=== PATIENT | female | born 1955 | race Caucasian/White ===

== ENCOUNTER → 2018-04-27 10:00 | Outpatient (CLI) | payer BC, SELFPAY ==
--- NOTE | 2018-04-27 10:04 | US_ITS ---
STUDY: RENAL ULTRASOUND - COMPLETE REASON FOR EXAM: Female, 62 years old. Chronic kidney disease stage III. TECHNIQUE: Ultrasound evaluation of the kidneys was performed with real-time and static contreras-scale imaging. COMPARISON: None. FINDINGS: RIGHT KIDNEY: 12.2 x 5.6 x 5.9 cm. Normal cortical thickness 1.7 cm. Slightly echogenic renal parenchyma. There is no mass, cyst or calculus. There is very slight ectasia of the collecting system. LEFT KIDNEY: 10.5 x 4.3 x 4.6 cm. Normal cortical thickness 1.1 cm. Mildly echogenic cortex. There is no mass or hydronephrosis. A 4 mm nonobstructing calyceal calculus is observed. There is a 13 mm simple cortical cyst. There is no hydronephrosis. BLADDER: Distended volume 274 mL, post void residual 35 mL, small postvoid residual. Urinary bladder is normal in caliber, contour and wall thickness. Wall thickness up to 3 mm. Bilateral ureteral jets are visible. Adjacent to the left kidney, what appears to be homogeneously hypoechoic splenule measures 4.4 x 4.2 x 3.4 cm. US/Kidney and Bladder IMPRESSION: The renal cortex is very slightly echogenic bilaterally without significant cortical thinning. No significant overall renal atrophy. Slight ectasia of the right renal pelvis, uncertain if this is consistent with hydronephrosis. The right ureteral jet is seen in the urinary bladder, therefore ureteral obstruction is not suspected. Benign left renal cyst. Small nonobstructing calyceal calculus. Electronically Signed: Fortunato Martin MD at 12:52 EST Tel , Service support ,
--- OUTSIDE RECORDS SUMMARY | 2018-06-29 06:35 | XMS RPT_ITS ---
:1955 Author Organization OHIP Care Team Providers Name Role Phone SCOTTY POLLACK) Referring Unavailable SCOTTY POLLACK) Attending Unavailable SCOTTY POLLACK) Referring Unavailable CRUZITO KUMAR (PA) Attending Unavailable MARY ELLEN MARTINES (BOARD CATCHER) Referring Unavailable SCOTTY POLLACK) Attending Unavailable CRUZITO KUMAR (PA) Attending Unavailable CRUZITO KUMAR (PA) Referring Unavailable CRUZITO KUMAR (PA) Attending Unavailable CRUZITO KUMAR (PA) Referring Unavailable SCOTTY POLLACK) Referring Unavailable MILLY FERRARI Attending Unavailable MILLY FERRARI Referring Unavailable MILLY FERRARI Referring Unavailable MARLON KWOK Referring Unavailable SCOTTY POLLACK) Referring Unavailable SCOTTY POLLACK) Attending Unavailable SCOTTY POLLACK) Referring Unavailable SCOTTY POLLACK) Referring Unavailable CRUZITO KUMAR (PA) Attending Unavailable CRUZITO KUMAR (PA) Referring Unavailable Srinivasa Taylor Attending Unavailable Srinivasa Taylor Referring Unavailable Antony Pollack Primary Care Unavailable PROBLEMS PROBLEMS DATE TYPE CONDITION / CODE ATTENDING STATUS SOURCE 01/13/2018 Active Encounter for NA Active [facility] general adult [facility] medical Repository examination without abnormal findings / Z00.00(ICD-10) 01/12/2018 Active 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 [facility] (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) drug [facility] therapy / Repository Z79.899(ICD-10) 12/26/2017 Active Obstructive sleep NA Active [facility] apnea (adult) [facility] (pediatric) / Repository G47.33(ICD-10) 12/13/2017 Active Encounter for NA Active [facility] screening for [facility] osteoporosis / Repository Z13.820(ICD-10) 12/13/2017 Active Encounter for NA Active [facility] screening [facility] mammogram for Repository malignant neoplasm of breast / Z12.31(ICD-10) 07/14/2017 Active Unknown / RANJEET, Active [facility] UNK(Unknown) SCOTTY [facility] () Repository 01/13/2017 Active Chronic kidney NA Active [facility] disease, stage 3 [facility] (moderate) / Repository N18.3(ICD-10) PROCEDURES PROCEDURES No Procedure Records FoundRESULTS RESULTS KIDNEY AND BLADDER Observed: 04/27/2018 Status: F Source: [place] 10:05 AM [facility] REPOSITORY [facility] Imaging Services [address] [place] [address] Kidney and Bladder MR#: [id number] Acct: [id number] Name: AVE ARSHAD ANN Rep #: [id number] : 1955 F 62 From: Fortunato Martin MD PCP: Antony Pollack MD Status: REG CLI Study: Kidney and Bladder Date of Exam: 04/27/18 Exam# [id number] Ordering Dr: Srinivasa Taylor MD STUDY: RENAL ULTRASOUND - COMPLETE REASON FOR EXAM: Female, 62 years old. Chronic kidney disease stage III. TECHNIQUE: Ultrasound evaluation of the kidneys was performed with real-time and static contreras-scale imaging. COMPARISON: None. FINDINGS: RIGHT KIDNEY: 12.2 x 5.6 x 5.9 cm. Normal cortical thickness 1.7 cm. Slightly echogenic renal parenchyma. There is no mass, cyst or calculus. There is very slight ectasia of the collecting system. LEFT KIDNEY: 10.5 x 4.3 x 4.6 cm. Normal cortical thickness 1.1 cm. Mildly echogenic cortex. There is no mass or hydronephrosis. A 4 mm nonobstructing calyceal calculus is observed. There is a 13 mm simple cortical cyst. There is no hydronephrosis. BLADDER: Distended volume 274 mL, post void residual 35 mL, small postvoid residual. Urinary bladder is normal in caliber, contour and wall thickness. Wall thickness up to 3 mm. Bilateral ureteral jets are visible. Adjacent to the left kidney, what appears to be homogeneously hypoechoic splenule measures 4.4 x 4.2 x 3.4 cm. US/Kidney and Bladder IMPRESSION: The renal cortex is very slightly echogenic bilaterally without significant cortical thinning. No significant overall renal atrophy. Slight ectasia of the right renal pelvis, uncertain if this is consistent with hydronephrosis. The right ureteral jet is seen in the urinary bladder, therefore ureteral obstruction is not suspected. Benign left renal cyst. Small nonobstructing calyceal calculus. Electronically Signed: Fortunato Martin MD at 12:52 EST Tel , Service support , CC: Srinivasa Taylor MD; Antony Pollack MD Lead Auditor: Signed PROGRESS Observed: 03/08/2018 Status: COMPLETED Source: [place] 3:53 PM [facility] [place] [facility] ID: [id number] Author: Cruzito Kumar (Pa) Service: (none) Author Type: Physician Car Sales Representative Type: Progress Notes Filed: 03/16/2018 1:00 PM Note Text: [facility] [place] PATIENT INFO: Lynne Pavithra 62 year old CHIEF COMPLAINT: UTI HPI: This is a 62 year old female, for UTI and Atrophic Vaginitis Follow Up, She is improving since being on Etrace Cream Her UTIs have been much reduced Her Renal Function and GFR has been recommended her to see a Hand Silvering Supervisor REVIEW OF SYSTEMS: General: General: Well developed, well nourished. No acute distress PHYSICAL EXAMINATION: General Appearance/ Constitutional: Well developed, well nourished, and in no apparent distress Results for orders placed or performed in visit on 03/02/18 BASIC METABOLIC PNL Result Value Ref Range Glucose 98 74 - 99 mg/dL BUN 19 7 - 21 mg/dL Creatinine 1.40 (H) 0.58 - 0.96 mg/dL Sodium 138 136 - 144 mmol/L Potassium 4.2 3.7 - 5.1 mmol/L Chloride 101 97 - 105 mmol/L CO2 22 22 - 30 mmol/L Anion Gap 15 9 - 18 mmol/L Calcium 9.1 8.5 - 10.2 mg/dL eGFR- 46 eGFR-All Other Races 38 . IMPRESSION > Atrophic Vaginitis > Continue Estrace Cream > Renal Function is poor , Consult with Nephrology soon - orders place > > 1 year Appt IVANNA Bryant MT, PA-C or sooner if needed IVANNA Jade MT, PA-C CNOV Observed: 03/08/2018 Status: COMPLETED Source: [place] 3:30 PM [facility] [place] Office Visit (UROLWS) AVE ARSHAD ([id number]) 1955 F Date Time Provider Department 03/08/18 3:30 PM CRUZITO KUMAR) UROLWS During your visit today, we recorded the following information about you: Pulse Blood pressure 64/minute 118/74 JM Naavrro 03/16/2018 1:00 PM Signed [facility] [place] PATIENT INFO: Ave Arshad 62 year old CHIEF COMPLAINT: UTI HPI: This is a 62 year old female, for UTI and Atrophic Vaginitis Follow Up, She is improving since being on Etrace Cream Her UTIs have been much reduced Her Renal Function and GFR has been recommended her to see a Hand Silvering Supervisor REVIEW OF SYSTEMS: General: General: Well developed, well nourished. No acute distress PHYSICAL EXAMINATION: General Appearance/ Constitutional: Well developed, well nourished, and in no apparent distress Results for orders placed or performed in visit on 03/02/18 BASIC METABOLIC PNL Result Value Ref Range Glucose 98 74 - 99 mg/dL BUN 19 7 - 21 mg/dL Creatinine 1.40 (H) 0.58 - 0.96 mg/dL Sodium 138 136 - 144 mmol/L Potassium 4.2 3.7 - 5.1 mmol/L Chloride 101 97 - 105 mmol/L CO2 22 22 - 30 mmol/L Anion Gap 15 9 - 18 mmol/L Calcium 9.1 8.5 - 10.2 mg/dL eGFR- 46 eGFR-All Other Races 38 . IMPRESSION > Atrophic Vaginitis > Continue Estrace Cream > Renal Function is poor , Consult with Nephrology soon - orders place > > 1 year Appt w/ IVANNA Stroud MT, ARIANA or sooner if needed IVANNA Jade MT, ARIANA Referring Provider: CRUZITO KUMAR (JM) [[id number]] Allergies As of Date: 03/08/2018 Noted Allergy Reaction SULFA (SULFONAMIDE ANTIBIOTICS) 11/18/2016 8 - GI Upset Date Reviewed: 03/08/2018 Reviewed by: Orlando Colon LPN - Fully Assessed Reason for Visit: Established Patient [175] Cmt: f/u Atrophic vaginitis Primary Visit Diagnosis:Atrophic vaginitis [N95.2] Other Visit Diagnoses:Persistent proteinuria [R80.1] CKD (chronic kidney disease), stage III (HCC) [N18.3] Order(s):CONSULT TO NEPHROL/HYPERTENS [19990410] Order #: [id number]: 1 Prescriptions as of 03/08/2018 Sig: AMLODIPINE 10 MG TABLET Take 1 tablet by mouth once d* CETIRIZINE 10 MG TABLET Take 1 tablet by mouth once d* CLONIDINE 0.3 MG/24 HR WEEKLY* APPLY 1 PATCH DIRECTED ONC* CPAP Autopap 7-10 cm nightly as di* ESTRADIOL 0.05 MG/24 HR WEEKL* Apply 1 Patch as directed onc* ESTRADIOL 0.01% (0.1 MG/GRAM)* Fingertip amount vaginally ev* FLUOXETINE 20 MG CAPSULE Take 1 capsule by mouth once * LANSOPRAZOLE 30 MG CAPSULE,DE* Take 1 capsule by mouth once * LOSARTAN 100 MG TABLET Take 1 tablet by mouth once d* MONTELUKAST 10 MG TABLET Take 1 tablet by mouth daily * AZO URINARY PAIN RELIEF ORAL Take by mouth as needed (blad* PRAVASTATIN 40 MG TABLET Take 1 tablet by mouth once d* RANITIDINE 150 MG TABLET Take 1 tablet by mouth twice * Problem List As Of Date 03/08/2018 Noted Resolved Anxiety [F41.9] Hyperlipidemia [E78.5] GERD (gastroesophageal reflux disease) [K21.9] CKD (chronic kidney disease), stage III [N18.3] Sleep apnea [G47.30] INVALID FOR* More... Hypertension [I10] More... Pheochromocytoma [D35.00] More... Encounter Status:Closed by CRUZITO KUMAR PA-C on 03/16/18 URINALYSIS WITH Collected: 03/02/2018 Status: F Source: [facility] 8:[address] [facility] [place] REPOSITORY TYPE CODE TESTS RESULT OUT OF RANGE REFERENCE UNITS LAB UCOL Yellow Color Yellow LAB [facility] Clear Clarity Abnormal Cloudy Alert LAB UGLUC Negative mg/dL Glucose, Urine Negative LAB UBIL Negative Bilirubin, Urine Negative LAB UKET Negative Ketones, Urine Negative LAB USPG 1.005-1.030 Specific Rule, Ur 1.012 LAB UHGB Negative Abnormal Hemoglobin/Blood, 3+ Alert Ur LAB UPH 4.5-8.0 pH 7.0 LAB UPROT Negative mg/dL Protein, Abnormal Urine >=300 Alert LAB UUROB Normal Urobilinogen Normal LAB UNITR Negative Nitrites Negative LAB ULKEST Negative Leukest Negative LAB UCOM Comments SEE COMMENT Result Comment: N/A LAB UMCOM Urine SEE Leda Comment COMMENT Result Comment: N/A LAB UWBC 0-5 /HPF Abnormal Alert WBC 6-10 LAB URBC 0-3 /HPF Abnormal Alert RBC >25 LAB UCAST 0 /LPF Abnormal Alert Cast SEE COMMENT Result Comment: 1-3 Hyaline Cast 1-3 Granular Casts LAB UEPI /HPF Epithelial SEE Cells COMMENT Result Comment: Few Squamous Epithelial Cells Performed By: #### UAWMIC #### [facility] [address] [address] BASIC METABOLIC PANL Collected: 03/02/2018 Status: F Source: [place] 8:30 AM [facility] [place] TYPE CODE TESTS RESULT OUT OF REFERENCE UNITS RANGE LAB GLU 74-99 mg/dL Glucose 98 Result Comment: The [place] Diabetes Association (ADA) provides guidance for cutoff values for fasting glucose and random glucose. The ADA defines fasting as no caloric intake for at least 8 hours. Fas ting plasma glucose results between 100 to 125 mg/dL indicate increased risk for diabetes (prediabetes). Fasting plasma glucose results greater than or equal to 126 mg/dL meet the criteria for diagnosis of diabetes. In the absence of unequivocal hyperglycemia, results should be confirmed by repeat testing. In a patient with classic symptoms of hyperglycemia or hyperglycemic crisis, random plasma glucose results greater than or equal to 200 mg/dL meet the criteria for diagnosis of diabetes. Reference: Standards of Medical Care in Diabetes 2016, [place] [employer] Association. Diabetes Care. 2016.39(Suppl 1). LAB BUN 7-21 mg/dL BUN 19 LAB CRET 0.58-0.96 mg/dL Creatinine High 1.40 LAB NA 136-144 mmol/L Sodium 138 LAB K 3.7-5.1 mmol/L Potassium 4.2 LAB CL 97-105 mmol/L Chloride 101 LAB CO2 22-30 mmol/L CO2 22 LAB AGAP 9-18 mmol/L Anion Gap 15 LAB CA 8.5-10.2 mg/dL Calcium, Total 9.1 LAB GFRAA eGFR- Amer. 46 LAB GFRNAA . eGFR-All Other Races 38 Result Comment: eGFR (Estimated GFR) Units of measure: mL/min/1.73 meters squared eGFR is derived from the reexpressed MDRD Study equation using the following parameters: serum creatinine, age, gender and race. The creatinine assay has been calibrated to be traceable to IDMS. An eGFR <60 mL/min/1.73m2 for >3 months is consistent with chronic kidney disease. Refer to KDOQI guidelines for clinical interpretation. In patients with unstable renal function, e.g. those with acute kidney injury, the eGFR may not accurately reflect actual GFR. Performed By: #### BMP #### [facility] [address] [place], [place] [address] COMP METABOLIC PANEL Collected: 01/13/2018 Status: F Source: [place] 2:[address] [facility] REPOSITORY TYPE CODE TESTS RESULT OUT OF REFERENCE UNITS RANGE LAB TP 6.3-8.0 g/dL Protein, Total 6.3 LAB ALB 3.9-4.9 g/dL Albumin 4.1 LAB CA 8.5-10.2 mg/dL Calcium, Total 9.6 LAB TBIL 0.2-1.3 mg/dL Bilirubin, Total 0.2 LAB ALKP 34-123 U/L Alkaline Phosphatase 79 LAB AST 13-35 U/L AST High 37 LAB GLU 74-99 mg/dL Glucose High 121 Result Comment: The [place] Diabetes Association (ADA) provides guidance for cutoff values for fasting glucose and random glucose. The ADA defines fasting as no caloric intake for at least 8 hours. Fas ting plasma glucose results between 100 to 125 mg/dL indicate increased risk for diabetes (prediabetes). Fasting plasma glucose results greater than or equal to 126 mg/dL meet the criteria for diagnosis of diabetes. In the absence of unequivocal hyperglycemia, results should be confirmed by repeat testing. In a patient with classic symptoms of hyperglycemia or hyperglycemic crisis, random plasma glucose results greater than or equal to 200 mg/dL meet the criteria for diagnosis of diabetes. Reference: Standards of Medical Care in Diabetes 2016, [place] [employer]. Diabetes Care. 2016.39(Suppl 1). LAB BUN 7-21 mg/dL BUN High 29 LAB CRET 0.58-0.96 mg/dL Creatinine High 1.52 LAB NA 136-144 mmol/L Sodium 138 LAB K 3.7-5.1 mmol/L Potassium 4.5 LAB CL 97-105 mmol/L Chloride 98 LAB CO2 22-30 mmol/L CO2 26 LAB AGAP 9-18 mmol/L Anion Gap 14 LAB ALT 7-38 U/L ALT 34 LAB GFRAA eGFR- Amer. 42 LAB GFRNAA . eGFR-All Other Races 34 Result Comment: eGFR (Estimated GFR) Units of measure: mL/min/1.73 meters squared eGFR is derived from the reexpressed MDRD Study equation using the following parameters: serum creatinine, age, gender and race. The creatinine assay has been calibrated to be traceable to IDMS. An eGFR <60 mL/min/1.73m2 for >3 months is consistent with chronic kidney disease. Refer to KDOQI guidelines for clinical interpretation. In patients with unstable renal function, e.g. those with acute kidney injury, the eGFR may not accurately reflect actual GFR. Performed By: #### CMP, TSH #### [facility] [address] [place], [place] [address] TSH Collected: 01/13/2018 Status: F Source: [place] 2:[address] [facility] REPOSITORY TYPE CODE TESTS RESULT OUT OF RANGE REFERENCE UNITS LAB TSH 0.400-5.500 uU/mL TSH 2.100 Performed By: #### CMP, TSH #### [facility] [address] [place], [place] [address] PROGRESS Observed: 01/13/2018 Status: COMPLETED Source: [place] 2:[address] [facility] [place] REPOSITORY [facility]NO ID: [id number] Author: Scotty Hodges) Ranjeet Service: (none) Author Type: Physician Type: Progress Notes Filed: 01/13/2018 9:42 PM Note Text: Chief Complaint Patient presents with: Physical Imm/Inj: Flu Vaccine HPI Ave Arshad is a 62 year old female who presents here today for annual physical. Had follow up appointment with JM Kumar for recurrent UTI and started her on estrogen cream for atrophic vaginitis and probiotics to promote good bowel regimen. Has had 2 or 3 UTIs since starting this regimen treated with macrobid. Last UTI was about 2 months ago. Told it would take about 6 months for the regimen to fully take effect. Following up with Dr. Farmer for MARLA and finger rubbing at night. Ordered PSG and EEG which is pending. Using CPAP at night, still snoring and breathing through her mouth. Does not feel well rested upon awakening. GERD: well controlled on prevacid Anxiety: well controlled on Prozac. Denies panic symptoms or side effects. Started weight watchers about 4 weeks ago and on their scale is down about 13 lbs, our scale today shows 8 lb weight loss. Congratulated her on this progress, not at goal weight yet. Reviewed recent labs. Due for influenza vaccine today. Past medical history, appointments, medications, allergies reviewed. Previous Medical History PAST MEDICAL HISTORY Diagnosis Date - Anxiety - CKD (chronic kidney disease), stage III (HCC) - GERD (gastroesophageal reflux disease) - Hearing loss of both ears hearing aids - History of endometriosis - History of splenectomy pneumovax every 5 years - Hyperlipidemia - Hypertension - Pheochromocytoma s/p adrenalectomy left - Recurrent UTI Cruzito Kumar - Sleep apnea 09/20/2014 on CPAP, Darian - Vertigo Previous Surgical History PAST SURGICAL HISTORY Procedure Laterality Date - ADRENALECTOMY Left - BLEPHAROPLASTY, UPPER EYELID Bilateral 04/2017 - SECTION HX - COLONOSCOPY x2 last 2008 and was normal - HYSTERECTOMY HX fibroids - PAST SURGICAL HISTORY OF infertility surgery - SALPINGECTOMY OR OOPHERECTOMY-ECTOPIC - SPLENECTOMY,GASTROESOPHAGEAL DEVASCULARIZ Family History FAMILY HISTORY Problem Relation Age of Onset - other (Endometrial Stromal Sarcoma) Mother 66 - other (Multiple Myloma) Mother 70 - other (Renal Cell sarcoma) Mother 76 - Breast Cancer Paternal Grandmother - Heart Paternal Grandfather Patient Allergies ALLERGIES Allergen Reactions - Sulfa (Sulfonamide * GI Upset Current Medications Current Outpatient Prescriptions on File Prior to Visit: FLUoxetine (PROZAC) 20 mg capsule Take 1 capsule by mouth once daily. estradiol (CLIMARA) 0.05 mg/24 hr Apply 1 Patch as directed once each week. amLODIPine (NORVASC) 10 mg tablet Take 1 tablet by mouth once daily. losartan (COZAAR) 100 mg tablet TAKE 1 TABLET BY MOUTH ONCE DAILY. pravastatin (PRAVACHOL) 40 mg tablet Take 1 tablet by mouth once daily. lansoprazole (PREVACID) 30 mg capsule Take 1 capsule by mouth once daily. PHENAZOPYRIDINE HCL (AZO URINARY PAIN RELIEF ORAL) Take by mouth as needed (bladder pain). estradiol (ESTRACE) 0.01 % (0.1 mg/gram) vaginal cream Fingertip amount vaginally every other night cloNIDine TTS (CATAPRES-TTS) 0.3 mg/24 hr Apply 1 Patch as directed once each week. oxybutynin ER (DITROPAN XL) 10 mg 24 hr tablet Take 1 tablet by mouth once daily. (Patient not taking: Reported on 01/13/2018 ) albuterol HFA (VENTOLIN HFA) 90 mcg/actuation inhaler Inhale 2 Puffs as instructed every 4 hours as needed. (Patient not taking: Reported on 01/13/2018 ) cetirizine (ZYRTEC) 10 mg tablet Take 1 tablet by mouth once daily. (Patient not taking: Reported on 01/13/2018 ) mometasone (NASONEX) 50 mcg/actuation nasal spray Use 2 Sprays in the nose once daily. Rinse mouth after use. (Patient not taking: Reported on 01/13/2018 ) montelukast (SINGULAIR) 10 mg tablet Take 1 tablet by mouth daily at bedtime. No current facility-administered medications on file prior to visit. Social History Social History Marital status: Spouse name: Tori Years of education: Number of children: 1 Social History Main Topics Smoking status: Never Smoker Smokeless tobacco: Never Used Alcohol use: Yes Comment: rare Drug use: No Sexual activity: Yes Partners with: Male control/protection: Surgical Review of Symptoms REVIEW OF SYSTEMS GENERAL: No unintentional weight loss, malaise or fevers RESPIRATORY: Negative for cough, hemoptysis, wheezing, COPD, dyspnea or shortness of breath CARDIOVASCULAR: Negative for chest pain, leg swelling, hypertension, CHF or palpitations GI: No nausea, vomiting, or diarrhea SKIN: Negative for lesions, rash, and itching EXAM: BP 136/86 Pulse 76 Temp 36.4 ?C (97.5 ?F) (Tympanic) Resp 12 Ht 166.4 cm (5' 5.5) Wt 89.8 kg (198 lb) BMI 32.45 kg/m? General Appearance: Well appearing, alert, in no acute distress, well-hydrated, well nourished.. Skin: Skin color, texture, turgor normal, no suspicious rashes or lesions. Head: Normocephalic, no masses, lesions, tenderness or abnormalities. Eyes: Anicteric sclera. Pupils are equally round and reactive to light. Extraocular movements are intact. . Ears: External ears normal, canals clear. Oropharynx: Lips, mucosa, and tongue normal, teeth and gums normal, oropharynx normal. Neck: Supple, no adenopathy; thyroid symmetric, normal size, no bruits. Lungs: Lungs clear to auscultation. No wheezing, rhonchi, rales. Heart: RRR without murmur, gallop, or rubs. No ectopy. Abdomen: Normal abdominal exam, Abdomen soft, non-tender. Bowel sounds normal. No masses, organomegaly. Extremities: No deformities, edema, skin discoloration, clubbing or cyanosis. Good capillary refill. . Health Maintenance List BP CONTROLLED (<130/80) due on 06/30/1971 DTAP,TDAP,TD(1 - Tdap) due on 03/10/2012 INFLUENZA(1) due on 12/04/2017 HEMOGLOBIN/HEMATOCRIT due on 01/26/2018 SERUM CREATININE due on 07/13/2018 ANNUAL PCP TEAM CHRONIC DISEASE VISIT due on 08/19/2018 MAMMOGRAM due on 12/13/2018 COLORECTAL CANCER SCREENING,SEE MODIFIER due on 05/30/2019 DIABETES SCREEN due on 07/13/2020 LIPID SCREEN due on 01/12/2023 HEPATITIS C SCREENING Completed Data reviewed Component Latest Ref Rng AND Units 01/06/2017 01/26/2017 07/13/2017 01/12/2018 WBC 3.70 - 11.00 k/uL 8.50 10.07 RBC 3.90 - 5.20 m/uL 4.25 4.28 Hemoglobin 11.5 - 15.5 g/dL 12.8 13.2 Hematocrit 36.0 - 46.0 % 41.1 40.5 MCV 80.0 - 100.0 fL 96.7 94.6 MCH 26.0 - 34.0 pG 30.1 30.8 MCHC 30.5 - 36.0 g/dL 31.1 32.6 RDW-CV 11.5 - 15.0 % 13.5 13.5 Platelet Count 150 - 400 k/uL 409 (H) 397 MPV 9.0 - 12.7 fL 12.1 11.9 Neut% % 66.3 64.7 Abs Neut (ANC) 1.45 - 7.50 k/uL 5.63 6.51 Lymph% % 24.2 23.5 Abs Lymph 1.00 - 4.00 k/uL 2.06 2.37 Webb% % 7.1 9.7 Abs Webb <0.87 k/uL 0.60 0.98 (H) Eosin% % 1.6 1.4 Abs Eosin <0.46 k/uL 0.14 0.14 Baso% % 0.8 0.7 Abs Baso <0.11 k/uL 0.07 0.07 Nucleated Reds 0 /100 WBC 0.0 0.0 Absolute nRBC <0.01 k/uL 0.00 <0.01 Diff Type Auto Diff Auto Diff Protein, Total 6.3 - 8.0 g/dL 7.3 7.2 6.7 Albumin 3.9 - 4.9 g/dL 4.0 4.2 3.4 (L) Calcium 8.5 - 10.2 mg/dL 9.7 9.3 9.0 Bilirubin, Total 0.2 - 1.3 mg/dL 0.3 0.2 0.3 Alkaline Phosphatase 32 - 117 U/L 49 57 78 AST 13 - 35 U/L 30 24 26 Glucose 74 - 99 mg/dL 79 82 108 (H) BUN 7 - 21 mg/dL 23 (H) 16 15 Creatinine 0.58 - 0.96 mg/dL 1.12 (H) 1.01 (H) 1.09 (H) Sodium 136 - 144 mmol/L 138 139 141 Potassium 3.7 - 5.1 mmol/L 4.1 4.4 4.1 Chloride 97 - 105 mmol/L 99 101 102 CO2 22 - 30 mmol/L 23 24 25 Anion Gap 9 - 18 mmol/L 16 14 14 ALT 7 - 38 U/L 17 23 22 eGFR- 59 >60 >60 eGFR-All Other Races . 49 55 51 Triglyceride <150 mg/dL 141 185 (H) Cholesterol, Total <200 mg/dL 156 163 HDL Cholesterol >39 mg/dL 45 (L) 45 VLDL Cholesterol <30 mg/dL 28 37 (H) LDL Cholesterol <100 mg/dL 83 81 Fasting Time hrs 17 10 TC:HDL Ratio <5.10 3.47 3.62 LDL:HDL Ratio <2.54 1.84 1.80 Non HDL Cholesterol <130 mg/dL 111 118 TSH 0.400 - 5.500 uU/mL 2.400 Hep C Antibody IA Negative Negative ASSESSMENT/PLAN: 1. Annual physical exam - ICD9: V70.0, ICD10: Z00.00 (primary diagnosis) - Recommended calcium intake with supplements or by diet (goal of 5391-7806 mg/day - Recommended regular aerobic exercise. - Discussed need and benefit for weight loss. BMI 32.45 kg/(m2) - Check CMP and TSH - Vaccination(s) recommended today of Influenza - Follow up for annual exam in one year. - COMP METABOLIC PANEL - TSH BLD 2. CKD (chronic kidney disease), stage III (HCC) - ICD9: 585.3, ICD10: N18.3 Recheck CMP. Push PO fluids, avoid NSAIDs, low sodium diet. - COMP METABOLIC PANEL 3. Obstructive sleep apnea syndrome - ICD9: 327.23, ICD10: G47.33 Continue CPAP. Will await recommendations from Dr. Farmer's office. 4. Hyperlipidemia, unspecified hyperlipidemia type - ICD9: 272.4, ICD10: E78.5 - suboptimal control - Continue current medication. - Encouraged following a low fat, low cholesterol diet. - Discussed the benefits of regular aerobic exercise and weight loss. 5. Need for vaccination - ICD9: V05.9, ICD10: Z23 - INFLUENZA VACCINE QUADRIVALENT AGE 3 YRS PLUS + IM - TDAP VACCINE AGE 7+ IM 6. Essential hypertension - ICD9: 401.9, ICD10: I10 - good control - Continue current medication(s) - Encouraged dietary sodium restriction/DASH diet - Recommended regular aerobic exercise. - Reviewed risks of HTN and principles of treatment - Goal of BP <140/90 7. Gastroesophageal reflux disease, esophagitis presence not specified - ICD9: 530.81, ICD10: K21.9 - Continue treatment with Prevacid 30 mg QD 8. Anxiety - ICD9: 300.00, ICD10: F41.9 Well controlled on prozac. Scotty Pollack MD PROGRESS Observed: 01/13/2018 Status: COMPLETED Source: [place] 2:03 PM [facility] [place] O ID: [id number] Author: Zac Borden Ma Service: (none) Author Type: (none) Type: Progress Notes Filed: 01/13/2018 9:42 PM Note Text: 62 year old female here for INACTIVATED INFLUENZA VACCINE. 2221-0257 Season Patient is identified by name and date of : Yes [] CONTRAINDICATIONS color enhanced section Age less than 6 months? No Allergy to eggs, chicken, chicken feathers, or chicken dander? No Allergy to thimerosal (a preservative) or formaldehyde, gelatin? No History of severe reaction to any vaccine component or a previous dose of influenza vaccination? No History of Guillain-Frederick Syndrome within 6 weeks after a previous influenza vaccine? No Patient is not moderately or severely ill? No Current temperature greater or equal to 100.4F? No History of Bone Marrow Transplant prior 6 months or solid organ transplant in the past 3 months ? No History of fainting after a prior injection or medical procedure? No- ? If patient has fainted in the past, the CDC recommends sitting or lying down for 15 minutes after the vaccination. [] VERIFICATION color enhanced section Was the answer Yes for any of the above contraindications? No contraindications present. Acceptable to proceed with vaccine. Patient/guardian agrees the above answers are true to the best of their knowledge? Yes Flu vaccine information sheet given? Yes See immunization activity in [facility] for details of immunizations adminstered today. Patient age: [age] year old For The Flu Season 6-35 months old: Fluzone 0.25 ml - IM (Preservative Free) 3 years of age: Fluzone 0.5 ml - IM (Preservative Free) 3 years and older: Fluzone 0.5 ml- IM-(with Preservatives) 65+ years old: 2-49 years old Fluzone High-Dose 0.5 ml - IM (Preservative Free) FLUMIST- intranasal REMEMBER: If patient is less than 9 years of age and this is the first vaccine of Influenza to be received in any flu season, they should receive a second dose in one months time. CNOV Observed: 01/13/2018 Status: COMPLETED Source: [place] 2:00 PM [facility] [place] [facility] ARSH[facility] ([id number]) 1955 F Date Time Provider Department 01/13/18 2:00 PM SCOTTY POLLACK) [facility] During your visit today, we recorded the following information about you: Temperature Pulse Respiration Blood pressure 97.5 degrees 76/minute 12/minute 128/88 Weight Height 89.8 kg 1.664 m Zac Michi [place] 01/13/2018 9:42 PM Signed 62 year old female here for INACTIVATED INFLUENZA VACCINE. Season Patient is identified by name and date of : Yes [] CONTRAINDICATIONS color enhanced section Age less than 6 months? No Allergy to eggs, chicken, chicken feathers, or chicken dander? No Allergy to thimerosal (a preservative) or formaldehyde, gelatin? No History of severe reaction to any vaccine component or a previous dose of influenza vaccination? No History of Guillain-Frederick Syndrome within 6 weeks after a previous influenza vaccine? No Patient is not moderately or severely ill? No Current temperature greater or equal to 100.4F? No History of Bone Marrow Transplant prior 6 months or solid organ transplant in the past 3 months ? No History of fainting after a prior injection or medical procedure? No- ? If patient has fainted in the past, the CDC recommends sitting or lying down for 15 minutes after the vaccination. [] VERIFICATION color enhanced section Was the answer Yes for any of the above contraindications? No contraindications present. Acceptable to proceed with vaccine. Patient/guardian agrees the above answers are true to the best of their knowledge? Yes Flu vaccine information sheet given? Yes See immunization activity in [facility] for details of immunizations adminstered today. Patient age: [age] year old For The 4127-0475 Flu Season 6-35 months old: Fluzone 0.25 ml - IM (Preservative Free) 3 years of age: Fluzone 0.5 ml - IM (Preservative Free) 3 years and older: Fluzone 0.5 ml- IM-(with Preservatives) 65+ years old: 2-49 years old Fluzone High-Dose 0.5 ml - IM (Preservative Free) FLUMIST- intranasal REMEMBER: If patient is less than 9 years of age and this is the first vaccine of Influenza to be received in any flu season, they should receive a second dose in one months time. Scotty Pollack MD 01/13/2018 9:42 PM Signed Chief Complaint Patient presents with: Physical Imm/Inj: Flu Vaccine HPI Ave Arshad is a 62 year old female who presents here today for annual physical. Had follow up appointment with JM Kumar for recurrent UTI and started her on estrogen cream for atrophic vaginitis and probiotics to promote good bowel regimen. Has had 2 or 3 UTIs since starting this regimen treated with macrobid. Last UTI was about 2 months ago. Told it would take about 6 months for the regimen to fully take effect. Following up with Dr. Farmer for MARLA and finger rubbing at night. Ordered PSG and EEG which is pending. Using CPAP at night, still snoring and breathing through her mouth. Does not feel well rested upon awakening. GERD: well controlled on prevacid Anxiety: well controlled on Prozac. Denies panic symptoms or side effects. Started weight watchers about 4 weeks ago and on their scale is down about 13 lbs, our scale today shows 8 lb weight loss. Congratulated her on this progress, not at goal weight yet. Reviewed recent labs. Due for influenza vaccine today. Past medical history, appointments, medications, allergies reviewed. Previous Medical History PAST MEDICAL HISTORY Diagnosis Date - Anxiety - CKD (chronic kidney disease), stage III (HCC) - GERD (gastroesophageal reflux disease) - Hearing loss of both ears hearing aids - History of endometriosis - History of splenectomy pneumovax every 5 years - Hyperlipidemia - Hypertension - Pheochromocytoma s/p adrenalectomy left - Recurrent UTI Cruzito Kumar - Sleep apnea 09/20/2014 on CPAP, Azucenailia - Vertigo Previous Surgical History PAST SURGICAL HISTORY Procedure Laterality Date - ADRENALECTOMY Left - BLEPHAROPLASTY, UPPER EYELID Bilateral 04/2017 - SECTION HX - COLONOSCOPY x2 last 2008 and was normal - HYSTERECTOMY HX fibroids - PAST SURGICAL HISTORY OF infertility surgery - SALPINGECTOMY OR OOPHERECTOMY-ECTOPIC - SPLENECTOMY,GASTROESOPHAGEAL DEVASCULARIZ Family History FAMILY HISTORY Problem Relation Age of Onset - other (Endometrial Stromal Sarcoma) Mother 66 - other (Multiple Myloma) Mother 70 - other (Renal Cell sarcoma) Mother 76 - Breast Cancer Paternal Grandmother - Heart Paternal Grandfather Patient Allergies ALLERGIES Allergen Reactions - Sulfa (Sulfonamide * GI Upset Current Medications Current Outpatient Prescriptions on File Prior to Visit: FLUoxetine (PROZAC) 20 mg capsule Take 1 capsule by mouth once daily. estradiol (CLIMARA) 0.05 mg/24 hr Apply 1 Patch as directed once each week. amLODIPine (NORVASC) 10 mg tablet Take 1 tablet by mouth once daily. losartan (COZAAR) 100 mg tablet TAKE 1 TABLET BY MOUTH ONCE DAILY. pravastatin (PRAVACHOL) 40 mg tablet Take 1 tablet by mouth once daily. lansoprazole (PREVACID) 30 mg capsule Take 1 capsule by mouth once daily. PHENAZOPYRIDINE HCL (AZO URINARY PAIN RELIEF ORAL) Take by mouth as needed (bladder pain). estradiol (ESTRACE) 0.01 % (0.1 mg/gram) vaginal cream Fingertip amount vaginally every other night cloNIDine TTS (CATAPRES-TTS) 0.3 mg/24 hr Apply 1 Patch as directed once each week. oxybutynin ER (DITROPAN XL) 10 mg 24 hr tablet Take 1 tablet by mouth once daily. (Patient not taking: Reported on 01/13/2018 ) albuterol HFA (VENTOLIN HFA) 90 mcg/actuation inhaler Inhale 2 Puffs as instructed every 4 hours as needed. (Patient not taking: Reported on 01/13/2018 ) cetirizine (ZYRTEC) 10 mg tablet Take 1 tablet by mouth once daily. (Patient not taking: Reported on 01/13/2018 ) mometasone (NASONEX) 50 mcg/actuation nasal spray Use 2 Sprays in the nose once daily. Rinse mouth after use. (Patient not taking: Reported on 01/13/2018 ) montelukast (SINGULAIR) 10 mg tablet Take 1 tablet by mouth daily at bedtime. No current facility-administered medications on file prior to visit. Social History Social History Marital status: Spouse name: Tori Years of education: Number of children: 1 Social History Main Topics Smoking status: Never Smoker Smokeless tobacco: Never Used Alcohol use: Yes Comment: rare Drug use: No Sexual activity: Yes Partners with: Male control/protection: Surgical Review of Symptoms REVIEW OF SYSTEMS GENERAL: No unintentional weight loss, malaise or fevers RESPIRATORY: Negative for cough, hemoptysis, wheezing, COPD, dyspnea or shortness of breath CARDIOVASCULAR: Negative for chest pain, leg swelling, hypertension, CHF or palpitations GI: No nausea, vomiting, or diarrhea SKIN: Negative for lesions, rash, and itching EXAM: BP 136/86 Pulse 76 Temp 36.4 ?C (97.5 ?F) (Tympanic) Resp 12 Ht 166.4 cm (5' 5.5) Wt 89.8 kg (198 lb) BMI 32.45 kg/m? General Appearance: Well appearing, alert, in no acute distress, well-hydrated, well nourished.. Skin: Skin color, texture, turgor normal, no suspicious rashes or lesions. Head: Normocephalic, no masses, lesions, tenderness or abnormalities. Eyes: Anicteric sclera. Pupils are equally round and reactive to light. Extraocular movements are intact. . Ears: External ears normal, canals clear. Oropharynx: Lips, mucosa, and tongue normal, teeth and gums normal, oropharynx normal. Neck: Supple, no adenopathy; thyroid symmetric, normal size, no bruits. Lungs: Lungs clear to auscultation. No wheezing, rhonchi, rales. Heart: RRR without murmur, gallop, or rubs. No ectopy. Abdomen: Normal abdominal exam, Abdomen soft, non-tender. Bowel sounds normal. No masses, organomegaly. Extremities: No deformities, edema, skin discoloration, clubbing or cyanosis. Good capillary refill. . Health Maintenance List BP CONTROLLED (<130/80) due on 06/30/1971 DTAP,TDAP,TD(1 - Tdap) due on 03/10/2012 INFLUENZA(1) due on 12/04/2017 HEMOGLOBIN/HEMATOCRIT due on 01/26/2018 SERUM CREATININE due on 07/13/2018 ANNUAL PCP TEAM CHRONIC DISEASE VISIT due on 08/19/2018 MAMMOGRAM due on 12/13/2018 COLORECTAL CANCER SCREENING,SEE MODIFIER due on 05/30/2019 DIABETES SCREEN due on 07/13/2020 LIPID SCREEN due on 01/12/2023 HEPATITIS C SCREENING Completed Data reviewed Component Latest Ref Rng AND Units 01/06/2017 01/26/2017 07/13/2017 01/12/2018 WBC 3.70 - 11.00 k/uL 8.50 10.07 RBC 3.90 - 5.20 m/uL 4.25 4.28 Hemoglobin 11.5 - 15.5 g/dL 12.8 13.2 Hematocrit 36.0 - 46.0 % 41.1 40.5 MCV 80.0 - 100.0 fL 96.7 94.6 MCH 26.0 - 34.0 pG 30.1 30.8 MCHC 30.5 - 36.0 g/dL 31.1 32.6 RDW-CV 11.5 - 15.0 % 13.5 13.5 Platelet Count 150 - 400 k/uL 409 (H) 397 MPV 9.0 - 12.7 fL 12.1 11.9 Neut% % 66.3 64.7 Abs Neut (ANC) 1.45 - 7.50 k/uL 5.63 6.51 Lymph% % 24.2 23.5 Abs Lymph 1.00 - 4.00 k/uL 2.06 2.37 Webb% % 7.1 9.7 Abs Webb <0.87 k/uL 0.60 0.98 (H) Eosin% % 1.6 1.4 Abs Eosin <0.46 k/uL 0.14 0.14 Baso% % 0.8 0.7 Abs Baso <0.11 k/uL 0.07 0.07 Nucleated Reds 0 /100 WBC 0.0 0.0 Absolute nRBC <0.01 k/uL 0.00 <0.01 Diff Type Auto Diff Auto Diff Protein, Total 6.3 - 8.0 g/dL 7.3 7.2 6.7 Albumin 3.9 - 4.9 g/dL 4.0 4.2 3.4 (L) Calcium 8.5 - 10.2 mg/dL 9.7 9.3 9.0 Bilirubin, Total 0.2 - 1.3 mg/dL 0.3 0.2 0.3 Alkaline Phosphatase 32 - 117 U/L 49 57 78 AST 13 - 35 U/L 30 24 26 Glucose 74 - 99 mg/dL 79 82 108 (H) BUN 7 - 21 mg/dL 23 (H) 16 15 Creatinine 0.58 - 0.96 mg/dL 1.12 (H) 1.01 (H) 1.09 (H) Sodium 136 - 144 mmol/L 138 139 141 Potassium 3.7 - 5.1 mmol/L 4.1 4.4 4.1 Chloride 97 - 105 mmol/L 99 101 102 CO2 22 - 30 mmol/L 23 24 25 Anion Gap 9 - 18 mmol/L 16 14 14 ALT 7 - 38 U/L 17 23 22 eGFR- 59 >60 >60 eGFR-All Other Races . 49 55 51 Triglyceride <150 mg/dL 141 185 (H) Cholesterol, Total <200 mg/dL 156 163 HDL Cholesterol >39 mg/dL 45 (L) 45 VLDL Cholesterol <30 mg/dL 28 37 (H) LDL Cholesterol <100 mg/dL 83 81 Fasting Time hrs 17 10 TC:HDL Ratio <5.10 3.47 3.62 LDL:HDL Ratio <2.54 1.84 1.80 Non HDL Cholesterol <130 mg/dL 111 118 TSH 0.400 - 5.500 uU/mL 2.400 Hep C Antibody IA Negative Negative ASSESSMENT/PLAN: 1. Annual physical exam - ICD9: V70.0, ICD10: Z00.00 (primary diagnosis) - Recommended calcium intake with supplements or by diet (goal of 6636-7980 mg/day - Recommended regular aerobic exercise. - Discussed need and benefit for weight loss. BMI 32.45 kg/(m2) - Check CMP and TSH - Vaccination(s) recommended today of Influenza - Follow up for annual exam in one year. - COMP METABOLIC PANEL - TSH BLD 2. CKD (chronic kidney disease), stage III (HCC) - ICD9: 585.3, ICD10: N18.3 Recheck CMP. Push PO fluids, avoid NSAIDs, low sodium diet. - COMP METABOLIC PANEL 3. Obstructive sleep apnea syndrome - ICD9: 327.23, ICD10: G47.33 Continue CPAP. Will await recommendations from Dr. Farmer's office. 4. Hyperlipidemia, unspecified hyperlipidemia type - ICD9: 272.4, ICD10: E78.5 - suboptimal control - Continue current medication. - Encouraged following a low fat, low cholesterol diet. - Discussed the benefits of regular aerobic exercise and weight loss. 5. Need for vaccination - ICD9: V05.9, ICD10: Z23 - INFLUENZA VACCINE QUADRIVALENT AGE 3 YRS PLUS + IM - TDAP VACCINE AGE 7+ IM 6. Essential hypertension - ICD9: 401.9, ICD10: I10 - good control - Continue current medication(s) - Encouraged dietary sodium restriction/DASH diet - Recommended regular aerobic exercise. - Reviewed risks of HTN and principles of treatment - Goal of BP <140/90 7. Gastroesophageal reflux disease, esophagitis presence not specified - ICD9: 530.81, ICD10: K21.9 - Continue treatment with Prevacid 30 mg QD 8. Anxiety - ICD9: 300.00, ICD10: F41.9 Well controlled on prozac. Scotty Pollack MD Referring Provider: SELF [200] Allergies As of Date: 01/13/2018 Noted Allergy Reaction SULFA (SULFONAMIDE ANTIBIOTICS) 11/18/2016 8 - GI Upset Date Reviewed: 01/13/2018 Reviewed by: Zac Borden Ma - Fully Assessed Reason for Visit: Physical [83] Imm/Inj [58] Cmt: Flu Vaccine Reason For Visit History Recorded Primary Visit Diagnosis:Annual physical exam [Z00.00] Other Visit Diagnoses:CKD (chronic kidney disease), stage III (HCC) [N18.3] Obstructive sleep apnea syndrome [G47.33] Hyperlipidemia, unspecified hyperlipidemia type [E78.5] Need for vaccination [Z23] Essential hypertension [I10] Gastroesophageal reflux disease, esophagitis presence not specified [K21.9] Anxiety [F41.9] Order(s):INFLUENZA VACCINE QUADRIVALENT AGE 3 YRS PLUS + IM [[id number]] Order #: [id number] TDAP VACCINE AGE 7+ IM [[id number]] Order #: [id number] COMP METABOLIC PANEL [SQCMP] Order #: [id number] FUTURE TSH BLD [SQTSH] Order #: [id number] FUTURE Prescriptions as of 01/13/2018 Sig: CPAP Autopap 7-10 cm nightly as di* FLUOXETINE 20 MG CAPSULE Take 1 capsule by mouth once * ESTRADIOL 0.05 MG/24 HR WEEKL* Apply 1 Patch as directed onc* AMLODIPINE 10 MG TABLET Take 1 tablet by mouth once d* LOSARTAN 100 MG TABLET TAKE 1 TABLET BY MOUTH ONCE D* PRAVASTATIN 40 MG TABLET Take 1 tablet by mouth once d* LANSOPRAZOLE 30 MG CAPSULE,DE* Take 1 capsule by mouth once * AZO URINARY PAIN RELIEF ORAL Take by mouth as needed (blad* ESTRADIOL 0.01% (0.1 MG/GRAM)* Fingertip amount vaginally ev* CLONIDINE 0.3 MG/24 HR WEEKLY* Apply 1 Patch as directed onc* CETIRIZINE 10 MG TABLET Take 1 tablet by mouth once d* Patient not taking: Reported on 01/13/2018 MONTELUKAST 10 MG TABLET Take 1 tablet by mouth daily * Problem List As Of Date 01/13/2018 Noted Resolved Anxiety [F41.9] Hyperlipidemia [E78.5] GERD (gastroesophageal reflux disease) [K21.9] CKD (chronic kidney disease), stage III [N18.3] Sleep apnea [G47.30] INVALID FOR* More... Hypertension [I10] More... Pheochromocytoma [D35.00] More... Medications Discontinued During This Encounter oxybutynin ER (DITROPAN XL) 10 mg 24* 30 t* 1 11/04/2017 01/13/2018 Route: ORAL Sig: Take 1 tablet by mouth once daily. Patient not taking: Reported on 01/13/2018 Disc: Reason for discontinue is not on file. albuterol HFA (VENTOLIN HFA) 90 mcg/* 1 In* 1 07/14/2017 01/13/2018 Route: INHALATION Sig: Inhale 2 Puffs as instructed every 4 hours as needed. Patient not taking: Reported on 01/13/2018 Disc: Reason for discontinue is not on file. mometasone (NASONEX) 50 mcg/actuatio* 1 Julio C* 1 07/08/2017 01/13/2018 Route: NASAL Sig: Use 2 Sprays in the nose once daily. Rinse mouth after use. Patient not taking: Reported on 01/13/2018 Disc: Reason for discontinue is not on file. Disposition: Return in about 6 months (around 07/14/2018). Follow-up and Disposition History Recorded Encounter Status:Closed by SCOTTY POLLACK MD on 01/13/18 LIPID PANEL, BASIC Collected: 01/12/2018 Status: F Source: [place] 8:27 AM [facility] REPOS[facility] TYPE CODE TESTS RESULT OUT OF REFERENCE UNITS RANGE LAB CHOL <200 mg/dL Cholesterol 163 Result Comment: <200 mg/dL, Desirable 200-239 mg/dL, Borderline high >239 mg/dL, High LAB TRIGLY <150 mg/dL Triglyceride High 185 Result Comment: <150 mg/dL, Normal 150-199 mg/dL, Borderline high 200-499 mg/dL, High >499 mg/dL, Very high LAB HDL >39 mg/dL HDL-Cholesterol 45 Result Comment: 40-59 mg/dL, Acceptable >59 mg/dL, High: Negative risk factor for coronary heart disease <40 mg/dL, Low: Positive risk factor for coronary heart disease LAB LDL <100 mg/dL LDL-Cholesterol 81 Result Comment: <100 mg/dL, Optimal 100-129 mg/dL, Near optimal/above optimal 130-159 mg/dL, Borderline high 160-189 mg/dL, High >189 mg/dL, Very high Secondary prevention optimal LDL Cholesterol levels are recommended to be < 70 mg/dL LAB NONHDL <130 mg/dL Non HDL Cholesterol 118 Result Comment: <130 mg/dL, Optimal 130-159 mg/dL, Near optimal/above optimal 160-189 mg/dL, Borderline high 190-219 mg/dL, High >219 mg/dL, Very high Secondary prevention optimal non HDL Cholesterol levels are recommended to be < 100 mg/dL LAB FT hrs Fasting Time 10 LAB VLDL <30 mg/dL High VLDL Cholesterol 37 LAB TCHDL <5.10 TC:HDL Ratio 3.62 LAB LDLHDL <2.54 LDL:HDL Ratio 1.80 Result Comment: Reference: 1. National Cholesterol Education Program ATP III Guideline At-A-Glance Quick Desk Reference: National Heart, Lung, and Blood [place]. National Institutes of Health. 2001: NIH Publication No. 01-3305. 2. An International Atherosclerosis Society position paper: global recommendations for the management of dyslipidemia: executive summary, Atherosclerosis. 2014: 232(2):410-413. Performed By: #### LIPB #### [facility] [address] [id number] CNPTOUTREACH Observed: 12/28/2017 Status: COMPLETED Source: [place] 12:00 AM [facility] [place] Patient Outreach ([facility]) A[address] ARSHAD ([id number]) 1955 F Date Time Provider Department 12/28/17 SCOTTY POLLACK) [facility] During your visit today, we recorded the following information about you: Allergies As of Date: 12/28/2017 Noted Allergy Reaction SULFA (SULFONAMIDE ANTIBIOTICS) 11/18/2016 8 - GI Upset Date Reviewed: 12/10/2017 Reviewed by: Candace Wills Ma - Fully Assessed Visit Diagnosis:Medication management [Z79.899] Order(s):LIPID PANEL BASIC [SQLIPB] Order #: [id number] FUTURE Prescriptions as of 12/28/2017 Sig: FLUOXETINE 20 MG CAPSULE Take 1 capsule by mouth once * ESTRADIOL 0.05 MG/24 HR WEEKL* Apply 1 Patch as directed onc* AMLODIPINE 10 MG TABLET Take 1 tablet by mouth once d* X OXYBUTYNIN CHLORIDE ER 10 MG * Take 1 tablet by mouth once d* Patient not taking: Reported on 01/13/2018 LOSARTAN 100 MG TABLET TAKE 1 TABLET BY MOUTH ONCE D* PRAVASTATIN 40 MG TABLET Take 1 tablet by mouth once d* LANSOPRAZOLE 30 MG CAPSULE,DE* Take 1 capsule by mouth once * AZO URINARY PAIN RELIEF ORAL Take by mouth as needed (blad* ESTRADIOL 0.01% (0.1 MG/GRAM)* Fingertip amount vaginally ev* X ALBUTEROL SULFATE HFA 90 MCG/* Inhale 2 Puffs as instructed * Patient not taking: Reported on 01/13/2018 CETIRIZINE 10 MG TABLET Take 1 tablet by mouth once d* Patient not taking: Reported on 01/13/2018 MONTELUKAST 10 MG TABLET Take 1 tablet by mouth daily * X MOMETASONE 50 MCG/ACTUATION N* Use 2 Sprays in the nose once* Patient not taking: Reported on 01/13/2018 CLONIDINE 0.3 MG/24 HR WEEKLY* Apply 1 Patch as directed onc* Problem List As Of Date 12/28/2017 Noted Resolved Anxiety [F41.9] Hyperlipidemia [E78.5] GERD (gastroesophageal reflux disease) [K21.9] CKD (chronic kidney disease), stage III [N18.3] Sleep apnea [G47.30] INVALID FOR* More... Hypertension [I10] More... Pheochromocytoma [D35.00] More... Encounter Status:Closed by REA BURGESS on 01/28/18 CNCO Observed: 12/13/2017 Status: COMPLETED Source: [place] 5:[address] [facility] RE[facility]ITORY HNO ID: [id number] Author: Mammography Coordinator Service: (none) Author Type: Physician Type: Letter Filed: 12/14/2017 11:33 PM Note Text: December 13, 2017 PID: [id number] [address] Roman[address] Arshad [address] [place] [address] Dear Ms. Arshad, We are pleased to inform you that the results of your recent breast imaging exam on 12/13/2017 are normal. Your mammogram demonstrates that you have dense breast tissue, which could hide abnormalities. Dense breast tissue, in and of itself, is a relatively common condition. Therefore, this information is not provided to cause undue concern; rather, it is to raise your awareness and promote discussion with your health care provider regarding the presence of dense breast tissue in addition to other risk factors. Early detection of cancer is very important. We also understand recommendations regarding breast cancer screening are controversial. Please discuss with your primary care provider which strategy is best for you and whether a mammogram is right for you. Your imaging studies and report will be kept on file at [facility] as part of your permanent medical record and are available for your continuing care. Thank you for allowing us to help in meeting your health care needs. Sincerely, Dr. Avalos Interpreting Radiologist [facility] (Normal over 40) BD DXA - AXIAL Observed: 12/13/2017 Status: F Source: [facility] 10:[address] [facility] REPOSITORY * * *Final Report* * * DATE OF EXAM: Dec 13 2017 10:38AM WRB [id number] - BD DXA - AXIAL [place] - LEFT / PROCEDURE REASON: Encounter for screening for osteoporosis * * * * Physician Interpretation * * * * BONE DENSITY - 12/13/2017 10:38 AM HISTORY: INDICATIONS / RISK FACTORS / DEMOGRAPHICS: Encounter for screening for osteoporosis Prev. in [place] in 10/18. Postmenopausal, hysterectomy, anxiety, hyperlipidemia, GERD, hypertension. TECHNIQUE: Lumbar spine and left hip evaluated COMPARISON: None STUDY LIMITATIONS: None RESULT: LUMBAR SPINE: BMD = 1.19 g/cm2, which is 1.3SDs (T-Score) for mean peak bone mass of young normals 3.0 SDs (Z-Score) for mean peak bone mass matched for age, sex, weight, ethnicity Left total hip: BMD = 1.136 g/cm2, which is 1.6 SDs (T-Score) for mean peak bone mass of young normals 2.8 SDs (Z-Score) for mean peak bone mass matched for age, sex, weight, ethnicity LEFT FEMORAL NECK: BMD = 0.99 g/cm2, which is 1.3 SDs (T-Score) for mean peak bone mass of young normals 2.7 SDs (Z-Score) for mean peak bone mass matched for age, sex, weight, ethnicity 10-year Fracture Risk (FRAX): Major osteoporotic fracture risk 5.2% Hip fracture risk 0.1% IMPRESSION: The patient's T- scores meet the World Health Organization classification for normal bone density. Follow-up exam in 2 to 4 years recommended WORLD [facility]ALTH ORG. CLASSIFICATION OF BONE MASS CLASSIFICATION T-SCORE Normal Greater than or equal to -1 Low Bone Mass Between -1 and -2.5 (Osteopenia) Osteoporosis Less than or equal to -2.5 Lead Auditor: SACHIN Transcribe Date/Time: Dec 13 2017 10:59A Dictated by : LYNETTE CHISHOLM DO This examination was interpreted and the report reviewed and electronically signed by: LYNETTE CHISHOLM DO on Dec 13 2017 2:32PM EST [id number] Observed: 12/13/2017 Status: COMPLETED Source: [place] 10:15 AM [facility] [place] HNO ID: [id number] Author: Jarrod Owens (Rt) Wendy Serna Service: (none) Author Type: Lump Receiver Type: Progress Notes Filed: 12/13/2017 10:39 AM Note Text: Radiology Service Progress Note PATIENT NAME: Ave Arshad DATE OF SERVICE: December 13, 2017 TIME: 10:16 AM PATIENT IDENTITY VERIFICATION COMPLETED USING TWO (2) METHODS: Patient confirmed name verbally and Date of . PATIENT GENDER DATA: Female. status: : No status: NO. PATIENT RELEVANT IMPLANT DATA REVIEWED: Not Applicable RADIOLOGY DEPARTMENT: Women's Health bone density PERIPHERAL IV DATA: Not applicable SIGNED BY: RT Randy December 13, 2017 10:16 AM GIL SCREENING Observed: 12/13/2017 Status: F Source: [place] 9:42 AM [facility] [place] * * *Final Report* * * DATE OF EXAM: Dec 13 2017 9:42AM [facility]81 - [facility] SCREENING / PROCEDURE REASON: Encounter for screening mammogram for malignant neoplasm of breast * * * * Physician Interpretation * * * * RESULT: #[id number] - GIL SCREENING BILATERAL DIGITAL SCREENING MAMMOGRAM WITH CAD: 12/13/2017 HISTORY: Encounter For Screening Mammogram For Malignant Neoplasm Of Breast\ /patient reports NO breast problems /priors available for comparison. RESULT: TECHNIQUE: The study was acquired using full field digital technology and interpreted from soft copy. Current study was also evaluated with a Computer Aided Detection (CAD). Comparison is made to exams dated: 02/10/2017 mammogram - [facility] and 02/10/2016 mammogram. The tissue of both breasts is heterogeneously dense. This may lower the sensitivity of mammography. There are bilateral oval masses with circumscribed margins. These masses are similar in appearance bilaterally and are either stable or have fluctuated in size over time. The overall appearance is compatible with benign cysts. No significant masses, calcifications, or other findings are seen in either breast. There has been no significant interval change. IMPRESSION: BENIGN FINDING Mammographic findings compatible with bilateral fluctuating cysts. However, if there are any clinical findings or palpable areas of concern, additional diagnostic imaging should be performed. There is no mammographic evidence of malignancy.A 1 year screening mammogram is recommended. 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 Analysis: Leah WEST(Rita)(Nyla), [facility] letter sent: Normal over 40 Mammogram BI-RADS: 2 Benign finding Lead Auditor: Teetee Transcribe Date/Time: Dec 13 2017 9:44A Dictated by: DOT AVALOS MD This examination was interpreted and the report reviewed and electronically signed by: DOT AVALOS MD on Dec 13 2017 5:50PM EST [id number] Observed: 12/10/2017 Status: COMPLETED Source: [place] 9:48 AM [facility] O ID: [id number] Author: Milly Ovalles Service: (none) Author Type: Physician Type: Progress Notes Filed: 12/10/2017 10:03 AM Note Text: Ave Arshad is a 62 year old who presents for her annual gynecologic exam without complaints. Just back from trip that they covered 18 different states. 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 Daughter in . Planning Cruise in March. Postmenopausal: Yes, JACKIE, BSO HRT use: Yes, Estradiol How lon. Last Pap: no Hx of abnormal Pap before hysterectomy 30+ years ago. Has not needed a Pap since hysterectomy. HPV: No Hx of HPV. History of abnormal pap: No Last mammogram: 2016 normal History of abnormal mammogram: Yes fu views benign Sexually active: Yes History of STDS: None Patient concerns for STD exposure: No. Pain with intercourse: No Postcoital bleeding: No Hot flashes: No Night sweats: No Vaginal dryness: No Exercise: walking Diet: balanced Obstetric History T0 L2 SAB0 TAB0 Ectopic0 Multiple0 Live Births1 Comment: Still born 1987 boy PAST MEDICAL HISTORY Diagnosis Date - Anxiety - CKD (chronic kidney disease), stage III (HCC) - GERD (gastroesophageal reflux disease) - Hearing loss of both ears hearing aids - History of endometriosis - History of splenectomy pneumovax every 5 years - Hyperlipidemia - Hypertension - Pheochromocytoma s/p adrenalectomy left - Sleep apnea 09/20/2014 on CPAP - Vertigo PAST SURGICAL HISTORY Procedure Laterality Date - ADRENALECTOMY Left - BLEPHAROPLASTY, UPPER EYELID Bilateral 04/2017 - SECTION HX - COLONOSCOPY x2 last 2008 and was normal - HYSTERECTOMY HX fibroids - PAST SURGICAL HISTORY OF infertility surgery - SALPINGECTOMY OR OOPHERECTOMY-ECTOPIC - SPLENECTOMY,GASTROESOPHAGEAL DEVASCULARIZ FAMILY HISTORY Problem Relation Age of Onset - other (Endometrial Stromal Sarcoma) Mother 66 - other (Multiple Myloma) Mother 70 - other (Renal Cell sarcoma) Mother 76 - Breast Cancer Paternal Grandmother - Heart Paternal Grandfather SOCIAL HISTORY Social History Substance Use Topics - Smoking status: Never Smoker - Smokeless tobacco: Never Used - Alcohol use Yes Comment: rare REVIEW OF SYSTEMS Abdomen: No abdominal pain, nausea, vomiting, diarrhea, or constipation. No bloating, early satiety, indigestion, or increased flatulence. Bladder: No dysuria, gross hematuria, urinary frequency, urinary urgency- MILD USI Breast: No breast lumps, nipple d/c, overlying skin changes, redness or skin retraction Allergies and current medication updated:Yes EXAM: BP 126/84 Ht 5' 5.5 (1.66m) Wt 206 lb (93.4kg) BMI 33.75 kg/(m2). GENERAL: pleasant, female in no apparent distress HEENT: Normocephalic, atraumatic, mucus membranes moist and no lesions NECK: Supple, full range of motion, no adenopathy and thyroid normal DERMATOLOGY: Normal, without lesions, non-icteric and non-hirsute BREAST: soft, non-tender, symmetric, no dominant mass, normal nipple-areolar complex, no lymphadenopathy and no nipple discharge ABDOMEN: soft, non-tender and no masses PELVIC: external genitalia normal, normal Bartholin's glands, urethra, Ball Pond's glands, no vulvar lesions, good vaginal support, physiologic discharge present, normal appearing perineal body and perianal region, cervix surgically absent BIMANUAL: no adnexal masses, non-tender and uterus surgically absent RECTOVAGINAL: deferred. NEURO: alert and oriented x3,exam grossly non-focal EXTREMITIES: normal ASSESSMENT/PLAN: 1) Health maintenance: Pap/HPV screening no longer needed Mammogram ordered Mammogram up to date Nutrition, exercise and routine health maintenance exams reviewed. Calcium/Vitamin D supplementation information provided. Colon cancer screening: up to date with screening BMD: ordered 2) Follow up one year or sooner as needed 3) refill prozac 4) HRT reviewed- wishes to continue use Milly Nichols MD CNOV Observed: 12/10/2017 Status: COMPLETED Source: [place] 9:00 AM [facility] [place] [facility] Office Visit (WOOB) AVE ARSHAD ([id number]) 1955 F Date Time Provider Department 12/10/17 9:00 AM MILLY FERRARI WOMILTON During your visit today, we recorded the following information about you: Blood pressure Weight Height 126/84 93.4 kg 1.664 m Jaime Weiner 12/10/2017 9:59 AM Signed [place] offered: Patient declines. Milly Nichols MD 12/10/2017 9:[address] Arshad is a 62 year old who presents for her annual gynecologic exam without complaints. Just back from trip that they covered 18 different states. 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 Daughter in . Planning Cruise in March. Postmenopausal: Yes, JACKIE, BSO HRT use: Yes, Estradiol How lon. Last Pap: no Hx of abnormal Pap before hysterectomy 30+ years ago. Has not needed a Pap since hysterectomy. HPV: No Hx of HPV. History of abnormal pap: No Last mammogram: 2016 normal History of abnormal mammogram: Yes fu views benign Sexually active: Yes History of STDS: None Patient concerns for STD exposure: No. Pain with intercourse: No Postcoital bleeding: No Hot flashes: No Night sweats: No Vaginal dryness: No Exercise: walking Diet: balanced Obstetric History T0 L2 SAB0 TAB0 Ectopic0 Multiple0 Live Births1 Comment: Still born 1987 boy PAST MEDICAL HISTORY Diagnosis Date - Anxiety - CKD (chronic kidney disease), stage III (HCC) - GERD (gastroesophageal reflux disease) - Hearing loss of both ears hearing aids - History of endometriosis - History of splenectomy pneumovax every 5 years - Hyperlipidemia - Hypertension - Pheochromocytoma s/p adrenalectomy left - Sleep apnea 09/20/2014 on CPAP - Vertigo PAST SURGICAL HISTORY Procedure Laterality Date - ADRENALECTOMY Left - BLEPHAROPLASTY, UPPER EYELID Bilateral 04/2017 - SECTION HX - COLONOSCOPY x2 last 2008 and was normal - HYSTERECTOMY HX fibroids - PAST SURGICAL HISTORY OF infertility surgery - SALPINGECTOMY OR OOPHERECTOMY-ECTOPIC - SPLENECTOMY,GASTROESOPHAGEAL DEVASCULARIZ FAMILY HISTORY Problem Relation Age of Onset - other (Endometrial Stromal Sarcoma) Mother 66 - other (Multiple Myloma) Mother 70 - other (Renal Cell sarcoma) Mother 76 - Breast Cancer Paternal Grandmother - Heart Paternal Grandfather SOCIAL HISTORY Social History Substance Use Topics - Smoking status: Never Smoker - Smokeless tobacco: Never Used - Alcohol use Yes Comment: rare REVIEW OF SYSTEMS Abdomen: No abdominal pain, nausea, vomiting, diarrhea, or constipation. No bloating, early satiety, indigestion, or increased flatulence. Bladder: No dysuria, gross hematuria, urinary frequency, urinary urgency- MILD USI Breast: No breast lumps, nipple d/c, overlying skin changes, redness or skin retraction Allergies and current medication updated:Yes EXAM: BP 126/84 Ht 5' 5.5 (1.66m) Wt 206 lb (93.4kg) BMI 33.75 kg/(m2). GENERAL: pleasant, female in no apparent distress HEENT: Normocephalic, atraumatic, mucus membranes moist and no lesions NECK: Supple, full range of motion, no adenopathy and thyroid normal DERMATOLOGY: Normal, without lesions, non-icteric and non-hirsute BREAST: soft, non-tender, symmetric, no dominant mass, normal nipple-areolar complex, no lymphadenopathy and no nipple discharge ABDOMEN: soft, non-tender and no masses PELVIC: external genitalia normal, normal Bartholin's glands, urethra, Ball Pond's glands, no vulvar lesions, good vaginal support, physiologic discharge present, normal appearing perineal body and perianal region, cervix surgically absent BIMANUAL: no adnexal masses, non-tender and uterus surgically absent RECTOVAGINAL: deferred. NEURO: alert and oriented x3,exam grossly non-focal EXTREMITIES: normal ASSESSMENT/PLAN: 1) Health maintenance: Pap/HPV screening no longer needed Mammogram ordered Mammogram up to date Nutrition, exercise and routine health maintenance exams reviewed. Calcium/Vitamin D supplementation information provided. Colon cancer screening: up to date with screening BMD: ordered 2) Follow up one year or sooner as needed 3) refill prozac 4) HRT reviewed- wishes to continue use MD Milly Eastman MD 12/10/2017 9:48 AM Signed Calcium and Vitamin D Supplementation (from the National Institutes of Health Office of Dietary Supplements 2010) Calcium is required by the body for blood vessel, muscle, hormone and nerve functioning. Most of the body's calcium is stored in the bones and teeth where it supports structure and function. Bone is continuously broken down and reformed. When bone breakdown exceeds formation, especially in postmenopausal women, bone loss can increase the risk of osteoporosis and fractures. In addition to low calcium intake, women who smoke, have a family history of osteoporosis, are thin, or , or who take certain medications such as cancer chemotherapy, seizure mediations and steroids are at increased risk of osteoporosis. The calcium requirements in women change with age. The National Institutes of Health (NIH) recommends: 1000mg elemental calcium for premenopausal women age 19-50 1200mg elemental calcium for postmenopausal women and all women over 50 Milk, yogurt, and cheese are rich natural sources of calcium and are the major food contributors in the [place]. For example, 8oz of milk (whole, lowfat or skim) contains about 300mg calcium, 8oz of yogurt contains 415mg. Nondairy sources include salmon and sardines and vegetables, such as [place]amanian cabbage, kale, and broccoli. Foods fortified with calcium include many fruit juices, tofu and cereals. For more food calcium content information, visit http://ods.od.nih.gov/factsheets/calcium. Calcium supplements come in several different forms. Remember that the recommendations are for millgrams (mg) of elemental calcium which may be less than the total weight of the supplement. The amount of elemental calcium is required to be printed on the label. Calcium carbonate is the least expensive form. It must be taken on a full stomach to be properly absorbed. Some patients may experience gas or constipation. Calcium phosphate and calcium citrate may be taken either with or without food and tend to have less side effects but are generally more expensive. Because of its ability to neutralize stomach acid, calcium carbonate is found in some [id number] antacid products, such as Tums? and Rolaids?. Depending on its strength, each chewable pill or softchew provides 200 to 400 mg of elemental calcium. The percentage of calcium absorbed depends on the total amount of elemental calcium consumed at one time. Absorption is highest in doses <500mg. So a woman who takes 1,000mg/day of calcium from supplements should split the dose and take 500mg at two separate times during the day. Too much calcium can cause kidney stones, constipation, difficulty absorbing other nutrients and calcium buildup in blood vessels. Women under 50 should not exceed 2500mg/day (2000mg/day for women over 50) of calcium from food and supplements. Excessive alcohol and caffeine intake can inhibit absorption of calcium. Calcium can reduce the absorption of some medications if taken at the same time of day (bisphosphonates, thyroid medication, Phenytoin and other seizure medications, some antibiotics and iron supplements). Vitamin D promotes calcium absorption in the gut and maintains adequate blood levels of calcium and phosphate for normal bone growth and bone remodeling. Vitamin D also helps regulate cell growth as well as nerve, muscle and immune system function. Vitamin D is produced in the skin as a result of ultraviolet sunlight rays and must be altered in the liver and kidney to become its active form. Recommended intake according to the National Institutes of Health is 600 International Units (IU) for girls and women ages 1-70 and 800 IU for women over 70. Very few foods in nature contain vitamin D. The flesh of fatty fish (such as salmon, tuna, and mackerel) and fish liver oils are among the best sources. Small amounts of vitamin D are found in beef liver, cheese, mushrooms and egg yolks. Most people meet at least some of their vitamin D needs through exposure to sunlight. Season, time of day, length of day, cloud cover, smog, skin melanin content, and sunscreen are among the factors that affect UV radiation exposure and vitamin D synthesis. Despite the importance of the sun for vitamin D synthesis, it is prudent to limit exposure of skin to sunlight and avoid tanning beds. UV radiation is a carcinogen responsible for most of the estimated 1.5 million skin cancers that occur annually in the [place]. Lifetime cumulative UV damage to skin is also responsible for some age-associated dryness and other cosmetic changes. In supplements and fortified foods, vitamin D is available in two forms, D2 (ergocalciferol) and D3 (cholecalciferol). The two are equivalent at normal supplement doses. For women who require high supplement doses because of vitamin D deficiency, D3 may work better to raise blood levels. Some medications can prevent proper absorption of Vitamin D. These include laxatives, corticosteroids like prednisone, the seizure drugs phenobarbital and phenytoin, the weight-loss drug orlistat ( Xenical? and AlliTM) and the cholesterol-lowering drug cholestyramine (Questran?, LoCholest?, and Prevalite?). Talk to your doctor about adjusting your recommended daily vitamin D dosage if you take these medications. You should not exceed 4000 mg of vitamin D supplementation daily unless specifically prescribed by your doctor. ACOG Screening Guidelines (2015) The following health screening schedule is recommended by the [place] [employer] (ACOG). Some of these tests may be ordered or performed by your primary care doctor. Pap test screening The pap test looks at cells on the cervix (the opening from the vagina to the uterus) to look for cancer or pre-cancerous changes. These changes are caused by the human papillomavirus (HPV). Studies estimate that half of all women will test positive for this virus within 3 years of starting sexual activity. For young women with a normal immune system, 90% of HPV infections will resolve within 2 years. There is a vaccine available against some forms of HPV. This is recommended for girls and women age 9-26 and is a series of 3 injections over 6 months. Because this vaccine does not protect against all HPV types which can cause cervical cancer, women who received the vaccine still need pap tests. Pap smear screening should be started at age 21. The pap test should be done every 3 years from age 21-29. From age 30-65, pap smears can be done every 5 years if HPV test is negative or every 3 years if HPV testing is not done. For women over the age of 65, ACOG recommends against screening women who have had adequate prior screening and are not otherwise at high risk for cervical cancer. Women who have had a hysterectomy also do not need routine pap smear screening unless the pap smear was done for a cervical cancer or moderate to severe dysplasia. Breast cancer screening Mammogram should be performed every 1-2 years starting at age 40 and every year starting at age 50. Screening may be started earlier depending on family history. Cholesterol screening Lipid panel (cholesterol test) should be checked every 5 years starting at age 45. Diabetes screening Fasting glucose (blood sugar) test should be performed every 3 years starting at age 45. Colorectal cancer screening Starting at age 50, women should have a screening colonoscopy at least every 10 years. Screening may be started earlier depending on family history. Thyroid screening Thyroid function test (TSH) should be checked every 5 years starting at age 50. Bone mineral density screening All postmenopausal women age 65 and over and postmenopausal women with risk factors for osteoporosis should have a bone mineral density test performed. Risk factors include race, family history of osteoporosis, personal history of fractures, poor nutrition, smoking, heavy alcohol use, early menopause, low calcium intake and low body weight. Certain medical conditions and long-term use of some medications may also increase risk. Hormone Therapy* (HT): Understanding Benefits and Risks (*Sometimes also called hormone replacement therapy, HRT) What are estrogen and progesterone? Estrogen and progesterone are hormones that are produced by a woman's ovaries. Why does the body need estrogen? Estrogen thickens the lining of the uterus, preparing it for the possible implantation of a fertilized egg. Estrogen also influences how the body uses calcium, an important mineral in the building of bones. In addition, estrogen helps maintain healthy levels of cholesterol in the blood. Estrogen is necessary in keeping the vagina healthy. As menopause nears, the ovaries reduce most of their production of these hormones. Lowered or fluctuating estrogen levels may cause menopause symptoms such as hot flashes, and medical conditions such as osteoporosis. What is hormone therapy (HT)? Hormone therapy (HT) is a treatment that is used to supplement the body with either estrogen alone or estrogen and progesterone in combination. When the ovaries no longer produce adequate amounts of these hormones (as in menopause), HT can be given to supplement the body with adequate levels of estrogen and progesterone. HT helps to replenish the estrogen, relieving some of the symptoms of menopause and helping to prevent osteoporosis. Why is progesterone taken? Progesterone is used along with estrogen in women who still have their uterus. In these women, estrogen-- if taken without progesterone--increases a woman's risk for cancer of the endometrium (the lining of the uterus). During a woman's reproductive years, cells from the endometrium are shed during menstruation. When the endometrium is no longer shed, estrogen can cause an overgrowth of cells in the uterus, a condition that can lead to cancer. Progesterone reduces the risk of endometrial (uterine) cancer by making the endometrium thin. Women who take progesterone may have monthly bleeding, or no bleeding at all, depending on how the hormone therapy is taken. Monthly bleeding can be lessened and, in some cases, eliminated by taking progesterone and estrogen together continuously. Women who have had a hysterectomy (removal of the uterus through surgery) usually do not need to take progesterone. This is an important point, because estrogen taken alone has fewer long-term risks than HT that uses a combination of estrogen and progesterone. What are the types of HT? There are two main types of HT: ? Estrogen Therapy (ET): Estrogen is taken alone. Doctors most often prescribe a low dose of estrogen to be taken as a pill or patch every day. Estrogen may also be prescribed as a cream, vaginal ring, gel or spray. You should take the lowest dose of estrogen needed to relieve menopause symptoms and/or to prevent osteoporosis. This type of HT is used if a woman has had a hysterectomy. ? Estrogen Progesterone/Progestin Hormone Therapy (EPT): Also called combination therapy, this form of HT combines doses of estrogen and progesterone (progestin is a synthetic form of progesterone). This type of HT is used if a woman still has her uterus. What are the benefits of taking HT? HT is prescribed to relieve: ? Hot flashes ? Vaginal dryness that can result in painful intercourse ? Other problematic symptoms of menopause, such as night sweats and dry, itchy skin Other benefits of taking HT include: ? Reduced risk of developing osteoporosis and reduced risk of bone breakage ? Improvement of mood and overall sense of mental well-being in some women ? Decreased tooth loss ? Lowered risk of colon cancer ? Lowered risk of diabetes ? Modest improvement in joint pains ? Lower rate for women who take hormone therapy in their 50s. What are the risks of taking HT? While HT helps many women get through menopause, the treatment (like any prescription or even non-prescription medicines) is not risk- free. Known health risks include: ? An increased risk of endometrial cancer (only if a woman still has her uterus and is not taking a progestin along with estrogen). ? Increased risk of blood clots and stroke. However, in women within 5 years of menopause there was no statistically significant increase in stroke risk. Also, studies suggest that using estrogen delivered from the skin via a patch/cream might further lessen the risk of blood clots. ? Increased chance of gallbladder/gallstone problems. ? Increased risk of dementia if hormone therapy is started after a woman has been in menopause for 10 years. It is not yet known if it might be beneficial for women who start HT in their 50s. ? Most of our understanding about the benefits and risks of hormone therapy on the heart and breast come from the Women?s Health Initiative (WHI) study (one of the largest studies done on hormone therapy): HT and the heart Recent analysis of WHI actually shows that the risk of heart disease may be related more to the advanced age of the participants as opposed to the HT. The study also found that HT given to younger women, at the onset of menopause, appeared to decrease the risk of heart disease. More specifically: ? An increased risk of heart disease is only seen in women taking long-term estrogen-progestin combination therapy (EPT) if they start HT in their mid-60s. There does not seem to be an increased risk of heart disease when women in their 50s start EPT. Estrogen alone (ET) has not been shown to increase the risk of heart disease. Analysis of the age since menopause actually shows a decrease in the risk of heart disease when ET was started in younger women (those just beginning menopause). Currently, it is not recommended to use hormone therapy solely for the purpose of preventing heart disease. However these studies give us reassurance that when women just newly approaching menopause need HT for a short time, it is safe to do so in terms of group home heart disease risk. HT and breast cancer Diagnosis of breast cancer increases when combination EPT is used beyond 3-5 years. This means that out of 10,000 women who use estrogen progestin therapy for more than 5 years, there will be 8 additional breast cancers diagnosed. In contrast, the WHI study showed women who use estrogen alone had no increase in risk of breast cancer even after 11 years of use. In fact, fewer breast cancers were seen in the group taking estrogen alone, though this was not statistically significant. When a woman comes off of hormone therapy, any potential increase in her risk of breast cancer quickly goes back to her baseline norm. This is why hormone therapy can be a safe option when women in their 50s (who are generally at lower risk for breast cancer compared to older women). Does starting HT closer to the time of menopause make it safer? One of the problems with the WHI study, which gave us much of our knowledge on the risks of HT, is that most women in the study were starting hormones in their mid-60s. Typically, women who need HT are newly menopausal, in their early 50s. Younger women in the WHI study had fewer risks and more benefits from HT. Newer studies are trying to understand the risks and benefits of HT in women in their 50s. One such study showed HT started early in postmenopausal women significantly reduced rate, heart attacks and heart failure. These postmenopausal women who started HT early and used it for more than 10 years were not at increased risk of breast cancer or stroke. What are some commonly used postmenopausal hormones? The following charts list the names of some, but not all, postmenopausal hormones. Types Brand Names Vaginal Tablet Vagifem? Estrogen Pills Cenestin?, Estinyl?, Estrace?, Menest?, Ogen?, Premarin?, Femtrace? Cream Estrace?, Ogen?, Premarin? Vaginal Ring Estring?, Femring? Patch Chantale?, Climara?, Minivelle?, Estraderm?, Vivelle?, Vivelle-Dot?, Menostar? Progestin Types Brand Names Pills/Capsules Amen?, Aygestin?, Curretab?, Cycrin?, Megace?, Prometrium?, Provera? Vaginal Gel Prochieve? progesterone gel 4%, 8% Combination types Brand Names Pills Activella?, FemHRT?, Premphase?, Prempro?, Angeliq? Patchs CombiPatch?, Climara-Pro? Who shouldn't take HT? HT is not usually recommended for women who have: ? Active or past breast cancer ? Recurrent or active endometrial cancer ? Abnormal vaginal bleeding that has not been evaluated ? Recurrent or active blood clots ? History of stroke ? Liver disease ? Known or suspected ? What are the side effects of HT? Like almost all medications, hormone therapy has side effects. The most common side effects are: ? Monthly bleeding (if progestin given cyclical) ? Irregular spotting ? Breast tenderness ? Less common side effects of hormone therapy include: ? Fluid retention ? Headaches (including migraine) ? Skin discoloration (brown or black spots) ? Increased breast density making mammogram interpretation more difficult ? Skin irritation under estrogen patch How can I reduce these side effects? Adjusting either the dosage or the form of the medication you are taking can often reduce side effects of HT. However, you should never make changes in your medication or stop taking it without first consulting your doctor. How can I know if HT is right for me? The balance of risks versus benefits of HT can be very different for each woman, depending on her age, family history, and personal medical history. It is important to allow enough time at an office visit to discuss the risks and benefits of hormone therapy. This is a question that should usually be addressed at a separate office visit to allow plenty of time for detailed discussion with your doctor. How long should I take HT? Since research on HT is ongoing, women should reevaluate their treatment plans each year. Discontinue HT (under your health care provider's guidance) if you develop a medical condition that would make it less safe for you. Based on the WHI study results, should I stop taking HT? It's important that you do not make any abrupt changes to your HT without consulting your doctor. He or she can discuss with you the benefits and risks of HT based on your individual circumstances. First, the therapy should not be continued or started to prevent heart disease. Women should consult their doctor about other methods of prevention, such as lifestyle changes, and cholesterol- and blood pressure-lowering drugs. Second, for osteoporosis prevention, women should consult their doctor and weigh the benefits against their personal risks. Alternate treatments also are available to prevent osteoporosis and fractures. Finally, women taking HT for relief of menopausal symptoms may reap more benefits than risks. Women should talk with their doctor about their personal risks and benefits. References: ? Effect of Hormone Replacement Therapy on Cardiovascular Events in Recently Postmenopausal Women: Randomized Trial. BMJ Jan 2012. ? [place] [employer]. The 2012 hormone therapy position statement Accessed 09/01/12. ? [place] [employer]. [place] [employer] Medical Guidelines for the Clinical Practice for the Diagnosis and Treatment of Menopause Accessed 09/25/12. ? Committee on Gynecological Practice. Postmenopausal estrogen therapy: Route of administration and risk of venous thromboembolism. Obstet Gynecol 2013 Jul; 121:887. ? Estrogen alone and joint symptoms in the Women's Health Initiative randomized trial. Menopause 2012Jun 20. BONE MINERAL DENSITY PATIENT INSTRUCTIONS Bone mineral density testing measures the amount of calcium in certain parts of your bones. This information determines how strong your bones are. The test is used to detect osteoporosis, a disease in which the bone's mineral content and density are low, increasing a person's risk of fractures. The lumbar spine (lower back) and the hip are the skeletal sites usually examined. For the test, remember that: 1. You cannot take this test if you are . 2. Eat a normal diet on the day of the test. 3. Take your medications as you normally would. 4. DO NOT take calcium supplements (such as Tums) for 24 hours before the test. 5. On the day of the test, leave valuables (jewelry or credit cards) at home. 6. The test should be performed prior to oral, rectal or IV contrast studies, or at least 7 days after any of these studies. For the test, you may be asked to wear a hospital gown. You will lie on your back, on a padded table, in a comfortable position. Generally, you can resume your usual activities immediately. Referring Provider: SELF [[id number]] Allergies As of Date: 12/10/2017 Noted Allergy Reaction SULFA (SULFONAMIDE ANTIBIOTICS) 11/18/2016 8 - GI Upset Date Reviewed: 12/10/2017 Reviewed by: Candace Wills Ma - Fully Assessed Reason for Visit: Yearly Exam [187] Primary Visit Diagnosis:Encounter for gynecological examination without abnormal finding [Z01.419] Other Visit Diagnoses:Encounter for screening mammogram for malignant neoplasm of breast [Z12.31] Encounter for screening for osteoporosis [Z13.820] Order(s):GIL SCREENING [[id number]] Order #: [id number] FUTURE DXA-AXIAL SKELETON [[id number]] Order #: [id number] FUTURE FLUoxetine (PROZAC) 20 mg capsuleTake 1 capsule by mouth once daily.Disp: 90 capsuleRfl: 3 Prescriptions as of 12/10/2017 Sig: FLUOXETINE 20 MG CAPSULE Take 1 capsule by mouth once * ESTRADIOL 0.05 MG/24 HR WEEKL* Apply 1 Patch as directed onc* AMLODIPINE 10 MG TABLET Take 1 tablet by mouth once d* LOSARTAN 100 MG TABLET TAKE 1 TABLET BY MOUTH ONCE D* PRAVASTATIN 40 MG TABLET Take 1 tablet by mouth once d* LANSOPRAZOLE 30 MG CAPSULE,DE* Take 1 capsule by mouth once * ESTRADIOL 0.01% (0.1 MG/GRAM)* Fingertip amount vaginally ev* CLONIDINE 0.3 MG/24 HR WEEKLY* Apply 1 Patch as directed onc* OXYBUTYNIN CHLORIDE ER 10 MG * Take 1 tablet by mouth once d* AZO URINARY PAIN RELIEF ORAL Take by mouth as needed (blad* ALBUTEROL SULFATE HFA 90 MCG/* Inhale 2 Puffs as instructed * CETIRIZINE 10 MG TABLET Take 1 tablet by mouth once d* MOMETASONE 50 MCG/ACTUATION N* Use 2 Sprays in the nose once* MONTELUKAST 10 MG TABLET Take 1 tablet by mouth daily * Problem List As Of Date 12/10/2017 Noted Resolved Anxiety [F41.9] Hyperlipidemia [E78.5] GERD (gastroesophageal reflux disease) [K21.9] CKD (chronic kidney disease), stage III [N18.3] Sleep apnea [G47.30] INVALID FOR* More... Hypertension [I10] More... Pheochromocytoma [D35.00] More... Other instructions from your clinician: Calcium and Vitamin D Supplementation (from the National Institutes of Health Office of Dietary Supplements 2010) Calcium is required by the body for blood vessel, muscle, hormone and nerve functioning. Most of the body's calcium is stored in the bones and teeth where it supports structure and function. Bone is continuously broken down and reformed. When bone breakdown exceeds formation, especially in postmenopausal women, bone loss can increase the risk of osteoporosis and fractures. In addition to low calcium intake, women who smoke, have a family history of osteoporosis, are thin, or , or who take certain medications such as cancer chemotherapy, seizure mediations and steroids are at increased risk of osteoporosis. The calcium requirements in women change with age. The National Institutes of Health (NIH) recommends: 1000mg elemental calcium for premenopausal women age 19-50 1200mg elemental calcium for postmenopausal women and all women over 50 Milk, yogurt, and cheese are rich natural sources of calcium and are the major food contributors in the [place]. For example, 8oz of milk (whole, lowfat or skim) contains about 300mg calcium, 8oz of yogurt contains 415mg. Nondairy sources include salmon and sardines and vegetables, such as [place] cabbage, kale, and broccoli. Foods fortified with calcium include many fruit juices, tofu and cereals. For more food calcium content information, visit http://ods.od.nih.gov/factsheets/calcium. Calcium supplements come in several different forms. Remember that the recommendations are for millgrams (mg) of elemental calcium which may be less than the total weight of the supplement. The amount of elemental calcium is required to be printed on the label. Calcium carbonate is the least expensive form. It must be taken on a full stomach to be properly absorbed. Some patients may experience gas or constipation. Calcium phosphate and calcium citrate may be taken either with or without food and tend to have less side effects but are generally more expensive. Because of its ability to neutralize stomach acid, calcium carbonate is found in some gnro-vpm-dyalrwn antacid products, such as Tums? and Rolaids?. Depending on its strength, each chewable pill or softchew provides 200 to 400 mg of elemental calcium. The percentage of calcium absorbed depends on the total amount of elemental calcium consumed at one time. Absorption is highest in doses <500mg. So a woman who takes 1,000mg/day of calcium from supplements should split the dose and take 500mg at two separate times during the day. Too much calcium can cause kidney stones, constipation, difficulty absorbing other nutrients and calcium buildup in blood vessels. Women under 50 should not exceed 2500mg/day (2000mg/day for women over 50) of calcium from food and supplements. Excessive alcohol and caffeine intake can inhibit absorption of calcium. Calcium can reduce the absorption of some medications if taken at the same time of day (bisphosphonates, thyroid medication, Phenytoin and other seizure medications, some antibiotics and iron supplements). Vitamin D promotes calcium absorption in the gut and maintains adequate blood levels of calcium and phosphate for normal bone growth and bone remodeling. Vitamin D also helps regulate cell growth as well as nerve, muscle and immune system function. Vitamin D is produced in the skin as a result of ultraviolet sunlight rays and must be altered in the liver and kidney to become its active form. Recommended intake according to the National Institutes of Health is 600 International Units (IU) for girls and women ages 1-70 and 800 IU for women over 70. Very few foods in nature contain vitamin D. The flesh of fatty fish (such as salmon, tuna, and mackerel) and fish liver oils are among the best sources. Small amounts of vitamin D are found in beef liver, cheese, mushrooms and egg yolks. Most people meet at least some of their vitamin D needs through exposure to sunlight. Season, time of day, length of day, cloud cover, smog, skin melanin content, and sunscreen are among the factors that affect UV radiation exposure and vitamin D synthesis. Despite the importance of the sun for vitamin D synthesis, it is prudent to limit exposure of skin to sunlight and avoid tanning beds. UV radiation is a carcinogen responsible for most of the estimated 1.5 million skin cancers that occur annually in the [place]. Lifetime cumulative UV damage to skin is also responsible for some age-associated dryness and other cosmetic changes. In supplements and fortified foods, vitamin D is available in two forms, D2 (ergocalciferol) and D3 (cholecalciferol). The two are equivalent at normal supplement doses. For women who require high supplement doses because of vitamin D deficiency, D3 may work better to raise blood levels. Some medications can prevent proper absorption of Vitamin D. These include laxatives, corticosteroids like prednisone, the seizure drugs phenobarbital and phenytoin, the weight-loss drug orlistat ( Xenical? and AlliTM) and the cholesterol-lowering drug cholestyramine (Questran?, LoCholest?, and Prevalite?). Talk to your doctor about adjusting your recommended daily vitamin D dosage if you take these medications. You should not exceed 4000 mg of vitamin D supplementation daily unless specifically prescribed by your doctor. ACOG Screening Guidelines (2015) The following health screening schedule is recommended by the [place] [employer] (ACOG). Some of these tests may be ordered or performed by your primary care doctor. Pap test screening The pap test looks at cells on the cervix (the opening from the vagina to the uterus) to look for cancer or pre-cancerous changes. These changes are caused by the human papillomavirus (HPV). Studies estimate that half of all women will test positive for this virus within 3 years of starting sexual activity. For young women with a normal immune system, 90% of HPV infections will resolve within 2 years. There is a vaccine available against some forms of HPV. This is recommended for girls and women age 9-26 and is a series of 3 injections over 6 months. Because this vaccine does not protect against all HPV types which can cause cervical cancer, women who received the vaccine still need pap tests. Pap smear screening should be started at age 21. The pap test should be done every 3 years from age 21-29. From age 30-65, pap smears can be done every 5 years if HPV test is negative or every 3 years if HPV testing is not done. For women over the age of 65, ACOG recommends against screening women who have had adequate prior screening and are not otherwise at high risk for cervical cancer. Women who have had a hysterectomy also do not need routine pap smear screening unless the pap smear was done for a cervical cancer or moderate to severe dysplasia. Breast cancer screening Mammogram should be performed every 1-2 years starting at age 40 and every year starting at age 50. Screening may be started earlier depending on family history. Cholesterol screening Lipid panel (cholesterol test) should be checked every 5 years starting at age 45. Diabetes screening Fasting glucose (blood sugar) test should be performed every 3 years starting at age 45. Colorectal cancer screening Starting at age 50, women should have a screening colonoscopy at least every 10 years. Screening may be started earlier depending on family history. Thyroid screening Thyroid function test (TSH) should be checked every 5 years starting at age 50. Bone mineral density screening All postmenopausal women age 65 and over and postmenopausal women with risk factors for osteoporosis should have a bone mineral density test performed. Risk factors include race, family history of osteoporosis, personal history of fractures, poor nutrition, smoking, heavy alcohol use, early menopause, low calcium intake and low body weight. Certain medical conditions and long-term use of some medications may also increase risk. Hormone Therapy* (HT): Understanding Benefits and Risks (*Sometimes also called hormone replacement therapy, HRT) What are estrogen and progesterone? Estrogen and progesterone are hormones that are produced by a woman's ovaries. Why does the body need estrogen? Estrogen thickens the lining of the uterus, preparing it for the possible implantation of a fertilized egg. Estrogen also influences how the body uses calcium, an important mineral in the building of bones. In addition, estrogen helps maintain healthy levels of cholesterol in the blood. Estrogen is necessary in keeping the vagina healthy. As menopause nears, the ovaries reduce most of their production of these hormones. Lowered or fluctuating estrogen levels may cause menopause symptoms such as hot flashes, and medical conditions such as osteoporosis. What is hormone therapy (HT)? Hormone therapy (HT) is a treatment that is used to supplement the body with either estrogen alone or estrogen and progesterone in combination. When the ovaries no longer produce adequate amounts of these hormones (as in menopause), HT can be given to supplement the body with adequate levels of estrogen and progesterone. HT helps to replenish the estrogen, relieving some of the symptoms of menopause and helping to prevent osteoporosis. Why is progesterone taken? Progesterone is used along with estrogen in women who still have their uterus. In these women, estrogen-- if taken without progesterone--increases a woman's risk for cancer of the endometrium (the lining of the uterus). During a woman's reproductive years, cells from the endometrium are shed during menstruation. When the endometrium is no longer shed, estrogen can cause an overgrowth of cells in the uterus, a condition that can lead to cancer. Progesterone reduces the risk of endometrial (uterine) cancer by making the endometrium thin. Women who take progesterone may have monthly bleeding, or no bleeding at all, depending on how the hormone therapy is taken. Monthly bleeding can be lessened and, in some cases, eliminated by taking progesterone and estrogen together continuously. Women who have had a hysterectomy (removal of the uterus through surgery) usually do not need to take progesterone. This is an important point, because estrogen taken alone has fewer long-term risks than HT that uses a combination of estrogen and progesterone. What are the types of HT? There are two main types of HT: ? Estrogen Therapy (ET): Estrogen is taken alone. Doctors most often prescribe a low dose of estrogen to be taken as a pill or patch every day. Estrogen may also be prescribed as a cream, vaginal ring, gel or spray. You should take the lowest dose of estrogen needed to relieve menopause symptoms and/or to prevent osteoporosis. This type of HT is used if a woman has had a hysterectomy. ? Estrogen Progesterone/Progestin Hormone Therapy (EPT): Also called combination therapy, this form of HT combines doses of estrogen and progesterone (progestin is a synthetic form of progesterone). This type of HT is used if a woman still has her uterus. What are the benefits of taking HT? HT is prescribed to relieve: ? Hot flashes ? Vaginal dryness that can result in painful intercourse ? Other problematic symptoms of menopause, such as night sweats and dry, itchy skin Other benefits of taking HT include: ? Reduced risk of developing osteoporosis and reduced risk of bone breakage ? Improvement of mood and overall sense of mental well- being in some women ? Decreased tooth loss ? Lowered risk of colon cancer ? Lowered risk of diabetes ? Modest improvement in joint pains ? Lower rate for women who take hormone therapy in their 50s. What are the risks of taking HT? While HT helps many women get through menopause, the treatment (like any prescription or even non-prescription medicines) is not risk-free. Known health risks include: ? An increased risk of endometrial cancer (only if a woman still has her uterus and is not taking a progestin along with estrogen). ? Increased risk of blood clots and stroke. However, in women within 5 years of menopause there was no statistically significant increase in stroke risk. Also, studies suggest that using estrogen delivered from the skin via a patch/cream might further lessen the risk of blood clots. ? Increased chance of gallbladder/gallstone problems. ? Increased risk of dementia if hormone therapy is started after a woman has been in menopause for 10 years. It is not yet known if it might be beneficial for women who start HT in their 50s. ? Most of our understanding about the benefits and risks of hormone therapy on the heart and breast come from the Women?s Health Initiative (WHI) study (one of the largest studies done on hormone therapy): HT and the heart Recent analysis of WHI actually shows that the risk of heart disease may be related more to the advanced age of the participants as opposed to the HT. The study also found that HT given to younger women, at the onset of menopause, appeared to decrease the risk of heart disease. More specifically: ? An increased risk of heart disease is only seen in women taking long-term estrogen-progestin combination therapy (EPT) if they start HT in their mid-60s. There does not seem to be an increased risk of heart disease when women in their 50s start EPT. Estrogen alone (ET) has not been shown to increase the risk of heart disease. Analysis of the age since menopause actually shows a decrease in the risk of heart disease when ET was started in younger women (those just beginning menopause). Currently, it is not recommended to use hormone therapy solely for the purpose of preventing heart disease. However these studies give us reassurance that when women just newly approaching menopause need HT for a short time, it is safe to do so in terms of group home heart disease risk. HT and breast cancer Diagnosis of breast cancer increases when combination EPT is used beyond 3-5 years. This means that out of 10,000 women who use estrogen progestin therapy for more than 5 years, there will be 8 additional breast cancers diagnosed. In contrast, the WHI study showed women who use estrogen alone had no increase in risk of breast cancer even after 11 years of use. In fact, fewer breast cancers were seen in the group taking estrogen alone, though this was not statistically significant. When a woman comes off of hormone therapy, any potential increase in her risk of breast cancer quickly goes back to her baseline norm. This is why hormone therapy can be a safe option when women in their 50s (who are generally at lower risk for breast cancer compared to older women). Does starting HT closer to the time of menopause make it safer? One of the problems with the WHI study, which gave us much of our knowledge on the risks of HT, is that most women in the study were starting hormones in their mid-60s. Typically, women who need HT are newly menopausal, in their early 50s. Younger women in the WHI study had fewer risks and more benefits from HT. Newer studies are trying to understand the risks and benefits of HT in women in their 50s. One such study showed HT started early in postmenopausal women significantly reduced rate, heart attacks and heart failure. These postmenopausal women who started HT early and used it for more than 10 years were not at increased risk of breast cancer or stroke. What are some commonly used postmenopausal hormones? The following charts list the names of some, but not all, postmenopausal hormones. Types Brand Names Vaginal Tablet Vagifem? Estrogen Pills Cenestin?, Estinyl?, Estrace?, Menest?, Ogen?, Premarin?, Femtrace? Cream Estrace?, Ogen?, Premarin? Vaginal Ring Estring?, Femring? Patch Chantale?, Climara?, Minivelle?, Estraderm?, Vivelle?, Vivelle-Dot?, Menostar? Progestin Types Brand Names Pills/Capsules Amen?, Aygestin?, Curretab?, Cycrin?, Megace?, Prometrium?, Provera? Vaginal Gel Prochieve? progesterone gel 4%, 8% Combination types Brand Names Pills Activella?, FemHRT?, Premphase?, Prempro?, Angeliq? Patchs CombiPatch?, Climara-Pro? Who shouldn't take HT? HT is not usually recommended for women who have: ? Active or past breast cancer ? Recurrent or active endometrial cancer ? Abnormal vaginal bleeding that has not been evaluated ? Recurrent or active blood clots ? History of stroke ? Liver disease ? Known or suspected ? What are the side effects of HT? Like almost all medications, hormone therapy has side effects. The most common side effects are: ? Monthly bleeding (if progestin given cyclical) ? Irregular spotting ? Breast tenderness ? Less common side effects of hormone therapy include: ? Fluid retention ? Headaches (including migraine) ? Skin discoloration (brown or black spots) ? Increased breast density making mammogram interpretation more difficult ? Skin irritation under estrogen patch How can I reduce these side effects? Adjusting either the dosage or the form of the medication you are taking can often reduce side effects of HT. However, you should never make changes in your medication or stop taking it without first consulting your doctor. How can I know if HT is right for me? The balance of risks versus benefits of HT can be very different for each woman, depending on her age, family history, and personal medical history. It is important to allow enough time at an office visit to discuss the risks and benefits of hormone therapy. This is a question that should usually be addressed at a separate office visit to allow plenty of time for detailed discussion with your doctor. How long should I take HT? Since research on HT is ongoing, women should reevaluate their treatment plans each year. Discontinue HT (under your health care provider's guidance) if you develop a medical condition that would make it less safe for you. Based on the WHI study results, should I stop taking HT? It's important that you do not make any abrupt changes to your HT without consulting your doctor. He or she can discuss with you the benefits and risks of HT based on your individual circumstances. First, the therapy should not be continued or started to prevent heart disease. Women should consult their doctor about other methods of prevention, such as lifestyle changes, and cholesterol- and blood pressure-lowering drugs. Second, for osteoporosis prevention, women should consult their doctor and weigh the benefits against their personal risks. Alternate treatments also are available to prevent osteoporosis and fractures. Finally, women taking HT for relief of menopausal symptoms may reap more benefits than risks. Women should talk with their doctor about their personal risks and benefits. References: ? Effect of Hormone Replacement Therapy on Cardiovascular Events in Recently Postmenopausal Women: Randomized Trial. BMJ Jan 2012. ? [place] [employer]. The 2012 hormone therapy position statement Accessed 09/01/12. ? [place] [employer]. [place] [employer]in[employer] Medical Guidelines for the Clinical Practice for the Diagnosis and Treatment of Menopause Accessed 09/25/12. ? Committee on Gynecological Practice. Postmenopausal estrogen therapy: Route of administration and risk of venous thromboembolism. Obstet Gynecol 2013 Jul; 121:887. ? Estrogen alone and joint symptoms in the Women's Health Initiative randomized trial. Menopause 2012Jun 20. BONE MINERAL DENSITY PATIENT INSTRUCTIONS Bone mineral density testing measures the amount of calcium in certain parts of your bones. This information determines how strong your bones are. The test is used to detect osteoporosis, a disease in which the bone's mineral content and density are low, increasing a person's risk of fractures. The lumbar spine (lower back) and the hip are the skeletal sites usually examined. For the test, remember that: 1. You cannot take this test if you are . 2. Eat a normal diet on the day of the test. 3. Take your medications as you normally would. 4. DO NOT take calcium supplements (such as Tums) for 24 hours before the test. 5. On the day of the test, leave valuables (jewelry or credit cards) at home. 6. The test should be performed prior to oral, rectal or IV contrast studies, or at least 7 days after any of these studies. For the test, you may be asked to wear a hospital gown. You will lie on your back, on a padded table, in a comfortable position. Generally, you can resume your usual activities immediately. Prescriptions ordered this encounter Disp Refills Start End FLUOXETINE 20 MG CAPSULE 90 c* 3 12/10/2017 Route: ORAL Sig: Take 1 capsule by mouth once daily. Medications Discontinued During This Encounter FLUoxetine (PROZAC) 20 mg capsule 90 c* 0 11/29/2017 12/10/2017 Route: ORAL Sig: Take 1 capsule by mouth once daily. Disc: Reason for discontinue is not on file. Disposition: Return in 1 year (on 12/10/2018) for Annual Exam. Follow-up and Disposition History Recorded Encounter Status:Closed by MILLY OVALLES MD on 12/10/17 PROGRESS Observed: 12/10/2017 Status: COMPLETED Source: [place] 8:58 AM [facility] HNO ID: [id number] Author: Jaime Weiner Ms Service: (none) Author Type: (none) Type: Progress Notes Filed: 12/10/2017 9:59 AM Note Text: [place] offered: Patient declines. CNNURSE Observed: 11/09/2017 Status: COMPLETED Source: [place] 10:30 AM [facility] [place] [facility] Nurse Visit ([address] A[address] ARSHAD ([id number]) 1955 F Date Time Provider Department 11/09/17 10:30 AM [facility] your visit today, we recorded the following information about you: Pulse Blood pressure 82/minute 116/76 Kathleen Edwards LPN 11/09/2017 10:50 AM Signed Manual Readin/76 Pulse: 82 (left arm) 114/78 (right arm) Home Cuff: 120/77 P: 80 Reason for blood pressure check - Other Elevated home readings Patient is: Taking medication as prescribed Yes Took medication today Yes If no, date medication last taken N/A Experiencing side effects No Patient had been getting elevated home readings recently. Readings have ranged 125-165/75-94. Taking medications as prescribed. Denies any chest pain, shortness of breath, dizziness, or headaches. Daily caffeine use. No personal history of tobacco use; no current exposure. Alert and oriented. Pt has been identified by name and birthdate: Yes Allergies reviewed: Yes Latex allergy: no. Medication - prescribed and OTC reviewed and updated: Yes Do you need any prescription refills prior to your next visit: No Health Maintenance: Reviewed and not up to date and provider notified Patient advised to continue with current medications and would be contacted with any further instructions after review by PCP. Kathleen Edwards LPN Referring Provider: SCOTTY POLLACK) [[id number]] Allergies As of Date: 11/09/2017 Noted Allergy Reaction SULFA (SULFONAMIDE ANTIBIOTICS) 11/18/2016 8 - GI Upset Date Reviewed: 11/04/2017 Reviewed by: Shahrzad Acosta Ma - Fully Assessed Reason for Visit: Blood Pressure Check [195] Primary Visit Diagnosis:Essential hypertension [I10] Prescriptions as of 11/09/2017 Sig: AMLODIPINE 5 MG TABLET Take 2 tablets by mouth once * OXYBUTYNIN CHLORIDE ER 10 MG * Take 1 tablet by mouth once d* LOSARTAN 100 MG TABLET TAKE 1 TABLET BY MOUTH ONCE D* PRAVASTATIN 40 MG TABLET Take 1 tablet by mouth once d* LANSOPRAZOLE 30 MG CAPSULE,DE* Take 1 capsule by mouth once * AZO URINARY PAIN RELIEF ORAL Take by mouth as needed (blad* ESTRADIOL 0.01% (0.1 MG/GRAM)* Fingertip amount vaginally ev* ALBUTEROL SULFATE HFA 90 MCG/* Inhale 2 Puffs as instructed * CETIRIZINE 10 MG TABLET Take 1 tablet by mouth once d* MOMETASONE 50 MCG/ACTUATION N* Use 2 Sprays in the nose once* CLONIDINE 0.3 MG/24 HR WEEKLY* Apply 1 Patch as directed onc* ESTRADIOL 0.05 MG/24 HR WEEKL* Apply 1 Patch as directed onc* FLUOXETINE 20 MG CAPSULE Take 1 capsule by mouth once * MONTELUKAST 10 MG TABLET Take 1 tablet by mouth daily * Problem List As Of Date 11/09/2017 Noted Resolved Anxiety [F41.9] Hyperlipidemia [E78.5] GERD (gastroesophageal reflux disease) [K21.9] CKD (chronic kidney disease), stage III [N18.3] Sleep apnea [G47.30] INVALID FOR* More... Hypertension [I10] More... Pheochromocytoma [D35.00] More... Encounter Status:Closed by KATHLEEN EDWARDS LPN on 11/09/17 PROGRESS Observed: 11/09/2017 Status: COMPLETED Source: [place] 10:21 AM [facility] [place] [facility] HNO ID: [id number] Author: Kathleen Edwards LPN Service: (none) Author Type: (none) Type: Progress Notes Filed: 11/09/2017 10:50 AM Note Text: Manual Readin/76 Pulse: 82 (left arm) 114/78 (right arm) Home Cuff: 120/77 P: 80 Reason for blood pressure check - Other Elevated home readings Patient is: Taking medication as prescribed Yes Took medication today Yes If no, date medication last taken N/A Experiencing side effects No Patient had been getting elevated home readings recently. Readings have ranged 125-165/75-94. Taking medications as prescribed. Denies any chest pain, shortness of breath, dizziness, or headaches. Daily caffeine use. No personal history of tobacco use; no current exposure. Alert and oriented. Pt has been identified by name and birthdate: Yes Allergies reviewed: Yes Latex allergy: no. Medication - prescribed and OTC reviewed and updated: Yes Do you need any prescription refills prior to your next visit: No Health Maintenance: Reviewed and not up to date and provider notified Patient advised to continue with current medications and would be contacted with any further instructions after review by PCP. Kathleen Edwards LPN Observed: 11/04/2017 Status: F Source: [place] URINE CULTURE 1:55 PM [facility] [place] [facility] Sp. Request/Comment: - Specimen received in preservative Culture Result - <10,000 CFU/ml Normal urogenital azar Performed By: #### URCUL #### [facility] [address] [place] [id number] PROGRESS Observed: 11/04/2017 Status: COMPLETED Source: [place] 1:52 PM [facility] [place] [facility] HNO ID: [id number] Author: Cruzito Kumar (Pa) Service: (none) Author Type: Physician Car Sales Representative Type: Progress Notes Filed: 11/08/2017 12:52 PM Note Text: [facility] PATIENT INFO: Ave Arshad 62 year old CHIEF COMPLAINT: UTI HPI: This is a 62 year old female, for UTI and Atrophic Vaginitis Follow Up, She is improving since being on Etrace Cream Her UTIs have been much reduced , but still has some symptoms Will send urine for culture today REVIEW OF SYSTEMS: General: General: Well developed, well nourished. No acute distress PHYSICAL EXAMINATION: General Appearance/ Constitutional: Well developed, well nourished, and in no apparent distress Results for orders placed or performed in visit on 11/04/17 UA DIP, URINE (POC) Result Value Ref Range GLUCOSE UA (POCT) Negative Negative mg/dL BILIRUBIN UA (POCT) Negative Negative KETONE UA (POCT) Negative Negative mg/dL SPECIFIC GRAVITY UA (POCT) 1.020 1.005 - 1.030 HEMOGLOBIN/BLOOD UA (POCT) Moderate (A) Negative PH UA (POCT) 6.0 4.5 - 8.0 PROTEIN UA (POCT) >=300 (A) Negative mg/dL UROBILINOGEN UA (POCT) 0.2 Normal E.U./dL NITRITE UA (POCT) Negative Negative LEUKOCYTES UA (POCT) Negative Negative COLOR UA (POCT) Dark yellow CLARITY UA (POCT) Clear IMPRESSION / PLAN: > History of Chronic UTI with some Urgency > Pending Culture > Trial of Ditropan for her upcoming trip > s/p hysterectomy > may need a Female Urology consult if not getting any better > Atrophic Vaginitis > Continue Estrace Cream > Call with culture results on Wednesday Cruzito Kumar, [place], [place], ARIANA CNOV Observed: 11/04/2017 Status: COMPLETED Source: [place] 1:30 PM [facility] [place] [facility] Office Visit ([address]OL[address]) AVE ARSHAD ([id number]) 1955 F Date Time Provider Department 11/04/17 1:30 PM CRUZITO KUMAR) UROLWS During your visit today, we recorded the following information about you: Pulse Blood pressure Weight 76/minute 152/84 94.3 kg JM Navarro 11/08/2017 12:52 PM Signed [facility] PATIENT INFO: Ave Arshad 62 year old CHIEF COMPLAINT: UTI HPI: This is a 62 year old female, for UTI and Atrophic Vaginitis Follow Up, She is improving since being on Etrace Cream Her UTIs have been much reduced , but still has some symptoms Will send urine for culture today REVIEW OF SYSTEMS: General: General: Well developed, well nourished. No acute distress PHYSICAL EXAMINATION: General Appearance/ Constitutional: Well developed, well nourished, and in no apparent distress Results for orders placed or performed in visit on 11/04/17 UA DIP, URINE (POC) Result Value Ref Range GLUCOSE UA (POCT) Negative Negative mg/dL BILIRUBIN UA (POCT) Negative Negative KETONE UA (POCT) Negative Negative mg/dL SPECIFIC GRAVITY UA (POCT) 1.020 1.005 - 1.030 HEMOGLOBIN/BLOOD UA (POCT) Moderate (A) Negative PH UA (POCT) 6.0 4.5 - 8.0 PROTEIN UA (POCT) >=300 (A) Negative mg/dL UROBILINOGEN UA (POCT) 0.2 Normal E.U./dL NITRITE UA (POCT) Negative Negative LEUKOCYTES UA (POCT) Negative Negative COLOR UA (POCT) Dark yellow CLARITY UA (POCT) Clear IMPRESSION / PLAN: > History of Chronic UTI with some Urgency > Pending Culture > Trial of Ditropan for her upcoming trip > s/p hysterectomy > may need a Female Urology consult if not getting any better > Atrophic Vaginitis > Continue Estrace Cream > Call with culture results on Wednesday IVANNA Jade, [place], PA-C Referring Provider: CRUZITO KUMAR (JM) [[id number]] Allergies As of Date: 11/04/2017 Noted Allergy Reaction SULFA (SULFONAMIDE ANTIBIOTICS) 11/18/2016 8 - GI Upset Date Reviewed: 11/04/2017 Reviewed by: Shahrzad Acosta Ma - Fully Assessed Reason for Visit: Follow Up [171] atrophic vaginitis [Other] Cystitis [1084] Primary Visit Diagnosis:Atrophic vaginitis [N95.2] Other Visit Diagnosis:Acute cystitis with hematuria [N30.01] Order(s):UA DIP, URINE (POC) [[id number]] Order #: [id number]. #:[id number] URINE CULTURE [SQURCUL] Order #: [id number]. #:[id number] oxybutynin ER (DITROPAN XL) 10 mg 24 hr tabletTake 1 tablet by mouth once daily.Disp: 30 tabletRfl: 1 Prescriptions as of 11/04/2017 Sig: LOSARTAN 100 MG TABLET TAKE 1 TABLET BY MOUTH ONCE D* PRAVASTATIN 40 MG TABLET Take 1 tablet by mouth once d* X AMLODIPINE 5 MG TABLET Take 1 tablet by mouth once d* LANSOPRAZOLE 30 MG CAPSULE,DE* Take 1 capsule by mouth once * AZO URINARY PAIN RELIEF ORAL Take by mouth as needed (blad* ESTRADIOL 0.01% (0.1 MG/GRAM)* Fingertip amount vaginally ev* ALBUTEROL SULFATE HFA 90 MCG/* Inhale 2 Puffs as instructed * CETIRIZINE 10 MG TABLET Take 1 tablet by mouth once d* MOMETASONE 50 MCG/ACTUATION N* Use 2 Sprays in the nose once* MONTELUKAST 10 MG TABLET Take 1 tablet by mouth daily * CLONIDINE 0.3 MG/24 HR WEEKLY* Apply 1 Patch as directed onc* ESTRADIOL 0.05 MG/24 HR WEEKL* Apply 1 Patch as directed onc* FLUOXETINE 20 MG CAPSULE Take 1 capsule by mouth once * OXYBUTYNIN CHLORIDE ER 10 MG * Take 1 tablet by mouth once d* Problem List As Of Date 11/04/2017 Noted Resolved Anxiety [F41.9] Hyperlipidemia [E78.5] GERD (gastroesophageal reflux disease) [K21.9] CKD (chronic kidney disease), stage III [N18.3] Sleep apnea [G47.30] INVALID FOR* More... Hypertension [I10] Pheochromocytoma [D35.00] More... Prescriptions ordered this encounter Disp Refills Start End OXYBUTYNIN CHLORIDE ER 10 MG TABLET,* 30 t* 1 11/04/2017 Route: ORAL Sig: Take 1 tablet by mouth once daily. Encounter Status:Closed by CRUZITO KUMAR PA-C on 11/08/17 Observed: 09/24/2017 Status: F Source: [place] URINE CULTURE 2:58 PM [facility] [place] [facility] Sp. Request/Comment: - Presurgical Sterilization Best Practice Alert: To ensure optimal transport conditions and accurate culture results transfer urine specimens to delong top C and S preservative tube. Culture Result - >=100,000 CFU/ml Klebsiella pneumoniae --> ABNORMAL ALERT ORGANISM: Klebsiella pneumoniae METHOD: Minimum inhibitory concentration(Vitek) Antibiotic Interp LEDA Status Ampicillin RESISTANT F Gentamicin SUSCEPTIBLE <=1 F Trimeth sulfameth SUSCEPTIBLE <=20 F Cefazolin SUSCEPTIBLE <=4 F CLSI breakpoints for therapy of uncomplicated UTI's due to E.coli, K.pneumoniae, and P.mirabilis were applied and may be used to predict the activity of oral agents(cefaclor, cefdinir, cefpodoxime, cefp rozil, cefuroxime, cephalexin, loracarbef). Ciprofloxacin SUSCEPTIBLE <=0.25 F Nitrofurantoin INTERMEDIATE 64 F Cefepime SUSCEPTIBLE <=1 F Piperacillin/Tazobac SUSCEPTIBLE <=4 F Ampicillin Sulbact SUSCEPTIBLE 4 F Ceftriaxone SUSCEPTIBLE <=1 F Meropenem SUSCEPTIBLE <=0.25 F Ertapenem SUSCEPTIBLE <=0.5 F Performed By: #### URCUL #### [facility] [address] [place] [id number] [facility] Observed: 09/07/2017 Status: COMPLETED Source: [place] 12:00 AM [facility] [place] [facility] Telephone ([address]) AVE ARSHAD ([id number]) 1955 F Date Time Provider Department 09/07/17 CRUZITO KUMAR) BERNABE During your visit today, we recorded the following information about you: JM Navarro 09/07/2017 10:11 AM Signed Patient was started on Macrobid last week, her culture is positive, and needs another 7 days of Macrobid E-scripted to her pharmacy Patient will need a 2 week post treatment urine culture, orders placed Cruzito Kumar, MPAS, [place], PA-C Shahrzad Acosta Ma 09/07/2017 12:22 PM Signed Left detailed message to inform. Shahrzad Acosta Ma Allergies As of Date: 09/07/2017 Noted Allergy Reaction SULFA (SULFONAMIDE ANTIBIOTICS) 11/18/2016 8 - GI Upset Date Reviewed: 09/02/2017 Reviewed by: Shahrzad Acosta Ma - Fully Assessed Reason for Visit: Refill Request [94] Primary Visit Diagnosis:Acute cystitis without hematuria [N30.00] Order(s):nitrofurantoin monohydrate and macrocrystal (MACROBID) 100 mg capsuleTake 1 capsule by mouth twice daily for 7 days.Disp: 14 capsuleRfl: 0 URINE CULTURE [SQURCUL] Order #: [id number] Prescriptions as of 09/07/2017 Sig: NITROFURANTOIN MONOHYDRATE AND * Take 1 capsule by mouth twice* LANSOPRAZOLE 30 MG CAPSULE,DE* Take 1 capsule by mouth once * AZO URINARY PAIN RELIEF ORAL Take by mouth as needed (blad* ESTRADIOL 0.01% (0.1 MG/GRAM)* Fingertip amount vaginally ev* ALBUTEROL SULFATE HFA 90 MCG/* Inhale 2 Puffs as instructed * CETIRIZINE 10 MG TABLET Take 1 tablet by mouth once d* MOMETASONE 50 MCG/ACTUATION N* Use 2 Sprays in the nose once* MONTELUKAST 10 MG TABLET Take 1 tablet by mouth daily * LOSARTAN 100 MG TABLET Take 1 tablet by mouth once d* CLONIDINE 0.3 MG/24 HR WEEKLY* Apply 1 Patch as directed onc* AMLODIPINE 5 MG TABLET Take 1 tablet by mouth once d* PRAVASTATIN 40 MG TABLET Take 40 mg by mouth once ramon* ESTRADIOL 0.05 MG/24 HR WEEKL* Apply 1 Patch as directed onc* FLUOXETINE 20 MG CAPSULE Take 1 capsule by mouth once * Problem List As Of Date 09/07/2017 Noted Resolved Anxiety [F41.9] Hyperlipidemia [E78.5] GERD (gastroesophageal reflux disease) [K21.9] CKD (chronic kidney disease), stage III [N18.3] Sleep apnea [G47.30] INVALID FOR* More... Hypertension [I10] Pheochromocytoma [D35.00] More... Prescriptions ordered this encounter Disp Refills Start End NITROFURANTOIN MONOHYDRATE AND MACROCR* 14 c* 0 09/07/2017 09/14/2017 Route: ORAL Sig: Take 1 capsule by mouth twice daily for 7 days. Encounter Status:Closed by CRUZITO KUMAR PA-C on 09/07/17 PROGRESS Observed: 09/02/2017 Status: COMPLETED Source: [place] 2:22 PM [facility] [place] [facility] O ID: [id number] Author: Cruzito Kumar (Pa) Service: (none) Author Type: Physician Car Sales Representative Type: Progress Notes Filed: 09/02/2017 3:18 PM Note Text: [facility] PATIENT INFO: Ave Arshad 62 year old CHIEF COMPLAINT: UTI HPI: This is a 62 year old female, who has had UTI's , which started in 2018 Starting to have a bad odor to the urine. She has not had any antibiotics for about 3 months since starting the Estrace Cream She did not think that the AZO was helpful with discomfort. We will send a urine culture today anstart he on 3 days of Macrobid 100 mg REVIEW OF SYSTEMS: General: General: Well developed, well nourished. No acute distress PHYSICAL EXAMINATION: General Appearance/ Constitutional: Well developed, well nourished, and in no apparent distress [facility] Recurrent UTI Step Prevention Program: Takes 6 months before it is fully ineffect! This is not a treatment program for each time you may get a breakthrough infection in the future or while you are waiting for the prevention program to take effect over the next 6 months. Your primary care team will treat any breakthrough infections or provide refills for any of my suggestions below. The following is the recommended treatment to PREVENT recurrent urinary tract infections. 1) Topical estrogen cream for atrophic vaginitis: estrace cream fingertip application every other night 2) Probiotics: take any brand once daily: Try the brand Align but change brands every 6 months 3) A good bowel regimen to promote a BM each day or by every 3rd day 4) For break through infections over the next 6 months, use a 3 day course of Macrobid in which you use 1 pill 2 x a day for 3 days; if symptoms persists and you think you have a UTI, contact your PCP provider. 5) You may use AZO as directed as an OTC bladder pain relief when you have a breakthrough UTI; I think aspirin or Motrin/Aleve OTC is useful as well during an active infection Patient Information: Topical estrogen cream is recommended to restore the vaginal epithelium to its pre menopausal state. With a decrease in estrogen after menopause, the vaginal environment changes. This can lead to increased itchiness, dryness, and irritation. The environment becomes more basic/alkaline to a pH of 6.0 to 7.5. Normally the pH level is around 3.5 to 4.5. A different bacterial azar then begins to colonize the vagina which can lead to increased urinary tract infections. In order to re- establish the good bacteria azar, it is important to get the vaginal epithelium back to its pre menopausal state. This can be done with topical estrogen cream. A pea sized amount on the tip of the finger used every other night can do this. It takes about six months for the environment to become hospitable to good bacteria. During this time your doctor may or may not also prescribe a low dose daily antibiotic to decrease your chance of infections. Side effects of topical estrogen use include breast tenderness, vaginal bleeding or spotting, nonphysiologic discharge, vaginal irritation, burning and itching. If you have a history of deep vein thrombosis, pulmonary embolism, uterine cancer or estrogen receptor positive breast cancer, you may want to discuss this with your doctor prior to starting topical estrogen use. Histology slides of vaginal epithelium without estrogen then with estrogen supplementation. Epi stands for epithelium. Progress and Prospects in Treating Postmenopausal Vaginal atrophy. Clinical pharmacology AND Therapeutics, Vol 89 Number 1, April 2010 Probiotics also helps in re-establishing the good bacteria in the vaginal azar. Numerous probiotics are available over the counter to use. This can also help with establishing a good bowel regimen. Given the bowel's close proximity to both the vagina and urethra/bladder, it is important to have regular bowel movements to decrease voiding symptoms and also decrease the risk of urinary tract infections. A good bowel regimen help with decreasing colonic azar in the perineal area. This can be done with stool softeners available over the counter to gentle laxatives such as miralax. We would suggest avoiding group home use of laxatives though and if you would like a consult with gastroenterology for additional evaluation please ask. Along with these three strategies to prevent recurrent infections, your doctor may add additional strategies tailored to your situation. We are commonly asked whether taking cranberry extract will prevent urinary tract infections. Based on the most recent [place] Review evaluating cranberries and the prevention of urinary tract infections, there is no clear evidence to suggest that cranberries effectively prevents urinary tract infections. Supplements with cranberry extracts have not been studied in a standardized fashion to suggest a benefit to using these daily. As such, we do not include using cranberry extract as part of our regimen to decreasing recurrent urinary tract infections. ADDITIONAL DATA REVIEWED: Most recent imaging Most recent labs Results for orders placed or performed in visit on 09/02/17 UA DIP, URINE (POC) Result Value Ref Range GLUCOSE UA (POCT) Negative Negative mg/dL BILIRUBIN UA (POCT) Negative Negative KETONE UA (POCT) Trace Negative mg/dL SPECIFIC GRAVITY UA (POCT) 1.020 1.005 - 1.030 HEMOGLOBIN/BLOOD UA (POCT) Large (A) Negative PH UA (POCT) 5.5 4.5 - 8.0 PROTEIN UA (POCT) >=300 (A) Negative mg/dL UROBILINOGEN UA (POCT) 0.2 Normal E.U./dL NITRITE UA (POCT) Negative Negative LEUKOCYTES UA (POCT) Trace (A) Negative COLOR UA (POCT) Dark yellow CLARITY UA (POCT) Clear IMPRESSION / PLAN: > History of Chronic UTI > Pending Culture > Started Macrobid > s/p hysterectomy > may need a Female Urology consult if not getting any better > Atrophic Vaginitis > Continue Estrace Cream > Call with culture results on Wednesday IVANNA Jade, RODNEY, ARIANA AGGARWALOV Observed: 09/02/2017 Status: COMPLETED Source: [place] 2:[address] [facility] [place] REPOS[facility] Office Visit (UROLWS) AVE ARSHAD ([id number]) 1955 F Date Time Provider Department 09/02/17 2:00 PM CRUZITO KUMAR) [facility]OLWS During your visit today, we recorded the following information about you: Blood pressure Weight 122/80 93.9 kg JM Navarro 09/02/2017 3:18 PM Signed [facility] [place] PATIENT INFO: Ave Arshad 62 year old CHIEF COMPLAINT: UTI HPI: This is a 62 year old female, who has had UTI's , which started in 2018 Starting to have a bad odor to the urine. She has not had any antibiotics for about 3 months since starting the Estrace Cream She did not think that the AZO was helpful with discomfort. We will send a urine culture today anstart he on 3 days of Macrobid 100 mg REVIEW OF SYSTEMS: General: General: Well developed, well nourished. No acute distress PHYSICAL EXAMINATION: General Appearance/ Constitutional: Well developed, well nourished, and in no apparent distress [facility] [place] Recurrent UTI Step Prevention Program: Takes 6 months before it is fully ineffect! This is not a treatment program for each time you may get a breakthrough infection in the future or while you are waiting for the prevention program to take effect over the next 6 months. Your primary care team will treat any breakthrough infections or provide refills for any of my suggestions below. The following is the recommended treatment to PREVENT recurrent urinary tract infections. 1) Topical estrogen cream for atrophic vaginitis: estrace cream fingertip application every other night 2) Probiotics: take any brand once daily: Try the brand Align but change brands every 6 months 3) A good bowel regimen to promote a BM each day or by every 3rd day 4) For break through infections over the next 6 months, use a 3 day course of Macrobid in which you use 1 pill 2 x a day for 3 days; if symptoms persists and you think you have a UTI, contact your PCP provider. 5) You may use AZO as directed as an OTC bladder pain relief when you have a breakthrough UTI; I think aspirin or Motrin/Aleve OTC is useful as well during an active infection Patient Information: Topical estrogen cream is recommended to restore the vaginal epithelium to its pre menopausal state. With a decrease in estrogen after menopause, the vaginal environment changes. This can lead to increased itchiness, dryness, and irritation. The environment becomes more basic/alkaline to a pH of 6.0 to 7.5. Normally the pH level is around 3.5 to 4.5. A different bacterial azar then begins to colonize the vagina which can lead to increased urinary tract infections. In order to re-establish the good bacteria azar, it is important to get the vaginal epithelium back to its pre menopausal state. This can be done with topical estrogen cream. A pea sized amount on the tip of the finger used every other night can do this. It takes about six months for the environment to become hospitable to good bacteria. During this time your doctor may or may not also prescribe a low dose daily antibiotic to decrease your chance of infections. Side effects of topical estrogen use include breast tenderness, vaginal bleeding or spotting, nonphysiologic discharge, vaginal irritation, burning and itching. If you have a history of deep vein thrombosis, pulmonary embolism, uterine cancer or estrogen receptor positive breast cancer, you may want to discuss this with your doctor prior to starting topical estrogen use. Histology slides of vaginal epithelium without estrogen then with estrogen supplementation. Epi stands for epithelium. Progress and Prospects in Treating Postmenopausal Vaginal atrophy. Clinical pharmacology AND Therapeutics, Vol 89 Number 1, April 2010 Probiotics also helps in re-establishing the good bacteria in the vaginal azar. Numerous probiotics are available over the counter to use. This can also help with establishing a good bowel regimen. Given the bowel's close proximity to both the vagina and urethra/bladder, it is important to have regular bowel movements to decrease voiding symptoms and also decrease the risk of urinary tract infections. A good bowel regimen help with decreasing colonic azar in the perineal area. This can be done with stool softeners available over the counter to gentle laxatives such as miralax. We would suggest avoiding entrepreneurship program director use of laxatives though and if you would like a consult with gastroenterology for additional evaluation please ask. Along with these three strategies to prevent recurrent infections, your doctor may add additional strategies tailored to your situation. We are commonly asked whether taking cranberry extract will prevent urinary tract infections. Based on the most recent [place] Review evaluating cranberries and the prevention of urinary tract infections, there is no clear evidence to suggest that cranberries effectively prevents urinary tract infections. Supplements with cranberry extracts have not been studied in a standardized fashion to suggest a benefit to using these daily. As such, we do not include using cranberry extract as part of our regimen to decreasing recurrent urinary tract infections. ADDITIONAL DATA REVIEWED: Most recent imaging Most recent labs Results for orders placed or performed in visit on 09/02/17 UA DIP, URINE (POC) Result Value Ref Range GLUCOSE UA (POCT) Negative Negative mg/dL BILIRUBIN UA (POCT) Negative Negative KETONE UA (POCT) Trace Negative mg/dL SPECIFIC GRAVITY UA (POCT) 1.020 1.005 - 1.030 HEMOGLOBIN/BLOOD UA (POCT) Large (A) Negative PH UA (POCT) 5.5 4.5 - 8.0 PROTEIN UA (POCT) >=300 (A) Negative mg/dL UROBILINOGEN UA (POCT) 0.2 Normal E.U./dL NITRITE UA (POCT) Negative Negative LEUKOCYTES UA (POCT) Trace (A) Negative COLOR UA (POCT) Dark yellow CLARITY UA (POCT) Clear IMPRESSION / PLAN: > History of Chronic UTI > Pending Culture > Started Macrobid > s/p hysterectomy > may need a Female Urology consult if not getting any better > Atrophic Vaginitis > Continue Estrace Cream > Call with culture results on Wednesday IVANNA Jade, [place], PA-C Referring Provider: SELF [[id number]] Allergies As of Date: 09/02/2017 Noted Allergy Reaction SULFA (SULFONAMIDE ANTIBIOTICS) 11/18/2016 8 - GI Upset Date Reviewed: 09/02/2017 Reviewed by: Shahrzad Acosta Ma - Fully Assessed Reason for Visit: Follow Up [171] medication check [Other] Primary Visit Diagnosis:Atrophic vaginitis [N95.2] Other Visit Diagnosis:Acute cystitis with hematuria [N30.01] Order(s):UA DIP, URINE (POC) [[id number]] Order #: [id number] UA DIP, URINE (POC) [[id number]] Order #: [id number]. #:[id number] nitrofurantoin monohydrate and macrocrystal (MACROBID) 100 mg capsuleTake 1 capsule by mouth twice daily for 3 days. FOR 3 DAYS.Disp: 6 capsuleRfl: 0 URINE CULTURE [SQURCUL] Order #: [id number] Prescriptions as of 09/02/2017 Sig: LANSOPRAZOLE 30 MG CAPSULE,DE* Take 1 capsule by mouth once * AZO URINARY PAIN RELIEF ORAL Take by mouth as needed (blad* ESTRADIOL 0.01% (0.1 MG/GRAM)* Fingertip amount vaginally ev* CETIRIZINE 10 MG TABLET Take 1 tablet by mouth once d* MOMETASONE 50 MCG/ACTUATION N* Use 2 Sprays in the nose once* LOSARTAN 100 MG TABLET Take 1 tablet by mouth once d* CLONIDINE 0.3 MG/24 HR WEEKLY* Apply 1 Patch as directed onc* AMLODIPINE 5 MG TABLET Take 1 tablet by mouth once d* PRAVASTATIN 40 MG TABLET Take 40 mg by mouth once ramon* ESTRADIOL 0.05 MG/24 HR WEEKL* Apply 1 Patch as directed onc* FLUOXETINE 20 MG CAPSULE Take 1 capsule by mouth once * NITROFURANTOIN MONOHYDRATE AND * Take 1 capsule by mouth twice* ALBUTEROL SULFATE HFA 90 MCG/* Inhale 2 Puffs as instructed * MONTELUKAST 10 MG TABLET Take 1 tablet by mouth daily * Problem List As Of Date 09/02/2017 Noted Resolved Anxiety [F41.9] Hyperlipidemia [E78.5] GERD (gastroesophageal reflux disease) [K21.9] CKD (chronic kidney disease), stage III [N18.3] Sleep apnea [G47.30] INVALID FOR* More... Hypertension [I10] Pheochromocytoma [D35.00] More... Prescriptions ordered this encounter Disp Refills Start End NITROFURANTOIN MONOHYDRATE AND MACROCR* 6 ca* 0 09/02/2017 09/05/2017 Route: ORAL Sig: Take 1 capsule by mouth twice daily for 3 days. FOR 3 DAYS. Follow-up and Disposition History Recorded Encounter Status:Closed by CRUZITO KUMAR PA-C on 09/02/17 Observed: 09/02/2017 Status: F Source: [place] URINE CULTURE 4:27 AM [facility] [place] [facility] Sp. Request/Comment: - Low [place] Count Presurgical Sterilization Specimen received in preservative PLEASE ADD FOSFOMYCIN TO SENSITIVITY Culture Result - >=100,000 CFU/ml Klebsiella pneumoniae --> ABNORMAL ALERT ORGANISM: Klebsiella pneumoniae METHOD: Minimum inhibitory concentration(Vitek) Antibiotic Interp LEDA Status Ampicillin RESISTANT F Gentamicin SUSCEPTIBLE <=1 F Trimeth sulfameth SUSCEPTIBLE <=20 F Cefazolin SUSCEPTIBLE <=4 F CLSI breakpoints for therapy of uncomplicated UTI's due to E.coli, K.pneumoniae, and P.mirabilis were applied and may be used to predict the activity of oral agents(cefaclor, cefdinir, cefpodoxime, cefp rozil, cefuroxime, cephalexin, loracarbef). Ciprofloxacin SUSCEPTIBLE <=0.25 F Nitrofurantoin SUSCEPTIBLE 32 F Cefepime SUSCEPTIBLE <=1 F Piperacillin/Tazobac SUSCEPTIBLE <=4 F Ampicillin Sulbact SUSCEPTIBLE <=2 F Ceftriaxone SUSCEPTIBLE <=1 F Meropenem SUSCEPTIBLE <=0.25 F Ertapenem SUSCEPTIBLE <=0.5 F Performed By: #### URCUL #### [facility] [address] [place], [place] [address] PROGRESS Observed: 08/19/2017 Status: COMPLETED Source: [place] 1:[address] [facility] [place] [facility] O ID: [id number] Author: Scotty Hodges) Ranjeet Service: (none) Author Type: Physician Type: Progress Notes Filed: 08/20/2017 8:05 AM Note Text: Chief Complaint Patient presents with: Recheck: 4 week follow up HPI Ave Arshad is a 62 year old female who presents here today for Evaluation of hand shaking at night and f/u bronchitis.. For the last 2 years, patient has had right hand jumping and finger rubbing at night when she is sleeping. Denies tremors at rest, but does get occasional tremor when she reaches out with right hand. Patient states that she has been seen by neurology in [facility] back in 2017 and they obtained blood work and neuroimaging to rule out parkinson's and was told everything was negative. Has not had sleep study since symptoms began. Denies change in hand writing, stiffness, change in gait, resting tremor. Bronchitis symptoms have completely resolved since last OV 1 month ago with treatment as prescribed. Past medical history, appointments, medications, allergies reviewed. Previous Medical History PAST MEDICAL HISTORY Diagnosis Date - Anxiety - CKD (chronic kidney disease), stage III - GERD (gastroesophageal reflux disease) - Hearing loss of both ears hearing aids - History of endometriosis - History of splenectomy pneumovax every 5 years - Hyperlipidemia - Hypertension - Pheochromocytoma s/p adrenalectomy left - Sleep apnea 09/20/2014 on CPAP - Vertigo Previous Surgical History PAST SURGICAL HISTORY Procedure Laterality Date - ADRENALECTOMY Left - BLEPHAROPLASTY, UPPER EYELID Bilateral 04/2017 - SECTION HX - COLONOSCOPY x2 last 2008 and was normal - HYSTERECTOMY HX fibroids - PAST SURGICAL HISTORY OF infertility surgery - SALPINGECTOMY OR OOPHERECTOMY-ECTOPIC - SPLENECTOMY,GASTROESOPHAGEAL DEVASCULARIZ Family History FAMILY HISTORY Problem Relation Age of Onset - Endometrial Stromal Sarcoma [OTHER] Mother 66 - Multiple Myloma [OTHER] Mother 70 - Renal Cell sarcoma [OTHER] Mother 76 - Breast Cancer Paternal Grandmother - Heart Paternal Grandfather Patient Allergies ALLERGIES Allergen Reactions - Sulfa (Sulfonamide * GI Upset Current Medications Current Outpatient Prescriptions on File Prior to Visit: PHENAZOPYRIDINE HCL (AZO URINARY PAIN RELIEF ORAL) Take by mouth as needed (bladder pain). estradiol (ESTRACE) 0.01 % (0.1 mg/gram) vaginal cream Fingertip amount vaginally every other night losartan (COZAAR) 100 mg tablet Take 1 tablet by mouth once daily. cloNIDine TTS (CATAPRES-TTS) 0.3 mg/24 hr Apply 1 Patch as directed once each week. amLODIPine (NORVASC) 5 mg tablet Take 1 tablet by mouth once daily. lansoprazole (PREVACID) 30 mg capsule Take 30 mg by mouth once daily. pravastatin (PRAVACHOL) 40 mg tablet Take 40 mg by mouth once daily. estradiol (CLIMARA) 0.05 mg/24 hr Apply 1 Patch as directed once each week. FLUoxetine (PROZAC) 20 mg capsule Take 1 capsule by mouth once daily. albuterol HFA (VENTOLIN HFA) 90 mcg/actuation inhaler Inhale 2 Puffs as instructed every 4 hours as needed. cetirizine (ZYRTEC) 10 mg tablet Take 1 tablet by mouth once daily. mometasone (NASONEX) 50 mcg/actuation nasal spray Use 2 Sprays in the nose once daily. Rinse mouth after use. montelukast (SINGULAIR) 10 mg tablet Take 1 tablet by mouth daily at bedtime. No current facility-administered medications on file prior to visit. Social History Social History Marital status: Spouse name: Tori Years of education: Number of children: 1 Social History Main Topics Smoking status: Never Smoker Smokeless tobacco: Never Used Alcohol use: Yes Comment: rare Drug use: No Sexual activity: Yes Partners with: Male control/protection: Surgical Review of Symptoms REVIEW OF SYSTEMS GENERAL: No weight loss, malaise or fevers RESPIRATORY: Negative for cough, hemoptysis, wheezing, COPD, dyspnea or shortness of breath CARDIOVASCULAR: Negative for chest pain, leg swelling, hypertension, CHF or palpitations SKIN: Negative for lesions, rash, and itching EXAM: BP 116/78 Pulse 76 Resp 20 Wt 93.4 kg (206 lb) BMI 33.25 kg/m? General Appearance: Well appearing, alert, in no acute distress, well-hydrated, well nourished.. Skin: Skin color, texture, turgor normal, no suspicious rashes or lesions. Lungs: Lungs clear to auscultation. No wheezing, rhonchi, rales. Heart: RRR without murmur, gallop, or rubs. No ectopy. Neurologic: Gait normal. Reflexes normal and symmetric. Sensation grossly intact. 5/5 strength in UE bilaterally, equal DTRs, normal sensation. No cogwheel rigidity noted. Normal gait. Health Maintenance List DTAP,TDAP,TD(1 - Tdap) due on 03/10/2012 MAMMOGRAM due on 02/10/2018 COLORECTAL CANCER SCREENING,SEE MODIFIER due on 05/30/2019 DIABETES SCREEN due on 07/13/2020 LIPID SCREEN due on 01/06/2022 INFLUENZA Completed HEPATITIS C SCREENING Completed Data reviewed Component Latest Ref Rng AND Units 01/26/2017 07/13/2017 WBC 3.70 - 11.00 k/uL 10.07 RBC 3.90 - 5.20 m/uL 4.28 Hemoglobin 11.5 - 15.5 g/dL 13.2 Hematocrit 36.0 - 46.0 % 40.5 MCV 80.0 - 100.0 fL 94.6 MCH 26.0 - 34.0 pG 30.8 MCHC 30.5 - 36.0 g/dL 32.6 RDW-CV 11.5 - 15.0 % 13.5 Platelet Count 150 - 400 k/uL 397 MPV 9.0 - 12.7 fL 11.9 Neut% % 64.7 Abs Neut (ANC) 1.45 - 7.50 k/uL 6.51 Lymph% % 23.5 Abs Lymph 1.00 - 4.00 k/uL 2.37 Webb% % 9.7 Abs Webb <0.87 k/uL 0.98 (H) Eosin% % 1.4 Abs Eosin <0.46 k/uL 0.14 Baso% % 0.7 Abs Baso <0.11 k/uL 0.07 Nucleated Reds 0 /100 WBC 0.0 Absolute nRBC <0.01 k/uL <0.01 Diff Type Auto Diff Protein, Total 6.3 - 8.0 g/dL 7.2 6.7 Albumin 3.9 - 4.9 g/dL 4.2 3.4 (L) Calcium 8.5 - 10.2 mg/dL 9.3 9.0 Bilirubin, Total 0.2 - 1.3 mg/dL 0.2 0.3 Alkaline Phosphatase 32 - 117 U/L 57 78 AST 13 - 35 U/L 24 26 Glucose 74 - 99 mg/dL 82 108 (H) BUN 7 - 21 mg/dL 16 15 Creatinine 0.58 - 0.96 mg/dL 1.01 (H) 1.09 (H) Sodium 136 - 144 mmol/L 139 141 Potassium 3.7 - 5.1 mmol/L 4.4 4.1 Chloride 97 - 105 mmol/L 101 102 CO2 22 - 30 mmol/L 24 25 Anion Gap 9 - 18 mmol/L 14 14 ALT 7 - 38 U/L 23 22 eGFR- >60 >60 eGFR-All Other Races . 55 51 TSH 0.400 - 5.500 uU/mL 2.400 Hep C Antibody IA Negative Negative ASSESSMENT/PLAN: 1. Periodic limb movement sleep disorder - ICD9: 327.51, ICD10: G47.61 (primary diagnosis) Suspect PLMS. Will obtain PSG to confirm and if positive will start mirapex. - POLYSOMNOGRAM (PSG)/HOME SLEEP APNEA TESTING (HSAT) 2. Intention tremor - ICD9: 333.1, ICD10: G25.2 Rare tremor. Discussed starting propranolol, but patient refusing as this does not happen often and does not effect her daily life. 3. CKD (chronic kidney disease), stage III - ICD9: 585.3, ICD10: N18.3 Reviewed recent blood work and discussed pushing PO fluids with more water and less tea, avoidance of NSAIDs, and low salt diet. Will recheck in 3-6 months. 4. Essential hypertension - ICD9: 401.9, ICD10: I10 - good control - Continue current medication(s) - Encouraged dietary sodium restriction/DASH diet - Recommended regular aerobic exercise. - Reviewed risks of HTN and principles of treatment - Goal of BP <140/90 Scotty Pollack MD CNOV Observed: 08/19/2017 Status: COMPLETED Source: [place] 1:40 PM [facility] [place] [facility] Office Visit (FAMPWS) AVE ARSHAD ([id number]) 1955 F Date Time Provider Department 08/19/17 1:40 PM SCOTTY POLLACK) [facility] During your visit today, we recorded the following information about you: Pulse Respiration Blood pressure Weight 76/minute 20/minute 116/78 93.4 kg Scotty Pollack MD 08/20/2017 8:05 AM Signed Chief Complaint Patient presents with: Recheck: 4 week follow up HPI [address] Arshad is a 62 year old female who presents here today for Evaluation of hand shaking at night and f/u bronchitis.. For the last 2 years, patient has had right hand jumping and finger rubbing at night when she is sleeping. Denies tremors at rest, but does get occasional tremor when she reaches out with right hand. Patient states that she has been seen by neurology in [facility] back in 2017 and they obtained blood work and neuroimaging to rule out parkinson's and was told everything was negative. Has not had sleep study since symptoms began. Denies change in hand writing, stiffness, change in gait, resting tremor. Bronchitis symptoms have completely resolved since last OV 1 month ago with treatment as prescribed. Past medical history, appointments, medications, allergies reviewed. Previous Medical History PAST MEDICAL HISTORY Diagnosis Date - Anxiety - CKD (chronic kidney disease), stage III - GERD (gastroesophageal reflux disease) - Hearing loss of both ears hearing aids - History of endometriosis - History of splenectomy pneumovax every 5 years - Hyperlipidemia - Hypertension - Pheochromocytoma s/p adrenalectomy left - Sleep apnea 09/20/2014 on CPAP - Vertigo Previous Surgical History PAST SURGICAL HISTORY Procedure Laterality Date - ADRENALECTOMY Left - BLEPHAROPLASTY, UPPER EYELID Bilateral 04/2017 - SECTION HX - COLONOSCOPY x2 last 2008 and was normal - HYSTERECTOMY HX fibroids - PAST SURGICAL HISTORY OF infertility surgery - SALPINGECTOMY OR OOPHERECTOMY-ECTOPIC - SPLENECTOMY,GASTROESOPHAGEAL DEVASCULARIZ Family History FAMILY HISTORY Problem Relation Age of Onset - Endometrial Stromal Sarcoma [OTHER] Mother 66 - Multiple Myloma [OTHER] Mother 70 - Renal Cell sarcoma [OTHER] Mother 76 - Breast Cancer Paternal Grandmother - Heart Paternal Grandfather Patient Allergies ALLERGIES Allergen Reactions - Sulfa (Sulfonamide * GI Upset Current Medications Current Outpatient Prescriptions on File Prior to Visit: PHENAZOPYRIDINE HCL (AZO URINARY PAIN RELIEF ORAL) Take by mouth as needed (bladder pain). estradiol (ESTRACE) 0.01 % (0.1 mg/gram) vaginal cream Fingertip amount vaginally every other night losartan (COZAAR) 100 mg tablet Take 1 tablet by mouth once daily. cloNIDine TTS (CATAPRES-TTS) 0.3 mg/24 hr Apply 1 Patch as directed once each week. amLODIPine (NORVASC) 5 mg tablet Take 1 tablet by mouth once daily. lansoprazole (PREVACID) 30 mg capsule Take 30 mg by mouth once daily. pravastatin (PRAVACHOL) 40 mg tablet Take 40 mg by mouth once daily. estradiol (CLIMARA) 0.05 mg/24 hr Apply 1 Patch as directed once each week. FLUoxetine (PROZAC) 20 mg capsule Take 1 capsule by mouth once daily. albuterol HFA (VENTOLIN HFA) 90 mcg/actuation inhaler Inhale 2 Puffs as instructed every 4 hours as needed. cetirizine (ZYRTEC) 10 mg tablet Take 1 tablet by mouth once daily. mometasone (NASONEX) 50 mcg/actuation nasal spray Use 2 Sprays in the nose once daily. Rinse mouth after use. montelukast (SINGULAIR) 10 mg tablet Take 1 tablet by mouth daily at bedtime. No current facility-administered medications on file prior to visit. Social History Social History Marital status: Spouse name: Tori Years of education: Number of children: 1 Social History Main Topics Smoking status: Never Smoker Smokeless tobacco: Never Used Alcohol use: Yes Comment: rare Drug use: No Sexual activity: Yes Partners with: Male control/protection: Surgical Review of Symptoms REVIEW OF SYSTEMS GENERAL: No weight loss, malaise or fevers RESPIRATORY: Negative for cough, hemoptysis, wheezing, COPD, dyspnea or shortness of breath CARDIOVASCULAR: Negative for chest pain, leg swelling, hypertension, CHF or palpitations SKIN: Negative for lesions, rash, and itching EXAM: BP 116/78 Pulse 76 Resp 20 Wt 93.4 kg (206 lb) BMI 33.25 kg/m? General Appearance: Well appearing, alert, in no acute distress, well-hydrated, well nourished.. Skin: Skin color, texture, turgor normal, no suspicious rashes or lesions. Lungs: Lungs clear to auscultation. No wheezing, rhonchi, rales. Heart: RRR without murmur, gallop, or rubs. No ectopy. Neurologic: Gait normal. Reflexes normal and symmetric. Sensation grossly intact. 5/5 strength in UE bilaterally, equal DTRs, normal sensation. No cogwheel rigidity noted. Normal gait. Health Maintenance List DTAP,TDAP,TD(1 - Tdap) due on 03/10/2012 MAMMOGRAM due on 02/10/2018 COLORECTAL CANCER SCREENING,SEE MODIFIER due on 05/30/2019 DIABETES SCREEN due on 07/13/2020 LIPID SCREEN due on 01/06/2022 INFLUENZA Completed HEPATITIS C SCREENING Completed Data reviewed Component Latest Ref Rng AND Units 01/26/2017 07/13/2017 WBC 3.70 - 11.00 k/uL 10.07 RBC 3.90 - 5.20 m/uL 4.28 Hemoglobin 11.5 - 15.5 g/dL 13.2 Hematocrit 36.0 - 46.0 % 40.5 MCV 80.0 - 100.0 fL 94.6 MCH 26.0 - 34.0 pG 30.8 MCHC 30.5 - 36.0 g/dL 32.6 RDW-CV 11.5 - 15.0 % 13.5 Platelet Count 150 - 400 k/uL 397 MPV 9.0 - 12.7 fL 11.9 Neut% % 64.7 Abs Neut (ANC) 1.45 - 7.50 k/uL 6.51 Lymph% % 23.5 Abs Lymph 1.00 - 4.00 k/uL 2.37 Webb% % 9.7 Abs Webb <0.87 k/uL 0.98 (H) Eosin% % 1.4 Abs Eosin <0.46 k/uL 0.14 Baso% % 0.7 Abs Baso <0.11 k/uL 0.07 Nucleated Reds 0 /100 WBC 0.0 Absolute nRBC <0.01 k/uL <0.01 Diff Type Auto Diff Protein, Total 6.3 - 8.0 g/dL 7.2 6.7 Albumin 3.9 - 4.9 g/dL 4.2 3.4 (L) Calcium 8.5 - 10.2 mg/dL 9.3 9.0 Bilirubin, Total 0.2 - 1.3 mg/dL 0.2 0.3 Alkaline Phosphatase 32 - 117 U/L 57 78 AST 13 - 35 U/L 24 26 Glucose 74 - 99 mg/dL 82 108 (H) BUN 7 - 21 mg/dL 16 15 Creatinine 0.58 - 0.96 mg/dL 1.01 (H) 1.09 (H) Sodium 136 - 144 mmol/L 139 141 Potassium 3.7 - 5.1 mmol/L 4.4 4.1 Chloride 97 - 105 mmol/L 101 102 CO2 22 - 30 mmol/L 24 25 Anion Gap 9 - 18 mmol/L 14 14 ALT 7 - 38 U/L 23 22 eGFR- >60 >60 eGFR-All Other Races . 55 51 TSH 0.400 - 5.500 uU/mL 2.400 Hep C Antibody IA Negative Negative ASSESSMENT/PLAN: 1. Periodic limb movement sleep disorder - ICD9: 327.51, ICD10: G47.61 (primary diagnosis) Suspect PLMS. Will obtain PSG to confirm and if positive will start mirapex. - POLYSOMNOGRAM (PSG)/HOME SLEEP APNEA TESTING (HSAT) 2. Intention tremor - ICD9: 333.1, ICD10: G25.2 Rare tremor. Discussed starting propranolol, but patient refusing as this does not happen often and does not effect her daily life. 3. CKD (chronic kidney disease), stage III - ICD9: 585.3, ICD10: N18.3 Reviewed recent blood work and discussed pushing PO fluids with more water and less tea, avoidance of NSAIDs, and low salt diet. Will recheck in 3-6 months. 4. Essential hypertension - ICD9: 401.9, ICD10: I10 - good control - Continue current medication(s) - Encouraged dietary sodium restriction/DASH diet - Recommended regular aerobic exercise. - Reviewed risks of HTN and principles of treatment - Goal of BP <140/90 Scotty Pollack MD Referring Provider: SELF [[id number]] Allergies As of Date: 08/19/2017 Noted Allergy Reaction SULFA (SULFONAMIDE ANTIBIOTICS) 11/18/2016 8 - GI Upset Date Reviewed: 08/19/2017 Reviewed by: Francesca Omer LPN - Fully Assessed Reason for Visit: Recheck [92] Cmt: 4 week follow up Primary Visit Diagnosis:Periodic limb movement sleep disorder [G47.61] Other Visit Diagnoses:Intention tremor [G25.2] CKD (chronic kidney disease), stage III [N18.3] Essential hypertension [I10] Order(s):POLYSOMNOGRAM (PSG)/HOME SLEEP APNEA TESTING (HSAT) [[id number]] Order #: [id number] FUTURE Prescriptions as of 08/19/2017 Sig: AZO URINARY PAIN RELIEF ORAL Take by mouth as needed (blad* ESTRADIOL 0.01% (0.1 MG/GRAM)* Fingertip amount vaginally ev* LOSARTAN 100 MG TABLET Take 1 tablet by mouth once d* CLONIDINE 0.3 MG/24 HR WEEKLY* Apply 1 Patch as directed onc* AMLODIPINE 5 MG TABLET Take 1 tablet by mouth once d* LANSOPRAZOLE 30 MG CAPSULE,DE* Take 30 mg by mouth once ramon* PRAVASTATIN 40 MG TABLET Take 40 mg by mouth once ramon* ESTRADIOL 0.05 MG/24 HR WEEKL* Apply 1 Patch as directed onc* FLUOXETINE 20 MG CAPSULE Take 1 capsule by mouth once * ALBUTEROL SULFATE HFA 90 MCG/* Inhale 2 Puffs as instructed * CETIRIZINE 10 MG TABLET Take 1 tablet by mouth once d* MOMETASONE 50 MCG/ACTUATION N* Use 2 Sprays in the nose once* MONTELUKAST 10 MG TABLET Take 1 tablet by mouth daily * Problem List As Of Date 08/19/2017 Noted Resolved Anxiety [F41.9] Hyperlipidemia [E78.5] GERD (gastroesophageal reflux disease) [K21.9] CKD (chronic kidney disease), stage III [N18.3] Sleep apnea [G47.30] INVALID FOR* More... Hypertension [I10] Pheochromocytoma [D35.00] More... Disposition: Return in about 2 months (around 10/19/2017). Follow-up and Disposition History Recorded Encounter Status:Closed by SCOTTY POLLACK MD on 08/20/17 PROGRESS Observed: 07/15/2017 Status: COMPLETED Source: [place] 10:59 AM [facility] [place] HNO ID: [id number] Author: Cruzito Doty) Radha Service: (none) Author Type: Physician Car Sales Representative Type: Progress Notes Filed: 07/19/2017 10:22 AM Note Text: [facility] [place] PATIENT INFO: Ave Arshad 62 year old PCP: Scotty Pollack MD Referred by: Mary Ellen Martines ([facility]) Consult: A consultation requested by Mary Ellen Martines ([facility]) UTI My final recommendations communicated back to the requesting physician by way of shared Medical record. CHIEF COMPLAINT: UTI HPI: This is a 62 year old female, who has had UTI's , which started in 2018, and involves the Urine Patient states this mild in severity and mild in quality, and is happening intermittently Aggravating factors: No , Alleviating Factors: No . And the patient denies having Fever, Chills, Rigors, Nausea and Vomiting She has been having difficulty urinating and chronic UTI's for many years, after discussing her history we discussed that She may need bladder sling if the treatment for atrophic vaginitis is not completely helping with her urinary symptoms. VOIDING SYMPTOMS: NTF: 1-2 Times Small Amounts DTF: Q 1 HOURS FOS: Average Hesitancy: Yes Straining: Yes Intermittency: Yes Urgency: Yes Frequency: Yes Dysuria: Yes Gross Hematuria: No U/A Dipstick Positive Blood - Only No Incomplete Voiding: No Double Voiding: No Post Void Dribbling: Yes Incontinence: No REVIEW OF SYSTEMS: General: General: Well developed, well nourished. No acute distress HEENT: Negative for sore throat, difficulty swallowing. Negative for frequent or significant headaches, changes in vision or hearing. Cardiovascular: No history of cardiovascular symtoms or problems. No history of angina, CHF, ID, cardiac surgery of stents. Respiratory: Negative for current cough, dyspnea. No hx of pneumonia in the past six weeks Gastrointestinal: No history of GERD, PUD, abd pain, difficulty swallowing, GI bleed. Renal: Negative for renal failure Musculoskeletal: Negative for joint pain or swelling, back pain or muscle pain. Skin: Negative for lesions, rash and itching. Psychological: No history of psychiatric symptoms or problems. Neurologic: No neurological symptoms or problems. Hematology/Oncology: No history of bleeding or clotting disorder. Pt is not taking anti-coagulation or platelet medications. No history of hematological symptoms or problems. Endocrine: No history of endocrinological symtoms or problems No history of DM; has not taken steroids w/in past 30 days. Negative for excessive sweating, thirst or hunger PHYSICAL EXAMINATION: General Appearance/ Constitutional: Well developed, well nourished, and in no apparent distress HEENT: Not examined Neck: Lymph Nodes: Not examined Cardiac: Normal Breast: Not examined Pulmonary: Ascultation: Normal Effort: Normal GI: Soft and Non-tender Peripheral Vascular: Not examined Extremities: Cyanosis absent and Edema absent Skin: Normal Neurologic: Grossly non-focal and Alert and oriented [facility] [place] Recurrent UTI Step Prevention Program: Takes 6 months before it is fully ineffect! This is not a treatment program for each time you may get a breakthrough infection in the future or while you are waiting for the prevention program to take effect over the next 6 months. Your primary care team will treat any breakthrough infections or provide refills for any of my suggestions below. The following is the recommended treatment to PREVENT recurrent urinary tract infections. 1) Topical estrogen cream for atrophic vaginitis: estrace cream fingertip application every other night 2) Probiotics: take any brand once daily: Try the brand Align but change brands every 6 months 3) A good bowel regimen to promote a BM each day or by every 3rd day 4) For break through infections over the next 6 months, use a 3 day course of Macrobid in which you use 1 pill 2 x a day for 3 days; if symptoms persists and you think you have a UTI, contact your PCP provider. 5) You may use AZO as directed as an OTC bladder pain relief when you have a breakthrough UTI; I think aspirin or Motrin/Aleve OTC is useful as well during an active infection Patient Information: Topical estrogen cream is recommended to restore the vaginal epithelium to its pre menopausal state. With a decrease in estrogen after menopause, the vaginal environment changes. This can lead to increased itchiness, dryness, and irritation. The environment becomes more basic/alkaline to a pH of 6.0 to 7.5. Normally the pH level is around 3.5 to 4.5. A different bacterial azar then begins to colonize the vagina which can lead to increased urinary tract infections. In order to re- establish the good bacteria azar, it is important to get the vaginal epithelium back to its pre menopausal state. This can be done with topical estrogen cream. A pea sized amount on the tip of the finger used every other night can do this. It takes about six months for the environment to become hospitable to good bacteria. During this time your doctor may or may not also prescribe a low dose daily antibiotic to decrease your chance of infections. Side effects of topical estrogen use include breast tenderness, vaginal bleeding or spotting, nonphysiologic discharge, vaginal irritation, burning and itching. If you have a history of deep vein thrombosis, pulmonary embolism, uterine cancer or estrogen receptor positive breast cancer, you may want to discuss this with your doctor prior to starting topical estrogen use. Histology slides of vaginal epithelium without estrogen then with estrogen supplementation. Epi stands for epithelium. Progress and Prospects in Treating Postmenopausal Vaginal atrophy. Clinical pharmacology AND Therapeutics, Vol 89 Number 1, April 2010 Probiotics also helps in re-establishing the good bacteria in the vaginal azar. Numerous probiotics are available over the counter to use. This can also help with establishing a good bowel regimen. Given the bowel's close proximity to both the vagina and urethra/bladder, it is important to have regular bowel movements to decrease voiding symptoms and also decrease the risk of urinary tract infections. A good bowel regimen help with decreasing colonic azar in the perineal area. This can be done with stool softeners available over the counter to gentle laxatives such as miralax. We would suggest avoiding group home use of laxatives though and if you would like a consult with gastroenterology for additional evaluation please ask. Along with these three strategies to prevent recurrent infections, your doctor may add additional strategies tailored to your situation. We are commonly asked whether taking cranberry extract will prevent urinary tract infections. Based on the most recent Lilli Review evaluating cranberries and the prevention of urinary tract infections, there is no clear evidence to suggest that cranberries effectively prevents urinary tract infections. Supplements with cranberry extracts have not been studied in a standardized fashion to suggest a benefit to using these daily. As such, we do not include using cranberry extract as part of our regimen to decreasing recurrent urinary tract infections. ADDITIONAL DATA REVIEWED: Most recent imaging Most recent labs Results for orders placed or performed in visit on 07/15/17 UA DIP, URINE (POC) Result Value Ref Range GLUCOSE UA (POCT) Negative Negative mg/dL BILIRUBIN UA (POCT) Negative Negative KETONE UA (POCT) Negative Negative mg/dL SPECIFIC GRAVITY UA (POCT) 1.020 (A) 1.005 - 1.030 HEMOGLOBIN/BLOOD UA (POCT) Moderate (A) Negative PH UA (POCT) 6.0 4.5 - 8.0 PROTEIN UA (POCT) >=300 (A) Negative mg/dL UROBILINOGEN UA (POCT) 0.2 Normal E.U./dL NITRITE UA (POCT) Negative Negative LEUKOCYTES UA (POCT) Negative Negative COLOR UA (POCT) Dark yellow CLARITY UA (POCT) Clear RADIOLOGY: N/A Risk of complication and/or Morbidity or Mortality: LOW IMPRESSION / PLAN: > History of Chronic UTI > +/- cultures > s/p hysterectomy > Atrophic Vaginitis > Trial of Estrace Cream > 3 mo follow up for new medication discussion I spent approximately 40 minutes in this visit, with more than 50% of the time devoted to patient discussion, counseling, review of records and/or coordination of care. IVANNA Jade, MT, PA-C Observed: 07/15/2017 Status: F Source: [place] URINE CULTURE 10:59 AM [facility] [place] Sp. Request/Comment: - Presurgical Sterilization PLEASE ADD FOSFOMYCIN TO SENSITIVITY Culture Result - <1,000 CFU/ml Lactose positive gram negative bacilli --> ABNORMAL ALERT Morphology 1 --> ABNORMAL ALERT Insignificant colony count. No further workup. --> ABNORMAL ALERT &lt ;1,000 CFU/ml --> ABNORMAL ALERT Lactose positive gram negative bacilli --> ABNORMAL ALERT Morphology 2 --> ABNORMAL ALERT Insignificant colony count. No further workup. --> ABNORMAL ALERT N ormal Urogenital azar: --> ABNORMAL ALERT 50,000 - <100,000 CFU/ml --> ABNORMAL ALERT Streptococcus anginosus --> ABNORMAL ALERT 10,000 - <50,000 CFU/ml --> ABNORMAL ALERT Aerococcus urinae --> ABNORMAL ALERT <10,000 CFU/ml --> ABNORMAL ALERT Staphylococcus lugdunensis --> ABNORMAL ALERT (NOTE) Aerococcus urinae - Identification by MALDI TOF mass spectrometry (MS) was de veloped and its performance characteristics determined by [facility] [place] ([facility]). MALDI TOF MS identification of this organism has not been approved by the FDA. [facility] is regulated under CLIA as qualified to perform high complexity testing. This identification is used for clinical purposes, it should not be regarded as investigational or for research. Performed By: #### URCUL #### [facility] [address] [place], [place] [address] CNOV Observed: 07/15/2017 Status: COMPLETED Source: [place] 10:30 AM [facility] [place] [facility] Office Visit ([facility]) A[address] ARSHAD ([id number]) 1955 F Date Time Provider Department 07/15/17 10:30 AM CRUZITO KUMAR) [facility] During your visit today, we recorded the following information about you: Blood pressure Weight Height 134/84 94.3 kg 1.676 m JM Navarro 07/19/2017 10:22 AM Signed [facility] [place] PATIENT INFO: Ave Arshad 62 year old PCP: Scotty Pollack MD Referred by: Mary Ellen Martines ([facility]) Consult: A consultation requested by Mary Ellen Martines ([place]) UTI My final recommendations communicated back to the requesting physician by way of shared Medical record. CHIEF COMPLAINT: UTI HPI: This is a 62 year old female, who has had UTI's , which started in 2018, and involves the Urine Patient states this mild in severity and mild in quality, and is happening intermittently Aggravating factors: No , Alleviating Factors: No . And the patient denies having Fever, Chills, Rigors, Nausea and Vomiting She has been having difficulty urinating and chronic UTI's for many years, after discussing her history we discussed that She may need bladder sling if the treatment for atrophic vaginitis is not completely helping with her urinary symptoms. VOIDING SYMPTOMS: NTF: 1-2 Times Small Amounts DTF: Q 1 HOURS FOS: Average Hesitancy: Yes Straining: Yes Intermittency: Yes Urgency: Yes Frequency: Yes Dysuria: Yes Gross Hematuria: No U/A Dipstick Positive Blood - Only No Incomplete Voiding: No Double Voiding: No Post Void Dribbling: Yes Incontinence: No REVIEW OF SYSTEMS: General: General: Well developed, well nourished. No acute distress HEENT: Negative for sore throat, difficulty swallowing. Negative for frequent or significant headaches, changes in vision or hearing. Cardiovascular: No history of cardiovascular symtoms or problems. No history of angina, CHF, ID, cardiac surgery of stents. Respiratory: Negative for current cough, dyspnea. No hx of pneumonia in the past six weeks Gastrointestinal: No history of GERD, PUD, abd pain, difficulty swallowing, GI bleed. Renal: Negative for renal failure Musculoskeletal: Negative for joint pain or swelling, back pain or muscle pain. Skin: Negative for lesions, rash and itching. Psychological: No history of psychiatric symptoms or problems. Neurologic: No neurological symptoms or problems. Hematology/Oncology: No history of bleeding or clotting disorder. Pt is not taking anti-coagulation or platelet medications. No history of hematological symptoms or problems. Endocrine: No history of endocrinological symtoms or problems No history of DM; has not taken steroids w/in past 30 days. Negative for excessive sweating, thirst or hunger PHYSICAL EXAMINATION: General Appearance/ Constitutional: Well developed, well nourished, and in no apparent distress HEENT: Not examined Neck: Lymph Nodes: Not examined Cardiac: Normal Breast: Not examined Pulmonary: Ascultation: Normal Effort: Normal GI: Soft and Non-tender Peripheral Vascular: Not examined Extremities: Cyanosis absent and Edema absent Skin: Normal Neurologic: Grossly non-focal and Alert and oriented [facility] [place] Recurrent UTI Step Prevention Program: Takes 6 months before it is fully ineffect! This is not a treatment program for each time you may get a breakthrough infection in the future or while you are waiting for the prevention program to take effect over the next 6 months. Your primary care team will treat any breakthrough infections or provide refills for any of my suggestions below. The following is the recommended treatment to PREVENT recurrent urinary tract infections. 1) Topical estrogen cream for atrophic vaginitis: estrace cream fingertip application every other night 2) Probiotics: take any brand once daily: Try the brand Align but change brands every 6 months 3) A good bowel regimen to promote a BM each day or by every 3rd day 4) For break through infections over the next 6 months, use a 3 day course of Macrobid in which you use 1 pill 2 x a day for 3 days; if symptoms persists and you think you have a UTI, contact your PCP provider. 5) You may use AZO as directed as an OTC bladder pain relief when you have a breakthrough UTI; I think aspirin or Motrin/Aleve OTC is useful as well during an active infection Patient Information: Topical estrogen cream is recommended to restore the vaginal epithelium to its pre menopausal state. With a decrease in estrogen after menopause, the vaginal environment changes. This can lead to increased itchiness, dryness, and irritation. The environment becomes more basic/alkaline to a pH of 6.0 to 7.5. Normally the pH level is around 3.5 to 4.5. A different bacterial azar then begins to colonize the vagina which can lead to increased urinary tract infections. In order to re-establish the good bacteria azar, it is important to get the vaginal epithelium back to its pre menopausal state. This can be done with topical estrogen cream. A pea sized amount on the tip of the finger used every other night can do this. It takes about six months for the environment to become hospitable to good bacteria. During this time your doctor may or may not also prescribe a low dose daily antibiotic to decrease your chance of infections. Side effects of topical estrogen use include breast tenderness, vaginal bleeding or spotting, nonphysiologic discharge, vaginal irritation, burning and itching. If you have a history of deep vein thrombosis, pulmonary embolism, uterine cancer or estrogen receptor positive breast cancer, you may want to discuss this with your doctor prior to starting topical estrogen use. Histology slides of vaginal epithelium without estrogen then with estrogen supplementation. Epi stands for epithelium. Progress and Prospects in Treating Postmenopausal Vaginal atrophy. Clinical pharmacology ANDamp; Therapeutics, Vol 89 Number 1, April 2010 Probiotics also helps in re-establishing the good bacteria in the vaginal azar. Numerous probiotics are available over the counter to use. This can also help with establishing a good bowel regimen. Given the bowel's close proximity to both the vagina and urethra/bladder, it is important to have regular bowel movements to decrease voiding symptoms and also decrease the risk of urinary tract infections. A good bowel regimen help with decreasing colonic azar in the perineal area. This can be done with stool softeners available over the counter to gentle laxatives such as miralax. We would suggest avoiding group home use of laxatives though and if you would like a consult with gastroenterology for additional evaluation please ask. Along with these three strategies to prevent recurrent infections, your doctor may add additional strategies tailored to your situation. We are commonly asked whether taking cranberry extract will prevent urinary tract infections. Based on the most recent Lilli Review evaluating cranberries and the prevention of urinary tract infections, there is no clear evidence to suggest that cranberries effectively prevents urinary tract infections. Supplements with cranberry extracts have not been studied in a standardized fashion to suggest a benefit to using these daily. As such, we do not include using cranberry extract as part of our regimen to decreasing recurrent urinary tract infections. ADDITIONAL DATA REVIEWED: Most recent imaging Most recent labs Results for orders placed or performed in visit on 07/15/17 UA DIP, URINE (POC) Result Value Ref Range GLUCOSE UA (POCT) Negative Negative mg/dL BILIRUBIN UA (POCT) Negative Negative KETONE UA (POCT) Negative Negative mg/dL SPECIFIC GRAVITY UA (POCT) 1.020 (A) 1.005 - 1.030 HEMOGLOBIN/BLOOD UA (POCT) Moderate (A) Negative PH UA (POCT) 6.0 4.5 - 8.0 PROTEIN UA (POCT) ANDgt;=300 (A) Negative mg/dL UROBILINOGEN UA (POCT) 0.2 Normal E.U./dL NITRITE UA (POCT) Negative Negative LEUKOCYTES UA (POCT) Negative Negative COLOR UA (POCT) Dark yellow CLARITY UA (POCT) Clear RADIOLOGY: N/A Risk of complication and/or Morbidity or Mortality: LOW IMPRESSION / PLAN: ANDgt; History of Chronic UTI ANDgt; +/- cultures ANDgt; s/p hysterectomy ANDgt; Atrophic Vaginitis ANDgt; Trial of Estrace Cream ANDgt; 3 mo follow up for new medication discussion I spent approximately 40 minutes in this visit, with more than 50% of the time devoted to patient discussion, counseling, review of records and/or coordination of care. Cruzito Kumar, IVANNA, MT, PA-C Referring Provider: MARY ELLEN MARTINES)(HIST) [[id number]] Allergies As of Date: 07/15/2017 Noted Allergy Reaction SULFA (SULFONAMIDE ANTIBIOTICS) 11/18/2016 8 - GI Upset Date Reviewed: 07/15/2017 Reviewed by: Shahrzad Acosta Ma - Fully Assessed Reason for Visit: New Patient [172] Acute cystitis with hematuria [Other] Primary Visit Diagnosis:Acute cystitis with hematuria [N30.01] Other Visit Diagnosis:Atrophic vaginitis [N95.2] Order(s):UA DIP, URINE (POC) [[id number]] Order #: [id number] UA DIP, URINE (POC) [[id number]] Order #: [id number]. #:[id number] URINE CULTURE [SQURCUL] Order #: [id number]. #:[id number] estradiol (ESTRACE) 0.01 % (0.1 mg/gram) vaginal creamFingertip amount vaginally every other nightDisp: 1 TubeRfl: 5 Prescriptions as of 07/15/2017 Sig: AZO URINARY PAIN RELIEF ORAL Take by mouth as needed (blad* ALBUTEROL SULFATE HFA 90 MCG/* Inhale 2 Puffs as instructed * AZITHROMYCIN 250 MG TABLET Take 2 tablets day one, then,* CETIRIZINE 10 MG TABLET Take 1 tablet by mouth once d* MOMETASONE 50 MCG/ACTUATION N* Use 2 Sprays in the nose once* MONTELUKAST 10 MG TABLET Take 1 tablet by mouth daily * LOSARTAN 100 MG TABLET Take 1 tablet by mouth once d* CLONIDINE 0.3 MG/24 HR WEEKLY* Apply 1 Patch as directed onc* AMLODIPINE 5 MG TABLET Take 1 tablet by mouth once d* LANSOPRAZOLE 30 MG CAPSULE,DE* Take 30 mg by mouth once ramon* PRAVASTATIN 40 MG TABLET Take 40 mg by mouth once ramon* ESTRADIOL 0.05 MG/24 HR WEEKL* Apply 1 Patch as directed onc* FLUOXETINE 20 MG CAPSULE Take 1 capsule by mouth once * ESTRADIOL 0.01% (0.1 MG/GRAM)* Fingertip amount vaginally ev* Problem List As Of Date 07/15/2017 Noted Resolved Anxiety [F41.9] Hyperlipidemia [E78.5] GERD (gastroesophageal reflux disease) [K21.9] CKD (chronic kidney disease), stage III [N18.3] Sleep apnea [G47.30] INVALID FOR* More... Hypertension [I10] Pheochromocytoma [D35.00] More... Prescriptions ordered this encounter Disp Refills Start End ESTRADIOL 0.01% (0.1 MG/GRAM) VAGINA* 1 Tu* 5 07/15/2017 Sig: Fingertip amount vaginally every other night Encounter Status:Closed by CRUZITO KUMAR PA-C on 07/19/17 PROGRESS Observed: 07/14/2017 Status: COMPLETED Source: [place] 1:[address] [facility] [place] REPOSITORY HNO ID: [id number] Author: Scotty Hodges) Ranjeet Service: (none) Author Type: Physician Type: Progress Notes Filed: 07/14/2017 1:58 PM Note Text: Chief Complaint Patient presents with: 6 Month Exam: c/o bronchitis x1week HPI Ave Arshad is a 62 year old female who presents here today for Above Complaints.. Patient was seen at on 07/08 for complaint of cough and nasal congestion thought to be related to allergies from visiting family in [place]. diangosed with seasonal allergies and was started on Zyrtec, Singulair and nasonex which has helped some, but still complaining of wet cough, chest congestion, and wheezing. Seems to be worse at night. Denies other triggers. Has not taken anything else for symptoms OTC. Feels like symptoms just aren't changing. GERD symptoms fairly well controlled, has rare flare and treats with tums which works well for symptoms. Typically associated with not following GERD diet. Using CPAP nightly and is working well for her symptoms. Anxiety symptoms well controlled on Prozac. Denies panic symptoms or side effects from medication. Had blepharoplasty of upper lids bilaterally back in April which went well. Dr. Salas performed surgery. Happy with result. Past medical history, appointments, medications, allergies reviewed. Previous Medical History PAST MEDICAL HISTORY Diagnosis Date - Anxiety - CKD (chronic kidney disease), stage III - GERD (gastroesophageal reflux disease) - History of endometriosis - History of splenectomy pneumovax every 5 years - Hyperlipidemia - Hypertension - Pheochromocytoma s/p adrenalectomy left - Sleep apnea 09/20/2014 on CPAP - Vertigo Previous Surgical History PAST SURGICAL HISTORY Procedure Laterality Date - ADRENALECTOMY Left - SECTION HX - COLONOSCOPY x2 last 2008 and was normal - HYSTERECTOMY HX fibroids - PAST SURGICAL HISTORY OF infertility surgery - SALPINGECTOMY OR OOPHERECTOMY-ECTOPIC - SPLENECTOMY,GASTROESOPHAGEAL DEVASCULARIZ Family History FAMILY HISTORY Problem Relation Age of Onset - Endometrial Stromal Sarcoma [OTHER] Mother 66 - Multiple Myloma [OTHER] Mother 70 - Renal Cell sarcoma [OTHER] Mother 76 - Breast Cancer Paternal Grandmother - Heart Paternal Grandfather Patient Allergies ALLERGIES Allergen Reactions - Sulfa (Sulfonamide * GI Upset Current Medications Current Outpatient Prescriptions on File Prior to Visit: cetirizine (ZYRTEC) 10 mg tablet Take 1 tablet by mouth once daily. mometasone (NASONEX) 50 mcg/actuation nasal spray Use 2 Sprays in the nose once daily. Rinse mouth after use. montelukast (SINGULAIR) 10 mg tablet Take 1 tablet by mouth daily at bedtime. losartan (COZAAR) 100 mg tablet Take 1 tablet by mouth once daily. cloNIDine TTS (CATAPRES-TTS) 0.3 mg/24 hr Apply 1 Patch as directed once each week. amLODIPine (NORVASC) 5 mg tablet Take 1 tablet by mouth once daily. lansoprazole (PREVACID) 30 mg capsule Take 30 mg by mouth once daily. pravastatin (PRAVACHOL) 40 mg tablet Take 40 mg by mouth once daily. estradiol (CLIMARA) 0.05 mg/24 hr Apply 1 Patch as directed once each week. FLUoxetine (PROZAC) 20 mg capsule Take 1 capsule by mouth once daily. No current facility-administered medications on file prior to visit. Social History Social History Marital status: Spouse name: Tori Years of education: Number of children: 1 Social History Main Topics Smoking status: Never Smoker Smokeless status: Never Used Alcohol use: Yes Comment: rare Drug use: No Sexual activity: Yes Partners with: Male control/protection: Surgical Review of Symptoms REVIEW OF SYSTEMS GENERAL: No weight loss, malaise or fevers NECK: Negative for lumps, goiter, pain and significant neck swelling RESPIRATORY: See HPI CARDIOVASCULAR: Negative for chest pain, leg swelling, hypertension, CHF or palpitations GI: No nausea, vomiting, or diarrhea SKIN: Negative for lesions, rash, and itching EXAM: BP 136/86 Pulse 60 Temp 36.9 ?C (98.5 ?F) (Tympanic) Resp 12 Wt 93 kg (205 lb) SpO2 95% BMI 33.59 kg/m2 General Appearance: Well appearing, alert, in no acute distress, well-hydrated, well nourished.. Skin: Skin color, texture, turgor normal, no suspicious rashes or lesions. Head: Normocephalic, no masses, lesions, tenderness or abnormalities. Eyes: Anicteric sclera. Pupils are equally round and reactive to light. Extraocular movements are intact. . Ears: External ears normal, canals clear. Oropharynx: Lips, mucosa, and tongue normal, teeth and gums normal, oropharynx normal. Neck: Supple, no adenopathy; thyroid symmetric, normal size, no bruits. Lungs: Positive findings: wheezing . Heart: RRR without murmur, gallop, or rubs. No ectopy. Health Maintenance List MAMMOGRAM due on 02/10/2018 COLORECTAL CANCER SCREENING,SEE MODIFIER due on 05/30/2019 DIABETES SCREEN due on 07/13/2020 LIPID SCREEN due on 01/06/2022 TETANUS due on 03/09/2022 INFLUENZA Completed HEPATITIS C SCREENING Completed Data reviewed Component Latest Ref Rng AND Units 01/06/2017 01/26/2017 07/13/2017 WBC 3.70 - 11.00 k/uL 8.50 10.07 RBC 3.90 - 5.20 m/uL 4.25 4.28 Hemoglobin 11.5 - 15.5 g/dL 12.8 13.2 Hematocrit 36.0 - 46.0 % 41.1 40.5 MCV 80.0 - 100.0 fL 96.7 94.6 MCH 26.0 - 34.0 pG 30.1 30.8 MCHC 30.5 - 36.0 g/dL 31.1 32.6 RDW-CV 11.5 - 15.0 % 13.5 13.5 Platelet Count 150 - 400 k/uL 409 (H) 397 MPV 9.0 - 12.7 fL 12.1 11.9 Neut% % 66.3 64.7 Abs Neut (ANC) 1.45 - 7.50 k/uL 5.63 6.51 Lymph% % 24.2 23.5 Abs Lymph 1.00 - 4.00 k/uL 2.06 2.37 Webb% % 7.1 9.7 Abs Webb <0.87 k/uL 0.60 0.98 (H) Eosin% % 1.6 1.4 Abs Eosin <0.46 k/uL 0.14 0.14 Baso% % 0.8 0.7 Abs Baso <0.11 k/uL 0.07 0.07 Nucleated Reds 0 /100 WBC 0.0 0.0 Absolute nRBC <0.01 k/uL 0.00 <0.01 Diff Type Auto Diff Auto Diff Protein, Total 6.3 - 8.0 g/dL 7.3 7.2 6.7 Albumin 3.9 - 4.9 g/dL 4.0 4.2 3.4 (L) Calcium 8.5 - 10.2 mg/dL 9.7 9.3 9.0 Bilirubin, Total 0.2 - 1.3 mg/dL 0.3 0.2 0.3 Alkaline Phosphatase 32 - 117 U/L 49 57 78 AST 13 - 35 U/L 30 24 26 Glucose 74 - 99 mg/dL 79 82 108 (H) BUN 7 - 21 mg/dL 23 (H) 16 15 Creatinine 0.58 - 0.96 mg/dL 1.12 (H) 1.01 (H) 1.09 (H) Sodium 136 - 144 mmol/L 138 139 141 Potassium 3.7 - 5.1 mmol/L 4.1 4.4 4.1 Chloride 97 - 105 mmol/L 99 101 102 CO2 22 - 30 mmol/L 23 24 25 Anion Gap 9 - 18 mmol/L 16 14 14 ALT 7 - 38 U/L 17 23 22 eGFR- 59 >60 >60 eGFR-All Other Races . 49 55 51 Triglyceride 30 - 149 mg/dL 141 Cholesterol, Total 100 - 199 mg/dL 156 HDL Cholesterol >55 mg/dL 45 (L) VLDL Cholesterol 6 - 40 mg/dL 28 LDL Cholesterol 60 - 129 mg/dL 83 Fasting Time hrs 17 TC:HDL Ratio 1.00 - 5.00 3.47 LDL:HDL Ratio 0.50 - 3.55 1.84 Non HDL Cholesterol 90 - 159 mg/dL 111 TSH 0.400 - 5.500 uU/mL 2.400 Hep C Antibody IA Negative Negative ASSESSMENT/PLAN: 1. Bronchitis - ICD9: 490, ICD10: J40 (primary diagnosis) Start albuterol every 4 hours for cough/wheezing. Continue allergy meds. Push PO fluids, use mucinex OTC for chest congestion, and call with worsening symptoms. Given abx in case symptoms wossen. - ALBUTEROL SULFATE HFA 90 MCG/ACTUATION AEROSOL INHALER - AZITHROMYCIN 250 MG TABLET 2. CKD (chronic kidney disease), stage III - ICD9: 585.3, ICD10: N18.3 Stable, continue low sodium diet, push PO fluids. 3. Anxiety - ICD9: 300.00, ICD10: F41.9 Stable on SSRI. 4. Gastroesophageal reflux disease, esophagitis presence not specified - ICD9: 530.81, ICD10: K21.9 Controlled with prevacid. 5. Hyperlipidemia, unspecified hyperlipidemia type - ICD9: 272.4, ICD10: E78.5 - good control - Continue current medication. - Encouraged following a low fat, low cholesterol diet. - Discussed the benefits of regular aerobic exercise and weight loss. 6. Obstructive sleep apnea syndrome - ICD9: 327.23, ICD10: G47.33 Continue CPAP nightly. Working well for symptoms. 7. Essential hypertension - ICD9: 401.9, ICD10: I10 - good control - Continue current medication(s) - Encouraged dietary sodium restriction/DASH diet - Recommended regular aerobic exercise. - Reviewed risks of HTN and principles of treatment - Goal of BP <140/90 8. Pheochromocytoma of left adrenal gland - ICD9: 227.0, ICD10: D35.02 S/p adrenalectomy. Will have patient follow up in 4 weeks to further discuss hand tremor at night. Scotty Pollack MD CNOV Observed: 07/14/2017 Status: COMPLETED Source: [place] 1:20 PM [facility] [place] [facility] Office Visit (FAMPWS) AVE ARSHAD ([id number]) 1955 F Date Time Provider Department 07/14/17 1:20 PM SCOTTY POLLACK) [facility] During your visit today, we recorded the following information about you: Temperature Pulse Respiration Blood pressure 98.5 degrees 60/minute 12/minute 136/86 Weight 93 kg Scotty Pollack MD 07/14/2017 1:58 PM Signed Chief Complaint Patient presents with: 6 Month Exam: c/o bronchitis x1week HPI Ave Arshad is a 62 year old female who presents here today for Above Complaints.. Patient was seen at on 07/08 for complaint of cough and nasal congestion thought to be related to allergies from visiting family in [place]. diangosed with seasonal allergies and was started on Zyrtec, Singulair and nasonex which has helped some, but still complaining of wet cough, chest congestion, and wheezing. Seems to be worse at night. Denies other triggers. Has not taken anything else for symptoms OTC. Feels like symptoms just aren't changing. GERD symptoms fairly well controlled, has rare flare and treats with tums which works well for symptoms. Typically associated with not following GERD diet. Using CPAP nightly and is working well for her symptoms. Anxiety symptoms well controlled on Prozac. Denies panic symptoms or side effects from medication. Had blepharoplasty of upper lids bilaterally back in April which went well. Dr. Salas performed surgery. Happy with result. Past medical history, appointments, medications, allergies reviewed. Previous Medical History PAST MEDICAL HISTORY Diagnosis Date - Anxiety - CKD (chronic kidney disease), stage III - GERD (gastroesophageal reflux disease) - History of endometriosis - History of splenectomy pneumovax every 5 years - Hyperlipidemia - Hypertension - Pheochromocytoma s/p adrenalectomy left - Sleep apnea 09/20/2014 on CPAP - Vertigo Previous Surgical History PAST SURGICAL HISTORY Procedure Laterality Date - ADRENALECTOMY Left - SECTION HX - COLONOSCOPY x2 last 2008 and was normal - HYSTERECTOMY HX fibroids - PAST SURGICAL HISTORY OF infertility surgery - SALPINGECTOMY OR OOPHERECTOMY-ECTOPIC - SPLENECTOMY,GASTROESOPHAGEAL DEVASCULARIZ Family History FAMILY HISTORY Problem Relation Age of Onset - Endometrial Stromal Sarcoma [OTHER] Mother 66 - Multiple Myloma [OTHER] Mother 70 - Renal Cell sarcoma [OTHER] Mother 76 - Breast Cancer Paternal Grandmother - Heart Paternal Grandfather Patient Allergies ALLERGIES Allergen Reactions - Sulfa (Sulfonamide * GI Upset Current Medications Current Outpatient Prescriptions on File Prior to Visit: cetirizine (ZYRTEC) 10 mg tablet Take 1 tablet by mouth once daily. mometasone (NASONEX) 50 mcg/actuation nasal spray Use 2 Sprays in the nose once daily. Rinse mouth after use. montelukast (SINGULAIR) 10 mg tablet Take 1 tablet by mouth daily at bedtime. losartan (COZAAR) 100 mg tablet Take 1 tablet by mouth once daily. cloNIDine TTS (CATAPRES-TTS) 0.3 mg/24 hr Apply 1 Patch as directed once each week. amLODIPine (NORVASC) 5 mg tablet Take 1 tablet by mouth once daily. lansoprazole (PREVACID) 30 mg capsule Take 30 mg by mouth once daily. pravastatin (PRAVACHOL) 40 mg tablet Take 40 mg by mouth once daily. estradiol (CLIMARA) 0.05 mg/24 hr Apply 1 Patch as directed once each week. FLUoxetine (PROZAC) 20 mg capsule Take 1 capsule by mouth once daily. No current facility-administered medications on file prior to visit. Social History Social History Marital status: Spouse name: Tori Years of education: Number of children: 1 Social History Main Topics Smoking status: Never Smoker Smokeless status: Never Used Alcohol use: Yes Comment: rare Drug use: No Sexual activity: Yes Partners with: Male control/protection: Surgical Review of Symptoms REVIEW OF SYSTEMS GENERAL: No weight loss, malaise or fevers NECK: Negative for lumps, goiter, pain and significant neck swelling RESPIRATORY: See HPI CARDIOVASCULAR: Negative for chest pain, leg swelling, hypertension, CHF or palpitations GI: No nausea, vomiting, or diarrhea SKIN: Negative for lesions, rash, and itching EXAM: BP 136/86 Pulse 60 Temp 36.9 ?C (98.5 ?F) (Tympanic) Resp 12 Wt 93 kg (205 lb) SpO2 95% BMI 33.59 kg/m2 General Appearance: Well appearing, alert, in no acute distress, well-hydrated, well nourished.. Skin: Skin color, texture, turgor normal, no suspicious rashes or lesions. Head: Normocephalic, no masses, lesions, tenderness or abnormalities. Eyes: Anicteric sclera. Pupils are equally round and reactive to light. Extraocular movements are intact. . Ears: External ears normal, canals clear. Oropharynx: Lips, mucosa, and tongue normal, teeth and gums normal, oropharynx normal. Neck: Supple, no adenopathy; thyroid symmetric, normal size, no bruits. Lungs: Positive findings: wheezing . Heart: RRR without murmur, gallop, or rubs. No ectopy. Health Maintenance List MAMMOGRAM due on 02/10/2018 COLORECTAL CANCER SCREENING,SEE MODIFIER due on 05/30/2019 DIABETES SCREEN due on 07/13/2020 LIPID SCREEN due on 01/06/2022 TETANUS due on 03/09/2022 INFLUENZA Completed HEPATITIS C SCREENING Completed Data reviewed Component Latest Ref Rng ANDamp; Units 01/06/2017 01/26/2017 07/13/2017 WBC 3.70 - 11.00 k/uL 8.50 10.07 RBC 3.90 - 5.20 m/uL 4.25 4.28 Hemoglobin 11.5 - 15.5 g/dL 12.8 13.2 Hematocrit 36.0 - 46.0 % 41.1 40.5 MCV 80.0 - 100.0 fL 96.7 94.6 MCH 26.0 - 34.0 pG 30.1 30.8 MCHC 30.5 - 36.0 g/dL 31.1 32.6 RDW-CV 11.5 - 15.0 % 13.5 13.5 Platelet Count 150 - 400 k/uL 409 (H) 397 MPV 9.0 - 12.7 fL 12.1 11.9 Neut% % 66.3 64.7 Abs Neut (ANC) 1.45 - 7.50 k/uL 5.63 6.51 Lymph% % 24.2 23.5 Abs Lymph 1.00 - 4.00 k/uL 2.06 2.37 Webb% % 7.1 9.7 Abs Webb ANDlt;0.87 k/uL 0.60 0.98 (H) Eosin% % 1.6 1.4 Abs Eosin ANDlt;0.46 k/uL 0.14 0.14 Baso% % 0.8 0.7 Abs Baso ANDlt;0.11 k/uL 0.07 0.07 Nucleated Reds 0 /100 WBC 0.0 0.0 Absolute nRBC ANDlt;0.01 k/uL 0.00 ANDlt;0.01 Diff Type Auto Diff Auto Diff Protein, Total 6.3 - 8.0 g/dL 7.3 7.2 6.7 Albumin 3.9 - 4.9 g/dL 4.0 4.2 3.4 (L) Calcium 8.5 - 10.2 mg/dL 9.7 9.3 9.0 Bilirubin, Total 0.2 - 1.3 mg/dL 0.3 0.2 0.3 Alkaline Phosphatase 32 - 117 U/L 49 57 78 AST 13 - 35 U/L 30 24 26 Glucose 74 - 99 mg/dL 79 82 108 (H) BUN 7 - 21 mg/dL 23 (H) 16 15 Creatinine 0.58 - 0.96 mg/dL 1.12 (H) 1.01 (H) 1.09 (H) Sodium 136 - 144 mmol/L 138 139 141 Potassium 3.7 - 5.1 mmol/L 4.1 4.4 4.1 Chloride 97 - 105 mmol/L 99 101 102 CO2 22 - 30 mmol/L 23 24 25 Anion Gap 9 - 18 mmol/L 16 14 14 ALT 7 - 38 U/L 17 23 22 eGFR- 59 ANDgt;60 ANDgt;60 eGFR-All Other Races . 49 55 51 Triglyceride 30 - 149 mg/dL 141 Cholesterol, Total 100 - 199 mg/dL 156 HDL Cholesterol ANDgt;55 mg/dL 45 (L) VLDL Cholesterol 6 - 40 mg/dL 28 LDL Cholesterol 60 - 129 mg/dL 83 Fasting Time hrs 17 TC:HDL Ratio 1.00 - 5.00 3.47 LDL:HDL Ratio 0.50 - 3.55 1.84 Non HDL Cholesterol 90 - 159 mg/dL 111 TSH 0.400 - 5.500 uU/mL 2.400 Hep C Antibody IA Negative Negative ASSESSMENT/PLAN: 1. Bronchitis - ICD9: 490, ICD10: J40 (primary diagnosis) Start albuterol every 4 hours for cough/wheezing. Continue allergy meds. Push PO fluids, use mucinex OTC for chest congestion, and call with worsening symptoms. Given abx in case symptoms wossen. - ALBUTEROL SULFATE HFA 90 MCG/ACTUATION AEROSOL INHALER - AZITHROMYCIN 250 MG TABLET 2. CKD (chronic kidney disease), stage III - ICD9: 585.3, ICD10: N18.3 Stable, continue low sodium diet, push PO fluids. 3. Anxiety - ICD9: 300.00, ICD10: F41.9 Stable on SSRI. 4. Gastroesophageal reflux disease, esophagitis presence not specified - ICD9: 530.81, ICD10: K21.9 Controlled with prevacid. 5. Hyperlipidemia, unspecified hyperlipidemia type - ICD9: 272.4, ICD10: E78.5 - good control - Continue current medication. - Encouraged following a low fat, low cholesterol diet. - Discussed the benefits of regular aerobic exercise and weight loss. 6. Obstructive sleep apnea syndrome - ICD9: 327.23, ICD10: G47.33 Continue CPAP nightly. Working well for symptoms. 7. Essential hypertension - ICD9: 401.9, ICD10: I10 - good control - Continue current medication(s) - Encouraged dietary sodium restriction/DASH diet - Recommended regular aerobic exercise. - Reviewed risks of HTN and principles of treatment - Goal of BP ANDlt;140/90 8. Pheochromocytoma of left adrenal gland - ICD9: 227.0, ICD10: D35.02 S/p adrenalectomy. Will have patient follow up in 4 weeks to further discuss hand tremor at night. Scotty Pollack MD Referring Provider: SCOTTY POLLACK) [[id number]] Allergies As of Date: 07/14/2017 Noted Allergy Reaction SULFA (SULFONAMIDE ANTIBIOTICS) 11/18/2016 8 - GI Upset Date Reviewed: 07/14/2017 Reviewed by: Zac Borden Ma - Fully Assessed Reason for Visit: 6 Month Exam [189] Cmt: c/o bronchitis x1week Reason For Visit History Recorded Primary Visit Diagnosis:Bronchitis [J40] Other Visit Diagnoses:CKD (chronic kidney disease), stage III [N18.3] Anxiety [F41.9] Gastroesophageal reflux disease, esophagitis presence not specified [K21.9] Hyperlipidemia, unspecified hyperlipidemia type [E78.5] Obstructive sleep apnea syndrome [G47.33] Essential hypertension [I10] Pheochromocytoma of left adrenal gland [D35.02] Order(s):albuterol HFA (VENTOLIN HFA) 90 mcg/actuation inhalerInhale 2 Puffs as instructed every 4 hours as needed.Disp: 1 InhalerRfl: 1 azithromycin (ZITHROMAX Z-SANJAY) 250 mg tabletTake 2 tablets day one, then, 1 tablet daily until gone.Disp: 1 PackageRfl: 0 Prescriptions as of 07/14/2017 Sig: CETIRIZINE 10 MG TABLET Take 1 tablet by mouth once d* MOMETASONE 50 MCG/ACTUATION N* Use 2 Sprays in the nose once* MONTELUKAST 10 MG TABLET Take 1 tablet by mouth daily * LOSARTAN 100 MG TABLET Take 1 tablet by mouth once d* CLONIDINE 0.3 MG/24 HR WEEKLY* Apply 1 Patch as directed onc* AMLODIPINE 5 MG TABLET Take 1 tablet by mouth once d* LANSOPRAZOLE 30 MG CAPSULE,DE* Take 30 mg by mouth once ramon* PRAVASTATIN 40 MG TABLET Take 40 mg by mouth once ramon* ESTRADIOL 0.05 MG/24 HR WEEKL* Apply 1 Patch as directed onc* FLUOXETINE 20 MG CAPSULE Take 1 capsule by mouth once * ALBUTEROL SULFATE HFA 90 MCG/* Inhale 2 Puffs as instructed * AZITHROMYCIN 250 MG TABLET Take 2 tablets day one, then,* Problem List As Of Date 07/14/2017 Noted Resolved Anxiety [F41.9] Hyperlipidemia [E78.5] GERD (gastroesophageal reflux disease) [K21.9] CKD (chronic kidney disease), stage III [N18.3] Sleep apnea [G47.30] INVALID FOR* More... Hypertension [I10] Pheochromocytoma [D35.00] More... Prescriptions ordered this encounter Disp Refills Start End ALBUTEROL SULFATE HFA 90 MCG/ACTUATI* 1 In* 1 07/14/2017 Route: INHALATION Sig: Inhale 2 Puffs as instructed every 4 hours as needed. AZITHROMYCIN 250 MG TABLET 1 Pa* 0 07/14/2017 07/19/2017 Sig: Take 2 tablets day one, then, 1 tablet daily until gone. Disposition: Return in about 4 weeks (around 08/11/2017). Follow-up and Disposition History Recorded Encounter Status:Closed by SCOTTY POLLACK MD on 07/14/17 COMP METABOLIC PANEL Collected: 07/13/2017 Status: F Source: [place] 10:01 AM [facility] [place] TYPE CODE TESTS RESULT OUT OF REFERENCE UNITS RANGE LAB TP 6.3-8.0 g/dL Protein, Total 6.7 LAB ALB 3.9-4.9 g/dL Low Albumin 3.4 LAB CA 8.5-10.2 mg/dL Calcium, Total 9.0 LAB TBIL 0.2-1.3 mg/dL Bilirubin, Total 0.3 LAB ALKP 32-117 U/L Alkaline Phosphatase 78 LAB AST 13-35 U/L AST 26 LAB GLU 74-99 mg/dL Glucose High 108 Result Comment: The [place] [employer] (ADA) provides guidance for cutoff values for fasting glucose and random glucose. The ADA defines fasting as no caloric intake for at least 8 hours. Fas ting plasma glucose results between 100 to 125 mg/dL indicate increased risk for diabetes (prediabetes). Fasting plasma glucose results greater than or equal to 126 mg/dL meet the criteria for diagnosis of diabetes. In the absence of unequivocal hyperglycemia, results should be confirmed by repeat testing. In a patient with classic symptoms of hyperglycemia or hyperglycemic crisis, random plasma glucose results greater than or equal to 200 mg/dL meet the criteria for diagnosis of diabetes. Reference: Standards of Medical Care in Diabetes 2016, [place] [employer]. Diabetes Care. 2016.39(Suppl 1). LAB BUN 7-21 mg/dL BUN 15 LAB CRET 0.58-0.96 mg/dL Creatinine High 1.09 LAB NA 136-144 mmol/L Sodium 141 LAB K 3.7-5.1 mmol/L Potassium 4.1 LAB CL 97-105 mmol/L Chloride 102 LAB CO2 22-30 mmol/L CO2 25 LAB AGAP 9-18 mmol/L Anion Gap 14 LAB ALT 7-38 U/L ALT 22 LAB GFRAA eGFR- Amer. >60 LAB GFRNAA . eGFR-All Other Races 51 Result Comment: eGFR (Estimated GFR) Units of measure: mL/min/1.73 meters squared eGFR is derived from the reexpressed MDRD Study equation using the following parameters: serum creatinine, age, gender and race. The creatinine assay has been calibrated to be traceable to IDMS. An eGFR <60 mL/min/1.73m2 for >3 months is consistent with chronic kidney disease. Refer to KDOQI guidelines for clinical interpretation. In patients with unstable renal function, e.g. those with acute kidney injury, the eGFR may not accurately reflect actual GFR. Performed By: #### CMP #### [facility] [address] [place], [place] [address] PROGRESS Observed: 07/08/2017 Status: COMPLETED Source: [place] 4:[address] [facility] HNO ID: [id number] Author: Susu Christensen Service: (none) Author Type: Nurse Practitioner Type: Progress Notes Filed: 07/08/2017 4:39 PM Note Text: Subjective HPI HPI Ave Arshad is a 62 year old female who presents today for CC of nasal congestion. This started over the past week when she was visiting family in [place]. She is also having post nasal drainage. Symptoms are worsened by lying flat. She has tried loratadine and phenylephrine without relief. Risk factors recent trip to [place] PMH seasonal allergies. BP 110/70 Pulse 66 Temp 36.4 ?C (97.6 ?F) (Left Tympanic) Resp 16 Wt 93.4 kg (206 lb) BMI 33.76 kg/m2 ALLERGIES Allergen Reactions - Sulfa (Sulfonamide * GI Upset ACTIVE PROBLEM LIST Anxiety Hyperlipidemia Gerd (Gastroesophageal Reflux Disease) Ckd (Chronic Kidney Disease), Stage Iii Sleep Apnea Family History Problem Relation Age of Onset - Endometrial Stromal Sarcoma [OTHER] Mother 66 - Multiple Myloma [OTHER] Mother 70 - Renal Cell sarcoma [OTHER] Mother 76 - Breast Cancer Paternal Grandmother - Heart Paternal Grandfather Social History Marital status: Spouse name: Tori Years of education: Number of children: 1 Social History Main Topics Smoking status: Never Smoker Smokeless status: Never Used Alcohol use: Yes Comment: rare Drug use: No Sexual activity: Yes Partners with: Male control/protection: Surgical Review of Systems Constitutional: Negative. Negative for chills, fever and malaise/fatigue. HENT: Positive for congestion (clear rhinorrhea). Negative for ear pain, sinus pain and sore throat. Respiratory: Negative for cough, sputum production, shortness of breath and wheezing. Cardiovascular: Negative for chest pain. Musculoskeletal: Negative for myalgias. Skin: Negative for rash. Neurological: Negative for headaches. Objective Physical Exam Constitutional: She is oriented to person, place, and time and well-developed, well-nourished, and in no distress. HENT: Head: Normocephalic and atraumatic. Right Ear: Tympanic membrane, external ear and ear canal normal. Tympanic membrane is not injected, not erythematous, not retracted and not bulging. No middle ear effusion. Left Ear: Tympanic membrane, external ear and ear canal normal. Tympanic membrane is not injected, not erythematous, not retracted and not bulging. No middle ear effusion. Nose: Mucosal edema (pale) present. No rhinorrhea. Right sinus exhibits no maxillary sinus tenderness and no frontal sinus tenderness. Left sinus exhibits no maxillary sinus tenderness and no frontal sinus tenderness. Mouth/Throat: Uvula is midline, oropharynx is clear and moist and mucous membranes are normal. No oropharyngeal exudate, posterior oropharyngeal edema, posterior oropharyngeal erythema or tonsillar abscesses. Eyes: Conjunctivae and EOM are normal. Pupils are equal, round, and reactive to light. Fundoscopic exam: The right eye shows red reflex. The left eye shows red reflex. Neck: Normal range of motion. Neck supple. Pulmonary/Chest: Effort normal. She has no decreased breath sounds. She has wheezes in the right upper field, the right middle field, the left upper field and the left middle field. She has no rhonchi. She has no rales. Lymphadenopathy: Head (right side): No submental, no submandibular, no tonsillar, no preauricular and no posterior auricular adenopathy present. Head (left side): No submental, no submandibular, no tonsillar, no preauricular and no posterior auricular adenopathy present. She has no cervical adenopathy. Right: No supraclavicular adenopathy present. Left: No supraclavicular adenopathy present. Neurological: She is alert and oriented to person, place, and time. Skin: Skin is warm and dry. Psychiatric: Affect normal. Nursing note and vitals reviewed. ASSESSMENT/PLAN: 1. Seasonal allergic rhinitis due to pollen - ICD9: 477.0, ICD10: J30.1 Zyrtec 10 mg By mouth daily at bedtime nasonex 1 spray each nostril two times a day. Singulair 10 mg daily Advise to follow up next week with Dr. Pollack and discuss group home management. * Seek medical care immediately, call 911, go to ER if you have chest pain, difficulty breathing, shortness of breath, inability to swallow. Diagnosis and treatment plan were discussed and questions were answered to the patient's satisfaction. Pt acknowledged understanding of concepts and follow up plan. Specific signs and symptoms that would indicate the need for higher level of care were discussed in detail warranting prompt ER evaluation. Susu Christensen APRN.CNP CNOV Observed: 07/08/2017 Status: COMPLETED Source: [place] 4:00 PM [facility] [place] [facility] Office Visit ([facility]) AVE ARSHAD ([id number]) 1955 F Date Time Provider Department 07/08/17 4:00 PM SUSU CHRISTENSEN (VERNA) [facility] During your visit today, we recorded the following information about you: Temperature Pulse Respiration Blood pressure 97.6 degrees 66/minute 16/minute 110/70 Weight 93.4 kg Susu Christensen APRN.CNP 07/08/2017 4:39 PM Signed Subjective HPI HPI Ave Arshad is a 62 year old female who presents today for CC of nasal congestion. This started over the past week when she was visiting family in [place]. She is also having post nasal drainage. Symptoms are worsened by lying flat. She has tried loratadine and phenylephrine without relief. Risk factors recent trip to [place] PMH seasonal allergies. BP 110/70 Pulse 66 Temp 36.4 ?C (97.6 ?F) (Left Tympanic) Resp 16 Wt 93.4 kg (206 lb) BMI 33.76 kg/m2 ALLERGIES Allergen Reactions - Sulfa (Sulfonamide * GI Upset ACTIVE PROBLEM LIST Anxiety Hyperlipidemia Gerd (Gastroesophageal Reflux Disease) Ckd (Chronic Kidney Disease), Stage Iii Sleep Apnea Family History Problem Relation Age of Onset - Endometrial Stromal Sarcoma [OTHER] Mother 66 - Multiple Myloma [OTHER] Mother 70 - Renal Cell sarcoma [OTHER] Mother 76 - Breast Cancer Paternal Grandmother - Heart Paternal Grandfather Social History Marital status: Spouse name: Tori Years of education: Number of children: 1 Social History Main Topics Smoking status: Never Smoker Smokeless status: Never Used Alcohol use: Yes Comment: rare Drug use: No Sexual activity: Yes Partners with: Male control/protection: Surgical Review of Systems Constitutional: Negative. Negative for chills, fever and malaise/fatigue. HENT: Positive for congestion (clear rhinorrhea). Negative for ear pain, sinus pain and sore throat. Respiratory: Negative for cough, sputum production, shortness of breath and wheezing. Cardiovascular: Negative for chest pain. Musculoskeletal: Negative for myalgias. Skin: Negative for rash. Neurological: Negative for headaches. Objective Physical Exam Constitutional: She is oriented to person, place, and time and well-developed, well-nourished, and in no distress. HENT: Head: Normocephalic and atraumatic. Right Ear: Tympanic membrane, external ear and ear canal normal. Tympanic membrane is not injected, not erythematous, not retracted and not bulging. No middle ear effusion. Left Ear: Tympanic membrane, external ear and ear canal normal. Tympanic membrane is not injected, not erythematous, not retracted and not bulging. No middle ear effusion. Nose: Mucosal edema (pale) present. No rhinorrhea. Right sinus exhibits no maxillary sinus tenderness and no frontal sinus tenderness. Left sinus exhibits no maxillary sinus tenderness and no frontal sinus tenderness. Mouth/Throat: Uvula is midline, oropharynx is clear and moist and mucous membranes are normal. No oropharyngeal exudate, posterior oropharyngeal edema, posterior oropharyngeal erythema or tonsillar abscesses. Eyes: Conjunctivae and EOM are normal. Pupils are equal, round, and reactive to light. Fundoscopic exam: The right eye shows red reflex. The left eye shows red reflex. Neck: Normal range of motion. Neck supple. Pulmonary/Chest: Effort normal. She has no decreased breath sounds. She has wheezes in the right upper field, the right middle field, the left upper field and the left middle field. She has no rhonchi. She has no rales. Lymphadenopathy: Head (right side): No submental, no submandibular, no tonsillar, no preauricular and no posterior auricular adenopathy present. Head (left side): No submental, no submandibular, no tonsillar, no preauricular and no posterior auricular adenopathy present. She has no cervical adenopathy. Right: No supraclavicular adenopathy present. Left: No supraclavicular adenopathy present. Neurological: She is alert and oriented to person, place, and time. Skin: Skin is warm and dry. Psychiatric: Affect normal. Nursing note and vitals reviewed. ASSESSMENT/PLAN: 1. Seasonal allergic rhinitis due to pollen - ICD9: 477.0, ICD10: J30.1 Zyrtec 10 mg By mouth daily at bedtime nasonex 1 spray each nostril two times a day. Singulair 10 mg daily Advise to follow up next week with Dr. Pollack and discuss group home management. * Seek medical care immediately, call 911, go to ER if you have chest pain, difficulty breathing, shortness of breath, inability to swallow. Diagnosis and treatment plan were discussed and questions were answered to the patient's satisfaction. Pt acknowledged understanding of concepts and follow up plan. Specific signs and symptoms that would indicate the need for higher level of care were discussed in detail warranting prompt ER evaluation. Susu Christensen APRN.VERNA Christensen APRN.VERNA 07/08/2017 4:26 PM Signed ASSESSMENT/PLAN: 1. Seasonal allergic rhinitis due to pollen - ICD9: 477.0, ICD10: J30.1 Zyrtec 10 mg By mouth daily at bedtime nasonex 1 spray each nostril two times a day. Singulair 10 mg daily Advise to follow up next week with Dr. 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 * Seek medical care immediately, call 911, go to ER if you have chest pain, difficulty breathing, shortness of breath, inability to swallow. Referring Provider: SELF [[id number]] Allergies As of Date: 07/08/2017 Noted Allergy Reaction SULFA (SULFONAMIDE ANTIBIOTICS) 11/18/2016 8 - GI Upset Date Reviewed: 07/08/2017 Reviewed by: Tangela Newman Ma - Fully Assessed Reason for Visit: Allergies [4] Primary Visit Diagnosis:Seasonal allergic rhinitis due to pollen [J30.1] Order(s):cetirizine (ZYRTEC) 10 mg tabletTake 1 tablet by mouth once daily.Disp: 30 tabletRfl: 1 mometasone (NASONEX) 50 mcg/actuation nasal sprayUse 2 Sprays in the nose once daily. Rinse mouth after use.Disp: 1 BottleRfl: 1 montelukast (SINGULAIR) 10 mg tabletTake 1 tablet by mouth daily at bedtime.Disp: 30 tabletRfl: 0 Prescriptions as of 07/08/2017 Sig: CETIRIZINE 10 MG TABLET Take 1 tablet by mouth once d* MOMETASONE 50 MCG/ACTUATION N* Use 2 Sprays in the nose once* MONTELUKAST 10 MG TABLET Take 1 tablet by mouth daily * LOSARTAN 100 MG TABLET Take 1 tablet by mouth once d* CLONIDINE 0.3 MG/24 HR WEEKLY* Apply 1 Patch as directed onc* AMLODIPINE 5 MG TABLET Take 1 tablet by mouth once d* LANSOPRAZOLE 30 MG CAPSULE,DE* Take 30 mg by mouth once ramon* PRAVASTATIN 40 MG TABLET Take 40 mg by mouth once ramon* ESTRADIOL 0.05 MG/24 HR WEEKL* Apply 1 Patch as directed onc* FLUOXETINE 20 MG CAPSULE Take 1 capsule by mouth once * Problem List As Of Date 07/08/2017 Noted Resolved Anxiety [F41.9] Hyperlipidemia [E78.5] GERD (gastroesophageal reflux disease) [K21.9] CKD (chronic kidney disease), stage III [N18.3] Sleep apnea [G47.30] INVALID FOR* More... Other instructions from your clinician: ASSESSMENT/PLAN: 1. Seasonal allergic rhinitis due to pollen - ICD9: 477.0, ICD10: J30.1 Zyrtec 10 mg By mouth daily at bedtime nasonex 1 spray each nostril two times a day. Singulair 10 mg daily Advise to follow up next week with Dr. Pollack and discuss group home management. * Seek medical care immediately, call 911, go to ER if you have chest pain, difficulty breathing, shortness of breath, inability to swallow. Prescriptions ordered this encounter Disp Refills Start End CETIRIZINE 10 MG TABLET 30 t* 1 07/08/2017 Route: ORAL Sig: Take 1 tablet by mouth once daily. MOMETASONE 50 MCG/ACTUATION NASAL SP* 1 Julio C* 1 07/08/2017 Route: NASAL Sig: Use 2 Sprays in the nose once daily. Rinse mouth after use. MONTELUKAST 10 MG TABLET 30 t* 0 07/08/2017 08/07/2017 Route: ORAL Sig: Take 1 tablet by mouth daily at bedtime. Encounter Status:Closed by SUSU CHRISTENSEN CNP on 07/08/17 Observed: 06/15/2017 Status: F Source: [place] URINE CULTURE 3:07 PM [facility] [place] [facility] Sp. Request/Comment: - Specimen received in preservative Culture Result - <10,000 CFU/ml Lactose positive gram negative bacilli --> ABNORMAL ALERT Insignificant colony count. No further workup. --> ABNORMAL ALERT Performed By: #### URCUL #### [facility] [address] [place], [place] [address] PROGRESS Observed: 06/15/2017 Status: COMPLETED Source: [place] 2:59 PM [facility] [place] [facility] HNO ID: [id number] Author: Mary Ellen Guadalupe) Conrad Service: (none) Author Type: Nurse Practitioner Type: Progress Notes Filed: 06/15/2017 8:42 PM Note Text: Subjective HPI Patient is a 61 year old female here today for a 2 week history of feeling it does not feel right when she urinates. States the stream is weak. States she does not drink much water. States her urine seems concentrated in the morning. Denies pain with urination. States she has also noticed vaginal irritation and itchy feeling. States she has been eating increases amounts of sugar. States she is not diabetic. Review of Systems Constitutional: Negative for chills, fever and malaise/fatigue. Respiratory: Negative. Cardiovascular: Negative. Gastrointestinal: Negative for abdominal pain, nausea and vomiting. Genitourinary: Negative for dysuria, flank pain, frequency, hematuria and urgency. Feels a slow trickle. States she has a history of urinary polyps. Musculoskeletal: Negative for back pain. Neurological: Negative for dizziness. All other systems reviewed and are negative. PAST MEDICAL HISTORY Diagnosis Date - Anxiety - CKD (chronic kidney disease), stage III - GERD (gastroesophageal reflux disease) - History of endometriosis - History of splenectomy pneumovax every 5 years - Hyperlipidemia - Hypertension - Pheochromocytoma s/p adrenalectomy left - Sleep apnea 09/20/2014 on CPAP - Vertigo PAST SURGICAL HISTORY Procedure Laterality Date - ADRENALECTOMY Left - SECTION HX - COLONOSCOPY x2 last 2008 and was normal - HYSTERECTOMY HX fibroids - PAST SURGICAL HISTORY OF infertility surgery - SALPINGECTOMY OR OOPHERECTOMY-ECTOPIC - SPLENECTOMY,GASTROESOPHAGEAL DEVASCULARIZ ALLERGIES Sulfa (Sulfonamide Antibiotics) MEDICATIONS losartan (COZAAR) 100 mg tablet Take 1 tablet by mouth once daily. cloNIDine TTS (CATAPRES-TTS) 0.3 mg/24 hr Apply 1 Patch as directed once each week. amLODIPine (NORVASC) 5 mg tablet Take 1 tablet by mouth once daily. lansoprazole (PREVACID) 30 mg capsule Take 30 mg by mouth once daily. pravastatin (PRAVACHOL) 40 mg tablet Take 40 mg by mouth once daily. estradiol (CLIMARA) 0.05 mg/24 hr Apply 1 Patch as directed once each week. FLUoxetine (PROZAC) 20 mg capsule Take 1 capsule by mouth once daily. cephALEXin (KEFLEX) 500 mg capsule Take 1 capsule by mouth twice daily for 7 days. FAMILY HISTORY Problem Relation Age of Onset - Endometrial Stromal Sarcoma [OTHER] Mother 66 - Multiple Myloma [OTHER] Mother 70 - Renal Cell sarcoma [OTHER] Mother 76 - Breast Cancer Paternal Grandmother - Heart Paternal Grandfather Social History Substance Use Topics - Smoking status: Never Smoker - Smokeless tobacco: Never Used - Alcohol use Yes Comment: rare BP 136/88 Pulse 80 Temp 36.4 ?C (97.5 ?F) (Right Tympanic) Resp 12 Wt 94.8 kg (209 lb) BMI 34.25 kg/m2 Objective Physical Exam Constitutional: She is oriented to person, place, and time and well-developed, well-nourished, and in no distress. HENT: Head: Normocephalic and atraumatic. Cardiovascular: Normal rate and regular rhythm. Pulmonary/Chest: Effort normal and breath sounds normal. Abdominal: Soft. She exhibits no distension. There is no tenderness. Negative CVA tenderness bilaterally. Negative suprapubic pain Neurological: She is alert and oriented to person, place, and time. Skin: Skin is warm. She is not diaphoretic. Nursing note and vitals reviewed. Component Results Component Value Range AND Units Status Performing Lab Glucose, Urine neg Neg mg/dL Final Unknown Bilirubin, Urine neg Neg Final Unknown Ketones, Urine neg Neg Final Unknown Specific Rule, Ur 1.010 1.005 - 1.030 Final Unknown Hemoglobin/Blood,Ur large Neg Final Unknown pH, Urine 6.0 4.5 - 8.0 Final Unknown Protein, Urine 300 Neg mg/dL Final Unknown Urobilinogen, Urine normal Normal (<1.1) EU Final Unknown Nitrites neg Neg Final Unknown Leukocytes neg Neg Final Unknown Color/Appearance yellow/clear comment: Final Unknown Quality Check Yes yes/no Final Unknown ASSESSMENT/PLAN: 1. Acute cystitis with hematuria - ICD9: 595.0, ICD10: N30.01 - Refer to urology for history of urinary polyps - Will treat for UTI based on results - Encourage water - UA DIP B/O - URINE CULTURE - CEPHALEXIN 500 MG CAPSULE - CONSULT TO UROLOGY Prescription instructions reviewed with patient as applicable. Patient advised if symptoms do not improve or if symptoms worsen sooner, to contact their primary care physician. Potential red flag symptoms discussed with the patient. Reviewed appropriate action plan to take if red flag symptoms occur. Patient agreeable to treatment plan. Mary Ellen Martines CNP CNOV Observed: 06/15/2017 Status: COMPLETED Source: [place] 2:45 PM [facility] [place] [facility] Office Visit ([facility]) VAE ARSHAD ([id number]) 1955 F Date Time Provider Department 06/15/17 2:45 PM MARY ELLEN MARTINES (VERNA) [facility] During your visit today, we recorded the following information about you: Temperature Pulse Respiration Blood pressure 97.5 degrees 80/minute 12/minute 136/88 Weight 94.8 kg Mary Ellen Martines CNP 06/15/2017 8:42 PM Signed Subjective HPI Patient is a 61 year old female here today for a 2 week history of feeling ANDquot;it does not feel right when she urinates.ANDquot; States the stream is weak. States she does not drink much water. States her urine seems concentrated in the morning. Denies pain with urination. States she has also noticed vaginal irritation and itchy feeling. States she has been eating increases amounts of sugar. States she is not diabetic. Review of Systems Constitutional: Negative for chills, fever and malaise/fatigue. Respiratory: Negative. Cardiovascular: Negative. Gastrointestinal: Negative for abdominal pain, nausea and vomiting. Genitourinary: Negative for dysuria, flank pain, frequency, hematuria and urgency. Feels a slow trickle. States she has a history of urinary polyps. Musculoskeletal: Negative for back pain. Neurological: Negative for dizziness. All other systems reviewed and are negative. PAST MEDICAL HISTORY Diagnosis Date - Anxiety - CKD (chronic kidney disease), stage III - GERD (gastroesophageal reflux disease) - History of endometriosis - History of splenectomy pneumovax every 5 years - Hyperlipidemia - Hypertension - Pheochromocytoma s/p adrenalectomy left - Sleep apnea 09/20/2014 on CPAP - Vertigo PAST SURGICAL HISTORY Procedure Laterality Date - ADRENALECTOMY Left - SECTION HX - COLONOSCOPY x2 last 2008 and was normal - HYSTERECTOMY HX fibroids - PAST SURGICAL HISTORY OF infertility surgery - SALPINGECTOMY OR OOPHERECTOMY-ECTOPIC - SPLENECTOMY,GASTROESOPHAGEAL DEVASCULARIZ ALLERGIES Sulfa (Sulfonamide Antibiotics) MEDICATIONS losartan (COZAAR) 100 mg tablet Take 1 tablet by mouth once daily. cloNIDine TTS (CATAPRES-TTS) 0.3 mg/24 hr Apply 1 Patch as directed once each week. amLODIPine (NORVASC) 5 mg tablet Take 1 tablet by mouth once daily. lansoprazole (PREVACID) 30 mg capsule Take 30 mg by mouth once daily. pravastatin (PRAVACHOL) 40 mg tablet Take 40 mg by mouth once daily. estradiol (CLIMARA) 0.05 mg/24 hr Apply 1 Patch as directed once each week. FLUoxetine (PROZAC) 20 mg capsule Take 1 capsule by mouth once daily. cephALEXin (KEFLEX) 500 mg capsule Take 1 capsule by mouth twice daily for 7 days. FAMILY HISTORY Problem Relation Age of Onset - Endometrial Stromal Sarcoma [OTHER] Mother 66 - Multiple Myloma [OTHER] Mother 70 - Renal Cell sarcoma [OTHER] Mother 76 - Breast Cancer Paternal Grandmother - Heart Paternal Grandfather Social History Substance Use Topics - Smoking status: Never Smoker - Smokeless tobacco: Never Used - Alcohol use Yes Comment: rare BP 136/88 Pulse 80 Temp 36.4 ?C (97.5 ?F) (Right Tympanic) Resp 12 Wt 94.8 kg (209 lb) BMI 34.25 kg/m2 Objective Physical Exam Constitutional: She is oriented to person, place, and time and well-developed, well-nourished, and in no distress. HENT: Head: Normocephalic and atraumatic. Cardiovascular: Normal rate and regular rhythm. Pulmonary/Chest: Effort normal and breath sounds normal. Abdominal: Soft. She exhibits no distension. There is no tenderness. Negative CVA tenderness bilaterally. Negative suprapubic pain Neurological: She is alert and oriented to person, place, and time. Skin: Skin is warm. She is not diaphoretic. Nursing note and vitals reviewed. Component Results Component Value Range ANDamp; Units Status Performing Lab Glucose, Urine neg Neg mg/dL Final Unknown Bilirubin, Urine neg Neg Final Unknown Ketones, Urine neg Neg Final Unknown Specific Rule, Ur 1.010 1.005 - 1.030 Final Unknown Hemoglobin/Blood,Ur large Neg Final Unknown pH, Urine 6.0 4.5 - 8.0 Final Unknown Protein, Urine 300 Neg mg/dL Final Unknown Urobilinogen, Urine normal Normal (ANDlt;1.1) EU Final Unknown Nitrites neg Neg Final Unknown Leukocytes neg Neg Final Unknown Color/Appearance yellow/clear comment: Final Unknown Quality Check Yes yes/no Final Unknown ASSESSMENT/PLAN: 1. Acute cystitis with hematuria - ICD9: 595.0, ICD10: N30.01 - Refer to urology for history of urinary polyps - Will treat for UTI based on results - Encourage water - UA DIP B/O - URINE CULTURE - CEPHALEXIN 500 MG CAPSULE - CONSULT TO UROLOGY Prescription instructions reviewed with patient as applicable. Patient advised if symptoms do not improve or if symptoms worsen sooner, to contact their primary care physician. Potential red flag symptoms discussed with the patient. Reviewed appropriate action plan to take if red flag symptoms occur. Patient agreeable to treatment plan. Mary Ellen Martines CNP Referring Provider: SELF [200] Allergies As of Date: 06/15/2017 Noted Allergy Reaction SULFA (SULFONAMIDE ANTIBIOTICS) 11/18/2016 8 - GI Upset Date Reviewed: 06/15/2017 Reviewed by: Mary Ellen Martines - Fully Assessed Reason for Visit: UTI [116] Cmt: 2 weeks Primary Visit Diagnosis:Acute cystitis with hematuria [N30.01] Order(s):UA DIP B/O [9395391] Order #: [id number] URINE CULTURE [SQURCUL] Order #: [id number] cephALEXin (KEFLEX) 500 mg capsuleTake 1 capsule by mouth twice daily for 7 days.Disp: 14 capsuleRfl: 0 CONSULT TO UROLOGY [9041] Order #: [id number]: 1 Prescriptions as of 06/15/2017 Sig: LOSARTAN 100 MG TABLET Take 1 tablet by mouth once d* CLONIDINE 0.3 MG/24 HR WEEKLY* Apply 1 Patch as directed onc* AMLODIPINE 5 MG TABLET Take 1 tablet by mouth once d* LANSOPRAZOLE 30 MG CAPSULE,DE* Take 30 mg by mouth once ramon* PRAVASTATIN 40 MG TABLET Take 40 mg by mouth once ramon* ESTRADIOL 0.05 MG/24 HR WEEKL* Apply 1 Patch as directed onc* FLUOXETINE 20 MG CAPSULE Take 1 capsule by mouth once * CEPHALEXIN 500 MG CAPSULE Take 1 capsule by mouth twice* Problem List As Of Date 06/15/2017 Noted Resolved Anxiety [F41.9] Hyperlipidemia [E78.5] GERD (gastroesophageal reflux disease) [K21.9] CKD (chronic kidney disease), stage III [N18.3] Sleep apnea [G47.30] INVALID FOR* More... Prescriptions ordered this encounter Disp Refills Start End CEPHALEXIN 500 MG CAPSULE 14 c* 0 06/15/2017 06/22/2017 Route: ORAL Sig: Take 1 capsule by mouth twice daily for 7 days. Encounter Status:Closed by MARY ELLEN MARTINES CNP on 06/15/17 ALLERGIES ALLERGIES DATE TYPE / CODE NAME / CODE REACTION SEVERITY SOURCE 11/18/2016 Drug SULFA GI UPSET [facility] Class/[id number] (SULFONAMIDE [facility] [place] 003(SNOMED ANTIBIOTICS) Repository CT) ENCOUNTERS ENCOUNTERS ADMIT/DISCHARGE ACCOUNT ADMITTING ENCOUNTER LOCATION SOURCE NUMBER CLASS 04/27/2018 [id number] Ambulatory [facility] ing:US Repository 03/08/2018/03/17/20 [id number] Ambulatory [address] Repository 03/02/2018/03/02/20 [id number] Ambulatory [address] Repository 01/13/2018/01/14/20 [id number] Ambulatory [address] Repository 01/13/2018/01/15/20 [id number] Ambulatory [address] Repository 01/12/2018/01/13/20 [id number] Ambulatory [address] Repository 12/26/2017/09/27/20 [id number] Ambulatory [place] [facility] [place] Repository 12/13/2017/12/16/19 [id number] Ambulatory [place] [facility] [place] Rep[facility] 12/13/2017/12/14/19 [id number] Ambulatory [place] [facility] Rep[facility] 12/10/2017/12/14/19 [id number] Ambulatory [place] [facility] Repository 11/09/2017/11/11/19 [id number] Ambulatory [place] [facility] [place] Repository 11/04/2017/11/10/19 [id number] Ambulatory [place] [facility] [place] Repository 09/24/2017/09/25/19 [id number] Ambulatory [place] [facility] [place] Repository 09/02/2017/09/04/19 [id number] Ambulatory [place] [facility] [place] Repository 08/19/2017/08/21/19 [id number] Ambulatory [address] [facility] [place] Repository 07/15/2017/07/20/19 [id number] Ambulatory [address] [facility] [place] [facility] 07/14/2017/07/16/19 [id number] Ambulatory [address] [facility] [place] [facility] 07/13/2017/07/14/19 [id number] Ambulatory [address] [facility] [place] [facility] 07/08/2017/07/10/19 [id number] Ambulatory [address] [facility] [place] Rep[facility] 06/15/2017/06/17/19 [id number] Ambulatory [address] [facility] [place] [facility] PAYERS PAYERS ENCOUNTER GUARANTOR PAYER SUBSCRIBER SOURCE 04/27/[address] [place] [id number] Insurance:[employer]HE[employer]olic BEECHYDOB: [address] Number: [id number] [address] [id number] Repository [address] [place] [address] Date:[id number] [address] [address]Kuu: [phone], [place] [phone] () [id number]: 04/27/2018 Secondary NOT GIVENUNK Celine Insurance:SELF PAY [facility] Number: Effective Repository Date:2018-04-25
== END ==
PROVIDERS: Family Provider Family Medicine; PCP Family Medicine; Referring Provider Internal Medicine Nephrology; Visit Provider Internal Medicine Nephrology
DX: N18.3 Chronic kidney disease, stage 3 (moderate) (principal)
CPT/HCPCS: 76770

== ENCOUNTER → 2018-05-09 09:04 | Outpatient (CLI) | payer BC, SELFPAY ==
[2018-05-09] VITALS (9 sets, daily range): BP systolic 126–148; BP diastolic 58–76; PULSE 54–58; RESP 12–18; TEMP 36.4; O2SAT 92–100; BMI 28.0
--- NOTE | 2018-05-09 09:07 | CT_ITS ---
PROCEDURE: CT GUIDED PERCUTANEOUS KIDNEY BIOPSY. DATE: May 09, 2018. INDICATION: Female, 62 years old. Stage III chronic kidney disease. PHYSICIAN: Raghavendra Patrick M.D. MEDICATIONS: 2 mg of Versed and 50 mcg of fentanyl intravenously. Conscious sedation protocol was monitored by the department nurse. Conscious sedation was started at 10:34 AM and terminated at 10:47 AM. ACCESS SITE: Lower pole of the right kidney NEEDLE: 18-gauge core biopsy needle SPECIMEN: 4 18-gauge cores. EBL: None. COMPLICATIONS: None immediate. RADIATION DOSAGE (If Supplied By Facility): CTDIvol = ( 15.2 ) mGy, DLP = ( 316.98 ) mGycm. Individualized dose reduction techniques were utilized. The risks, benefits, and alternatives to the procedure and sedation were explained to the patient. The specific risk of hemorrhage requiring further treatment or intervention was detailed and accepted. Written informed consent was obtained. The patient was placed on the CT table in the prone position. Multiple axial images were obtained from the lung base through the caudal extent of the kidneys. An appropriate entry site was identified and a ruddy made on the skin. The skin overlying the [ right] posterior flank was prepped and draped in sterile fashion. 1% lidocaine was administered subcutaneously for local anesthesia. Initially, a 22 gauge needle was advanced and CT images confirmed good needle position. The 22 gauge needle was then exchanged for an 17 gauge introducer needle which was advanced. Repeat CT images confirmed good needle trajectory and tip position. The introducer needle was then advanced into the periphery of the inferior renal pole, and CT images were again obtained to confirm exact tip location. The inner stylet of the introducer needle was then removed and an 18 gauge coaxial needle was advanced thru the introducer needle and biopsy performed. A total of [ 4] passes were performed and the specimen collected was sent to Pathology for further evaluation. The needle was withdrawn. Hemostasis was achieved with manual compression and a sterile dressing was applied. Repeat CT images of the biopsy area was performed which demonstrated no gross bleeding or hematoma. The patient tolerated the procedure well without immediate complications. The patient was transported to the [floor/recovery area] in stable condition. CT/Biopsy/Inj or Needle Placement IMPRESSION: Successful CT guided percutaneous kidney biopsy. Electronically Signed: Raghavendra Patrick MD at 11:22 EST , Service support ,
[2018-05-09 09:44] LABS: Prothrombin Time (Protime)PT. 13.4 SECONDS (11.7-14.9)
[2018-05-09 09:46] LABS: Platelet Count 298 K/mm3 (150-450)
--- NOTE | 2018-05-09 10:00 | KI_PTH ---
PATIENT: ANICETO MASON LOC: CT U#:[id number] AGE/SX: 69/F ROOM: RE05/09/[address]: Dr. Srinivasa Taylor MD : 1955 BED: DIS: SPEC #: [id number] RECD: 05/09/18 10:58 STATUS: PHILLIP RECarla #: [id number] SANDIE: 05/09/18 10:[address]: Srinivasa Taylor DEPT: SURGICAL PATHOLOGY RECD BY: Gifty Reyes ENTERED: 05/09/18 14:04 SP TYPE: KIDNEY BX OTHR DR: Dr. 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 COMMENT This renal biopsy is pauciglomerular and demonstrates 50% globally sclerotic glomeruli, arteriosclerosis and chronic tubulointerstitial changes. These findings may be seen in association with chronic vascular disease (e.g., hypertension). Immunofluorescence demonstrates no significant staining to suggest global immune-complex mediated disease. Given the limited glomerular sampling, focal lesions cannot be excluded. No glomeruli are present for electron microscopic evaluation. MICROSCOPIC DESCRIPTION Sections are evaluated with H & E, PAS, Russell, Congo red and trichrome stains. Nine glomeruli are present. Five glomeruli are globally sclerotic. Preserved glomeruli demonstrate mild mesangial expansion and mild thickening of vascular poles. No segmental lesions, significant cellular proliferation or active glomerulitis are identified. There is approximately 30-40% interstitial fibrosis with proportionate tubular atrophy. There is a mild patchy mononuclear interstitial inflammatory infiltrate. Arterioles show moderate medial thickening. No arteritis is identified. Congo red demonstrates no evidence of amyloid disposition. IMMUNOFLUORESCENCE: One glomerulus is present. There is no specific staining to indicate the deposition of immunoglobulins (IgG, IgA or IgM) or complement components (C3 or C1q). Stains for light chains kappa and lambda show no evidence of deposition in glomerular or tubular basement membranes. Glomerular fibrin deposition is not increased. ELECTRON MICROSCOPY: Tissue submitted for electron microscopy is exhausted and yields no glomeruli for evaluation. GROSS DESCRIPTION The specimen is sent entirely to [facility] for diagnosis. The specimen is received in transport medium and consists of six cores of concepcion renal tissue that range in length from 0.3 to 1.2 cm. The cores are divided for histology, immunofluorescence and electron microscopy.
[2018-05-09] MEDS: Midazolam 2 MG/2 ML Syringe IV (10:34)
[2018-05-09] MEDS: fentaNYL 100 MCG/2 ML Ampul IV (10:36)
== END ==
PROVIDERS: Family Provider Family Medicine; PCP Family Medicine; Referring Provider Internal Medicine Nephrology; Visit Provider Internal Medicine Nephrology
DX: N18.3 Chronic kidney disease, stage 3 (moderate) (principal)
CPT/HCPCS: 50200; 36415; 77012; 85049; 85610; 85730; 88305; 88313; 88346; 88348; 88350; 99156; J7040; A4216

== ENCOUNTER 2018-12-14 12:39 | Emergency (ER) | payer MEDICARE, SELFPAY ==
[2018-05-09 09:31] VITALS: BMI 28.0
[2018-12-14 12:40] VITALS: BP 113/67; PULSE 64; RESP 14; TEMP 36.3; O2SAT 98; BMI 26.7
--- NOTE | 2018-12-14 12:58 | RAD_ITS ---
STUDY: X-RAY - ABDOMEN/PELVIS REASON FOR EXAM: Female, 63 years old. Constipation. TECHNIQUE: Single AP view of the abdomen / pelvis. COMPARISON: None. FINDINGS: Normal visualized lung bases. There is an abundance of fecal material throughout the colon. The visualized liver, spleen and kidneys are grossly normal in size and morphology. Surgical clips are seen in the left upper quadrant. Minimal levoscoliosis. RAD/Abdomen Single View IMPRESSION: Large amount of fecal material is seen in the colon in keeping with constipation. Electronically Signed: Raghavendra Patrick, at 13:22 EDT , Service support ,
--- NOTE | 2018-12-14 13:42 | ED.VIS.GEN ---
History of Present Illness Chief Complaint: Constipation Informant: Patient Narrative: Presents with constipation for 8 days and abdominal cramping. She has no nausea or vomiting she has no back pain. She has no fever or chills. She denies urinary symptoms. She has had recurrent constipation for the past 25 years. Her last colonoscopy was 9 years ago. Past Medical History - Allergies and Home Meds Allergies/Adverse Reactions: Allergies Sulfa (Sulfonamide Antibiotics) Adverse Reaction (Verified 12/14/18 12:40) Nausea Primary Care Physician: Antony Pollack MD [Primary Care Provider] - Past Medical History: - - Constipation in HPI Smoking Status: Never smoker Physical Exam Vital Signs/Narrative: Vital Signs Temp Pulse Resp BP Pulse Ox 12/14/18 12:40 97.4 F L 64 14 113/67 98 ED Disposition - Plan for ED Patient: Referrals: Antony Pollack MD [Primary Care Provider] -
--- NOTE | 2018-12-14 13:52 | ED.DEP ---
ED Disposition - Plan for ED Patient: Disposition: Home or Assisted Living Instructions: CONSTIPATION (Adult) Prescriptions: [id number]/Sod Sulf,Bicarb,Cl/KCl [Golytely Packet] 1 ea PO DAILY #30 [email or web address] Prescription Printed Referrals: Antony Pollack MD [Primary Care Provider] - 3-5 Days
[2018-12-14] MEDS: Electrolyte Solution/Peg's 4000 ML PO (14:17)
--- NOTE | 2018-12-14 14:22 | ED.RN ---
DISCHARGE INSTRUCTIONS GIVEN TO AND REVIEWED WITH PATIENT, PATIENT DENIES QUESTIONS OR CONCERNS AND VOICES UNDERSTANDING OF DISCHARGE INSTRUCTIONS. PT AMBULATES OUT OF ROOM WITHOUT DIFFICULTY.
== END 2018-12-14 14:22 | disposition home or self-care (01) ==
PROVIDERS: Emergency Provider Emergency Medicine; Family Provider Family Medicine; PCP Family Medicine
DX: K59.00 Constipation, unspecified (principal); Z88.2 Allergy status to sulfonamides
CPT/HCPCS: 74018; 99282

== ENCOUNTER → 2020-01-12 09:00 | Outpatient (CLI) | payer OTHER, SELFPAY | PROVIDERS: PCP Family Medicine; Referring Provider Internal Medicine Gastroenterology; Visit Provider Internal Medicine Gastroenterology | DX: Z11.59 Encounter for screening for other viral diseases (principal) | CPT/HCPCS: 87635; C9803; U0003 ==

== ENCOUNTER → 2020-03-11 09:39 | Outpatient (CLI) | payer OTHER, SELFPAY ==
[2020-03-11 10:44] LABS: Color, Urine Yellow (Yellow); Glucose, Dipstick Normal (Normal); Ketone-Dipstick Negative (Negative); Leukocyte Esterase-Dipstick Negative /ul (Negative); Nitrite-Dipstick Negative (Negative); Occult Blood-Urine 50 /ul (Negative); Protein-Dipstick 100 mg/dl (Negative); Urine Bilirubin Dipstick Negative (Negative); Urine Clarity Sl. Cloudy (Clear); Urine Urobilinogen Normal (Normal)
[2020-03-11 11:05] LABS: Protein, Urine (Random) 246.1 mg/dL (<11.9); Protein:Creat Ratio 5304 mg/g CRE (0-200)
[2020-03-11 11:23] LABS: Anion Gap 4 (5-15); BUN 38 mg/dL (7-18); BUN/Creat Ratio 16.5 RATIO (10-20); Calcium,Total 8.7 mg/dL (8.5-10.1); Chloride 106 mmol/L (98-107); EST Glomerular Filtration Rate 23 mL/min (>60); Est Glom Filt Rate - Afr Amer 27 mL/min (>60); Glucose 88 mg/dL (74-106); Potassium 4.5 mmol/L (3.5-5.1); Sodium Level 135 mmol/L (136-145)
== END ==
PROVIDERS: PCP Family Medicine; Visit Provider Internal Medicine
DX: R80.9 Proteinuria, unspecified (principal); N18.30 Chronic kidney disease, stage 3 unspecified
CPT/HCPCS: 36415; 80048; 81002; 82570; 84156

== ENCOUNTER → 2020-04-08 09:53 | Outpatient (CLI) | payer OTHER, SELFPAY ==
[2020-04-08 10:04] LABS: Mucous, Urine 0 SEEN /hpf (<or=2+)
[2020-04-08 10:59] LABS: Color, Urine Yellow (Yellow); Glucose, Dipstick Normal (Normal); Ketone-Dipstick Negative (Negative); Leukocyte Esterase-Dipstick 25 /ul (Negative); Nitrite-Dipstick Negative (Negative); Occult Blood-Urine 150 /ul (Negative); Protein-Dipstick 500 mg/dl (Negative); Specific Gravity, Urine 1.015 (1.002-1.030); Urine Bilirubin Dipstick Negative (Negative); Urine Clarity Cloudy (Clear); Urine Urobilinogen Normal (Normal)
[2020-04-08 11:06] LABS: Bacteria 1+ /hpf (None Seen); Red Blood Cells-Urine 5-10 SEEN /hpf (0-5); Squamous Epithelial Cells - UA 5-10 SEEN /hpf (5-10); White Blood Cells 0-5 SEEN /hpf (0-5)
[2020-04-08 11:17] LABS: Protein, Urine (Random) 263.6 mg/dL (<11.9); Protein:Creat Ratio 4983 mg/g CRE (0-200)
[2020-04-08 11:26] LABS: PTHIN 300.6 pg/mL (18.4-80.1)
[2020-04-08 11:29] LABS: Anion Gap 8 (5-15); BUN 50 mg/dL (7-18); BUN/Creat Ratio 17.9 RATIO (10-20); Calcium,Total 8.8 mg/dL (8.5-10.1); Chloride 105 mmol/L (98-107); Creatinine, Serum 2.79 mg/dL (0.55-1.02); EST Glomerular Filtration Rate 18 mL/min (>60); Est Glom Filt Rate - Afr Amer 22 mL/min (>60); Glucose 115 mg/dL (74-106); Phosphorus 3.3 mg/dL (2.5-4.9); Potassium 4.1 mmol/L (3.5-5.1); Sodium Level 136 mmol/L (136-145); Vitamin D,25 Hydroxy 28.9 ng/mL
== END ==
PROVIDERS: PCP Family Medicine; Visit Provider Internal Medicine
DX: R80.9 Proteinuria, unspecified (principal); N18.32 Chronic kidney disease, stage 3b; E21.3 Hyperparathyroidism, unspecified
CPT/HCPCS: 36415; 80048; 81001; 82306; 82570; 83970; 84100; 84156

== ENCOUNTER → 2020-04-17 14:02 | Outpatient (CLI) | payer OTHER, SELFPAY ==
[2020-04-17 16:18] LABS: Anion Gap 6 (5-15); BUN 44 mg/dL (7-18); BUN/Creat Ratio 15.4 RATIO (10-20); Calcium,Total 8.4 mg/dL (8.5-10.1); Chloride 106 mmol/L (98-107); Creatinine, Serum 2.86 mg/dL (0.55-1.02); EST Glomerular Filtration Rate 18 mL/min (>60); Est Glom Filt Rate - Afr Amer 21 mL/min (>60); Glucose 91 mg/dL (74-106); Potassium 4.5 mmol/L (3.5-5.1); Sodium Level 137 mmol/L (136-145)
== END ==
PROVIDERS: PCP Family Medicine; Visit Provider Internal Medicine
DX: N18.32 Chronic kidney disease, stage 3b (principal)
CPT/HCPCS: 36415; 80048

== ENCOUNTER → 2020-04-29 12:01 | Outpatient (CLI) | payer OTHER, SELFPAY ==
--- NOTE | 2020-04-29 12:11 | US_ITS ---
STUDY: RENAL ULTRASOUND - COMPLETE REASON FOR EXAM: Female, 64 years old. CKD STAGE 4 TECHNIQUE: Ultrasound evaluation of the kidneys was performed with real-time and static contreras-scale imaging. COMPARISON: Comparison is made with prior study dated 04/27/2018. FINDINGS: RIGHT KIDNEY: Normal location of the right kidney, which is normal in size. The right kidney measures 10.7 cm x 4.9 cm x 5 cm. Increased cortical echotexture suggestive of medical renal disease. The renal cortex measures 1.0 cm. There is no right renal mass or cyst. There are no right renal calculi. There is no right hydronephrosis. DISTAL RIGHT URETER: There is non-visualization of the distal right ureter. There is no demonstrated right ureterovesical junction calculus. There is a visualized right ureteral jet. LEFT KIDNEY: with mild renal atrophy. The left kidney measures 8.6 cm x 3.6 cm x 3.8 cm. There is a normal cortex of the left kidney. The renal cortex measures 1.0 cm. Increased cortical echotexture suggestive of a medical renal disease. There is no left renal mass or cyst. There are no left renal calculi. There is no left hydronephrosis. DISTAL LEFT URETER: There is non-visualization of the distal left ureter. There is no demonstrated left ureterovesical junction calculus. There is a visualized left ureteral jet. BLADDER: The distended urinary bladder has a volume of 73 ml. There is a normal wall thickness of the distended urinary bladder. There is no demonstrated mass within the urinary bladder. There are no demonstrated bladder calculi. US/Kidney and Bladder IMPRESSION: Mild atrophy of the left kidney. There is evidence of increased cortical echotexture in both kidneys suggestive of medical renal disease. Electronically Signed: Raghavendra Patrick MD at 15:23 EST , Service support ,
[2020-04-29 12:35] LABS: 24HR. UA Prot. Total Volume 1275 mL; 24HR. Urine Creatinine 0.69 g/24 HR (0.70-1.90); Urine Protein (24 Hour) 221.9 mg/dL (<11.9)
[2020-04-29 13:49] LABS: Hematocrit 34.7 % (37-47); Hemoglobin 11.6 g/dL (12.0-15.0); Mean Corp Hgb Conc 33.4 g/dL (32-36); Mean Corpuscular Hgb 31.3 pg (27.0-32.0); Mean Corpuscular Volume 93.5 fL (81-99); Mean Platelet Vol. 11.5 fl (6.2-12.0); Platelet Count 352 K/mm3 (150-450); RBC Distribution Width CV 12.8 % (11.6-14.6); RBC Distribution Width SD 44.2 fl (35.1-43.9); Red Blood Count 3.71 M/mm3 (4.2-5.4); White Blood Count 7.5 K/mm3 (4.4-11.0)
[2020-04-29 13:50] LABS: Color, Urine Yellow (Yellow); Glucose, Dipstick Normal (Normal); Ketone-Dipstick Negative (Negative); Leukocyte Esterase-Dipstick 25 /ul (Negative); Nitrite-Dipstick Negative (Negative); Occult Blood-Urine 50 /ul (Negative); Protein-Dipstick 500 mg/dl (Negative); Urine Bilirubin Dipstick Negative (Negative); Urine Clarity Cloudy (Clear); Urine Urobilinogen Normal (Normal)
[2020-04-29 14:02] LABS: Protein, Urine (Random) 183.8 mg/dL (<11.9); Protein:Creat Ratio 3288 mg/g CRE (0-200)
[2020-04-29 14:10] LABS: Anion Gap 8 (5-15); BUN 40 mg/dL (7-18); BUN/Creat Ratio 14.1 RATIO (10-20); Calcium,Total 8.5 mg/dL (8.5-10.1); Chloride 104 mmol/L (98-107); Creatinine, Serum 2.84 mg/dL (0.55-1.02); EST Glomerular Filtration Rate 18 mL/min (>60); Est Glom Filt Rate - Afr Amer 21 mL/min (>60); Glucose 80 mg/dL (74-106); Potassium 4.8 mmol/L (3.5-5.1); Sodium Level 136 mmol/L (136-145)
[2020-04-29 14:23] LABS: Creat.Clear Total Volume 1275 mL; Creatinine Clearance 18 ml/min (100-200); Creatinine Serum Creat 2.8 mg/dL (0.6-1.0); Creatinine Urine 57.4 mg/dL (NO RANGE EST.); EST Glomerular Filtration Rate 18 mL/min (>60); Est Glom Filt Rate - Afr Amer 21 mL/min (>60)
[2020-04-29 15:09] LABS: HIV - WCH Non-Reactive (Nonreactive)
[2020-05-01 15:48] LABS: ANTINUCLEAR ANTIBODIES DIRECT Negative (Negative)
[2020-05-01 16:10] LABS: Complement C3 119 mg/dL (82-167); Cytoplasmic Ab (C-ANCA) <1:20 titer (Neg:<1:20); HEPATITIS B SURFACE AG Negative (Negative); Hepatitis A IgM Antibody Negative (Negative); Hepatitis B Core AB IgM Negative (Negative); PROEL- A/G Ratio 1.2 (0.7-1.7); PROEL- Albumin 3.6 g/dL (2.9-4.4); PROEL- Alpha-1 Globulin 0.2 g/dL (0.0-0.4); PROEL- Alpha-2 Globulin 0.8 g/dL (0.4-1.0); PROEL- Gamma Globulin 0.9 g/dL (0.4-1.8); PROEL- Globulin, Total 2.9 g/dL (2.2-3.9); PROEL- TOTAL PROTEIN 6.5 g/dL (6.0-8.5); PROELU- Albumin, Urine 78.1 % (.); PROELU- Alpha-1-Globulin,Ur 4.3 % (.); PROELU- Alpha-2-Globulin,Ur 2.7 % (.); PROELU- Beta Globulin, Ur 7.7 % (.); PROELU- Gamma Globulin, Ur 7.2 % (.); Total Protein, Ur 177.4 mg/dL (Not Estab.)
[2020-05-01 20:58] LABS: Anti-Glomerular Basement Memb 4 units (0-20); Hep C Antibodies <0.1 s/co ratio (0.0-0.9); Perinuclear Ab (P-ANCA) <1:20 titer (Neg:<1:20)
[2020-05-02 01:40] LABS: Rapid Plasmin Reagin (RPR) NONREACTIVE (NONREACTIVE)
== END ==
PROVIDERS: PCP Family Medicine; Referring Provider Internal Medicine; Visit Provider Internal Medicine
DX: N18.32 Chronic kidney disease, stage 3b (principal); R80.9 Proteinuria, unspecified
CPT/HCPCS: 36415; 76770; 80048; 80074; 81002; 81050; 82570; 82575; 83520; 84156; 84165; 84166; 85027; 86038; 86160; 86256; 86592; 86703

== ENCOUNTER → 2020-05-02 13:54 | Outpatient (CLI) | payer OTHER, SELFPAY ==
[2020-05-02 17:46] LABS: Vitamin D,25 Hydroxy 34.6 ng/mL
[2020-05-07 14:08] LABS: Albumin, Ur 82.4 % (.); Alpha-1-Globulin, Ur 2.7 % (.); Alpha-2-Globulins, Ur 2.5 % (.); Beta Globulin, Ur 7.8 % (.); Gamma Globulin, Ur 4.7 % (.); M-Spike, Ur % Not Observed % (Not Observed)
[2020-05-08 08:39] LABS: Total Protein, Ur 372.3 mg/dL (Not Estab.)
== END ==
PROVIDERS: PCP Family Medicine; Visit Provider Internal Medicine Nephrology
DX: N18.4 Chronic kidney disease, stage 4 (severe) (principal)
CPT/HCPCS: 36415; 82306; 84166; 86335

== ENCOUNTER → 2020-06-03 09:00 | Outpatient (CLI) | payer MEDICARE, SELFPAY ==
[2020-06-03 09:46] LABS: Hematocrit 34.3 % (37-47); Hemoglobin 11.1 g/dL (12.0-15.0); Mean Corp Hgb Conc 32.4 g/dL (32-36); Mean Corpuscular Hgb 30.7 pg (27.0-32.0); Mean Corpuscular Volume 94.8 fL (81-99); Mean Platelet Vol. 11.2 fl (6.2-12.0); Platelet Count 319 K/mm3 (150-450); RBC Distribution Width CV 12.5 % (11.6-14.6); RBC Distribution Width SD 43.6 fl (35.1-43.9); Red Blood Count 3.62 M/mm3 (4.2-5.4); White Blood Count 7.7 K/mm3 (4.4-11.0)
[2020-06-03 10:10] LABS: Albumin, Serum 3.4 g/dL (3.2-5.0); BUN 44 mg/dL (7-18); BUN/Creat Ratio 15.3 RATIO (10-20); Calcium,Total 8.8 mg/dL (8.5-10.1); Chloride 108 mmol/L (98-107); Creatinine, Serum 2.87 mg/dL (0.55-1.02); EST Glomerular Filtration Rate 17 mL/min (>60); Est Glom Filt Rate - Afr Amer 21 mL/min (>60); Glucose 96 mg/dL (74-106); Phosphorus 4.1 mg/dL (2.5-4.9); Potassium 4.6 mmol/L (3.5-5.1); Sodium Level 140 mmol/L (136-145)
[2020-06-03 10:32] LABS: PTHIN 292.6 pg/mL (18.4-80.1)
== END ==
PROVIDERS: PCP Family Medicine; Visit Provider Internal Medicine Nephrology
DX: N18.4 Chronic kidney disease, stage 4 (severe) (principal)
CPT/HCPCS: 36415; 80069; 83970; 85027

== ENCOUNTER 2020-06-06 10:43 | Outpatient (RCR) | payer MEDICARE, SELFPAY ==
[2020-06-06] MEDS: COVID-19 VACC, MRNA(PFIZER)/PF 30 MCG/0.3 ML SYRINGE IM (08:43)
[2020-06-27] MEDS: COVID-19 VACC, MRNA(PFIZER)/PF 30 MCG/0.3 ML SYRINGE IM (08:23)
== END 2020-06-06 23:59 ==
LOC: IMMUN 10:43
PROVIDERS: PCP Family Medicine; Visit Provider Family Medicine
DX: Z23 Encounter for immunization (principal)
CPT/HCPCS: 0001A; 0002A

== ENCOUNTER → 2020-06-24 09:28 | Outpatient (CLI) | payer MEDICARE, SELFPAY ==
--- NOTE | 2020-06-24 09:41 | VDUE_ITS ---
Reason For Study: CKD 4 Right Arm Left Arm Right Cephalic Vein at the wrist measures Left Cephalic Vein at the wrist measures 0.11 x 0.12 cm. 0.13 x 0.15. cm. Right Cephalic Vein in the forearm measures Left Cephalic Vein in the forearm measures 0.09 x 0.09 cm. 0.12 x 0.12 cm. Right Cephalic Vein below antecub measures Left Cephalic Vein below antecub measures 0.12 x 0.13 cm. 0.11 x 0.11 cm. Right Cephalic Vein above antecub measures Left Cephalic Vein above antecub measures 0.23 x 0.25 cm. 0.24 x 0.27 cm. Right Cephalic Vein mid bicep measures 0.20 Left Cephalic Vein at mid bicep measures x 0.19 cm. 0.29 x 0.29 cm. Right Cephalic Vein at the shoulder measures Left Cephalic Vein at the shoulder measures 0.31 x 0.33 cm. 0.33 x 0.32 cm. Right Basilic Vein at the origin measures Basilic vein at origin measures 0.25 x 0.23 0.31 x 0.32 cm. cm. Right Basilic Vein mid bicep measures 0.28 x Basilic vein at bicep measures 0.17 x 0.16 0.27 cm. cm. Right Basilic Vein above antecub measures Basilic vein above antecub measures 0.23 x 0.26 x 0.26 cm. 0.22 cm. Rigth Brachial artery measures 0.37 x 0.36 Left Brachial artery measures 0.35 x 0.34 cm cm with a velocity of 144 cm/sec. with a velocity of 143.7 cm/sec. Right Radial artery measures 0.21 x 0.21 cm Left Radial artery measures 0.22 x 0.23 cm with a velocity of 102.2 cm/sec. with a velocity of 88.9 cm/sec. Interpretation Summary Patent and compressible bilateral upper extremity cephalic and basilic veins as noted. Bilateral upper extremity cephalic veins are small Bilateral upper extremity basilic veins are small for the upper arm. Small bilateral radial arteries Slightly increased velocity flow bilateral brachial arteries Ordering Physician: Annalise Gomez Referring Physician: Eduin Pollack Performed By: Yue Traylor RVT ?
== END ==
PROVIDERS: PCP Family Medicine; Referring Provider Internal Medicine Nephrology; Visit Provider Internal Medicine Nephrology
DX: Z01.818 Encounter for other preprocedural examination (principal); N18.4 Chronic kidney disease, stage 4 (severe)
CPT/HCPCS: 93970

== ENCOUNTER → 2020-07-05 09:11 | Outpatient (CLI) | payer MEDICARE, SELFPAY ==
[2020-06-25 14:15] VITALS: BMI 29.8
[2020-07-05 10:56] LABS: Albumin, Serum 3.5 g/dL (3.2-5.0); BUN 56 mg/dL (7-18); BUN/Creat Ratio 16.6 RATIO (10-20); Calcium,Total 9.2 mg/dL (8.5-10.1); Chloride 106 mmol/L (98-107); Creatinine, Serum 3.37 mg/dL (0.55-1.02); EST Glomerular Filtration Rate 15 mL/min (>60); Est Glom Filt Rate - Afr Amer 18 mL/min (>60); Glucose 97 mg/dL (74-106); Phosphorus 4.5 mg/dL (2.5-4.9); Potassium 4.7 mmol/L (3.5-5.1); Sodium Level 138 mmol/L (136-145)
== END ==
PROVIDERS: PCP Family Medicine; Visit Provider Internal Medicine Nephrology
DX: E55.9 Vitamin D deficiency, unspecified (principal); N25.81 Secondary hyperparathyroidism of renal origin
CPT/HCPCS: 36415; 80069; 82306; 83970

== ENCOUNTER 2020-07-19 08:48 | Day surgery (SDC) | payer MEDICARE, SELFPAY ==
[2020-06-25 14:15] VITALS: BMI 29.8
--- NOTE | 2020-07-15 10:17 | EKG12_ITS ---
Test Reason : PREOP Blood Pressure : / mmHG Vent. Rate : 078 BPM Atrial Rate : 078 BPM P-R Int : 150 ms QRS Dur : 082 ms QT Int : 434 ms P-R-T Axes : 035 060 065 degrees QTc Int : 494 ms Sinus rhythm with Premature supraventricular complexes Low voltage QRS Prolonged QT Abnormal ECG Confirmed by SIVA VOGT, THA ([id number]), editor publications MINAL BERGERON ([id number]) on 07/15/2020 2:08:18 PM Referred By: Stanley León Confirmed By:THA PANIAGUA MD
[2020-07-15 10:52] LABS: Hematocrit 34.2 % (37-47); Hemoglobin 10.9 g/dL (12.0-15.0); Mean Corp Hgb Conc 31.9 g/dL (32-36); Mean Corpuscular Hgb 30.3 pg (27.0-32.0); Mean Platelet Vol. 11.4 fl (6.2-12.0); Platelet Count 345 K/mm3 (150-450); RBC Distribution Width CV 12.8 % (11.6-14.6); RBC Distribution Width SD 44.9 fl (35.1-43.9); White Blood Count 7.4 K/mm3 (4.4-11.0)
[2020-07-15 11:23] LABS: Anion Gap 7 (5-15); BUN 54 mg/dL (7-18); BUN/Creat Ratio 15.6 RATIO (10-20); Calcium,Total 8.7 mg/dL (8.5-10.1); Chloride 109 mmol/L (98-107); Creatinine, Serum 3.47 mg/dL (0.55-1.02); EST Glomerular Filtration Rate 14 mL/min (>60); Est Glom Filt Rate - Afr Amer 17 mL/min (>60); Glucose 135 mg/dL (74-106); Potassium 4.3 mmol/L (3.5-5.1); Sodium Level 139 mmol/L (136-145)
[2020-07-19] VITALS (8 sets, daily range): BP systolic 112–143; BP diastolic 53–74; PULSE 57–68; RESP 14–18; TEMP 36.4–36.7; O2SAT 94–100; BMI 30.5
[2020-07-19] MEDS: 0.9% Normal Saline 1,000 ML 15 ML IV (09:29)
--- NOTE | 2020-07-19 10:28 | DCINST_ITS ---
Discharge Diet: Renal Diet Discharge Activity: May Not Drive - for 2-3 days or while taking narcotic pain medications., May Shower, May Take a Tub Bath - in 5 days. Lifting Restrictions: 5 pounds Keep extremity elevated above heart level: - - Keep arm elevated above the heart level for 3 days. Additional Activity Instructions:: Exercise hand vigorously with a stress ball. Call your doctor if your incision/area has: Continuous Slow Oozing, Sudden Increased Bleeding - apply pressure and call your doctor., Increased Pain/ Swelling, Increased Redness, Foul Smelling Discharge Call your doctor if you observe: Fever of 101 or Higher Suture Line Care: Avoid Pulling/Pushing, Avoid Pinching/Bending Cleanse incision/area with: Keep Dressing Clean & Dry Additional Dressing/Incision Instructions:: Change or remove dressing in 2 days. You may redress the area with gauze as needed. Leave the steri strips in place for 1 week please Allergies/Adverse Reactions: Allergies Sulfa (Sulfonamide Antibiotics) Adverse Reaction (Verified 07/19/20 09:09) Nausea Medications to take at Discharge Clonidine Patch [Catapres-Tts3] 0.3 mg TRANSDERM. SEYMOUR 05/09/18 Fluoxetine HCl 20 mg PO DAILY 05/09/18 Losartan Potassium 100 mg PO DAILY 05/09/18 amlodipine 10 mg tablet 5 mg PO DAILY tablet 06/25/20 atorvastatin 40 mg tablet 40 mg PO DAILY tablet 06/25/20 calcitriol 0.25 mcg capsule 0.25 mcg PO DAILY cap 06/25/20 estradiol 0.5 mg tablet 0.5 mg PO DAILY tablet 06/25/20 linaclotide 145 mcg capsule 145 mcg PO DAILY cap 06/25/20 multivitamin 1 tablet PO DAILY 06/25/20 pantoprazole 20 mg tablet,delayed release 20 mg PO QODAY tablet 06/25/20 polyethylene glycol 3350 17 gram/dose oral powder 17 gm PO DAILY 06/25/20 Metoprolol Tartrate [Lopressor (Beta Erasto)] 50 mg PO DAILY 07/18/20 Primary Care Physician: Antony Pollack MD [Primary Care Provider] - Test Results: Test results from this visit will be discussed in further detail at your follow- up appointment, if applicable. Please Follow Up With: Stanley León MD - [phone] When: Call to make an appointment for follow up in approx. 10 days
--- NOTE | 2020-07-19 10:28 | PCM.HP.BLA ---
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 Q7D 05/09/18 [History Confirmed 06/25/20] Fluoxetine HCl 20 mg PO 05/09/18 [History Confirmed 06/25/20] Losartan Potassium 100 mg PO 05/09/18 [History Confirmed 06/25/20] amlodipine 10 mg tablet 10 mg PO DAILY tablet 06/25/20 [History Confirmed 06/25/20] atorvastatin 40 mg tablet 40 mg PO DAILY tablet 06/25/20 [History Confirmed 06/25/20] calcitriol 0.25 mcg capsule 0.25 mcg PO DAILY cap 06/25/20 [History Confirmed 06/25/20] estradiol 0.5 mg tablet 0.5 mg PO DAILY tablet 06/25/20 [History Confirmed 06/25/20] linaclotide 145 mcg capsule 145 mcg PO DAILY cap 06/25/20 [History Confirmed 06/25/20] multivitamin 1 tablet PO DAILY 06/25/20 [History Confirmed 06/25/20] pantoprazole 20 mg tablet,delayed release 20 mg PO DAILY tablet 06/25/20 [History Confirmed 06/25/20] polyethylene glycol 3350 17 gram/dose oral powder 17 gm PO DAILY 06/25/20 [History Confirmed 06/25/20] [facility] Medical History Sleep apnea (Acute) Acid reflux (Acute) Constipation (Acute) Hypertension (Chronic) Surgical History Hx of colonoscopy (Acute) History of esophagogastroduodenoscopy (EGD) (Acute) Hx of tonsillectomy (Acute) Hx of splenectomy (Acute) Hx of total adrenalectomy (Acute) Hx of hysterectomy (Acute) Family History Mother Multiple myeloma Endometrial stromal sarcoma Sarcomatoid renal cell carcinoma Social History (Updated 06/25/20 @ 14:[address] Stanley León MD) Smoking Status: Never smoker second hand exposure: No alcohol intake: never substance use type: does not use caffeine: Yes what type of physical activity do you participate in: walking frequency: other seatbelt use: always HPI HPI HPI: ANICETO MASON, is a 64 F who presents to the office today for surgical consultation regarding creation of a hemodialysis fistula. The patient is referred by Dr. Annalise Gomez and a written copy my surgical consult recommendations will return to her. The patient since her early 30s has had hypertension. She believes that this is the etiology to her chronic renal failure. Currently at a GFR of 17 mm/min. She had bilateral upper extremity vein mapping as noted below. She is right arm dominant. As of June 03, 2020 her white blood cell count was 7.7 with a hemoglobin of 11.1 hematocrit 34.3 platelet count 319,000. BUN was 44 and creatinine of 2.87. She has had a previous adrenalectomy and previous splenectomy. She has not been exposed to COVID-19 of which she is aware. [facility] [address] [place] [address]. [place] [address] Saphenous Vein Mapping, Bilat 06/24/20 1015 MR#: [id number] Name: ANICETO MASON ANNRep #:[id number] : [id number] 64From: Stanley León MD Attending Dr: Dr. Annalise Gomez, DOStatus: REG CLI Ordering Dr: Annalise Gomez DODate: 06/24/20 Location:CVSSex:FC Admitted: Reason For Study: CKD 4 Right Arm Left Arm Right Cephalic Vein at the wrist measures Left Cephalic Vein at the wrist measures 0.11 x 0.12 cm. 0.13 x 0.15. cm. Right Cephalic Vein in the forearm measures Left Cephalic Vein in the forearm measures 0.09 x 0.09 cm. 0.12 x 0.12 cm. Right Cephalic Vein below antecub measures Left Cephalic Vein below antecub measures 0.12 x 0.13 cm. 0.11 x 0.11 cm. Right Cephalic Vein above antecub measures Left Cephalic Vein above antecub measures 0.23 x 0.25 cm. 0.24 x 0.27 cm. Right Cephalic Vein mid bicep measures 0.20 Left Cephalic Vein at mid bicep measures x 0.19 cm. 0.29 x 0.29 cm. Right Cephalic Vein at the shoulder measures Left Cephalic Vein at the shoulder measures 0.31 x 0.33 cm. 0.33 x 0.32 cm. Right Basilic Vein at the origin measures Basilic vein at origin measures 0.25 x 0.23 0.31 x 0.32 cm. cm. Right Basilic Vein mid bicep measures 0.28 x Basilic vein at bicep measures 0.17 x 0.16 0.27 cm. cm. Right Basilic Vein above antecub measures Basilic vein above antecub measures 0.23 x 0.26 x 0.26 cm. 0.22 cm. Rigth Brachial artery measures 0.37 x 0.36 Left Brachial artery measures 0.35 x 0.34 cm cm with a velocity of 144 cm/sec. with a velocity of 143.7 cm/sec. Right Radial artery measures 0.21 x 0.21 cm Left Radial artery measures 0.22 x 0.23 cm with a velocity of 102.2 cm/sec. with a velocity of 88.9 cm/sec. Interpretation Summary Patent and compressible bilateral upper extremity cephalic and basilic veins as noted. Bilateral upper extremity cephalic veins are small Bilateral upper extremity basilic veins are small for the upper arm. Small bilateral radial arteries Slightly increased velocity flow bilateral brachial arteries Ordering Physician: Annalise Gomez Referring Physician: Eduin Pollack Performed By: Yue Traylor RVT ? 06/24/20 1127 Date Stanley León MD HPI HPI HPI: ANICETO MASON, is a 64 F who presents to the office today for ROS General General: No weight change, appetite, fatigue, colon cancer, breast cancer or weakness HEENT HEENT: No difficulty swallowing, eye injury, eye surgery, swollen glands or hoarseness Endo Endocrine: No thyroid disease, diabetes mellitus, thyroid cancer, Hair loss, heat intolerance or cold intolerance Skin Skin: No rash or changing moles Musc Musculoskeletal: No back problems, arthritis, rheumatoid arthritis, gout or joint pain Cardio Cardiovascular: Yes high blood pressure; no murmur, pacemaker, heart disease, atrial fibrillation, heart attack, heart stent, palpitations, shortness of breat with exertion or chest pain Psych Psychiatric: No depression, anxiety or hearing voices Resp Respiratory: No shortness of breath, Yes sleep apnea, No cough, No COPD, No asthma, No emphysema, No wheezing Gastro Gastrointestinal: No abdominal pain, No nausea or vomiting, No diarrhea, Yes constipation, No blood in stool, Yes acid reflux, No hemorrhoids, No ulcers, No gallbladder problem, No black,tarry stools Ernst Hematologic: No blood thinners, No blood disorders, No bleeding, No anemia, No blood clots Neuro Neurologic: No system reviewed and no additional complaints, except as docu, No as per HPI, No abnormal walking, No abnormal hearing, No abnormal movements, No abnormal speech, No behavioral changes, No burning sensations, No confusion, No seizure-like activity, No unsteadiness, No dizziness, No localized weakness, No frequent falls, No headache(s), No lack of coordination, No loss of vision, No memory loss, No numbness, No other visual disturbances, No radiating pain, No restless legs, No sensory deficit, No fainting, No tingling, No tremor(s), No weakness, No other Exam Const General: cooperative, healthy appearing, comfortable, no acute distress Nutritional Appearance: average body habitus Orientation: alert, awake [facility] Head: normal to inspection Eyes General: appearance normal, both eyes and all related structures Resp Effort & Inspection: normal respiratory effort Auscultation: clear to auscultation bilaterally Cardio Rate: regular rate Rhythm: regular rhythm Heart Sounds: no murmurs GI Palpation: soft Skin General: no rashes or lesions noted Neuro Cognition: normal cognition Extrem Other: Left upper extremity 3+ brachial pulse. Ultrasound inspection demonstrates a very small left upper arm basilic vein. The left upper arm cephalic vein is borderline but compressible. Within the first 6 cm it becomes too deep. Psych Affect: normal affect Assessment & Plan Problems 1. Chronic renal failure, stage 4 (severe) N18.4 Plan Stage IV chronic renal insufficiency. Likely secondary to long-term hypertension. She is right arm dominant. Her veins are small throughout. I propose for her a transposition left upper arm cephalic vein to brachial artery AV fistula creation. I discussed technique, benefit, risk, alternatives. No guarantees of success have been offered. She is aware that this will require a period of maturation time. She has had an opportunity to ask and have questions answered. We will try to schedule and expedite her care. I appreciate the opportunity of assisting with her surgical management Copy: Dr. Annalise Gomez and Dr. Eduin León M.D., F.A.C.S. Coding Level of Care Code 48243 Diagnoses Chronic renal failure, stage 4 (severe) N18.4 I have re-examined the patient. There are no clinical changes since date of exam. Procedure Criteria Procedure Type: Elective COVID Risk Discussion: The surgeon/proceduralist and patient have discussed in detail the risk of exposure to and/or potential harm posed by the COVID-19 virus with having a surgery/procedure at this time versus the risk of delaying the surgery/procedure. It is not possible to know either the risk of delaying the surgery or procedure or chance of getting an infection with perfect accuracy, but a joint decision was made between the patient and the surgeon/proceduralist to proceed at this time with the scheduled surgery/procedure as indicated on the consent form.
[2020-07-19] MEDS: Cefazolin 2 GM in 0.9% Normal Saline 100 ML IV (10:51)
[2020-07-19] MEDS: Bupivacaine Mpf 0.5% 30 ML VIAL (11:08)
[2020-07-19] MEDS: Lidocaine 1% (30 ml sdv) 30 ML Vial (11:08)
[2020-07-19] MEDS: Lidocaine 0.5% (50 ml) 50 ML Vial (11:45)
[2020-07-19] MEDS: Heparin Injection (Vial) 5,000 UNIT/ML VIAL 5000 UNIT (11:45)
--- NOTE | 2020-07-19 12:43 | PCM.OPRPT ---
Problem List (1) Chronic renal failure, stage 4 (severe) Status: Chronic Report of Operation Date of Procedure: 07/19/20 Pre-Operative Diagnosis: Stage IV chronic renal insufficiency Post-Operative Diagnosis: Stage IV chronic renal insufficiency in need of arteriovenous hemodialysis access Surgery/Procedure Performed:: Left upper extremity transposition cephalic vein to brachial artery arteriovenous hemodialysis fistula creation Description of Surgical Findings:: Timeout and informed consent was obtained. 65-year-old female was taken to the operating placed supine on the table underwent monitored anesthesia care. Ancef 2 g were given intravenously. The left upper extremity was sterilely prepped and draped. 1% lidocaine mixed 50-50 with 0.5% Marcaine was used as a local anesthetic. A total of 19 cc. An additional 10 cc of 0.5% lidocaine was utilized. The course of the left upper arm cephalic vein had been ultrasound mapped. Local was instilled. A longitudinal incision was made directly over the cephalic vein from the antecubital space up to the shoulder. Sharp and blunt dissection was used to harvest the cephalic vein. Side branches were secured with hemoclips. Then sharp and blunt dissection was used to identify the brachial artery just proximal to the antecubital crease. A secondary longitudinal incision was created as the artery was identified and dissected free. The vessel loop was placed. Then a straight tunneler was placed from the antecubital space up to the shoulder medial to the harvest incision. The vein was ligated distally with 2 hemoclips. The vein was irrigated was inked marked. It was then secured with a 3-0 Vicryl suture and placed through the [place] tunneling apparatus. He has had a good positional lie. The patient then received 8000 units of heparin. Peripheral vascular clamps were placed on the brachial artery. A 11 blade was used to make an arteriotomy which was extended with Hadley scissors. A end-to-side venous to arterial anastomosis was created with a running 7-0 Prolene. Prior to completion there appeared to be good antegrade and retrograde flow. The anastomosis was completed. There appeared to be very good positional lie of the cephalic vein. There was a good pulse and thrill within the fistula. The hand was inspected. Initially there was a good 1-2+ palpable radial pulse. Hand appeared to be pink and viable. Hemostasis was intact. The patient received 20 mg of protamine as reversal agent. Each wound was closed with a deep layer of interrupted 3-0 Vicryl. Skin edges were approximated running septic catheter 4-0 Monocryl. Steri-Strips Telfa soft roll Eddi wrap applied. Sponge and instrument and needle counts were reported to the surgeon to be correct. Specimens none. Drains none. Blood loss minimal. The patient was taken to the recovery area in satisfactory addition without apparent complication. Stanley León M.D., F.A.C.S. Type of Anesthesia:: Local MAC Anesthesiologist: Vaibhav Torres
== END 2020-07-19 15:39 | disposition home or self-care (01) ==
LOC: SDC 08:48 → AC 08:48
PROVIDERS: PCP Family Medicine; Referring Provider Surgery; Visit Provider Surgery
PROC: (CPT 36821; principal; 2020-07-19 10:45)
DX: I12.9 Hypertensive chronic kidney disease with stage 1 through stage 4 chronic kidney disease, or unspecified chronic kidney disease (principal); N18.4 Chronic kidney disease, stage 4 (severe); Z88.2 Allergy status to sulfonamides; Z90.81 Acquired absence of spleen
CPT/HCPCS: 01844; 36821; 36415; 80048; 85027; 93005; J7120; J2405

== ENCOUNTER 2020-07-23 10:54 | Inpatient (IN) | payer MEDICARE, SELFPAY ==
[2020-07-19 09:14] VITALS: BMI 30.5
[2020-07-23] VITALS (32 sets, daily range): BP systolic 126–176; BP diastolic 61–84; PULSE 66–86; RESP 12–37; TEMP 36.2–37.3; O2SAT 77–99; BMI 29.8; BMI 29.9
--- NOTE | 2020-07-23 11:14 | EKG12_ITS ---
Test Reason : Blood Pressure : / mmHG Vent. Rate : 073 BPM Atrial Rate : 073 BPM P-R Int : 162 ms QRS Dur : 080 ms QT Int : 430 ms P-R-T Axes : 072 047 029 degrees QTc Int : 473 ms Sinus rhythm with Premature supraventricular complexes Otherwise normal ECG Confirmed by MARIA GUADALUPE VOGT, MILIND ([id number]), loan expeditor RUDY VELA ([id number]) on 07/26/2020 8:03:23 AM Referred By: BRIGETTE Confirmed By:SADE LERMA MD
--- NOTE | 2020-07-23 11:15 | VDLE_ITS ---
Reason For Study: swelling RIGHT LEFT GSV is normal. GSV is normal. CFV is compressible, spontaneous, competent CFV is compressible, spontaneous, competent, and demonstrates pulsatile venous flow. and demonstrates pulsatile venous flow. FV is compressible, spontaneous, competent FV is compressible, spontaneous, competent and demonstrates pulsatile venous flow. and demonstrates pulsatile venous flow. POP V is compressible, spontaneous, competent POP V is compressible, spontaneous, competent and demonstrates pulsatile venous flow. and demonstrates pulsatile venous flow. T/P Trunk is compressible. T/P Trunk is compressible. PTV is compressible. PTV is compressible. RT PerV is compressible. LT PerV is compressible. Procedure This is a venous duplex using B-mode, color flow and spectral Doppler. Exam performed portable in ED. The exam was diagnostic. A preliminary report was called and/or faxed to Dr. Govea. VL/Venous Duplex US - George Extrem Interpretation Summary No evidence for acute deep venous thrombosis bilateral lower extremities with p atent and compressible bilateral great saphenous veins. Pulsatile venous flow is noted bi laterally consistent with proximal venous hypertension or obstruction. Clinical correlation would be appropriate. Ordering Physician: Darren Govea Performed By: Theo Luong RVT
--- NOTE | 2020-07-23 11:29 | ED.DCSUM_ITS ---
History of Present Illness Chief Complaint: Shortness of Breath Informant: Patient Onset: Yesterday Narrative: Increasing shortness of breath since yesterday. States had lightheaded symptoms and wheezing that resolved. Denies cough. She is 4 days postop left upper arm fistula by Dr. León. History of stage IV chronic kidney disease followed by Dr. Gomez, no current dialysis. She has chronic leg swelling and pain secondary to her kidney history. Reports her last creatinine clearance was 14 dialysis is to start if creatinine clearance was 10. Still makes urine. Denies fever. Denies urinary symptoms. She called surgery office today was called back to go to the ED to rule out PE. Prior similar symptoms: No Past Medical History - Allergies and Home Meds Allergies/Adverse Reactions: Allergies Sulfa (Sulfonamide Antibiotics) Adverse Reaction (Verified 07/23/20 10:55) Nausea Primary Care Physician: Antony Pollack MD [Primary Care Provider] - Past Medical History: - - Hypertension, stage IV chronic kidney disease Smoking Status: Never smoker Review of Systems General: Denies: Chills, Fever, Sweats Eyes: Denies: Visual changes - bilaterally, Diplopia ENT: Denies: Rhinorrhea, Sore throat Cardiovascular: Denies: Chest pain, Palpitations Respiratory: Reports: Dyspnea. Denies: Cough, Dyspnea on exertion Gastrointestinal: Denies: Abdominal pain, Nausea, Vomiting, Diarrhea, Melena, Hematochezia Genitourinary: Denies: Dysuria, Hematuria, Frequency Musculoskeletal: Reports: Swelling, Extremity Pain. Denies: Back pain Skin: Denies: Rash, Wounds Neurological: Denies: Headache, Weakness, Numbness Physical Exam Vital Signs/Narrative: Vital Signs Temp Pulse Resp BP Pulse Ox 07/23/20 10:55 97.2 F L 76 16 138/72 H 92 Inital Vital Signs reviewed: Yes General: Well nourished, Well developed, No Acute Distress Head: Normocephalic, Atraumatic Eyes: Perrl, EOMI ENT: Moist mucous membranes, No rhinorrhea Neck: Supple, Nontender Cardiovascular: Regular rate, Regular rhythm, No murmurs Respiratory: Chest nontender, Diminished, - - Mild abdominal breathing. Abdomen: Soft, Nontender, Nondistended, Normal bowel sounds Back: Nontender, Normal Inspection Extremities: Nontender, - - 1+ symmetric lower extremity swelling, no calf or medial thigh tenderness. Left upper arm incision clean, dry, intact. There is ecchymosis noted posterior aspect of the arm around surgical site. Skin: Normal color, No rash Neurological: Alert, Oriented x3, Cranial nerves II-XII grossly intact, Normal Strength, Normal Sensation Psychological: Normal affect, Normal Mood Diagnostic/Tx/Re-eval Chest X-Ray - ED: 1 View, Read by ED Physician, Read by Radiologist, - - Left hilar infiltrate Clinical Impression(s) from Imaging Studies Venous Doppler Study 07/23/20 11:15 Interpretation Summary No evidence for acute deep venous thrombosis bilateral lower extremities with patent and compressible bilateral great saphenous veins. Pulsatile venous flow is noted bilaterally consistent with proximal venous hypertension or obstruction. Clinical correlation would be appropriate. Ordering Physician: Darren Govea Performed By: Theo Luong, RVT Chest X-Ray 07/23/20 11:52 IMPRESSION: Infiltrate in the left hemithorax. Electronically Signed: Raghavendra Patrick MD at 12:25 EDT , Service support , Abnormal Lab Results 07/23/20 07/23/20 07/23/20 11:30 11:30 11:30 WBC 14.1 H RBC 3.34 L Hgb 10.2 L Hct 31.9 L MCV 95.5 MCH 30.5 MCHC 32.0 RDW Std Deviation 46.2 H RDW Coeff of Ralph 13.2 Plt Count 285 MPV 12.1 H Immature Gran % (Auto) 0.600 Neut % (Auto) 81.7 H Lymph % (Auto) 8.7 L [place] % (Auto) 8.4 Eos % (Auto) 0.2 Baso % (Auto) 0.4 Absolute Neuts (auto) 11.5 H Absolute Lymphs (auto) 1.23 Nucleated RBC % 0 PT 13.6 INR 1.1 APTT 31.6 D-Dimer Quant (PE/DVT) 1.87 H* Sodium 137 Potassium 4.6 Chloride 106 Carbon Dioxide 21.0 Anion Gap 10 BUN 68 H Creatinine 4.47 H Estim Creat Clear Calc 11.43 Est GFR (MDRD) Af Amer 13 L Est GFR (MDRD) Non-Af 10 L BUN/Creatinine Ratio 15.2 Glucose 173 H Lactic Acid Calcium 8.6 Total Bilirubin 0.50 AST 48 H ALT 31 Alkaline Phosphatase 160 H Troponin I < 0.015 Total Protein 7.1 Albumin 3.1 L Globulin 4.0 Albumin/Globulin Ratio 0.8 L 07/23/20 07/23/20 12:55 13:15 WBC RBC Hgb Hct MCV MCH MCHC RDW Std Deviation RDW Coeff of Ralph Plt Count MPV Immature Gran % (Auto) Neut % (Auto) Lymph % (Auto) [place] % (Auto) Eos % (Auto) Baso % (Auto) Absolute Neuts (auto) Absolute Lymphs (auto) Nucleated RBC % PT 13.2 INR 1.1 APTT 31.4 D-Dimer Quant (PE/DVT) Sodium Potassium Chloride Carbon Dioxide Anion Gap BUN Creatinine Estim Creat Clear Calc Est GFR (MDRD) Af Amer Est GFR (MDRD) Non-Af BUN/Creatinine Ratio Glucose Lactic Acid 1.1 Calcium Total Bilirubin AST ALT Alkaline Phosphatase Troponin I Total Protein Albumin Globulin Albumin/Globulin Ratio - EKG Initial EKG Interpretation: Sinus Rhythm - Sinus rate of 73, no ST or T wave changes, occasional PAC. - Medical Decision Making Patient EKG with no acute changes. Her initial pulse ox on room air is 92%. She had mild abdominal breathing. Work-up initiated due to her respiratory symptoms. I did obtain ultrasounds of lower extremities which was negative for DVT. Lab work noted a white count of 14, chest x-ray had a left hilar infiltrate. Reported her oxygen dropped to 87% room air therefore placed on oxygen. On reevaluation improving respiratory symptoms on oxygen. I add lactic acid and blood cultures due to meeting SIRS criteria with her pneumonia with a white count of 14 and respiratory rate. Lactic acid returned at 1.1. Further discussion she was placed on general anesthesia for her surgeries potential pneumonia development from this. She was covered broadly with Zosyn and vancomycin due to having a splenectomy. With pneumonia hypoxia I did speak with hospitalist , for admission to PCU. Initial plan was to hold heparin due findings of pneumonia. Secondary to pneumonia VQ scan would be inadequate. 1500: Per hospitalist, discussion with patient with GFR of 10 and her image processing engineer Dr. Gomez, due to her recent surgery and respiratory symptoms decision was made to obtain the CT angiogram from the ED to rule out PE. Discussed with radiology department for the lowest amount of dye possible. Will start IV fluids in the ED and continue upstairs. Patient family aware. ED Disposition - Plan for ED Patient: Disposition: Acute Care Hospital [facility] Diagnosis: Pneumonia, Hypoxia, Chronic renal failure, stage 4 (severe) Referrals: Antony Pollack MD [Primary Care Provider] -
[2020-07-23 11:45] LABS: Absolute Lymphocyte Count 1.23 X10^3/uL (0.83-4.51); Absolute Neutrophil Count 11.5 X10^3/uL (2.0-7.7); Basophil# 0.05 X10^3/uL; Basophil% 0.4 % (0-1); Eosinophil# 0.03 X10^3/uL; Eosinophils% 0.2 % (0-5); Hematocrit 31.9 % (37-47); Hemoglobin 10.2 g/dL (12.0-15.0); Lymphocyte # 1.23 X10^3/ul (0.83-4.51); Lymphocyte % 8.7 % (19-41); Mean Corpuscular Hgb 30.5 pg (27.0-32.0); Mean Corpuscular Volume 95.5 fL (81-99); Mean Platelet Vol. 12.1 fl (6.2-12.0); Monocyte# 1.18 X10^3/uL; Monocyte% 8.4 % (0-10); NRBC Flagged by Analyzer 0 % (0-5); Neutrophil # 11.52 X10^3/uL (2.7-7.7); Neutrophil % 81.7 % (47-70); Platelet Count 285 K/mm3 (150-450); RBC Distribution Width CV 13.2 % (11.6-14.6); RBC Distribution Width SD 46.2 fl (35.1-43.9); Red Blood Count 3.34 M/mm3 (4.2-5.4); White Blood Count 14.1 K/mm3 (4.4-11.0)
--- NOTE | 2020-07-23 11:52 | RAD_ITS ---
STUDY: X-RAY CHEST REASON FOR EXAM: Female, 65 years old. Sob TECHNIQUE: COMPARISON: None. FINDINGS: There is evidence of infiltrate in the left hemithorax. Follow-up is recommended. There is no demonstrated pleural abnormality. Normal size heart. Normal mediastinum and sadia. Normal visualized pulmonary arteries. Normal visualized aortic arch and descending thoracic aorta. Normal visualized thoracic spine. Normal visualized ribs, clavicles, and shoulders. Surgical clips are seen in the left upper quadrant and in the epigastric region. RAD/Chest 1 View (Portable) IMPRESSION: Infiltrate in the left hemithorax. Electronically Signed: Raghavendra Patrick MD at 12:25 EDT , Service support ,
[2020-07-23 11:53] LABS: International Normalized Ratio 1.1; Prothrombin Time (Protime)PT. 13.6 SECONDS (11.7-14.9)
[2020-07-23 11:54] LABS: Partial Thromboplast Time 31.6 Seconds (24.1-36.2)
[2020-07-23 12:02] LABS: ALB/GLOB Ratio 0.8 RATIO (0.9-2.4); AST(SGOT) 48 U/L (15-37); Alanine Aminotransfer ALT/SGPT 31 U/L (13-56); Albumin, Serum 3.1 g/dL (3.2-5.0); Alkaline Phosphatase 160 U/L (45-117); Anion Gap 10 (5-15); BUN 68 mg/dL (7-18); BUN/Creat Ratio 15.2 RATIO (10-20); Calcium,Total 8.6 mg/dL (8.5-10.1); Chloride 106 mmol/L (98-107); Creatinine, Serum 4.47 mg/dL (0.55-1.02); D-Dimer Quantitative (DVT/PE) 1.87 FEU/ug/m (0.27-0.49); EST Glomerular Filtration Rate 10 mL/min (>60); Est Glom Filt Rate - Afr Amer 13 mL/min (>60); Estimated Creatinine Clearance 11.43 ml/min; Glucose 173 mg/dL (74-106); Potassium 4.6 mmol/L (3.5-5.1); Protein, Total 7.1 g/dL (6.4-8.2); Sodium Level 137 mmol/L (136-145)
[2020-07-23 13:26] LABS: Lactic Acid 1.1 mmol/L (0.4-1.9)
[2020-07-23 13:33] LABS: International Normalized Ratio 1.1; Partial Thromboplast Time 31.4 Seconds (24.1-36.2); Prothrombin Time (Protime)PT. 13.2 SECONDS (11.7-14.9)
--- NOTE | 2020-07-23 14:17 | HP.PCM_ITS ---
History of Present Illness Date of Admission: 07/23/20 The patient is a 65 year old F presents with a complaint of increasing shortness of breath. She has a PMH of CKD stage 5, for which she recently had an AV fistula placed 4 days prior to admission. 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 states she had had a mild fever of around 99.4 at home but she denied any chills and denied any cough. She just was not feeling well and shortness of breath was worsening so she called her surgeon who did the AV fistula and she was told to come into the ED to rule out a PE. In [facility] ED, vitals showed temp 97.2F, with BP of 138/72, CT of 76 and RR of 16. RR went up to 29, and she dropped to 79% with ambulation. She was saturating at 88% at time of review of, on 7L of oxygen. She denied any long distance travel, or any history of DVT or PE. CXR done showed left hilar pneumonia; Cr was 4.47, and EGFR was 10. Duplex of the lower extremities was negative. However in light of severe hypoxia, it was imperative to try rule out a PE. Due to patient's pneumonia, a VQ scan would be abnormal. This was discussed extensively with patient and her illustrator set. Patient's said he had been told that once the GFR dropped to 10, I would be time to start dialysis. I counseled him that this drop of EGFR of 10 from his baseline of 14 could be an acute situation due to her acute infection and so minor surgery necessitate starting dialysis as eGFR may improve. I did drapery counselor patient and that if she did have a CTA with contrast, she would need to start dialysis sooner rather than later. I discussed with her illustrator set Dr. Gomez was also in agreement with this plan said in light of the need to rule out PE, CTA of the chest could be done. Patient was to be hydrated before and after the CTA of the chest to flush out her kidneys as she was still making urine and patient and expressed understanding that she may need to start dialysis sooner rather than later. She has been admitted to be managed for acute hypoxic respiratory failure due to community-acquired pneumonia and probable PE. Of note, there was limited concern about aspiration pneumonia as patient had the general anesthesia about 4 days prior to admission and she had not been short of breath since then. CTA pending. Past Medical History Past Medical History (Chronic Problems): Chronic Problems (Last Reviewed 06/25/20 @ 14:22 by Marry Sadler) Chronic renal failure, stage 4 (severe) (Chronic) Chronic renal failure, stage 4 (severe) (Chronic) Hypertension (Chronic) Medical History: Medical History (Last Reviewed 06/25/20 @ 14:22 by Marry Sadler) Chronic renal failure, stage 4 (severe) (Chronic) N18.4 Sleep apnea (Acute) G47.30 Acid reflux (Acute) K21.9 Constipation (Acute) K59.00 Hypertension (Chronic) I10 Allergies Sulfa (Sulfonamide Antibiotics) Adverse Reaction (Verified 07/23/20 10:55) Nausea Home Medications: Ambulatory Orders Medication Instructions Recorded Clonidine Patch [Catapres-Tts3] 0.3 mg TRANSDERM. SEYMOUR 05/09/18 Fluoxetine HCl 20 mg PO DAILY 05/09/18 Losartan Potassium 100 mg PO DAILY 05/09/18 amlodipine 10 mg tablet 10 mg PO DAILY tablet 06/25/20 atorvastatin 40 mg tablet 40 mg PO DAILY tablet 06/25/20 calcitriol 0.25 mcg capsule 0.25 mcg PO DAILY cap 06/25/20 estradiol 0.5 mg tablet 0.5 mg PO DAILY tablet 06/25/20 linaclotide 145 mcg capsule 145 mcg PO DAILY cap 06/25/20 pantoprazole 20 mg tablet,delayed 20 mg PO QODAY tablet 06/25/20 release polyethylene glycol 3350 17 17 gm PO DAILY 06/25/20 gram/dose oral powder Metoprolol Tartrate [Lopressor 50 mg PO DAILY 07/18/20 (beta luann)] Calcium Carbonate [Calcium] 600 mg PO QODAY 07/23/20 Cholecalciferol (Vitamin D3) 1,250 mcg PO QODAY 07/23/20 [Vitamin D3] L.acidoph,Paracasei, B.lactis 1 each PO DAILY 07/23/20 [Probiotic] Multivit-Min/Iron/Folic/Lutein 1 tablet PO DAILY 07/23/20 [Centrum Silver Women Tablet] Surgical History: Surgical History (Last Reviewed 06/25/20 @ 14:22 by Marry Sadler) Hx of colonoscopy (Acute) Z98.890 12/27/2018 History of esophagogastroduodenoscopy (EGD) (Acute) Z98.890 01/19/20 Hx of tonsillectomy (Acute) Z90.89 Hx of splenectomy (Acute) Z90.81 Hx of total adrenalectomy (Acute) E89.6 Hx of hysterectomy (Acute) Z90.710 Lives: With Family Smoking Status: Never smoker Alcohol: None Drugs: None - *Family History Maternal Family History: Family History (Last Reviewed 06/25/20 @ 14:22 by Marry Sadler) Mother Multiple myeloma Endometrial stromal sarcoma Sarcomatoid renal cell carcinoma Review of Systems Constitutional: Reports: Fever, Malaise, Weakness, Fatigue. Denies: Anorexia, Chills Eyes: Denies: Blurred vision HEENT: Denies: Head Aches, Sinus Congestion, Sinus Drainage Cardiovascular: Denies: Chest Pain, Palpitations Respiratory: Reports: Shortness of Breath, Shortness of breath at rest, Shortness of breath upon exertion. Denies: Cough, Sputum production, Wheezing Gastrointestinal: Denies: Abdominal Pain, Nausea, Vomiting Genitourinary: Denies: Dysuria Musculoskeletal: Denies: Joint Pain, Joint Tenderness Skin: Denies: Rash, Wounds Neurological: Denies: Numbness, Tingling, Focal weakness Psychiatric: Denies: Anxiety, Depression, Homicidal Ideations, Suicidal Ideations Hematologic/ Lymphatic: Denies: Easy Bruising, Easy Bleeding VTE Information - Inpt Only VTE Present on Admission: No VTE Pharm Prophylaxis ordered?: Yes Patient Problems: Active and Suspected Problems (Last Reviewed 06/25/20 @ 14:22 by Marry Sadler) Pneumonia (Acute) Hypoxia (Acute) - Physical Exam Vitals/I&O's: Vital Signs Temp Pulse Resp BP Pulse Ox 97.3 F L 70 30 H 150/71 H 95 07/23/20 13:00 07/23/20 13:00 07/23/20 13:00 07/23/20 13:00 07/23/20 13:00 Oxygen Flow Rate (L/min) 3 Oxygen Delivery Method Nasal Cannula Weight: 185 lb Body Mass Index (BMI) 29.8 General: Alert, Oriented x3, Cooperative, Lethargic HEENT: Atraumatic, PERRLA, EOMI, Normocephalic Oral: Dry Mucosa Neck: Supple, No JVD, Negative Carotid Bruits Lungs: - - coarse crackles in left mid and lower lung field. tachypneic. on 6L of oxygen Cardiovascular: Regular rate, Regular Rhythm, Normal S1, Normal S2, No murmurs Abdomen: Bowel Sounds Present, Soft, Non Tender, Non-Distended, No Hepato- splenomegaly Extremities: No clubbing, No cyanosis, No edema, Capillary Refill Less than 3 Seconds, - - dressing over site of AF fistula in LUE Skin: No rashes, No breakdown Musculoskeletal: No Tenderness to Palpation of Joints or Extremities Lymphatic: No Cervical, Supraclavicular, or Inguinal Adenopathy Neurological: Cranial nerves II-XII grossly intact, Neuro grossly intact, Motor Exam 5/5 strength throughout Psych/Mental Status: Normal Affect, Appropriate, Alert and oriented to time, place, person, mood and affect Microbiology Past 72 Hours 07/23/20 12:15 Mucosa - Nose SARS-CoV-2 Antigen (Rapid) - Final Laboratory Results 07/23/20 11:30: WBC 14.1 H, RBC 3.34 L, Hgb 10.2 L, Hct 31.9 L, MCV 95.5, MCH 30.5, MCHC 32.0, RDW Std Deviation 46.2 H, RDW Coeff of Ralph 13.2, Plt Count 285, MPV 12.1 H, Immature Gran % (Auto) 0.600, Neut % (Auto) 81.7 H, Lymph % (Auto) 8.7 L, [place] % (Auto) 8.4, Eos % (Auto) 0.2, Baso % (Auto) 0.4, Absolute Neuts (auto) 11.5 H, Absolute Lymphs (auto) 1.23, Nucleated RBC % 0 07/23/20 11:30: PT 13.6, INR 1.1, APTT 31.6, D-Dimer Quant (PE/DVT) 1.87 H* 07/23/20 11:30: Sodium 137, Potassium 4.6, Chloride 106, Carbon Dioxide 21.0, Anion Gap 10, BUN 68 H, Creatinine 4.47 H, Estim Creat Clear Calc 11.43, Est GFR (MDRD) Af Amer 13 L, Est GFR (MDRD) Non-Af 10 L, BUN/Creatinine Ratio 15.2, Glucose 173 H, Calcium 8.6, Total Bilirubin 0.50, AST 48 H, ALT 31, Alkaline Phosphatase 160 H, Troponin I < 0.015, Total Protein 7.1, Albumin 3.1 L, Globulin 4.0, Albumin/Globulin Ratio 0.8 L 07/23/20 12:55: Lactic Acid 1.1 07/23/20 13:15: PT 13.2, INR 1.1, APTT 31.4 Diagnostic Data Venous Doppler Study 07/23/20 11:15 Interpretation Summary No evidence for acute deep venous thrombosis bilateral lower extremities with patent and compressible bilateral great saphenous veins. Pulsatile venous flow is noted bilaterally consistent with proximal venous hypertension or obstruction. Clinical correlation would be appropriate. Ordering Physician: Darren Govea Performed By: Theo Luong, RVT Chest X-Ray 07/23/20 11:52 IMPRESSION: Infiltrate in the left hemithorax. Electronically Signed: Raghavendra Patrick MD at 12:25 EDT , Service support , Current Medications Vancomycin HCl 1,250 mg/ (Sodium Chloride) 275 mls @ 167 mls/hr IV X1 ONE Stop: 07/23/20 16:08 Assessment/Plan All Active Problems (Last Reviewed 06/25/20 @ 14:22 by Marry Sadler) History of pheochromocytoma (Acute) Pneumonia (Acute) Hypoxia (Acute) Hx of colonoscopy (Acute) History of esophagogastroduodenoscopy (EGD) (Acute) Hx of tonsillectomy (Acute) Hx of splenectomy (Acute) Hx of total adrenalectomy (Acute) Hx of hysterectomy (Acute) Sleep apnea (Acute) Acid reflux (Acute) Constipation (Acute) 65 y/o admitted with a complaint of shortness of breath. #Acute hypoxic respiratory failure due to pneumonia * admit to ICU; plant was initially to admit to PCU, but she deteriorated respiratory-mcrae in the ED, requiring start of BIPAP * CXR showed left infiltrate * D dimer was elevated at 1.87; CTA pending * patient agreeable to doing CTA chest, with the understanding that she might need to start dialysis earlier due to administration of contrast. * Patient started on IV Zosyn and IV vancomycin. We will continue in light of her immunodeficiency on account of splenectomy. * Get blood cultures and sputum cultures if she does produce any sputum. * Hydrate gently with IV fluids in light of administration of contrast. Patient still makes urine. * Consult pulmonology * breathing treatment wtih bronchodilators. Titrate oxygen to maintain sats >90% * #Community-acquired pneumonia * Aspiration may also be up because as she recently had general anesthesia 4 days ago during the AV fistula placement * Management as above. * #CKD stage V * Is 4.47 with a GFR of 10. Last creatinine was 3.47 back on July 15, 2020. * Had AV fistula placed 4 days ago. Will consult nephrology in light of patient receiving contrast that she may need dialysis sooner rather than later. * #History of splenectomy: Stable. #Hypertension: On losartan, amlodipine and metoprolol #History of sleep apnea: On CPAP nightly has been to bring CPAP from home # hyperlipidemia: On statin #GERD; on PPI DVT prophylaxis: lovenox, renally dosed. code status: * Full code * Patient and counseled extensively about different types of CODE STATUS including full code, DNR CCA and DNR CCA. Patient elects to be full code. Total nuif-su-mlcz time 18 minutes. Inpatient E&M: 82251 Init Hosp L3 Procedures: 72640 Advncd Care Plan 30 Min
--- NOTE | 2020-07-23 14:30 | ED.RN ---
Pt ambulated to the restroom, pt states on way back that her SOB is getting worse. She now labored breathing. Pt placed back on the monitor, patient was 79% placed back on 02 6L NC, immediately went up to 85%. Dr Govea notified. No new orders received. will continue to monitor.
--- NOTE | 2020-07-23 15:00 | ED.RN ---
pt remains 88% on the 6L NC, Dr Govea notified- no new orders. Dr Owen at bedside and aware.
--- NOTE | 2020-07-23 15:09 | CT_ITS ---
STUDY: CTA CHEST REASON FOR EXAM: Female, 65 years old. Hypoxia RADIATION DOSAGE (If Supplied By Facility): CTDIvol = ( 11.32 ) mGy, DLP = ( 554.57 ) mGycm TECHNIQUE: The examination was performed with the intravenous administration of IV 75mL Isovue-370. Post-processing of the angiographic images was performed, with multiplanar reformation and 3D reconstruction. Individualized dose optimization techniques were used for this CT. COMPARISON: None. FINDINGS: Normal enhancement of the main pulmonary artery and right and left pulmonary arteries. Normal enhancement of the bilateral peripheral pulmonary arteries. There is no demonstrated pulmonary embolism. Normal thoracic aorta and visualized great vessels. There is no demonstrated aortic dissection. Normal heart and pericardium. Normal mediastinum. Normal hilar regions. Normal visualized trachea and bronchi. The lungs are well expanded. Infiltrates in the left upper lobe as well as in the lingular segment of the left upper lobe and left lower lobe. Patchy infiltrates are also seen in the right lower lobe as well as in the right upper lobe. Small bilateral pleural effusions. Normal chest wall structures. Normal osseous structures. Atrophy of the left kidney. CT/CTA Chest W/WO Contrast IMPRESSION: Bilateral pulmonary infiltrates as described. Small bilateral pleural effusions. Electronically Signed: Raghavendra Patrick MD at 15:46 EDT , Service support ,
--- NOTE | 2020-07-23 15:45 | ED.RN ---
pt went to CT on 6L NC and was 88%, ED and hospitalist aware. Pt was 77% on arrival back to ED. PT placed on venti mask 50% 15L. Dr Govea aware.
--- NOTE | 2020-07-23 15:54 | ED.RN ---
Dr Govea at bedside
--- NOTE | 2020-07-23 15:55 | ED.RN ---
RT at bedside, pt placed on high flow NC per Dr Govea's verbal orders.
--- NOTE | 2020-07-23 16:05 | ED.RN ---
placed on Bipap
[2020-07-23 17:11] LABS: Allen Test Positive; Base Excess -8 mmol/L (-2 to +2); Bicarbonate 17.7 mmol/L (22-26); Blood Gas Specimen Type ART; FI02 95; Mode BiLevel; O2 Delivery Device BiPAP; PO2 72 mmHG (75-100); RR 12; SITE R Radial; SO2 94 % (95-99); Total Carbon Dioxide 19 mmol/L; pCO2 31.8 mmHg (35-45); pH 7.35 (7.35-7.45)
[2020-07-23] MEDS: 0.9% Normal Saline 1,000 ML 75 ML IV (18:29)
[2020-07-23] MEDS: 0.9% Saline Lock 10 ML Syringe IV ×2 (18:29→21:11)
[2020-07-23] MEDS: hydrALAZINE 20 MG/ML Vial 10 MG IV (21:11)
[2020-07-24] VITALS (36 sets, daily range): BP systolic 135–166; BP diastolic 58–85; PULSE 73–113; RESP 12–31; TEMP 36.3–37.3; O2SAT 89–97
[2020-07-24 04:44] LABS: Absolute Lymphocyte Count 0.79 X10^3/uL (0.83-4.51); Absolute Neutrophil Count 17.4 X10^3/uL (2.0-7.7); Basophil# 0.03 X10^3/uL; Basophil% 0.2 % (0-1); Hemoglobin 9.3 g/dL (12.0-15.0); Lymphocyte # 0.79 X10^3/ul (0.83-4.51); Lymphocyte % 4.1 % (19-41); Mean Corp Hgb Conc 32.1 g/dL (32-36); Mean Corpuscular Hgb 30.6 pg (27.0-32.0); Mean Corpuscular Volume 95.4 fL (81-99); Mean Platelet Vol. 11.6 fl (6.2-12.0); Monocyte# 0.96 X10^3/uL; NRBC Flagged by Analyzer 0 % (0-5); Neutrophil # 17.35 X10^3/uL (2.7-7.7); Neutrophil % 89.9 % (47-70); Platelet Count 271 K/mm3 (150-450); RBC Distribution Width CV 13.5 % (11.6-14.6); Red Blood Count 3.04 M/mm3 (4.2-5.4); White Blood Count 19.3 K/mm3 (4.4-11.0)
[2020-07-24 05:15] LABS: Anion Gap 9 (5-15); BUN 66 mg/dL (7-18); BUN/Creat Ratio 15.9 RATIO (10-20); Calcium,Total 8.1 mg/dL (8.5-10.1); Chloride 114 mmol/L (98-107); Creatinine, Serum 4.14 mg/dL (0.55-1.02); EST Glomerular Filtration Rate 11 mL/min (>60); Est Glom Filt Rate - Afr Amer 14 mL/min (>60); Estimated Creatinine Clearance 12.34 ml/min; Glucose 119 mg/dL (74-106); Potassium 4.9 mmol/L (3.5-5.1); Sodium Level 140 mmol/L (136-145)
--- NOTE | 2020-07-24 05:47 | PCM.CON.CC ---
Reason for Consult Date of Consultation: 07/24/20 Reason for Consultation: Acute hypoxemic respiratory failure History of Present Illness: The patient is a 65-year-old female, with a history as outlined below, who presented to the emergency department on July 23 with complaints of progressive shortness of breath. The patient has a history of advanced age kidney disease and recently underwent a left upper extremity AV fistula creation on July 19. The patient reported that she initially noted her shortness of breath 48 to 72 hours prior to hospital admission and that her symptoms progressively worsened with time. She denies any known pulmonary or cardiac history. She is a non-smoker and does not utilize supplemental oxygen at her baseline. She does report a history of GERD, which is mostly controlled with the use of daily PPI therapy. On presentation to the emergency department, the patient was noted to be afebrile and hemodynamically stable. Laboratory evaluation revealed an elevated white blood cell count of 14,000. Coagulation profile was within normal limits. D-dimer was elevated to 1.87. Chemistry profile was notable for a BUN of 68 and creatinine of 4.47. Lactate was within normal limits. Troponin was negative. Coronavirus PCR was negative. Lower extremity Doppler study was negative. CTA chest showed no evidence for pulmonary embolism. However, there was infiltrates noted bilaterally along with small bilateral pleural effusions. While in the emergency department, the patient did receive supplemental IV fluid hydration and broad-spectrum antimicrobials. Her respiratory status continued to decline and the patient was eventually placed on BiPAP therapy. She was subsequently admitted to the medical intensive care unit for further management. Past Medical History Past Medical History (Chronic Problems): Chronic Problems (Last Reviewed 06/25/20 @ 14:22 by Marry Sadler) Chronic renal failure, stage 4 (severe) (Chronic) Chronic renal failure, stage 4 (severe) (Chronic) Hypertension (Chronic) Medical History: Medical History (Last Reviewed 06/25/20 @ 14:22 by Marry Sadler) Chronic renal failure, stage 4 (severe) (Chronic) N18.4 Sleep apnea (Acute) G47.30 Acid reflux (Acute) K21.9 Constipation (Acute) K59.00 Hypertension (Chronic) I10 Allergies Sulfa (Sulfonamide Antibiotics) Adverse Reaction (Verified 07/23/20 10:55) Nausea Home Medications: Ambulatory Orders Medication Instructions Recorded Clonidine Patch [Catapres-Tts3] 0.3 mg TRANSDERM. SEYMOUR 05/09/18 Fluoxetine HCl 20 mg PO DAILY 05/09/18 Losartan Potassium 100 mg PO DAILY 05/09/18 amlodipine 10 mg tablet 10 mg PO DAILY tablet 06/25/20 atorvastatin 40 mg tablet 40 mg PO DAILY tablet 06/25/20 calcitriol 0.25 mcg capsule 0.25 mcg PO DAILY cap 06/25/20 estradiol 0.5 mg tablet 0.5 mg PO DAILY tablet 06/25/20 linaclotide 145 mcg capsule 145 mcg PO DAILY cap 06/25/20 pantoprazole 20 mg tablet,delayed 20 mg PO QODAY tablet 06/25/20 release polyethylene glycol 3350 17 17 gm PO DAILY 06/25/20 gram/dose oral powder Metoprolol Tartrate [Lopressor 50 mg PO DAILY 07/18/20 (beta luann)] Calcium Carbonate [Calcium] 600 mg PO QODAY 07/23/20 Cholecalciferol (Vitamin D3) 1,250 mcg PO QODAY 07/23/20 [Vitamin D3] L.acidoph,Paracasei, B.lactis 1 each PO DAILY 07/23/20 [Probiotic] Multivit-Min/Iron/Folic/Lutein 1 tablet PO DAILY 07/23/20 [Centrum Silver Women Tablet] Surgical History: Surgical History (Last Reviewed 06/25/20 @ 14:22 by Marry Sadler) Hx of colonoscopy (Acute) Z98.890 12/27/2018 History of esophagogastroduodenoscopy (EGD) (Acute) Z98.890 01/19/20 Hx of tonsillectomy (Acute) Z90.89 Hx of splenectomy (Acute) Z90.81 Hx of total adrenalectomy (Acute) E89.6 Hx of hysterectomy (Acute) Z90.710 Lives: With Family Smoking Status: Never smoker Alcohol: None Drugs: None - *Family History Maternal Family History: Family History (Last Reviewed 06/25/20 @ 14:22 by Marry Sadler) Mother Multiple myeloma Endometrial stromal sarcoma Sarcomatoid renal cell carcinoma Review of Systems Constitutional: Denies: Chills, Fever, Night Sweats Eyes: Denies: Blurred vision, Double vision HEENT: Denies: Dysphasia, Head Aches, Sinus Congestion, Sinus Drainage Cardiovascular: Reports: Edema. Denies: Chest Pain, Palpitations Respiratory: Reports: Shortness of Breath Gastrointestinal: Denies: Abdominal Pain, Nausea, Vomiting Genitourinary: Denies: Dysuria Musculoskeletal: Denies: Joint Pain, Joint Tenderness Skin: Denies: Rash, Wounds Neurological: Denies: Numbness, Tingling, Focal weakness Psychiatric: Reports: Anxiety, Depression Hematologic/ Lymphatic: Reports: Anemia Patient Problems: Active and Suspected Problems (Last Reviewed 06/25/20 @ 14:22 by Marry Sadler) Pneumonia (Acute) Hypoxia (Acute) Objective: The patient's most recent lab work, culture data and imaging studies have all been personally reviewed. Strep and urine Legionella antigens were negative. Rapid coronavirus antigen testing was negative. Coronavirus PCR was also negative. Blood cultures are pending. - Physical Exam Vitals/I&O's: Vital Signs Temp Pulse Resp BP Pulse Ox 99.2 F H 77 24 H 139/69 H 94 07/24/20 00:00 07/24/20 04:26 07/24/20 04:26 07/24/20 03:00 07/24/20 04:26 Oxygen Flow Rate (L/min) 15 Oxygen Delivery Method Bi-pap Weight: 185 lb Body Mass Index (BMI) 29.8 Intake and Output for Last 24 Hours 07/22/20 07/23/20 07/24/20 23:59 23:59 23:59 Intake Total 1267.5 / 1267.5 Output Total 0 / 0 50 / 50 Balance 1267.5 / 1267.5 -50 / -50 General: Alert, Cooperative, No apparent distress HEENT: Atraumatic, PERRLA, Normocephalic Oral: Dry Mucosa Neck: Supple, No Nodes, Trachea Midline Lungs: Diminished, Rales, Tachypneic, Wheezes Cardiovascular: Regular rate, Regular Rhythm Abdomen: Bowel Sounds Present, Soft, Non Tender, Obese Extremities: No clubbing, No cyanosis, Edema, - - Left upper extremity fistula intact Skin: No breakdown Musculoskeletal: No Muscle Wasting Lymphatic: No Cervical, Supraclavicular, or Inguinal Adenopathy Neurological: Cranial nerves II-XII grossly intact, Neuro grossly intact Psych/Mental Status: Normal Affect, Appropriate Labs (Last 48 Hours) 07/23/20 07/23/20 07/23/20 11:30 11:30 11:30 WBC 14.1 H RBC 3.34 L Hgb 10.2 L Hct 31.9 L MCV 95.5 MCH 30.5 MCHC 32.0 RDW Std Deviation 46.2 H RDW Coeff of Ralph 13.2 Plt Count 285 MPV 12.1 H Immature Gran % (Auto) 0.600 Neut % (Auto) 81.7 H Lymph % (Auto) 8.7 L [place] % (Auto) 8.4 Eos % (Auto) 0.2 Baso % (Auto) 0.4 Absolute Neuts (auto) 11.5 H Absolute Lymphs (auto) 1.23 Nucleated RBC % 0 PT 13.6 INR 1.1 APTT 31.6 D-Dimer Quant (PE/DVT) 1.87 H* Specimen Type Sample Site pH Bicarbonate Actual Total CO2 Base Excess O2 Saturation O2 % ABG pCO2 ABG pO2 Waqar Test Respiration Rate O2 Delivery Device Vent Mode Clinical Comments Sodium 137 Potassium 4.6 Chloride 106 Carbon Dioxide 21.0 Anion Gap 10 BUN 68 H Creatinine 4.47 H Estim Creat Clear Calc 11.43 Est GFR (MDRD) Af Amer 13 L Est GFR (MDRD) Non-Af 10 L BUN/Creatinine Ratio 15.2 Glucose 173 H Lactic Acid Calcium 8.6 Total Bilirubin 0.50 AST 48 H ALT 31 Alkaline Phosphatase 160 H Troponin I < 0.015 Total Protein 7.1 Albumin 3.1 L Globulin 4.0 Albumin/Globulin Ratio 0.8 L COVID-19 ([place]) 07/23/20 07/23/20 07/23/20 12:55 13:15 16:50 WBC RBC Hgb Hct MCV MCH MCHC RDW Std Deviation RDW Coeff of Ralph Plt Count MPV Immature Gran % (Auto) Neut % (Auto) Lymph % (Auto) [place] % (Auto) Eos % (Auto) Baso % (Auto) Absolute Neuts (auto) Absolute Lymphs (auto) Nucleated RBC % PT 13.2 INR 1.1 APTT 31.4 D-Dimer Quant (PE/DVT) Specimen Type Sample Site pH Bicarbonate Actual Total CO2 Base Excess O2 Saturation O2 % ABG pCO2 ABG pO2 Waqar Test Respiration Rate O2 Delivery Device Vent Mode Clinical Comments Sodium Potassium Chloride Carbon Dioxide Anion Gap BUN Creatinine Estim Creat Clear Calc Est GFR (MDRD) Af Amer Est GFR (MDRD) Non-Af BUN/Creatinine Ratio Glucose Lactic Acid 1.1 Calcium Total Bilirubin AST ALT Alkaline Phosphatase Troponin I Total Protein Albumin Globulin Albumin/Globulin Ratio COVID-19 ([place]) Not Detected 07/23/20 07/24/20 07/24/20 17:06 04:40 04:40 WBC 19.3 H RBC 3.04 L Hgb 9.3 L Hct 29.0 L MCV 95.4 MCH 30.6 MCHC 32.1 RDW Std Deviation 47.0 H RDW Coeff of Ralph 13.5 Plt Count 271 MPV 11.6 Immature Gran % (Auto) 0.800 Neut % (Auto) 89.9 H Lymph % (Auto) 4.1 L [place] % (Auto) 5.0 Eos % (Auto) 0.0 Baso % (Auto) 0.2 Absolute Neuts (auto) 17.4 H Absolute Lymphs (auto) 0.79 L Nucleated RBC % 0 PT INR APTT D-Dimer Quant (PE/DVT) Specimen Type ART Sample Site R Radial pH 7.35 Bicarbonate Actual 17.7 L Total CO2 19 Base Excess -8 L O2 Saturation 94 L O2 % 95 ABG pCO2 31.8 L ABG pO2 72 L Waqar Test Positive Respiration Rate 12 O2 Delivery Device BiPAP Vent Mode BiLevel Clinical Comments Sodium 140 Potassium 4.9 Chloride 114 H Carbon Dioxide 17.0 L Anion Gap 9 BUN 66 H Creatinine 4.14 H Estim Creat Clear Calc 12.34 Est GFR (MDRD) Af Amer 14 L Est GFR (MDRD) Non-Af 11 L BUN/Creatinine Ratio 15.9 Glucose 119 H Lactic Acid Calcium 8.1 L Total Bilirubin AST ALT Alkaline Phosphatase Troponin I Total Protein Albumin Globulin Albumin/Globulin Ratio COVID-19 ([place]) Microbiology 07/24/20 01:15 Urine, Clean Catch Legionella Antigen - Final 07/24/20 01:15 Urine, Clean Catch Streptococcus pneumoniae Antigen (M - Final 07/23/20 12:15 Mucosa - Nose SARS-CoV-2 Antigen (Rapid) - Final Clinical Impression(s) from Imaging Studies Venous Doppler Study 07/23/20 11:15 Interpretation Summary No evidence for acute deep venous thrombosis bilateral lower extremities with patent and compressible bilateral great saphenous veins. Pulsatile venous flow is noted bilaterally consistent with proximal venous hypertension or obstruction. Clinical correlation would be appropriate. Ordering Physician: Darren Govea Performed By: Theo Luong, RVT Chest X-Ray 07/23/20 11:52 IMPRESSION: Infiltrate in the left hemithorax. Electronically Signed: Raghavendra Patrick MD at 12:25 EDT , Service support , Chest CTA 07/23/20 15:09 IMPRESSION: Bilateral pulmonary infiltrates as described. Small bilateral pleural effusions. Electronically Signed: Raghavendra Patrick MD at 15:46 EDT , Service support , Current Medications Amlodipine Besylate (Amlodipine 10 Mg Tablet) 10 mg PO DAILY@1999 [facility] Last Admin: 07/23/20 23:03 Dose: Not Given Documented by: Enoxaparin Sodium (Enoxaparin 30 Mg/0.3 Ml Syringe) 30 mg SC DAILY [facility] Fluoxetine HCl (Fluoxetine 20 Mg Capsule) 20 mg PO DAILY [facility] Hydralazine HCl (Hydralazine 20 Mg/Ml Vial) 10 mg IV Q6H PRN PRN PRN Reason: SBP >160 or DBP >110 Last Admin: 07/23/20 21:11 Dose: 10 mg Documented by: Sodium Chloride () 1,000 mls @ 75 mls/hr IV .[id number] [facility] Stop: 07/24/20 07:12 Last Infusion: 07/23/20 23:33 Dose: 75 mls/hr Documented by: Vancomycin IV Pharmacy to Dose (1 each/ Sodium Chloride) 500 mls @ 250 mls/hr IV X1 PRN; Protocol PRN Reason: Rx to Dose Cefepime HCl 2 gm/ Sodium (Chloride) 100 mls @ 200 mls/hr IV Q24H [facility] Last Infusion: 07/23/20 23:33 Dose: Infused Documented by: Sodium Chloride () 250 mls @ 15 mls/hr IV .[id number] PRN PRN Reason: Saline Flush Sodium Chloride () 250 mls @ 15 mls/hr IV .[id number] PRN PRN Reason: Additional IVPB Infusion Sodium Chloride (0.9% Saline Lock 10 Ml Syringe) 10 - 40 ml IV UD PRN PRN Reason: SALINE FLUSH Last Admin: 07/23/20 21:11 Dose: 40 ml Documented by: Assessment/Plan Active and Suspected Problems (Last Reviewed 06/25/20 @ 14:22 by Marry Sadler) Pneumonia (Acute) Hypoxia (Acute) RECOMMENDATIONS: 1. Wean patient from BiPAP as tolerated. Goal to maintain oxygen saturations at or above 90%. 2. Continue broad-spectrum antimicrobials, pending finalized infectious work-up. 3. Obtain sputum culture if feasible. 4. Check MRSA screen. 5. Recommend conservative use of fluids given tenuous respiratory status. 6. Restart home clonidine. 7. Continue appropriate ICU prophylaxis. IMPRESSIONS: 1. Acute hypoxemic respiratory failure Appears to be secondary to multifocal pneumonia, based upon chest imaging. CTA was negative for PE. Therefore, the patient will be continued on broad-spectrum antimicrobials, pending finalized infectious work-up. Will attempt to wean the patient from noninvasive positive pressure ventilatory support as tolerated. Goal to maintain oxygen saturations at or above 90%. Will obtain BNP as well. Recommend conservative use of fluids given tenuous respiratory status. 2. CKD stage V status post recent AV fistula formation Nephrology is currently following to assist with management. 3. Hypertension/depression/anxiety/GERD/hyperlipidemia Complicates care, management, recovery and prognosis. Continue home medications as indicated. This note was generated with [employer] dictation software. It may contain incorrect words, spelling, and punctuation that were not noted in checking the note before signing. Inpatient E&M: 39215 Init Hosp L3
--- NOTE | 2020-07-24 07:39 | PCM.PN.HOSP ---
Patient Problems: Active and Suspected Problems (Last Reviewed 06/25/20 @ 14:22 by Marry Sadler) Pneumonia (Acute) Hypoxia (Acute) Reason for Visit: Acute hypoxic respiratory failure Community-acquired pneumonia Subjective: Patient is a 65-year-old female admitted with progressive shortness of breath her assessment on admission was consistent with acute hypoxic respiratory failure secondary to pneumonia admitted to the intensive care unit for subsequent management Objective: GENERAL: cooperative HEENT: Atraumatic; EYES; Anicteric, Normal Conjunctiva NECK; supple, normal thyroid, RESPIRATORY: Diminished to auscultation CARDIOVASCULAR: Regular S1 S2, tachycardic GI: soft, normoactive bowel sounds, : No Renal angle tenderness; EXTREMITIES: No edema, no clubbing, MUSCULOSKELETAL: no muscle waisting NEURO: Awake; no lateralizing signs. SKIN: No Rash PSYCH; Flat affect Vitals/I&O's: Vital Signs Temp Pulse Resp BP Pulse Ox 97.9 F 75 21 H 141/73 H 94 07/24/20 04:00 07/24/20 06:00 07/24/20 06:00 07/24/20 06:00 07/24/20 06:00 Oxygen Flow Rate (L/min) 15 Oxygen Delivery Method Bi-pap Weight: 89.6 kg Body Mass Index (BMI) 29.8 Intake and Output for Last 24 Hours 07/22/20 07/23/20 07/24/20 23:59 23:59 23:59 Intake Total 1267.5 / 1267.5 Output Total 0 / 0 350 / 350 Balance 1267.5 / 1267.5 -350 / -350 Microbiology Past 72 Hours 07/24/20 01:15 Urine, Clean Catch Legionella Antigen - Final 07/24/20 01:15 Urine, Clean Catch Streptococcus pneumoniae Antigen (M - Final 07/23/20 12:15 Mucosa - Nose SARS-CoV-2 Antigen (Rapid) - Final Laboratory Results 07/23/20 11:30: WBC 14.1 H, RBC 3.34 L, Hgb 10.2 L, Hct 31.9 L, MCV 95.5, MCH 30.5, MCHC 32.0, RDW Std Deviation 46.2 H, RDW Coeff of Ralph 13.2, Plt Count 285, MPV 12.1 H, Immature Gran % (Auto) 0.600, Neut % (Auto) 81.7 H, Lymph % (Auto) 8.7 L, [place] % (Auto) 8.4, Eos % (Auto) 0.2, Baso % (Auto) 0.4, Absolute Neuts (auto) 11.5 H, Absolute Lymphs (auto) 1.23, Nucleated RBC % 0 07/23/20 11:30: PT 13.6, INR 1.1, APTT 31.6, D-Dimer Quant (PE/DVT) 1.87 H* 07/23/20 11:30: Sodium 137, Potassium 4.6, Chloride 106, Carbon Dioxide 21.0, Anion Gap 10, BUN 68 H, Creatinine 4.47 H, Estim Creat Clear Calc 11.43, Est GFR (MDRD) Af Amer 13 L, Est GFR (MDRD) Non-Af 10 L, BUN/Creatinine Ratio 15.2, Glucose 173 H, Calcium 8.6, Total Bilirubin 0.50, AST 48 H, ALT 31, Alkaline Phosphatase 160 H, Troponin I < 0.015, Total Protein 7.1, Albumin 3.1 L, Globulin 4.0, Albumin/Globulin Ratio 0.8 L 07/23/20 12:55: Lactic Acid 1.1 07/23/20 13:15: PT 13.2, INR 1.1, APTT 31.4 07/23/20 16:50: COVID-19 ([place]) Not Detected 07/23/20 17:06: Specimen Type ART, Sample Site R Radial, pH 7.35, Bicarbonate Actual 17.7 L, Total CO2 19, Base Excess -8 L, O2 Saturation 94 L, O2 % 95, ABG pCO2 31.8 L, ABG pO2 72 L, Waqar Test Positive, Respiration Rate 12, O2 Delivery Device BiPAP, Vent Mode BiLevel, Clinical Comments 07/24/20 04:40: WBC 19.3 H, RBC 3.04 L, Hgb 9.3 L, Hct 29.0 L, MCV 95.4, MCH 30.6, MCHC 32.1, RDW Std Deviation 47.0 H, RDW Coeff of Ralph 13.5, Plt Count 271, MPV 11.6, Immature Gran % (Auto) 0.800, Neut % (Auto) 89.9 H, Lymph % (Auto) 4.1 L, [place] % (Auto) 5.0, Eos % (Auto) 0.0, Baso % (Auto) 0.2, Absolute Neuts (auto) 17.4 H, Absolute Lymphs (auto) 0.79 L, Nucleated RBC % 0 07/24/20 04:40: Sodium 140, Potassium 4.9, Chloride 114 H, Carbon Dioxide 17.0 L, Anion Gap 9, BUN 66 H, Creatinine 4.14 H, Estim Creat Clear Calc 12.34, Est GFR (MDRD) Af Amer 14 L, Est GFR (MDRD) Non-Af 11 L, BUN/Creatinine Ratio 15.9, Glucose 119 H, Calcium 8.1 L 07/24/20 04:40: B-Natriuretic Peptide Pending Current Medications Amlodipine Besylate (Amlodipine 10 Mg Tablet) 10 mg PO DAILY@1999 [facility] Last Admin: 07/23/20 23:03 Dose: Not Given Documented by: Clonidine HCl (Clonidine Hcl 0.3 Mg Patch) 0.3 mg TD Q7D [facility] Enoxaparin Sodium (Enoxaparin 30 Mg/0.3 Ml Syringe) 30 mg SC DAILY [facility] Fluoxetine HCl (Fluoxetine 20 Mg Capsule) 20 mg PO DAILY [facility] Hydralazine HCl (Hydralazine 20 Mg/Ml Vial) 10 mg IV Q6H PRN PRN PRN Reason: SBP >160 or DBP >110 Last Admin: 07/23/20 21:11 Dose: 10 mg Documented by: Vancomycin IV Pharmacy to Dose (1 each/ Sodium Chloride) 500 mls @ 250 mls/hr IV X1 PRN; Protocol PRN Reason: Rx to Dose Cefepime HCl 2 gm/ Sodium (Chloride) 100 mls @ 200 mls/hr IV Q24H [facility] Last Infusion: 07/23/20 23:33 Dose: Infused Documented by: Sodium Chloride () 250 mls @ 15 mls/hr IV .[id number] PRN PRN Reason: Saline Flush Sodium Chloride () 250 mls @ 15 mls/hr IV .[id number] PRN PRN Reason: Additional IVPB Infusion Pantoprazole Sodium (Pantoprazole Sodium 40 Mg Tablet) 40 mg PO DAILY [facility] Sodium Chloride (0.9% Saline Lock 10 Ml Syringe) 10 - 40 ml IV UD PRN PRN Reason: SALINE FLUSH Last Admin: 07/23/20 21:11 Dose: 40 ml Documented by: STROKE Vital Signs/Narrative: Vital Signs Temp Pulse Resp BP Pulse Ox 07/24/20 06:00 75 21 H 141/73 H 94 07/24/20 05:00 76 24 H 141/69 H 94 07/24/20 04:26 77 24 H 94 07/24/20 04:00 97.9 F 74 19 H 136/83 H 96 Medical Necessity - Tobacco Use Smoking Status: Never smoker Assessment/Plan All Active Problems (Last Reviewed 06/25/20 @ 14:22 by Marry Sadler) History of pheochromocytoma (Acute) Pneumonia (Acute) Hypoxia (Acute) Hx of colonoscopy (Acute) History of esophagogastroduodenoscopy (EGD) (Acute) Hx of tonsillectomy (Acute) 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 Acute hypoxic respiratory failure ?Imaging studies on admission demonstrated left lower lobe infiltrate. Patient was admitted to the intensive care unit managed with broad-spectrum antibiotic therapy with Zosyn and vancomycin in addition to supplemental oxygen and consultation placed to pulmonary medicine and infectious disease. Patient remains quite symptomatic on high flow oxygen and tachycardic 2. Chronic kidney disease stage V ?Patient underwent AV fistula formation 4 days prior to admission 3. History of splenectomy ?Stable 4. Hypertension - Blood pressure controlled, home medications continued with dose adjustment as needed 5. Dyslipidemia -Patient is on statin therapy, continued at home dose 6. Obstructive sleep apnea ?Patient is on CPAP at night 7. Obesity with BMI of 32 -Weight loss advised 8. GERD ?On PPI 9. DVT prophylaxis ?Lovenox dose adjusted for kidney function Inpatient E&M: 88406 [facility] Hosp L3
[2020-07-24] MEDS: Pantoprazole Sodium 40 MG Tablet PO (08:14)
[2020-07-24] MEDS: Enoxaparin 30 MG/0.3 ML Syringe SC (08:19)
[2020-07-24] MEDS: FLUoxetine 20 MG Capsule PO (08:20)
[2020-07-24] MEDS: hydrALAZINE 20 MG/ML Vial 10 MG IV (09:28)
--- NOTE | 2020-07-24 10:07 | CON.PCM_ITS ---
Consultation - Renal 07/24/20 PCP/ Referring MD: Requesting physician: [] Primary care physician: Dr. Antony Pollack MD Reason for Consultation:: CKD stage 4 - History of Present Illness History of Present Illness: The patient is a 65 year old F admitted last night for increasing shortness of breath, hypoxia with low grade fever. CXR revealed left lung infiltrate. Underwent CTA r/o PE with hydration and minimalization of dye due to CKD. Venous US negative for DVT. She has CKD stage 4-5 with baseline creatinine 2.87 in June 2020, 3.47 in July 2020, now 4.47 on admit to 4.14 today. She is off Losartan. Urine output marginal. 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 She has a history of pheochromocytoma with adrenalectomy, splenectomy. BP stable. She denied any chills and denied any cough. She just was not feeling well and shortness of breath was worsening so she called her surgeon who did the AV fistula and she was told to come into the ED to rule out a PE. In [facility] ED, vitals showed temp 97.2F, with BP of 138/72, OR of 76 and RR of 16. RR went up to 29, and she dropped to 79% with ambulation. She was saturating at 88% at time of review of, on 7L of oxygen. She denied any long distance travel, or any history of DVT or PE. She is started on iv vancomycin and cefepime, possible aspiration pna. COVID negative, strep ag negative. Currently on high O2 requirement. Denies nausea, vomiting. Denies chest pain. Chronic mild leg edema. - Allergies Allergies: Allergies Sulfa (Sulfonamide Antibiotics) Adverse Reaction (Verified 07/23/20 10:55) Nausea - Current Medications Current Medications: Current Medications Amlodipine Besylate (Amlodipine 10 Mg Tablet) 10 mg PO DAILY@1999 [facility] Last Admin: 07/23/20 23:03 Dose: Not Given Documented by: Clonidine HCl (Clonidine Hcl 0.3 Mg Patch) 0.3 mg TD Q7D [facility] Last Admin: 07/24/20 08:13 Dose: 0.3 mg Documented by: Enoxaparin Sodium (Enoxaparin 30 Mg/0.3 Ml Syringe) 30 mg SC DAILY [facility] Last Admin: 07/24/20 08:19 Dose: 30 mg Documented by: Fluoxetine HCl (Fluoxetine 20 Mg Capsule) 20 mg PO DAILY [facility] Last Admin: 07/24/20 08:20 Dose: 20 mg Documented by: Hydralazine HCl (Hydralazine 20 Mg/Ml Vial) 10 mg IV Q6H PRN PRN PRN Reason: SBP >160 or DBP >110 Last Admin: 07/24/20 09:28 Dose: 10 mg Documented by: Vancomycin IV Pharmacy to Dose (1 each/ Sodium Chloride) 500 mls @ 250 mls/hr IV X1 PRN; Protocol PRN Reason: Rx to Dose Cefepime HCl 2 gm/ Sodium (Chloride) 100 mls @ 200 mls/hr IV Q24H [facility] Last Infusion: 07/23/20 23:33 Dose: Infused Documented by: Sodium Chloride () 250 mls @ 15 mls/hr IV .[id number] PRN PRN Reason: Saline Flush Sodium Chloride () 250 mls @ 15 mls/hr IV .[id number] PRN PRN Reason: Additional IVPB Infusion Pantoprazole Sodium (Pantoprazole Sodium 40 Mg Tablet) 40 mg PO DAILY [facility] Last Admin: 07/24/20 08:14 Dose: 40 mg Documented by: Sodium Chloride (0.9% Saline Lock 10 Ml Syringe) 10 - 40 ml IV UD PRN PRN Reason: SALINE FLUSH Last Admin: 07/23/20 21:11 Dose: 40 ml Documented by: - Past Medical History Past Medical History (Chronic Problems): Chronic Problems (Last Reviewed 06/25/20 @ 14:22 by Marry Sadler) Chronic renal failure, stage 4 (severe) (Chronic) Chronic renal failure, stage 4 (severe) (Chronic) Hypertension (Chronic) - Past Surgical History Surgical History: hysterectomy, - - adrenalectomy, splenectomy, AVF 07/19/20 - Social History Marital Status: Smoking Status: Never smoker Alcohol: None Drugs: None - Family History Maternal Family History: Family History (Last Reviewed 06/25/20 @ 14:22 by Marry Sadler) Mother Multiple myeloma Endometrial stromal sarcoma Sarcomatoid renal cell carcinoma Review of Systems Constitutional: Reports: Fever, Weakness, Fatigue. Denies: Anorexia, Chills Eyes: Denies: Vision Change HEENT: Denies: Head Aches Cardiovascular: Reports: Edema - mild, chronic, - - lightheadedness. Denies: Chest Pain Respiratory: Reports: Shortness of Breath, Shortness of breath at rest, Shortness of breath upon exertion. Denies: Cough Gastrointestinal: Reports: - - no anorexia. Denies: Nausea, Vomiting Genitourinary: Reports: - - decreased urine output. Denies: Dysuria Neurological: Denies: Balance problems, Tremor, Seizures Psychiatric: Reports: Anxiety, Depression Hematologic/ Lymphatic: Reports: Anemia. Denies: Hx of blood clot Patient Problems: Active and Suspected Problems (Last Reviewed 06/25/20 @ 14:22 by Marry Sadler) Pneumonia (Acute) Hypoxia (Acute) - Physical Exam Vitals/I&O's: Vital Signs Temp Pulse Resp BP Pulse Ox 98.2 F 75 24 H 157/81 H 93 07/24/20 08:00 07/24/20 09:50 07/24/20 09:50 07/24/20 08:00 07/24/20 09:50 Oxygen Flow Rate (L/min) 9 Oxygen Delivery Method Nasal Cannula Weight: 89.6 kg Body Mass Index (BMI) 29.8 Intake and Output for Last 24 Hours 07/22/20 07/23/20 07/24/20 23:59 23:59 23:59 Intake Total 1267.5 / 1267.5 717.5 / 717.5 Output Total 0 / 0 350 / 350 Balance 1267.5 / 1267.5 367.5 / 367.5 General: Alert, Oriented x3, Cooperative, - - on hgih oxygen HEENT: PERRLA, EOMI Oral: Dry Mucosa Neck: No JVD Lungs: - - crackles left lung Cardiovascular: Regular rate, No rub noted Abdomen: Bowel Sounds Present, Soft, Non Tender, Non-Distended Extremities: Edema - mild BLE, chronic, - - LASHAUN AVF with good thrill and bruit, mild ecchymosis Skin: No rashes Musculoskeletal: No Muscle Wasting, - - gen weakness Neurological: Cranial nerves II-XII grossly intact, - - no tremor Psych/Mental Status: Normal Affect, Appropriate, Alert and oriented to time, place, person, mood and affect Microbiology Past 72 Hours 07/24/20 01:15 Urine, Clean Catch Legionella Antigen - Final 07/24/20 01:15 Urine, Clean Catch Streptococcus pneumoniae Antigen (M - Final 07/23/20 12:15 Mucosa - Nose SARS-CoV-2 Antigen (Rapid) - Final Laboratory Results 07/23/20 11:30: WBC 14.1 H, RBC 3.34 L, Hgb 10.2 L, Hct 31.9 L, MCV 95.5, MCH 30.5, MCHC 32.0, RDW Std Deviation 46.2 H, RDW Coeff of Ralph 13.2, Plt Count 285, MPV 12.1 H, Immature Gran % (Auto) 0.600, Neut % (Auto) 81.7 H, Lymph % (Auto) 8.7 L, Millard % (Auto) 8.4, Eos % (Auto) 0.2, Baso % (Auto) 0.4, Absolute Neuts (auto) 11.5 H, Absolute Lymphs (auto) 1.23, Nucleated RBC % 0 07/23/20 11:30: PT 13.6, INR 1.1, APTT 31.6, D-Dimer Quant (PE/DVT) 1.87 H* 07/23/20 11:30: Sodium 137, Potassium 4.6, Chloride 106, Carbon Dioxide 21.0, Anion Gap 10, BUN 68 H, Creatinine 4.47 H, Estim Creat Clear Calc 11.43, Est GFR (MDRD) Af Amer 13 L, Est GFR (MDRD) Non-Af 10 L, BUN/Creatinine Ratio 15.2, Glucose 173 H, Calcium 8.6, Total Bilirubin 0.50, AST 48 H, ALT 31, Alkaline Phosphatase 160 H, Troponin I < 0.015, Total Protein 7.1, Albumin 3.1 L, Globulin 4.0, Albumin/Globulin Ratio 0.8 L 07/23/20 12:55: Lactic Acid 1.1 07/23/20 13:15: PT 13.2, INR 1.1, APTT 31.4 07/23/20 16:50: COVID-19 ([place]) Not Detected 07/23/20 17:06: Specimen Type ART, Sample Site R Radial, pH 7.35, Bicarbonate Actual 17.7 L, Total CO2 19, Base Excess -8 L, O2 Saturation 94 L, O2 % 95, ABG pCO2 31.8 L, ABG pO2 72 L, Waqar Test Positive, Respiration Rate 12, O2 Delivery Device BiPAP, Vent Mode BiLevel, Clinical Comments 07/24/20 04:40: WBC 19.3 H, RBC 3.04 L, Hgb 9.3 L, Hct 29.0 L, MCV 95.4, MCH 30.6, MCHC 32.1, RDW Std Deviation 47.0 H, RDW Coeff of Ralph 13.5, Plt Count 271, MPV 11.6, Immature Gran % (Auto) 0.800, Neut % (Auto) 89.9 H, Lymph % (Auto) 4.1 L, Millard % (Auto) 5.0, Eos % (Auto) 0.0, Baso % (Auto) 0.2, Absolute Neuts (auto) 17.4 H, Absolute Lymphs (auto) 0.79 L, Nucleated RBC % 0 07/24/20 04:40: Sodium 140, Potassium 4.9, Chloride 114 H, Carbon Dioxide 17.0 L , Anion Gap 9, BUN 66 H, Creatinine 4.14 H, Estim Creat Clear Calc 12.34, Est GFR (MDRD) Af Amer 14 L, Est GFR (MDRD) Non-Af 11 L, BUN/Creatinine Ratio 15.9, Glucose 119 H, Calcium 8.1 L 07/24/20 04:40: B-Natriuretic Peptide Pending 07/24/20 07:50: MRSA (PCR) Pending Clinical Impression(s) from Imaging Studies Venous Doppler Study 07/23/20 11:15 Interpretation Summary No evidence for acute deep venous thrombosis bilateral lower extremities with patent and compressible bilateral great saphenous veins. Pulsatile venous flow is noted bilaterally consistent with proximal venous hypertension or obstruction. Clinical correlation would be appropriate. Ordering Physician: Darren Govea Performed By: Theo Luong RVT Chest X-Ray 07/23/20 11:52 IMPRESSION: Infiltrate in the left hemithorax. Electronically Signed: Raghavendra Patrick MD at 12:25 EDT , Service support , Chest CTA 07/23/20 15:09 IMPRESSION: Bilateral pulmonary infiltrates as described. Small bilateral pleural effusions. Electronically Signed: Raghavendra Patrick MD at 15:46 EDT , Service support , Current Medications Amlodipine Besylate (Amlodipine 10 Mg Tablet) 10 mg PO DAILY@1999 [facility] Last Admin: 07/23/20 23:03 Dose: Not Given Documented by: Clonidine HCl (Clonidine Hcl 0.3 Mg Patch) 0.3 mg TD Q7D [facility] Last Admin: 07/24/20 08:13 Dose: 0.3 mg Documented by: Enoxaparin Sodium (Enoxaparin 30 Mg/0.3 Ml Syringe) 30 mg SC DAILY [facility] Last Admin: 07/24/20 08:19 Dose: 30 mg Documented by: Fluoxetine HCl (Fluoxetine 20 Mg Capsule) 20 mg PO DAILY [facility] Last Admin: 07/24/20 08:20 Dose: 20 mg Documented by: Hydralazine HCl (Hydralazine 20 Mg/Ml Vial) 10 mg IV Q6H PRN PRN PRN Reason: SBP >160 or DBP >110 Last Admin: 07/24/20 09:28 Dose: 10 mg Documented by: Vancomycin IV Pharmacy to Dose (1 each/ Sodium Chloride) 500 mls @ 250 mls/hr IV X1 PRN; Protocol PRN Reason: Rx to Dose Cefepime HCl 2 gm/ Sodium (Chloride) 100 mls @ 200 mls/hr IV Q24H [facility] Last Infusion: 07/23/20 23:33 Dose: Infused Documented by: Sodium Chloride () 250 mls @ 15 mls/hr IV .[id number] PRN PRN Reason: Saline Flush Sodium Chloride () 250 mls @ 15 mls/hr IV .[id number] PRN PRN Reason: Additional IVPB Infusion Pantoprazole Sodium (Pantoprazole Sodium 40 Mg Tablet) 40 mg PO DAILY [facility] Last Admin: 07/24/20 08:14 Dose: 40 mg Documented by: Sodium Chloride (0.9% Saline Lock 10 Ml Syringe) 10 - 40 ml IV UD PRN PRN Reason: SALINE FLUSH Last Admin: 07/23/20 21:11 Dose: 40 ml Documented by: Assessment/Plan All Active Problems (Last Reviewed 06/25/20 @ 14:22 by Marry Sadler) History of pheochromocytoma (Acute) Pneumonia (Acute) Hypoxia (Acute) Hx of colonoscopy (Acute) History of esophagogastroduodenoscopy (EGD) (Acute) Hx of tonsillectomy (Acute) 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 CKD stage 4 baseline creatinine 2.8 to 3.8 now 4.4 to 4.1 today. s/p iv contrast exposure for CTangio negative for PE. Watch for contrast induced ATN. Check urine sodium. Nephrotic proteinuria with glomerulosclerosis, arterionephrosclerosis. Apr 2020 CRCL 18cc/min with 2.8g protein. Strict I/O's. no need to initiate urgent dialysis. 2. LLL pneumonia, leukocytosis on iv vanco and renal dosed cefepime. Check vanco level before redosing 3. Hypoxia on high o2 requirement with airvo, in ICU 4. Anemia hgb 9.3g check iron levels 5. Hx pheochromocytoma s/p adrenalectomy, splenectomy. Resume home BP meds 6. Secondary hyperparathyroid resume calcitriol 7. AVF LASHAUN on 07/19/20 with good thrill and bruit. [facility], nursing staff
[2020-07-24 10:26] LABS: BNP,B-Type NATRIURETIC PEPTIDE 1107.4 pg/mL (0-100)
--- NOTE | 2020-07-24 10:35 | CASEMGMT ---
RN CM Face to Face with patient for initial transition planning/care coordination assessment. RN CM introduced self and role at [facility]. Patient lying in bed, alert and oriented. Patient willing to participate in assessment and is able to answer all questions appropriately. Care providers, pharmacy, and demographics verified. Patient wishes to discharge home, will monitor progress with therapy for HHC. Patient states she has no further needs or concerns at this time. CM to follow for discharge planning needs that may arise. PCP: Ranjeet Specialists: Jason, home health aid; Mau, surgeon; Darian agricultural service worker Preferred Pharmacy: [facility] Insurance: [facility] Prescription Benefit: yes Living Will/HPOA: yes Vaibhav Arshad HPOA LNOK: Living Arrangements: Patient lives with in a ranch style home with 0 steps to enter the home. Patient is independent at home. Transportation: self/ DME/HHC: Patient states she has a cpap at home. Patient denies further DME and no previous HHC. Disposition Plan: Patient to discharge home with family support and follow-up plans in place. Will monitor for need for home oxygen at discharge. Yue CLARKE, RN, CM
[2020-07-24 13:35] LABS: M R Staph aureus DNA By PCR Negative (Negative); Probe Check PASS; Specimen Processing Control PASS
--- NOTE | 2020-07-24 16:40 | CON.PCM_ITS ---
Problem List (1) Pneumonia Status: Acute Reason for Consult: pneumonia Consulted by: Dr. Meyer History of Present Illness: The patient is a 65 year old F with CKD, recent LUE fistula placement, presented with 2-3 days progressive cough, dyspnea. Has gotten 1st covid shot. No sputum, no aches, no change in taste or smell, no n/v/d, no issues with new fistula. Came to ED, dx with pneumonia, covid neg, admitted to icu, started on vanc/zosyn. Feeling better today. Full ROS performed and neg except as noted above. - Medical History Past Medical History (Chronic Problems): Chronic Problems (Last Reviewed 06/25/20 @ 14:22 by Marry Sadler) Chronic renal failure, stage 4 (severe) (Chronic) Chronic renal failure, stage 4 (severe) (Chronic) Hypertension (Chronic) Allergies/Adverse Reactions: Allergies Sulfa (Sulfonamide Antibiotics) Adverse Reaction (Verified 07/23/20 10:55) Nausea Home Medications: Ambulatory Orders Medication Instructions Recorded Clonidine Patch [Catapres-Tts3] 0.3 mg TRANSDERM. SEYMOUR 05/09/18 Fluoxetine HCl 20 mg PO DAILY 05/09/18 Losartan Potassium 100 mg PO DAILY 05/09/18 amlodipine 10 mg tablet 10 mg PO DAILY tablet 06/25/20 atorvastatin 40 mg tablet 40 mg PO DAILY tablet 06/25/20 calcitriol 0.25 mcg capsule 0.25 mcg PO DAILY cap 06/25/20 estradiol 0.5 mg tablet 0.5 mg PO DAILY tablet 06/25/20 linaclotide 145 mcg capsule 145 mcg PO DAILY cap 06/25/20 pantoprazole 20 mg tablet,delayed 20 mg PO QODAY tablet 06/25/20 release polyethylene glycol 3350 17 17 gm PO DAILY 06/25/20 gram/dose oral powder Metoprolol Tartrate [Lopressor 50 mg PO DAILY 07/18/20 (beta luann)] Calcium Carbonate [Calcium] 600 mg PO QODAY 07/23/20 Cholecalciferol (Vitamin D3) 1,250 mcg PO QODAY 07/23/20 [Vitamin D3] L.acidoph,Paracasei, B.lactis 1 each PO DAILY 07/23/20 [Probiotic] Multivit-Min/Iron/Folic/Lutein 1 tablet PO DAILY 07/23/20 [Centrum Silver Women Tablet] - Social History Tobacco Use: non-smoker Vital Signs Temp Pulse Resp BP Pulse Ox 98.2 F 76 25 H 153/80 H 96 07/24/20 12:00 07/24/20 15:20 07/24/20 15:20 07/24/20 14:00 07/24/20 15:20 Oxygen Flow Rate (L/min) 45 Oxygen Delivery Method Airvo Weight: 89.6 kg Body Mass Index (BMI) 29.8 Microbiology Past 72 Hours 07/24/20 01:15 Legionella Antigen - Final Urine, Clean Catch Streptococcus pneumoniae Antigen (M - Final 07/23/20 12:15 SARS-CoV-2 Antigen (Rapid) - Final Mucosa - Nose Laboratory Tests Past 24 Hrs 07/23/20 07/23/20 07/24/20 16:50 17:06 04:40 WBC 19.3 H RBC 3.04 L Hgb 9.3 L Hct 29.0 L MCV 95.4 MCH 30.6 MCHC 32.1 RDW Std Deviation 47.0 H RDW Coeff of Ralph 13.5 Plt Count 271 MPV 11.6 Immature Gran % (Auto) 0.800 Neut % (Auto) 89.9 H Lymph % (Auto) 4.1 L Rawlins % (Auto) 5.0 Eos % (Auto) 0.0 Baso % (Auto) 0.2 Absolute Neuts (auto) 17.4 H Absolute Lymphs (auto) 0.79 L Nucleated RBC % 0 Specimen Type ART Sample Site R Radial pH 7.35 Bicarbonate Actual 17.7 L Total CO2 19 Base Excess -8 L O2 Saturation 94 L O2 % 95 ABG pCO2 31.8 L ABG pO2 72 L Waqar Test Positive Respiration Rate 12 O2 Delivery Device BiPAP Vent Mode BiLevel Clinical Comments Sodium Potassium Chloride Carbon Dioxide Anion Gap BUN Creatinine Estim Creat Clear Calc Est GFR (MDRD) Af Amer Est GFR (MDRD) Non-Af BUN/Creatinine Ratio Glucose Calcium B-Natriuretic Peptide COVID-19 ([place]) Not Detected MRSA (PCR) 07/24/20 07/24/20 07/24/20 04:40 04:40 07:50 WBC RBC Hgb Hct MCV MCH MCHC RDW Std Deviation RDW Coeff of Ralph Plt Count MPV Immature Gran % (Auto) Neut % (Auto) Lymph % (Auto) Rawlins % (Auto) Eos % (Auto) Baso % (Auto) Absolute Neuts (auto) Absolute Lymphs (auto) Nucleated RBC % Specimen Type Sample Site pH Bicarbonate Actual Total CO2 Base Excess O2 Saturation O2 % ABG pCO2 ABG pO2 Waqar Test Respiration Rate O2 Delivery Device Vent Mode Clinical Comments Sodium 140 Potassium 4.9 Chloride 114 H Carbon Dioxide 17.0 L Anion Gap 9 BUN 66 H Creatinine 4.14 H Estim Creat Clear Calc 12.34 Est GFR (MDRD) Af Amer 14 L Est GFR (MDRD) Non-Af 11 L BUN/Creatinine Ratio 15.9 Glucose 119 H Calcium 8.1 L B-Natriuretic Peptide 1107.4 H COVID-19 ([place]) MRSA (PCR) Negative - Other Studies Radiology: [] reviewed Other Studies: [] Route of nutrition/ use of supplements: [] Nutritional Intake: [] IV Site: [] Smith Catheter: [] - Physical Exam General: Alert, Oriented x3, Cooperative, No apparent distress HEENT: Atraumatic, PERRLA, EOMI Neck: Supple, No Nodes Lungs: Clear to auscultation - relatively clear, minimal rhonchi Cardiovascular: Regular rate, Regular Rhythm Abdomen: Soft, Non Tender, Non-Distended Extremities: No edema Skin: No rashes IV Site: Peripheral, without redness Musculoskeletal: No Tenderness to Palpation of Joints or Extremities Neurological: Cranial nerves II-XII grossly intact - Assessment/Plan Antibiotics: [] Assessment/Plan: [] Active and Suspected Problems (Last Reviewed 06/25/20 @ 14:22 by Marry Sadler) Pneumonia (Acute) Hypoxia (Acute) CAP - covid neg. Has gotten 1st covid shot. On cefepime. MRSA pcr neg, will stop vanc. Feeling better. Thank you, will follow
[2020-07-24 17:41] LABS: Urine Sodium 46 mmol/L (Not Establ.)
[2020-07-24] MEDS: amLODIPine 10 MG Tablet PO (21:12)
[2020-07-24] MEDS: Atorvastatin Calcium 40 MG Tablet PO (21:12)
[2020-07-25] VITALS (37 sets, daily range): BP systolic 105–171; BP diastolic 59–99; PULSE 74–119; RESP 12–34; TEMP 36.2–36.8; O2SAT 91–98
[2020-07-25 03:30] LABS: Hematocrit 28.3 % (37-47); Mean Corp Hgb Conc 31.8 g/dL (32-36); Mean Corpuscular Hgb 30.4 pg (27.0-32.0); Mean Corpuscular Volume 95.6 fL (81-99); Mean Platelet Vol. 11.7 fl (6.2-12.0); Platelet Count 284 K/mm3 (150-450); RBC Distribution Width CV 13.8 % (11.6-14.6); RBC Distribution Width SD 48.6 fl (35.1-43.9); Red Blood Count 2.96 M/mm3 (4.2-5.4); White Blood Count 17.1 K/mm3 (4.4-11.0)
[2020-07-25 03:50] LABS: Albumin, Serum 2.4 g/dL (3.2-5.0); BUN 67 mg/dL (7-18); BUN/Creat Ratio 15.9 RATIO (10-20); Calcium,Total 8.4 mg/dL (8.5-10.1); Chloride 114 mmol/L (98-107); Creatinine, Serum 4.22 mg/dL (0.55-1.02); EST Glomerular Filtration Rate 11 mL/min (>60); Est Glom Filt Rate - Afr Amer 14 mL/min (>60); Estimated Creatinine Clearance 12.11 ml/min; Glucose 117 mg/dL (74-106); Iron 18 ug/dL (50-170); Iron Binding Capacity,Total 344 ug/dL (250-450); PERCENT IRON SATURATION 5.2 % (15.0-55.0); Phosphorus 5.1 mg/dL (2.5-4.9); Potassium 4.6 mmol/L (3.5-5.1); Sodium Level 140 mmol/L (136-145)
--- NOTE | 2020-07-25 06:08 | PCM.PN.INT ---
Subjective: The patient was seen and examined at the bedside this morning. Events from the last 24 hours have been reviewed. The patient has been maintained on BiPAP overnight with an FiO2 of 40%. She was able to be maintained on heated high flow oxygen throughout the day yesterday. White count remains elevated this morning at 17,000. She is currently documented to be overall net +1.6 L for the hospital admission. Despite the aforementioned, the patient reports that she feels much better this morning. Objective: The patient's most recent lab work, culture data and imaging studies have all been personally reviewed. Strep and urine Legionella antigens were negative. Rapid coronavirus antigen testing was negative. Coronavirus PCR was also negative. Blood cultures are pending. General: Alert, Cooperative, No apparent distress HEENT: Atraumatic, PERRLA, Normocephalic Oral: No Gingival or Mucosal Lesions/ Ulcerations Neck: Supple, No Nodes, Trachea Midline Lungs: No rhonchi, No wheeze, Diminished, Rales, Tachypneic Cardiovascular: Regular rate, Regular Rhythm Abdomen: Bowel Sounds Present, Soft, Non Tender Extremities: No clubbing, No cyanosis, Edema Skin: No breakdown Musculoskeletal: No Tenderness to Palpation of Joints or Extremities Lymphatic: No Cervical, Supraclavicular, or Inguinal Adenopathy Neurological: Cranial nerves II-XII grossly intact, Neuro grossly intact Psych/Mental Status: Normal Affect, Appropriate Vital Signs Temp Pulse Resp BP Pulse Ox 98.2 F 86 25 H 150/65 H 95 07/25/20 04:00 07/25/20 05:00 07/25/20 05:00 07/25/20 05:00 07/25/20 05:00 Oxygen Flow Rate (L/min) 45 Oxygen Delivery Method Bi-pap Weight: 196 lb 6.91 oz Body Mass Index (BMI) 29.8 Intake and Output for Last 24 Hours 07/23/20 07/24/20 07/25/20 23:59 23:59 23:59 Intake Total 1267.5 / 1267.5 1560.5 / 1660.5 184.25 / 184.25 Output Total 0 / 0 1200 / 1375 175 / 175 Balance 1267.5 / 1267.5 360.5 / 285.5 9.25 / 9.25 Labs (Last 48 Hours) 07/23/20 07/23/20 07/23/20 11:30 11:30 11:30 WBC 14.1 H RBC 3.34 L Hgb 10.2 L Hct 31.9 L MCV 95.5 MCH 30.5 MCHC 32.0 RDW Std Deviation 46.2 H RDW Coeff of Ralph 13.2 Plt Count 285 MPV 12.1 H Immature Gran % (Auto) 0.600 Neut % (Auto) 81.7 H Lymph % (Auto) 8.7 L Thurston % (Auto) 8.4 Eos % (Auto) 0.2 Baso % (Auto) 0.4 Absolute Neuts (auto) 11.5 H Absolute Lymphs (auto) 1.23 Nucleated RBC % 0 PT 13.6 INR 1.1 APTT 31.6 D-Dimer Quant (PE/DVT) 1.87 H* Specimen Type Sample Site pH Bicarbonate Actual Total CO2 Base Excess O2 Saturation O2 % ABG pCO2 ABG pO2 Waqar Test Respiration Rate O2 Delivery Device Vent Mode Clinical Comments Sodium 137 Potassium 4.6 Chloride 106 Carbon Dioxide 21.0 Anion Gap 10 BUN 68 H Creatinine 4.47 H Estim Creat Clear Calc 11.43 Est GFR (MDRD) Af Amer 13 L Est GFR (MDRD) Non-Af 10 L BUN/Creatinine Ratio 15.2 Glucose 173 H Lactic Acid Calcium 8.6 Phosphorus Iron TIBC Iron Saturation Total Bilirubin 0.50 AST 48 H ALT 31 Alkaline Phosphatase 160 H Troponin I < 0.015 B-Natriuretic Peptide Total Protein 7.1 Albumin 3.1 L Globulin 4.0 Albumin/Globulin Ratio 0.8 L Ur Random Sodium COVID-19 ([facility]) MRSA (PCR) 07/23/20 07/23/20 07/23/20 12:55 13:15 16:50 WBC RBC Hgb Hct MCV MCH MCHC RDW Std Deviation RDW Coeff of Ralph Plt Count MPV Immature Gran % (Auto) Neut % (Auto) Lymph % (Auto) Thurston % (Auto) Eos % (Auto) Baso % (Auto) Absolute Neuts (auto) Absolute Lymphs (auto) Nucleated RBC % PT 13.2 INR 1.1 APTT 31.4 D-Dimer Quant (PE/DVT) Specimen Type Sample Site pH Bicarbonate Actual Total CO2 Base Excess O2 Saturation O2 % ABG pCO2 ABG pO2 Waqar Test Respiration Rate O2 Delivery Device Vent Mode Clinical Comments Sodium Potassium Chloride Carbon Dioxide Anion Gap BUN Creatinine Estim Creat Clear Calc Est GFR (MDRD) Af Amer Est GFR (MDRD) Non-Af BUN/Creatinine Ratio Glucose Lactic Acid 1.1 Calcium Phosphorus Iron TIBC Iron Saturation Total Bilirubin AST ALT Alkaline Phosphatase Troponin I B-Natriuretic Peptide Total Protein Albumin Globulin Albumin/Globulin Ratio Ur Random Sodium COVID-19 ([facility]) Not Detected MRSA (PCR) 07/23/20 07/24/20 07/24/20 17:06 04:40 04:40 WBC 19.3 H RBC 3.04 L Hgb 9.3 L Hct 29.0 L MCV 95.4 MCH 30.6 MCHC 32.1 RDW Std Deviation 47.0 H RDW Coeff of Ralph 13.5 Plt Count 271 MPV 11.6 Immature Gran % (Auto) 0.800 Neut % (Auto) 89.9 H Lymph % (Auto) 4.1 L Thurston % (Auto) 5.0 Eos % (Auto) 0.0 Baso % (Auto) 0.2 Absolute Neuts (auto) 17.4 H Absolute Lymphs (auto) 0.79 L Nucleated RBC % 0 PT INR APTT D-Dimer Quant (PE/DVT) Specimen Type ART Sample Site R Radial pH 7.35 Bicarbonate Actual 17.7 L Total CO2 19 Base Excess -8 L O2 Saturation 94 L O2 % 95 ABG pCO2 31.8 L ABG pO2 72 L Waqar Test Positive Respiration Rate 12 O2 Delivery Device BiPAP Vent Mode BiLevel Clinical Comments Sodium 140 Potassium 4.9 Chloride 114 H Carbon Dioxide 17.0 L Anion Gap 9 BUN 66 H Creatinine 4.14 H Estim Creat Clear Calc 12.34 Est GFR (MDRD) Af Amer 14 L Est GFR (MDRD) Non-Af 11 L BUN/Creatinine Ratio 15.9 Glucose 119 H Lactic Acid Calcium 8.1 L Phosphorus Iron TIBC Iron Saturation Total Bilirubin AST ALT Alkaline Phosphatase Troponin I B-Natriuretic Peptide Total Protein Albumin Globulin Albumin/Globulin Ratio Ur Random Sodium COVID-19 ([facility]) MRSA (PCR) 07/24/20 07/24/20 07/24/20 04:40 07:50 17:20 WBC RBC Hgb Hct MCV MCH MCHC RDW Std Deviation RDW Coeff of Ralph Plt Count MPV Immature Gran % (Auto) Neut % (Auto) Lymph % (Auto) Thurston % (Auto) Eos % (Auto) Baso % (Auto) Absolute Neuts (auto) Absolute Lymphs (auto) Nucleated RBC % PT INR APTT D-Dimer Quant (PE/DVT) Specimen Type Sample Site pH Bicarbonate Actual Total CO2 Base Excess O2 Saturation O2 % ABG pCO2 ABG pO2 Waqar Test Respiration Rate O2 Delivery Device Vent Mode Clinical Comments Sodium Potassium Chloride Carbon Dioxide Anion Gap BUN Creatinine Estim Creat Clear Calc Est GFR (MDRD) Af Amer Est GFR (MDRD) Non-Af BUN/Creatinine Ratio Glucose Lactic Acid Calcium Phosphorus Iron TIBC Iron Saturation Total Bilirubin AST ALT Alkaline Phosphatase Troponin I B-Natriuretic Peptide 1107.4 H Total Protein Albumin Globulin Albumin/Globulin Ratio Ur Random Sodium 46 COVID-19 ([facility]) MRSA (PCR) Negative 07/25/20 07/25/20 03:20 03:20 WBC 17.1 H RBC 2.96 L Hgb 9.0 L Hct 28.3 L MCV 95.6 MCH 30.4 MCHC 31.8 L RDW Std Deviation 48.6 H RDW Coeff of Ralph 13.8 Plt Count 284 MPV 11.7 Immature Gran % (Auto) Neut % (Auto) Lymph % (Auto) Thurston % (Auto) Eos % (Auto) Baso % (Auto) Absolute Neuts (auto) Absolute Lymphs (auto) Nucleated RBC % PT INR APTT D-Dimer Quant (PE/DVT) Specimen Type Sample Site pH Bicarbonate Actual Total CO2 Base Excess O2 Saturation O2 % ABG pCO2 ABG pO2 Wqaar Test Respiration Rate O2 Delivery Device Vent Mode Clinical Comments Sodium 140 Potassium 4.6 Chloride 114 H Carbon Dioxide 17.0 L Anion Gap BUN 67 H Creatinine 4.22 H Estim Creat Clear Calc 12.11 Est GFR (MDRD) Af Amer 14 L Est GFR (MDRD) Non-Af 11 L BUN/Creatinine Ratio 15.9 Glucose 117 H Lactic Acid Calcium 8.4 L Phosphorus 5.1 H Iron 18 L TIBC 344 Iron Saturation 5.2 L Total Bilirubin AST ALT Alkaline Phosphatase Troponin I B-Natriuretic Peptide Total Protein Albumin 2.4 L Globulin Albumin/Globulin Ratio Ur Random Sodium COVID-19 ([facility]) MRSA (PCR) Microbiology 07/24/20 01:15 Urine, Clean Catch Legionella Antigen - Final 07/24/20 01:15 Urine, Clean Catch Streptococcus pneumoniae Antigen (M - Final 07/23/20 12:15 Mucosa - Nose SARS-CoV-2 Antigen (Rapid) - Final Clinical Impression(s) from Imaging Studies Venous Doppler Study 07/23/20 11:15 Interpretation Summary No evidence for acute deep venous thrombosis bilateral lower extremities with patent and compressible bilateral great saphenous veins. Pulsatile venous flow is noted bilaterally consistent with proximal venous hypertension or obstruction. Clinical correlation would be appropriate. Ordering Physician: Darren Govea Performed By: Theo Luong, RVT Chest X-Ray 07/23/20 11:52 IMPRESSION: Infiltrate in the left hemithorax. Electronically Signed: Raghavendra Patrick MD at 12:25 EDT , Service support , Chest CTA 07/23/20 15:09 IMPRESSION: Bilateral pulmonary infiltrates as described. Small bilateral pleural effusions. Electronically Signed: Raghavendra Patrick MD at 15:46 EDT , Service support , Medical Necessity - Tobacco Use Smoking Status: Never smoker Assessment/Plan All Active Problems (Last Reviewed 06/25/20 @ 14:22 by Marry Sadler) History of pheochromocytoma (Acute) Pneumonia (Acute) Hypoxia (Acute) Hx of colonoscopy (Acute) History of esophagogastroduodenoscopy (EGD) (Acute) Hx of tonsillectomy (Acute) Hx of splenectomy (Acute) Hx of total adrenalectomy (Acute) Hx of hysterectomy (Acute) Sleep apnea (Acute) Acid reflux (Acute) Constipation (Acute) RECOMMENDATIONS: 1. Continue Airvo heated high flow oxygen throughout the day with a goal to maintain saturations at or above 90%. 2. Continue BiPAP therapy on a nightly basis. 3. Continue broad-spectrum antimicrobials, with plans to complete a 7-day treatment course. 4. Obtain sputum culture if feasible. 5. Recommend conservative use of fluids given tenuous respiratory status. 6. Continue appropriate ICU prophylaxis. IMPRESSIONS: 1. Acute hypoxemic respiratory failure Appears to be secondary to multifocal pneumonia, based upon chest imaging. CTA was negative for PE. Therefore, the patient will be continued on broad-spectrum antimicrobials, pending finalized infectious work-up. The patient will be continued on heated high flow oxygen with a goal to maintain saturations at or above 90%. Recommend continuing BiPAP therapy on a nightly basis. Encourage incentive spirometer use and mobilize patient as tolerated. 2. CKD stage V status post recent AV fistula formation Nephrology is currently following to assist with management. 3. Hypertension/depression/anxiety/GERD/hyperlipidemia Complicates care, management, recovery and prognosis. Continue home medications as indicated. This note was generated with [employer] dictation software. It may contain incorrect words, spelling, and punctuation that were not noted in checking the note before signing. Inpatient E&M: 68521 [facility] Hosp L3
--- NOTE | 2020-07-25 07:43 | PN_ITS ---
Patient Problems: Active and Suspected Problems (Last Reviewed 06/25/20 @ 14:22 by Marry Sadler) Pneumonia (Acute) Hypoxia (Acute) Reason for Visit: Acute hypoxic respiratory failure Community-acquired pneumonia Subjective: Patient seen has been weaned off high flow oxygen. She admits to improvement in overall condition Objective: GENERAL: cooperative HEENT: Atraumatic; EYES; Anicteric, Normal Conjunctiva NECK; supple, normal thyroid, RESPIRATORY: Diminished to auscultation CARDIOVASCULAR: Regular S1 S2, tachycardic GI: soft, normoactive bowel sounds, : No Renal angle tenderness; EXTREMITIES: No edema, no clubbing, MUSCULOSKELETAL: no muscle waisting NEURO: Awake; no lateralizing signs. SKIN: No Rash PSYCH; Flat affect Vitals/I&O's: Vital Signs Temp Pulse Resp BP Pulse Ox 98.2 F 83 26 H 162/77 H 96 07/25/20 04:00 07/25/20 06:00 07/25/20 06:00 07/25/20 06:00 07/25/20 06:00 Oxygen Flow Rate (L/min) 45 Oxygen Delivery Method Bi-pap Weight: 89.1 kg Body Mass Index (BMI) 29.8 Intake and Output for Last 24 Hours 07/23/20 07/24/20 07/25/20 23:59 23:59 23:59 Intake Total 1267.5 / 1267.5 1560.5 / 1660.5 184.25 / 184.25 Output Total 0 / 0 1200 / 1375 325 / 325 Balance 1267.5 / 1267.5 360.5 / 285.5 -140.75 / -140.75 Microbiology Past 72 Hours 07/24/20 01:15 Urine, Clean Catch Legionella Antigen - Final 07/24/20 01:15 Urine, Clean Catch Streptococcus pneumoniae Antigen (M - Final 07/23/20 12:15 Mucosa - Nose SARS-CoV-2 Antigen (Rapid) - Final Laboratory Results 07/24/20 04:40: B-Natriuretic Peptide 1107.4 H 07/24/20 07:50: MRSA (PCR) Negative 07/24/20 17:20: Ur Random Sodium 46 07/25/20 03:20: WBC 17.1 H, RBC 2.96 L, Hgb 9.0 L, Hct 28.3 L, MCV 95.6, MCH 30.4, MCHC 31.8 L, RDW Std Deviation 48.6 H, RDW Coeff of Ralph 13.8, Plt Count 284, MPV 11.7 07/25/20 03:20: Sodium 140, Potassium 4.6, Chloride 114 H, Carbon Dioxide 17.0 L , BUN 67 H, Creatinine 4.22 H, Estim Creat Clear Calc 12.11, Est GFR (MDRD) Af Amer 14 L, Est GFR (MDRD) Non-Af 11 L, BUN/Creatinine Ratio 15.9, Glucose 117 H, Calcium 8.4 L, Phosphorus 5.1 H, Iron 18 L, TIBC 344, Iron Saturation 5.2 L, Albumin 2.4 L Current Medications Amlodipine Besylate (Amlodipine 10 Mg Tablet) 10 mg PO DAILY@2000 [facility] Last Admin: 07/24/20 21:12 Dose: 10 mg Documented by: Atorvastatin Calcium (Atorvastatin Calcium 40 Mg Tablet) 40 mg PO QHS [facility] Last Admin: 07/24/20 21:12 Dose: 40 mg Documented by: Calcitriol (Calcitriol 0.25 Mcg Capsule) 0.25 mcg PO DAILY [facility] Calcium Carbonate (Calcium Carbonate 500 Mg Tablet) 500 mg PO QODAY@0800 [facility] Clonidine HCl (Clonidine Hcl 0.3 Mg Patch) 0.3 mg TD Q7D [facility] Last Admin: 07/24/20 08:13 Dose: 0.3 mg Documented by: Enoxaparin Sodium (Enoxaparin 30 Mg/0.3 Ml Syringe) 30 mg SC DAILY [facility] Last Admin: 07/24/20 08:19 Dose: 30 mg Documented by: Estradiol (Estradiol 0.5 Mg Tablet) 0.5 mg PO DAILY [facility] Fluoxetine HCl (Fluoxetine 20 Mg Capsule) 20 mg PO DAILY [facility] Last Admin: 07/24/20 08:20 Dose: 20 mg Documented by: Hydralazine HCl (Hydralazine 20 Mg/Ml Vial) 10 mg IV Q6H PRN PRN PRN Reason: SBP >160 or DBP >110 Last Admin: 07/24/20 09:28 Dose: 10 mg Documented by: Cefepime HCl 2 gm/ Sodium (Chloride) 100 mls @ 200 mls/hr IV Q24H [facility] Last Infusion: 07/24/20 21:40 Dose: Infused Documented by: Sodium Chloride () 250 mls @ 15 mls/hr IV .[id number] PRN PRN Reason: Saline Flush Last Admin: 07/25/20 03:17 Dose: 15 mls/hr Documented by: Sodium Chloride () 250 mls @ 15 mls/hr IV .[id number] PRN PRN Reason: Additional IVPB Infusion Lactobacillus Acidophilus (Lactobacillus Acidophilus) 1 tablet PO DAILY [facility] Linaclotide (Linacolotide 145 Mcg Capsule) 145 mcg PO DAILY [facility] Losartan Potassium (Losartan Potassium 100 Mg Tablet) 100 mg PO DAILY [facility] Metoprolol Succinate (Metoprolol(Xl)Succ 50 Mg Tablet) 50 mg PO DAILY [facility] Multivitamins/Minerals (Multivitamins,Ther W-Minerals Tablet) 1 tablet PO DAILY@0800 [facility] Pantoprazole Sodium (Pantoprazole Sodium 40 Mg Tablet) 40 mg PO DAILY [facility] Last Admin: 07/24/20 08:14 Dose: 40 mg Documented by: Polyethylene Glycol (Polyethylene Glycol 3350 17 Gm Packet) 17 gm PO DAILY [facility] Sodium Chloride (0.9% Saline Lock 10 Ml Syringe) 10 - 40 ml IV UD PRN PRN Reason: SALINE FLUSH Last Admin: 07/23/20 21:11 Dose: 40 ml Documented by: STROKE Vital Signs/Narrative: Vital Signs Temp Pulse Resp BP Pulse Ox 07/25/20 06:00 83 26 H 162/77 H 96 07/25/20 05:00 86 25 H 150/65 H 95 07/25/20 04:00 98.2 F 84 26 H 150/70 H 96 Medical Necessity - Tobacco Use Smoking Status: Never smoker Assessment/Plan All Active Problems (Last Reviewed 06/25/20 @ 14:22 by Marry Sadler) History of pheochromocytoma (Acute) Pneumonia (Acute) Hypoxia (Acute) Hx of colonoscopy (Acute) History of esophagogastroduodenoscopy (EGD) (Acute) Hx of tonsillectomy (Acute) 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 Acute hypoxic respiratory failure ?Imaging studies on admission demonstrated left lower lobe infiltrate. Patient was admitted to the intensive care unit managed with broad-spectrum antibiotic therapy with Zosyn and vancomycin in addition to supplemental oxygen and consultation placed to pulmonary medicine and infectious disease. Patient remains quite symptomatic on high flow oxygen and tachycardic -07/25/2020 patient seen has been weaned off high flow oxygen. She admits to improvement in overall condition but her WBC count however remains high 2. Chronic kidney disease stage V ?Patient underwent AV fistula formation 4 days prior to admission 3. History of splenectomy ?Stable 4. Hypertension - Blood pressure controlled, home medications continued with dose adjustment as needed 5. Dyslipidemia -Patient is on statin therapy, continued at home dose 6. Obstructive sleep apnea ?Patient is on CPAP at night 7. Obesity with BMI of 32 -Weight loss advised 8. GERD ?On PPI 9. DVT prophylaxis ?Lovenox dose adjusted for kidney function 10. Anemia - Secondary to chronic disorder as well as anemia of chronic kidney disease, monitoring H&H and transfuse if patient becomes symptomatic or hemoglobin falls below 7 Inpatient E&M: 81291 Subs Hosp L2
--- NOTE | 2020-07-25 08:47 | PCM.PN.REN ---
Patient Problems: Active and Suspected Problems (Last Reviewed 06/25/20 @ 14:22 by Marry Sadler) Pneumonia (Acute) Hypoxia (Acute) Subjective: breathing better, no cough, crackles improved on iv antbx. still on high oxygen flow. denies nausea, vomiting. Tolerating diet well. New AVF with good thrill and bruit. - Physical Exam Vitals/I&O's: Vital Signs Temp Pulse Resp BP Pulse Ox 98.2 F 87 24 H 162/77 H 95 07/25/20 04:00 07/25/20 08:26 07/25/20 08:26 07/25/20 06:00 07/25/20 08:26 Oxygen Flow Rate (L/min) 45 Oxygen Delivery Method Airvo Weight: 89.1 kg Body Mass Index (BMI) 29.8 Intake and Output for Last 24 Hours 07/23/20 07/24/20 07/25/20 23:59 23:59 23:59 Intake Total 1267.5 / 1267.5 1560.5 / 1660.5 184.25 / 184.25 Output Total 0 / 0 1200 / 1375 325 / 325 Balance 1267.5 / 1267.5 360.5 / 285.5 -140.75 / -140.75 General: Alert, Oriented x3, Cooperative, No apparent distress Lungs: - - crackles left ant chest improving Cardiovascular: Regular rate, No rub noted Abdomen: Bowel Sounds Present, Soft, Non Tender, Non-Distended Extremities: Edema - mild, - - AVF left upper arm with thrill and bruit Musculoskeletal: No Muscle Wasting Neurological: - - no tremor Psych/Mental Status: Normal Affect, Appropriate, Alert and oriented to time, place, person, mood and affect Microbiology Past 72 Hours 07/24/20 01:15 Urine, Clean Catch Legionella Antigen - Final 07/24/20 01:15 Urine, Clean Catch Streptococcus pneumoniae Antigen (M - Final 07/23/20 12:15 Mucosa - Nose SARS-CoV-2 Antigen (Rapid) - Final Laboratory Results 07/24/20 04:40: B-Natriuretic Peptide 1107.4 H 07/24/20 07:50: MRSA (PCR) Negative 07/24/20 17:20: Ur Random Sodium 46 07/25/20 03:20: WBC 17.1 H, RBC 2.96 L, Hgb 9.0 L, Hct 28.3 L, MCV 95.6, MCH 30.4, MCHC 31.8 L, RDW Std Deviation 48.6 H, RDW Coeff of Ralph 13.8, Plt Count 284, MPV 11.7 07/25/20 03:20: Sodium 140, Potassium 4.6, Chloride 114 H, Carbon Dioxide 17.0 L, BUN 67 H, Creatinine 4.22 H, Estim Creat Clear Calc 12.11, Est GFR (MDRD) Af Amer 14 L, Est GFR (MDRD) Non-Af 11 L, BUN/Creatinine Ratio 15.9, Glucose 117 H, Calcium 8.4 L, Phosphorus 5.1 H, Iron 18 L, TIBC 344, Iron Saturation 5.2 L, Albumin 2.4 L Current Medications Amlodipine Besylate (Amlodipine 10 Mg Tablet) 10 mg PO DAILY@1999 [facility] Last Admin: 07/24/20 21:12 Dose: 10 mg Documented by: Atorvastatin Calcium (Atorvastatin Calcium 40 Mg Tablet) 40 mg PO QHS [facility] Last Admin: 07/24/20 21:12 Dose: 40 mg Documented by: Calcitriol (Calcitriol 0.25 Mcg Capsule) 0.25 mcg PO DAILY [facility] Calcium Carbonate (Calcium Carbonate 500 Mg Tablet) 500 mg PO QODAY@0800 [facility] Clonidine HCl (Clonidine Hcl 0.3 Mg Patch) 0.3 mg TD Q7D [facility] Last Admin: 07/24/20 08:13 Dose: 0.3 mg Documented by: Enoxaparin Sodium (Enoxaparin 30 Mg/0.3 Ml Syringe) 30 mg SC DAILY [facility] Last Admin: 07/24/20 08:19 Dose: 30 mg Documented by: Estradiol (Estradiol 0.5 Mg Tablet) 0.5 mg PO DAILY [facility] Fluoxetine HCl (Fluoxetine 20 Mg Capsule) 20 mg PO DAILY [facility] Last Admin: 07/24/20 08:20 Dose: 20 mg Documented by: Hydralazine HCl (Hydralazine 20 Mg/Ml Vial) 10 mg IV Q6H PRN PRN PRN Reason: SBP >160 or DBP >110 Last Admin: 07/24/20 09:28 Dose: 10 mg Documented by: Hydralazine HCl (Hydralazine 10 Mg Tablet) 10 mg PO TID [facility] Cefepime HCl 2 gm/ Sodium (Chloride) 100 mls @ 200 mls/hr IV Q24H [facility] Last Infusion: 07/24/20 21:40 Dose: Infused Documented by: Sodium Chloride () 250 mls @ 15 mls/hr IV .[id number] PRN PRN Reason: Saline Flush Last Admin: 07/25/20 03:17 Dose: 15 mls/hr Documented by: Sodium Chloride () 250 mls @ 15 mls/hr IV .[id number] PRN PRN Reason: Additional IVPB Infusion Lactobacillus Acidophilus (Lactobacillus Acidophilus) 1 tablet PO DAILY [facility] Linaclotide (Linacolotide 145 Mcg Capsule) 145 mcg PO DAILY [facility] Metoprolol Succinate (Metoprolol(Xl)Succ 50 Mg Tablet) 50 mg PO DAILY [facility] Multivitamins/Minerals (Multivitamins,Ther W-Minerals Tablet) 1 tablet PO DAILY@0800 [facility] Pantoprazole Sodium (Pantoprazole Sodium 40 Mg Tablet) 40 mg PO DAILY [facility] Last Admin: 07/24/20 08:14 Dose: 40 mg Documented by: Polyethylene Glycol (Polyethylene Glycol 3350 17 Gm Packet) 17 gm PO DAILY [facility] Sodium Chloride (0.9% Saline Lock 10 Ml Syringe) 10 - 40 ml IV UD PRN PRN Reason: SALINE FLUSH Last Admin: 07/23/20 21:11 Dose: 40 ml Documented by: Medical Necessity - Tobacco Use Smoking Status: Never smoker Assessment/Plan All Active Problems (Last Reviewed 06/25/20 @ 14:22 by Marry Sadler) History of pheochromocytoma (Acute) Pneumonia (Acute) Hypoxia (Acute) Hx of colonoscopy (Acute) History of esophagogastroduodenoscopy (EGD) (Acute) Hx of tonsillectomy (Acute) 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 CKD stage 4 baseline creatinine 2.8 to 3.8. Cr 4.2 today. s/p iv contrast exposure for CTangio negative for PE. Hold Losartan due to rise in creatinine. Change to hydralazine for BP control. No need to initiate urgent dialysis. 2. LLL pneumonia, leukocytosis off iv vanco, remains on renal dosed cefepime. ID following 3. Hypoxia on airvo, in ICU 4. Anemia iv iron 5. Hx pheochromocytoma s/p adrenalectomy, splenectomy. replace losartan with hydralazine 6. Secondary hyperparathyroid resume calcitriol 7. AVF LASHAUN on 07/19/20 with good thrill and bruit. 8. Phos elevated, avoid dairy.
[2020-07-25] MEDS: Metoprolol(XL)Succ 50 MG Tablet PO (10:08)
[2020-07-25] MEDS: Calcitriol 0.25 MCG Capsule PO (10:09)
[2020-07-25] MEDS: Linacolotide 145 MCG CAPSULE PO (10:09)
[2020-07-25] MEDS: FLUoxetine 20 MG Capsule PO (10:09)
[2020-07-25] MEDS: Enoxaparin 30 MG/0.3 ML Syringe SC (10:09)
[2020-07-25] MEDS: Estradiol 0.5 MG Tablet PO (10:09)
[2020-07-25] MEDS: Polyethylene Glycol 3350 17 GM PACKET PO (10:09)
[2020-07-25] MEDS: Pantoprazole Sodium 40 MG Tablet PO (10:09)
[2020-07-25] MEDS: Multivitamins,Ther W-Minerals Tablet 1 TABLET PO (10:12)
--- NOTE | 2020-07-25 10:37 | PCM.PN.ID ---
Patient Problems: Active and Suspected Problems (Last Reviewed 06/25/20 @ 14:22 by Marry Sadler) Pneumonia (Acute) Hypoxia (Acute) Subjective: Feeling much better, no fever, no sputum, still some cough. No n/v/d. - Physical Exam Vitals/I&O's: Vital Signs Temp Pulse Resp BP Pulse Ox 97.2 F L 90 15 145/68 H 95 07/25/20 08:00 07/25/20 10:08 07/25/20 10:00 07/25/20 10:00 07/25/20 10:00 Oxygen Flow Rate (L/min) 45 Oxygen Delivery Method Airvo Weight: 89.1 kg Body Mass Index (BMI) 29.8 Intake and Output for Last 24 Hours 07/23/20 07/24/20 07/25/20 23:59 23:59 23:59 Intake Total 1267.5 / 1267.5 1560.5 / 1660.5 756.25 / 756.25 Output Total 0 / 0 1200 / 1375 825 / 825 Balance 1267.5 / 1267.5 360.5 / 285.5 -68.75 / -68.75 General: Alert, Cooperative, No apparent distress Lungs: Clear to auscultation Cardiovascular: Regular rate, Regular Rhythm Abdomen: Soft, Non Tender, Non-Distended Skin: No rashes Microbiology Past 72 Hours 07/24/20 01:15 Urine, Clean Catch Legionella Antigen - Final 07/24/20 01:15 Urine, Clean Catch Streptococcus pneumoniae Antigen (M - Final 07/23/20 12:15 Mucosa - Nose SARS-CoV-2 Antigen (Rapid) - Final Laboratory Results 07/24/20 07:50: MRSA (PCR) Negative 07/24/20 17:20: Ur Random Sodium 46 07/25/20 03:20: WBC 17.1 H, RBC 2.96 L, Hgb 9.0 L, Hct 28.3 L, MCV 95.6, MCH 30.4, MCHC 31.8 L, RDW Std Deviation 48.6 H, RDW Coeff of Ralph 13.8, Plt Count 284, MPV 11.7 07/25/20 03:20: Sodium 140, Potassium 4.6, Chloride 114 H, Carbon Dioxide 17.0 L, BUN 67 H, Creatinine 4.22 H, Estim Creat Clear Calc 12.11, Est GFR (MDRD) Af Amer 14 L, Est GFR (MDRD) Non-Af 11 L, BUN/Creatinine Ratio 15.9, Glucose 117 H, Calcium 8.4 L, Phosphorus 5.1 H, Iron 18 L, TIBC 344, Iron Saturation 5.2 L, Albumin 2.4 L Current Medications Amlodipine Besylate (Amlodipine 10 Mg Tablet) 10 mg PO DAILY@2000 [facility] Last Admin: 07/24/20 21:12 Dose: 10 mg Documented by: Atorvastatin Calcium (Atorvastatin Calcium 40 Mg Tablet) 40 mg PO QHS [facility] Last Admin: 07/24/20 21:12 Dose: 40 mg Documented by: Calcitriol (Calcitriol 0.25 Mcg Capsule) 0.25 mcg PO DAILY [facility] Last Admin: 07/25/20 10:09 Dose: 0.25 mcg Documented by: Calcium Carbonate (Calcium Carbonate 500 Mg Tablet) 500 mg PO QODAY@0800 [facility] Clonidine HCl (Clonidine Hcl 0.3 Mg Patch) 0.3 mg TD Q7D [facility] Last Admin: 07/24/20 08:13 Dose: 0.3 mg Documented by: Enoxaparin Sodium (Enoxaparin 30 Mg/0.3 Ml Syringe) 30 mg SC DAILY [facility] Last Admin: 07/25/20 10:09 Dose: 30 mg Documented by: Estradiol (Estradiol 0.5 Mg Tablet) 0.5 mg PO DAILY [facility] Last Admin: 07/25/20 10:09 Dose: 0.5 mg Documented by: Fluoxetine HCl (Fluoxetine 20 Mg Capsule) 20 mg PO DAILY [facility] Last Admin: 07/25/20 10:09 Dose: 20 mg Documented by: Hydralazine HCl (Hydralazine 20 Mg/Ml Vial) 10 mg IV Q6H PRN PRN PRN Reason: SBP >160 or DBP >110 Last Admin: 07/24/20 09:28 Dose: 10 mg Documented by: Hydralazine HCl (Hydralazine 10 Mg Tablet) 10 mg PO TID [facility] Cefepime HCl 2 gm/ Sodium (Chloride) 100 mls @ 200 mls/hr IV Q24H [facility] Last Infusion: 07/24/20 21:40 Dose: Infused Documented by: Sodium Chloride () 250 mls @ 15 mls/hr IV .[id number] PRN PRN Reason: Saline Flush Last Infusion: 07/25/20 09:25 Dose: 0 mls/hr Documented by: Sodium Chloride () 250 mls @ 15 mls/hr IV .[id number] PRN PRN Reason: Additional IVPB Infusion Lactobacillus Acidophilus (Lactobacillus Acidophilus) 1 tablet PO DAILY [facility] Last Admin: 07/25/20 10:09 Dose: 1 tablet Documented by: Linaclotide (Linacolotide 145 Mcg Capsule) 145 mcg PO DAILY [facility] Last Admin: 07/25/20 10:09 Dose: 145 mcg Documented by: Metoprolol Succinate (Metoprolol(Xl)Succ 50 Mg Tablet) 50 mg PO DAILY [facility] Last Admin: 07/25/20 10:08 Dose: 50 mg Documented by: Multivitamins/Minerals (Multivitamins,Ther W-Minerals Tablet) 1 tablet PO DAILY@0800 [facility] Last Admin: 07/25/20 10:12 Dose: 1 tablet Documented by: Pantoprazole Sodium (Pantoprazole Sodium 40 Mg Tablet) 40 mg PO DAILY [facility] Last Admin: 07/25/20 10:09 Dose: 40 mg Documented by: Polyethylene Glycol (Polyethylene Glycol 3350 17 Gm Packet) 17 gm PO DAILY [facility] Last Admin: 07/25/20 10:09 Dose: 17 gm Documented by: Sodium Chloride (0.9% Saline Lock 10 Ml Syringe) 10 - 40 ml IV UD PRN PRN Reason: SALINE FLUSH Last Admin: 07/23/20 21:11 Dose: 40 ml Documented by: Medical Necessity - Tobacco Use Smoking Status: Never smoker Route of nutrition/ use of supplements: [] Nutritional Intake: [] IV Site: [] Smith Catheter: [] - Assessment/Plan Antibiotics: [] Assessment/Plan: [] Active and Suspected Problems (Last Reviewed 06/25/20 @ 14:22 by Marry Sadler) Pneumonia (Acute) Hypoxia (Acute) CAP - covid neg. Has gotten 1st covid shot. On cefepime. MRSA pcr neg, off vanc. Feeling better. Plan on 5-6 day course of abx. Will follow
[2020-07-25] MEDS: hydrALAZINE 10 MG Tablet PO ×2 (13:02→21:35)
[2020-07-25] MEDS: 0.9% Saline Lock 10 ML Syringe IV (13:52)
--- NOTE | 2020-07-25 14:10 | CASEMGMT ---
JOCE FERRER NOTE: Pt qualifies for a Palliative referral per the [facility] palliative screening tool at this time. Dr Meyer aware and states no referral at this time, as pt just had a fistula placed and discussion re: Palliative should take place as an OP with her cma or lpn. Lisette CLARKE RN CM
[2020-07-25] MEDS: amLODIPine 10 MG Tablet PO (20:05)
[2020-07-25] MEDS: Atorvastatin Calcium 40 MG Tablet PO (21:37)
[2020-07-25] MEDS: Albuterol 2.5 MG/3 ML VIAL.NEB. INHALATION (23:04)
[2020-07-26] VITALS (22 sets, daily range): BP systolic 125–152; BP diastolic 58–72; PULSE 70–83; RESP 12–23; TEMP 36.2–36.9; O2SAT 86–100
[2020-07-26 04:50] LABS: Albumin, Serum 2.2 g/dL (3.2-5.0); BUN 67 mg/dL (7-18); Calcium,Total 8.2 mg/dL (8.5-10.1); Chloride 115 mmol/L (98-107); Creatinine, Serum 4.19 mg/dL (0.55-1.02); EST Glomerular Filtration Rate 11 mL/min (>60); Est Glom Filt Rate - Afr Amer 14 mL/min (>60); Glucose 117 mg/dL (74-106); Phosphorus 4.3 mg/dL (2.5-4.9); Potassium 4.7 mmol/L (3.5-5.1); Sodium Level 141 mmol/L (136-145)
--- NOTE | 2020-07-26 06:15 | PCM.PN.INT ---
Subjective: The patient was seen and examined at the bedside this morning. Events from the last 24 hours have been reviewed. The patient was able to be weaned to nasal cannula supplemental oxygen at 4 L/min yesterday and was placed on BiPAP for overnight support with an FiO2 of 30%. She is currently documented to be overall net +2.3 L for the hospital admission. She denies any significant shortness of breath this morning. Objective: The patient's most recent lab work, culture data and imaging studies have all been personally reviewed. Strep and urine Legionella antigens were negative. Rapid coronavirus antigen testing was negative. Coronavirus PCR was also negative. Blood cultures have shown no growth to date. General: Alert, Cooperative, No apparent distress HEENT: Atraumatic, PERRLA, Normocephalic Oral: Moist Mucosa, No Gingival or Mucosal Lesions/ Ulcerations Neck: Supple, No Nodes, Trachea Midline Lungs: No rhonchi, No wheeze, No rales, Diminished Cardiovascular: Regular rate, Regular Rhythm Abdomen: Bowel Sounds Present, Soft, Non Tender Extremities: No clubbing, No cyanosis, Edema Skin: No breakdown Musculoskeletal: No Tenderness to Palpation of Joints or Extremities, No Muscle Wasting Lymphatic: No Cervical, Supraclavicular, or Inguinal Adenopathy Neurological: Cranial nerves II-XII grossly intact, Neuro grossly intact Psych/Mental Status: Alert and oriented to time, place, person, mood and affect Vital Signs Temp Pulse Resp BP Pulse Ox 98.4 F 73 16 140/69 H 94 07/26/20 04:00 07/26/20 06:00 07/26/20 06:00 07/26/20 06:00 07/26/20 06:00 Oxygen Flow Rate (L/min) 4 Oxygen Delivery Method Bi-pap Weight: 198 lb 13.711 oz Body Mass Index (BMI) 29.8 Intake and Output for Last 24 Hours 07/24/20 07/25/20 07/26/20 23:59 23:59 23:59 Intake Total 1560.5 / 1660.5 2079.75 / 2079.75 240 / 240 Output Total 1200 / 1375 1675 / 1675 0 / 0 Balance 360.5 / 285.5 404.75 / 404.75 240 / 240 Labs (Last 48 Hours) 07/24/20 07/24/20 07/24/20 04:40 07:50 17:20 WBC RBC Hgb Hct MCV MCH MCHC RDW Std Deviation RDW Coeff of Ralph Plt Count MPV Sodium Potassium Chloride Carbon Dioxide BUN Creatinine Estim Creat Clear Calc Est GFR (MDRD) Af Amer Est GFR (MDRD) Non-Af BUN/Creatinine Ratio Glucose Calcium Phosphorus Iron TIBC Iron Saturation B-Natriuretic Peptide 1107.4 H Albumin Ur Random Sodium 46 MRSA (PCR) Negative 07/25/20 07/25/20 07/26/20 03:20 03:20 04:20 WBC 17.1 H RBC 2.96 L Hgb 9.0 L Hct 28.3 L MCV 95.6 MCH 30.4 MCHC 31.8 L RDW Std Deviation 48.6 H RDW Coeff of Ralph 13.8 Plt Count 284 MPV 11.7 Sodium 140 141 Potassium 4.6 4.7 Chloride 114 H 115 H Carbon Dioxide 17.0 L 19.0 L BUN 67 H 67 H Creatinine 4.22 H 4.19 H Estim Creat Clear Calc 12.11 12.20 Est GFR (MDRD) Af Amer 14 L 14 L Est GFR (MDRD) Non-Af 11 L 11 L BUN/Creatinine Ratio 15.9 16.0 Glucose 117 H 117 H Calcium 8.4 L 8.2 L Phosphorus 5.1 H 4.3 Iron 18 L TIBC 344 Iron Saturation 5.2 L B-Natriuretic Peptide Albumin 2.4 L 2.2 L Ur Random Sodium MRSA (PCR) Microbiology 07/23/20 13:15 Blood Culture (Wb) - Anticubital Right Blood Culture - Preliminary No growth in 48 hours. 07/23/20 12:50 Blood Culture (Wb) - Anticubital Right Blood Culture - Preliminary No growth in 48 hours. Clinical Impression(s) from Imaging Studies Venous Doppler Study 07/23/20 11:15 Interpretation Summary No evidence for acute deep venous thrombosis bilateral lower extremities with patent and compressible bilateral great saphenous veins. Pulsatile venous flow is noted bilaterally consistent with proximal venous hypertension or obstruction. Clinical correlation would be appropriate. Ordering Physician: Darren Govea Performed By: Theo Luong, RVT Chest X-Ray 07/23/20 11:52 IMPRESSION: Infiltrate in the left hemithorax. Electronically Signed: Raghavendra Patrick MD at 12:25 EDT , Service support , Chest CTA 07/23/20 15:09 IMPRESSION: Bilateral pulmonary infiltrates as described. Small bilateral pleural effusions. Electronically Signed: Raghavendra Patrick MD at 15:46 EDT , Service support , Medical Necessity - Tobacco Use Smoking Status: Never smoker Assessment/Plan All Active Problems (Last Reviewed 06/25/20 @ 14:22 by Marry Sadler) History of pheochromocytoma (Acute) Pneumonia (Acute) Hypoxia (Acute) Hx of colonoscopy (Acute) History of esophagogastroduodenoscopy (EGD) (Acute) Hx of tonsillectomy (Acute) Hx of splenectomy (Acute) Hx of total adrenalectomy (Acute) Hx of hysterectomy (Acute) Sleep apnea (Acute) Acid reflux (Acute) Constipation (Acute) RECOMMENDATIONS: 1. Wean supplemental oxygen to maintain saturations at or above 90%. 2. Continue BiPAP therapy on a nightly basis. 3. Continue broad-spectrum antimicrobials, with plans to complete a 7-day treatment course. 4. Encourage incentive spirometer use and mobilize patient as tolerated. 5. The patient is medically stable for transfer out of the intensive care unit. IMPRESSIONS: 1. Acute hypoxemic respiratory failure Improving. Appears to be secondary to multifocal pneumonia, based upon chest imaging. CTA was negative for PE. Therefore, the patient will be continued on broad-spectrum antimicrobials, pending finalized infectious work-up. The patient will be continued on supplemental oxygen with a goal to maintain saturations at or above 90%. Recommend continuing BiPAP therapy on a nightly basis. Encourage incentive spirometer use and mobilize patient as tolerated. 2. CKD stage V status post recent AV fistula formation Nephrology is currently following to assist with management. 3. Hypertension/depression/anxiety/GERD/hyperlipidemia Complicates care, management, recovery and prognosis. Continue home medications as indicated. This note was generated with [employer] dictation software. It may contain incorrect words, spelling, and punctuation that were not noted in checking the note before signing. Inpatient E&M: 72666 Subs Hosp L2
--- NOTE | 2020-07-26 07:16 | PN_ITS ---
Patient Problems: Active and Suspected Problems (Last Reviewed 06/25/20 @ 14:22 by Marry Sadler) Pneumonia (Acute) Hypoxia (Acute) Reason for Visit: Acute hypoxic respiratory failure Community-acquired pneumonia Subjective: Patient seen currently on nasal cannula. Blood cultures have remained negative to date. Her overall clinical condition continues to improve. Plan is for patient to be transferred from ICU to PCU Objective: GENERAL: cooperative HEENT: Atraumatic; EYES; Anicteric, Normal Conjunctiva NECK; supple, normal thyroid, RESPIRATORY: Diminished to auscultation CARDIOVASCULAR: Regular S1 S2, tachycardic GI: soft, normoactive bowel sounds, : No Renal angle tenderness; EXTREMITIES: No edema, no clubbing, MUSCULOSKELETAL: no muscle waisting NEURO: Awake; no lateralizing signs. SKIN: No Rash PSYCH; Flat affect Vitals/I&O's: Vital Signs Temp Pulse Resp BP Pulse Ox 98.4 F 73 16 140/69 H 94 07/26/20 04:00 07/26/20 06:00 07/26/20 06:00 07/26/20 06:00 07/26/20 06:00 Oxygen Flow Rate (L/min) 4 Oxygen Delivery Method Bi-pap Weight: 90.2 kg Body Mass Index (BMI) 29.8 Intake and Output for Last 24 Hours 07/24/20 07/25/20 07/26/20 23:59 23:59 23:59 Intake Total 1560.5 / 1660.5 2079.75 / 2079.75 289.25 / 289.25 Output Total 1200 / 1375 1675 / 1675 0 / 0 Balance 360.5 / 285.5 404.75 / 404.75 289.25 / 289.25 Microbiology Past 72 Hours 07/23/20 13:15 Blood Culture (Wb) - Anticubital Right Blood Culture - Preliminary No growth in 48 hours. 07/23/20 12:50 Blood Culture (Wb) - Anticubital Right Blood Culture - Preliminary No growth in 48 hours. 07/24/20 01:15 Urine, Clean Catch Legionella Antigen - Final 07/24/20 01:15 Urine, Clean Catch Streptococcus pneumoniae Antigen (M - Final 07/23/20 12:15 Mucosa - Nose SARS-CoV-2 Antigen (Rapid) - Final Laboratory Results 07/26/20 04:20: Sodium 141, Potassium 4.7, Chloride 115 H, Carbon Dioxide 19.0 L , BUN 67 H, Creatinine 4.19 H, Estim Creat Clear Calc 12.20, Est GFR (MDRD) Af Amer 14 L, Est GFR (MDRD) Non-Af 11 L, BUN/Creatinine Ratio 16.0, Glucose 117 H, Calcium 8.2 L, Phosphorus 4.3, Albumin 2.2 L Current Medications Albuterol Sulfate (Albuterol 2.5 Mg/3 Ml Vial.Neb.) 2.5 mg INHALATION Q2H PRN PRN PRN Reason: Dyspnea, wheezing Last Admin: 07/25/20 23:04 Dose: 2.5 mg Documented by: Amlodipine Besylate (Amlodipine 10 Mg Tablet) 10 mg PO DAILY@1999 [facility] Last Admin: 07/25/20 20:05 Dose: 10 mg Documented by: Atorvastatin Calcium (Atorvastatin Calcium 40 Mg Tablet) 40 mg PO QHS [facility] Last Admin: 07/25/20 21:37 Dose: 40 mg Documented by: Calcitriol (Calcitriol 0.25 Mcg Capsule) 0.25 mcg PO DAILY [facility] Last Admin: 07/25/20 10:09 Dose: 0.25 mcg Documented by: Calcium Carbonate (Calcium Carbonate 500 Mg Tablet) 500 mg PO QODAY@0800 [facility] Clonidine HCl (Clonidine Hcl 0.3 Mg Patch) 0.3 mg TD Q7D [facility] Last Admin: 07/24/20 08:13 Dose: 0.3 mg Documented by: Enoxaparin Sodium (Enoxaparin 30 Mg/0.3 Ml Syringe) 30 mg SC DAILY [facility] Last Admin: 07/25/20 10:09 Dose: 30 mg Documented by: Estradiol (Estradiol 0.5 Mg Tablet) 0.5 mg PO DAILY [facility] Last Admin: 07/25/20 10:09 Dose: 0.5 mg Documented by: Fluoxetine HCl (Fluoxetine 20 Mg Capsule) 20 mg PO DAILY [facility] Last Admin: 07/25/20 10:09 Dose: 20 mg Documented by: Hydralazine HCl (Hydralazine 20 Mg/Ml Vial) 10 mg IV Q6H PRN PRN PRN Reason: SBP >160 or DBP >110 Last Admin: 07/24/20 09:28 Dose: 10 mg Documented by: Hydralazine HCl (Hydralazine 10 Mg Tablet) 10 mg PO TID [facility] Last Admin: 07/25/20 21:35 Dose: 10 mg Documented by: Cefepime HCl 2 gm/ Sodium (Chloride) 100 mls @ 200 mls/hr IV Q24H [facility] Last Infusion: 07/25/20 22:13 Dose: Infused Documented by: Sodium Chloride () 250 mls @ 15 mls/hr IV .[id number] PRN PRN Reason: Saline Flush Last Infusion: 07/26/20 01:30 Dose: 0 mls/hr Documented by: Sodium Chloride () 250 mls @ 15 mls/hr IV .[id number] PRN PRN Reason: Additional IVPB Infusion Lactobacillus Acidophilus (Lactobacillus Acidophilus) 1 tablet PO DAILY [facility] Last Admin: 07/25/20 10:09 Dose: 1 tablet Documented by: Linaclotide (Linacolotide 145 Mcg Capsule) 145 mcg PO DAILY [facility] Last Admin: 07/25/20 10:09 Dose: 145 mcg Documented by: Metoprolol Succinate (Metoprolol(Xl)Succ 50 Mg Tablet) 50 mg PO DAILY [facility] Last Admin: 07/25/20 10:08 Dose: 50 mg Documented by: Multivitamins/Minerals (Multivitamins,Ther W-Minerals Tablet) 1 tablet PO DAILY@0800 [facility] Last Admin: 07/25/20 10:12 Dose: 1 tablet Documented by: Pantoprazole Sodium (Pantoprazole Sodium 40 Mg Tablet) 40 mg PO DAILY [facility] Last Admin: 07/25/20 10:09 Dose: 40 mg Documented by: Polyethylene Glycol (Polyethylene Glycol 3350 17 Gm Packet) 17 gm PO DAILY [facility] Last Admin: 07/25/20 10:09 Dose: 17 gm Documented by: Sodium Chloride (0.9% Saline Lock 10 Ml Syringe) 10 - 40 ml IV UD PRN PRN Reason: SALINE FLUSH Last Admin: 07/25/20 13:52 Dose: 10 ml Documented by: STROKE Vital Signs/Narrative: Vital Signs Temp Pulse Resp BP Pulse Ox 07/26/20 06:00 73 16 140/69 H 94 07/26/20 05:00 74 19 H 130/66 H 94 07/26/20 04:37 77 23 H 93 07/26/20 04:00 98.4 F 76 16 130/71 H 95 07/26/20 03:59 76 Medical Necessity - Tobacco Use Smoking Status: Never smoker Assessment/Plan All Active Problems (Last Reviewed 06/25/20 @ 14:22 by Marry Sadler) History of pheochromocytoma (Acute) Pneumonia (Acute) Hypoxia (Acute) Hx of colonoscopy (Acute) History of esophagogastroduodenoscopy (EGD) (Acute) Hx of tonsillectomy (Acute) 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 Acute hypoxic respiratory failure ?Imaging studies on admission demonstrated left lower lobe infiltrate. Patient was admitted to the intensive care unit managed with broad-spectrum antibiotic therapy with Zosyn and vancomycin in addition to supplemental oxygen and consultation placed to pulmonary medicine and infectious disease. Patient remains quite symptomatic on high flow oxygen and tachycardic -07/25/2020; patient seen has been weaned off high flow oxygen. She admits to improvement in overall condition but her WBC count however remains high -07/26/2020; Patient seen currently on nasal cannula. Blood cultures have remained negative to date. Her overall clinical condition continues to improve. Plan is for patient to be transferred from ICU to PCU 2. Chronic kidney disease stage V ?Patient underwent AV fistula formation 4 days prior to admission 3. History of splenectomy ?Stable 4. Hypertension - Blood pressure controlled, home medications continued with dose adjustment as needed 5. Dyslipidemia -Patient is on statin therapy, continued at home dose 6. Obstructive sleep apnea ?Patient is on CPAP at night 7. Obesity with BMI of 32 -Weight loss advised 8. GERD ?On PPI 9. DVT prophylaxis ?Lovenox dose adjusted for kidney function 10. Anemia - Secondary to chronic disorder as well as anemia of chronic kidney disease, monitoring H&H and transfuse if patient becomes symptomatic or hemoglobin falls below 7 Inpatient E&M: 12466 Subs Hosp L2
[2020-07-26] MEDS: Enoxaparin 30 MG/0.3 ML Syringe SC (08:16)
[2020-07-26] MEDS: Calcitriol 0.25 MCG Capsule PO (08:16)
[2020-07-26] MEDS: Metoprolol(XL)Succ 50 MG Tablet PO (08:16)
[2020-07-26] MEDS: Pantoprazole Sodium 40 MG Tablet PO (08:16)
[2020-07-26] MEDS: hydrALAZINE 10 MG Tablet PO ×3 (08:16→21:28)
[2020-07-26] MEDS: Estradiol 0.5 MG Tablet PO (08:16)
[2020-07-26] MEDS: FLUoxetine 20 MG Capsule PO (08:16)
[2020-07-26] MEDS: Polyethylene Glycol 3350 17 GM PACKET PO (08:17)
[2020-07-26] MEDS: Calcium Carbonate 500 MG Tablet PO (08:17)
[2020-07-26] MEDS: Multivitamins,Ther W-Minerals Tablet 1 TABLET PO (08:17)
[2020-07-26] MEDS: Linacolotide 145 MCG CAPSULE PO (08:17)
--- NOTE | 2020-07-26 10:02 | CASEMGMT ---
Addendum entered by Kristy Pelletier 07/26/20 10:38: Pt does not have a qualifying diagnosis for Home O2 to be covered by insurance. JOCE FERRER spoke w/Dr Cruz and he confirms same. Original Note: JOCE FERRER NOTE: Pt may need oxygen @ discharge. Pt was provided with list of DME providers in network consistent with the patient's preferred geographic region, medical needs, and insurance network. The pt's preferred provider is [facility]. Lisette CLARKE RN, CM
--- NOTE | 2020-07-26 13:43 | PN.ID_ITS ---
Patient Problems: Active and Suspected Problems (Last Reviewed 06/25/20 @ 14:22 by Marry Sadler) Pneumonia (Acute) Hypoxia (Acute) Subjective: Feeling better, no fever, less SOB - Physical Exam Vitals/I&O's: Vital Signs Temp Pulse Resp BP Pulse Ox 97.3 F L 76 19 H 131/58 H 96 07/26/20 08:09 07/26/20 11:19 07/26/20 08:09 07/26/20 08:16 07/26/20 08:09 Oxygen Flow Rate (L/min) 4 Oxygen Delivery Method Nasal Cannula Weight: 90.2 kg Body Mass Index (BMI) 29.8 Intake and Output for Last 24 Hours 07/24/20 07/25/20 07/26/20 23:59 23:59 23:59 Intake Total 1560.5 / 1660.5 2079.75 / 2079.75 399.25 / 399.25 Output Total 1200 / 1375 1675 / 1675 0 / 0 Balance 360.5 / 285.5 404.75 / 404.75 399.25 / 399.25 General: Alert, Cooperative, No apparent distress Lungs: Normal air movement, Rhonchi - mild rhonchi RUL Cardiovascular: Regular rate, Regular Rhythm Abdomen: Soft, Non Tender, Non-Distended Skin: No rashes Microbiology Past 72 Hours 07/23/20 13:15 Blood Culture (Wb) - Anticubital Right Blood Culture - Preliminary No growth in 48 hours. 07/23/20 12:50 Blood Culture (Wb) - Anticubital Right Blood Culture - Preliminary No growth in 48 hours. 07/24/20 01:15 Urine, Clean Catch Legionella Antigen - Final 07/24/20 01:15 Urine, Clean Catch Streptococcus pneumoniae Antigen (M - Final 07/23/20 12:15 Mucosa - Nose SARS-CoV-2 Antigen (Rapid) - Final Laboratory Results 07/26/20 04:20: Sodium 141, Potassium 4.7, Chloride 115 H, Carbon Dioxide 19.0 L , BUN 67 H, Creatinine 4.19 H, Estim Creat Clear Calc 12.20, Est GFR (MDRD) Af Amer 14 L, Est GFR (MDRD) Non-Af 11 L, BUN/Creatinine Ratio 16.0, Glucose 117 H, Calcium 8.2 L, Phosphorus 4.3, Albumin 2.2 L Current Medications Albuterol Sulfate (Albuterol 2.5 Mg/3 Ml Vial.Neb.) 2.5 mg INHALATION Q2H PRN PRN PRN Reason: Dyspnea, wheezing Last Admin: 07/25/20 23:04 Dose: 2.5 mg Documented by: Amlodipine Besylate (Amlodipine 10 Mg Tablet) 10 mg PO DAILY@2000 [facility] Last Admin: 07/25/20 20:05 Dose: 10 mg Documented by: Atorvastatin Calcium (Atorvastatin Calcium 40 Mg Tablet) 40 mg PO QHS [facility] Last Admin: 07/25/20 21:37 Dose: 40 mg Documented by: Calcitriol (Calcitriol 0.25 Mcg Capsule) 0.25 mcg PO DAILY [facility] Last Admin: 07/26/20 08:16 Dose: 0.25 mcg Documented by: Calcium Carbonate (Calcium Carbonate 500 Mg Tablet) 500 mg PO QODAY@0800 [facility] Last Admin: 07/26/20 08:17 Dose: 500 mg Documented by: Clonidine HCl (Clonidine Hcl 0.3 Mg Patch) 0.3 mg TD Q7D [facility] Last Admin: 07/24/20 08:13 Dose: 0.3 mg Documented by: Enoxaparin Sodium (Enoxaparin 30 Mg/0.3 Ml Syringe) 30 mg SC DAILY [facility] Last Admin: 07/26/20 08:16 Dose: 30 mg Documented by: Estradiol (Estradiol 0.5 Mg Tablet) 0.5 mg PO DAILY [facility] Last Admin: 07/26/20 08:16 Dose: 0.5 mg Documented by: Fluoxetine HCl (Fluoxetine 20 Mg Capsule) 20 mg PO DAILY [facility] Last Admin: 07/26/20 08:16 Dose: 20 mg Documented by: Hydralazine HCl (Hydralazine 20 Mg/Ml Vial) 10 mg IV Q6H PRN PRN PRN Reason: SBP >160 or DBP >110 Last Admin: 07/24/20 09:28 Dose: 10 mg Documented by: Hydralazine HCl (Hydralazine 10 Mg Tablet) 10 mg PO TID [facility] Last Admin: 07/26/20 08:16 Dose: 10 mg Documented by: Cefepime HCl 2 gm/ Sodium (Chloride) 100 mls @ 200 mls/hr IV Q24H [facility] Last Infusion: 07/25/20 22:13 Dose: Infused Documented by: Sodium Chloride () 250 mls @ 15 mls/hr IV .[id number] PRN PRN Reason: Saline Flush Last Infusion: 07/26/20 01:30 Dose: 0 mls/hr Documented by: Sodium Chloride () 250 mls @ 15 mls/hr IV .[id number] PRN PRN Reason: Additional IVPB Infusion Lactobacillus Acidophilus (Lactobacillus Acidophilus) 1 tablet PO DAILY [facility] Last Admin: 07/26/20 08:17 Dose: 1 tablet Documented by: Linaclotide (Linacolotide 145 Mcg Capsule) 145 mcg PO DAILY [facility] Last Admin: 07/26/20 08:17 Dose: 145 mcg Documented by: Metoprolol Succinate (Metoprolol(Xl)Succ 50 Mg Tablet) 50 mg PO DAILY [facility] Last Admin: 07/26/20 08:16 Dose: 50 mg Documented by: Multivitamins/Minerals (Multivitamins,Ther W-Minerals Tablet) 1 tablet PO DAILY@0800 [facility] Last Admin: 07/26/20 08:17 Dose: 1 tablet Documented by: Pantoprazole Sodium (Pantoprazole Sodium 40 Mg Tablet) 40 mg PO DAILY [facility] Last Admin: 07/26/20 08:16 Dose: 40 mg Documented by: Polyethylene Glycol (Polyethylene Glycol 3350 17 Gm Packet) 17 gm PO DAILY [facility] Last Admin: 07/26/20 08:17 Dose: 17 gm Documented by: Sodium Chloride (0.9% Saline Lock 10 Ml Syringe) 10 - 40 ml IV UD PRN PRN Reason: SALINE FLUSH Last Admin: 07/25/20 13:52 Dose: 10 ml Documented by: Medical Necessity - Tobacco Use Smoking Status: Never smoker Route of nutrition/ use of supplements: [] Nutritional Intake: [] IV Site: [] Smith Catheter: [] - Assessment/Plan Antibiotics: [] Assessment/Plan: [] Active and Suspected Problems (Last Reviewed 06/25/20 @ 14:22 by Marry Sadler) Pneumonia (Acute) Hypoxia (Acute) CAP - covid neg. Has gotten 1st covid shot. On cefepime. MRSA pcr neg, off vanc. Feeling better. Plan on 5-6 day course of abx. Ok for d/c today or tomorrow off of abx. Will follow as needed
--- NOTE | 2020-07-26 14:55 | PN.RENAL_ITS ---
Patient Problems: Active and Suspected Problems (Last Reviewed 06/25/20 @ 14:22 by Marry Sadler) Pneumonia (Acute) Hypoxia (Acute) Subjective: transferred to floor. Breathing improved. No cough nausea, vomiting. Creatinine stable. Pt spouse at bedside. - Physical Exam Vitals/I&O's: Vital Signs Temp Pulse Resp BP Pulse Ox 97.2 F L 74 18 140/62 H 86 07/26/20 14:00 07/26/20 14:18 07/26/20 14:00 07/26/20 14:18 07/26/20 14:40 Oxygen Flow Rate (L/min) 2 Oxygen Delivery Method Nasal Cannula Weight: 90.2 kg Body Mass Index (BMI) 29.8 Intake and Output for Last 24 Hours 07/24/20 07/25/20 07/26/20 23:59 23:59 23:59 Intake Total 1560.5 / 1660.5 2079.75 / 2079.75 399.25 / 399.25 Output Total 1200 / 1375 1675 / 1675 0 / 0 Balance 360.5 / 285.5 404.75 / 404.75 399.25 / 399.25 General: Alert, Oriented x3, Cooperative, No apparent distress Lungs: Clear to auscultation Cardiovascular: Regular rate, No rub noted Abdomen: Bowel Sounds Present, Soft, Non Tender Musculoskeletal: - - AVF with good thrill and bruit Neurological: - - no tremor Psych/Mental Status: Normal Affect, Anxious, Alert and oriented to time, place, person, mood and affect Microbiology Past 72 Hours 07/23/20 13:15 Blood Culture (Wb) - Anticubital Right Blood Culture - Preliminary No growth in 48 hours. 07/23/20 12:50 Blood Culture (Wb) - Anticubital Right Blood Culture - Preliminary No growth in 48 hours. 07/24/20 01:15 Urine, Clean Catch Legionella Antigen - Final 07/24/20 01:15 Urine, Clean Catch Streptococcus pneumoniae Antigen (M - Final 07/23/20 12:15 Mucosa - Nose SARS-CoV-2 Antigen (Rapid) - Final Laboratory Results 07/26/20 04:20: Sodium 141, Potassium 4.7, Chloride 115 H, Carbon Dioxide 19.0 L , BUN 67 H, Creatinine 4.19 H, Estim Creat Clear Calc 12.20, Est GFR (MDRD) Af Amer 14 L, Est GFR (MDRD) Non-Af 11 L, BUN/Creatinine Ratio 16.0, Glucose 117 H, Calcium 8.2 L, Phosphorus 4.3, Albumin 2.2 L Current Medications Albuterol Sulfate (Albuterol 2.5 Mg/3 Ml Vial.Neb.) 2.5 mg INHALATION Q2H PRN PRN PRN Reason: Dyspnea, wheezing Last Admin: 07/25/20 23:04 Dose: 2.5 mg Documented by: Amlodipine Besylate (Amlodipine 10 Mg Tablet) 10 mg PO DAILY@2000 [facility] Last Admin: 07/25/20 20:05 Dose: 10 mg Documented by: Atorvastatin Calcium (Atorvastatin Calcium 40 Mg Tablet) 40 mg PO QHS [facility] Last Admin: 07/25/20 21:37 Dose: 40 mg Documented by: Calcitriol (Calcitriol 0.25 Mcg Capsule) 0.25 mcg PO DAILY [facility] Last Admin: 07/26/20 08:16 Dose: 0.25 mcg Documented by: Calcium Carbonate (Calcium Carbonate 500 Mg Tablet) 500 mg PO QODAY@0800 [facility] Last Admin: 07/26/20 08:17 Dose: 500 mg Documented by: Clonidine HCl (Clonidine Hcl 0.3 Mg Patch) 0.3 mg TD Q7D [facility] Last Admin: 07/24/20 08:13 Dose: 0.3 mg Documented by: Enoxaparin Sodium (Enoxaparin 30 Mg/0.3 Ml Syringe) 30 mg SC DAILY [facility] Last Admin: 07/26/20 08:16 Dose: 30 mg Documented by: Estradiol (Estradiol 0.5 Mg Tablet) 0.5 mg PO DAILY [facility] Last Admin: 07/26/20 08:16 Dose: 0.5 mg Documented by: Fluoxetine HCl (Fluoxetine 20 Mg Capsule) 20 mg PO DAILY [facility] Last Admin: 07/26/20 08:16 Dose: 20 mg Documented by: Hydralazine HCl (Hydralazine 20 Mg/Ml Vial) 10 mg IV Q6H PRN PRN PRN Reason: SBP >160 or DBP >110 Last Admin: 07/24/20 09:28 Dose: 10 mg Documented by: Hydralazine HCl (Hydralazine 10 Mg Tablet) 10 mg PO TID [facility] Last Admin: 07/26/20 14:18 Dose: 10 mg Documented by: Cefepime HCl 2 gm/ Sodium (Chloride) 100 mls @ 200 mls/hr IV Q24H [facility] Last Infusion: 07/25/20 22:13 Dose: Infused Documented by: Sodium Chloride () 250 mls @ 15 mls/hr IV .[id number] PRN PRN Reason: Saline Flush Last Infusion: 07/26/20 01:30 Dose: 0 mls/hr Documented by: Sodium Chloride () 250 mls @ 15 mls/hr IV .[id number] PRN PRN Reason: Additional IVPB Infusion Lactobacillus Acidophilus (Lactobacillus Acidophilus) 1 tablet PO DAILY [facility] Last Admin: 07/26/20 08:17 Dose: 1 tablet Documented by: Linaclotide (Linacolotide 145 Mcg Capsule) 145 mcg PO DAILY [facility] Last Admin: 07/26/20 08:17 Dose: 145 mcg Documented by: Metoprolol Succinate (Metoprolol(Xl)Succ 50 Mg Tablet) 50 mg PO DAILY [facility] Last Admin: 07/26/20 08:16 Dose: 50 mg Documented by: Multivitamins/Minerals (Multivitamins,Ther W-Minerals Tablet) 1 tablet PO DAILY@0800 [facility] Last Admin: 07/26/20 08:17 Dose: 1 tablet Documented by: Pantoprazole Sodium (Pantoprazole Sodium 40 Mg Tablet) 40 mg PO DAILY [facility] Last Admin: 07/26/20 08:16 Dose: 40 mg Documented by: Polyethylene Glycol (Polyethylene Glycol 3350 17 Gm Packet) 17 gm PO DAILY [facility] Last Admin: 07/26/20 08:17 Dose: 17 gm Documented by: Sodium Chloride (0.9% Saline Lock 10 Ml Syringe) 10 - 40 ml IV UD PRN PRN Reason: SALINE FLUSH Last Admin: 07/25/20 13:52 Dose: 10 ml Documented by: Medical Necessity - Tobacco Use Smoking Status: Never smoker Assessment/Plan All Active Problems (Last Reviewed 06/25/20 @ 14:22 by Marry Sadler) History of pheochromocytoma (Acute) Pneumonia (Acute) Hypoxia (Acute) Hx of colonoscopy (Acute) History of esophagogastroduodenoscopy (EGD) (Acute) Hx of tonsillectomy (Acute) 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 CKD stage 4 baseline creatinine 2.8 to 3.8. Cr 4.1 today. s/p iv contrast exposure. Hold Losartan due to rise in creatinine. Changed to hydralazine for BP control. No need to initiate urgent dialysis. 2. LLL pneumonia, antibx per ID 3. Hypoxia from pna stable on NC. 4. Anemia iv iron 5. Hx pheochromocytoma s/p adrenalectomy, splenectomy 6. Secondary hyperparathyroid resume calcitriol 7. AVF LASHAUN on 07/19/20 with good thrill and bruit. 8. Phos elevated, avoid dairy.
[2020-07-26] MEDS: amLODIPine 10 MG Tablet PO (20:24)
[2020-07-26] MEDS: Atorvastatin Calcium 40 MG Tablet PO (21:28)
--- NOTE | 2020-07-26 23:42 | CPS ---
patient has home cpap on with 4 lpm.
[2020-07-27] VITALS (20 sets, daily range): BP systolic 136–151; BP diastolic 62–67; PULSE 67–80; RESP 15–18; TEMP 36.3–36.7; O2SAT 86–95
--- NOTE | 2020-07-27 00:03 | NURSING ---
2200: PT'S SPOUSE BROUGHT IN CPAP MACHINE FROM HOME TODAY & PT WOULD LIKE TO USE IT TONIGHT. OBTAINED T/O DR BAUMAN OK TO USE HOME CPAP. PT IS ALERT X 3 ON 3L N/C. C/O SOB, REPORTS SHE DOESN'T FEEL LIKE SHE IS GETTING OXYGEN IN LIKE BEFORE. CHECKED PULSE OX ON 3L N/C AND NOTED AT 91-93%. PT APPEARS MILDLY ANXIOUS. DENIES CHEST PAIN, JUST SOB. INCREASED TO 4L N/C FOR COMFORT. RT @ BEDSIDE SETTING UP HOME CPAP WITH 02 FLOW OF 4L N/C. PT REPORTS IMPROVEMENT OF BREATHING, 92%.
--- NOTE | 2020-07-27 00:15 | NURSING ---
PT SLEEPING SOUNDLY WITH CPAP ON, SPOT CHECKED POX AND NOTED AT 91-92%. DR BAUMAN UPDATED
[2020-07-27 06:10] LABS: Hematocrit 26.7 % (37-47); Hemoglobin 8.4 g/dL (12.0-15.0); Mean Corp Hgb Conc 31.5 g/dL (32-36); Mean Corpuscular Hgb 30.5 pg (27.0-32.0); Mean Corpuscular Volume 97.1 fL (81-99); Mean Platelet Vol. 11.4 fl (6.2-12.0); Platelet Count 319 K/mm3 (150-450); RBC Distribution Width CV 14.2 % (11.6-14.6); RBC Distribution Width SD 50.4 fl (35.1-43.9); Red Blood Count 2.75 M/mm3 (4.2-5.4); White Blood Count 11.6 K/mm3 (4.4-11.0)
[2020-07-27 06:31] LABS: Albumin, Serum 2.1 g/dL (3.2-5.0); BUN 74 mg/dL (7-18); BUN/Creat Ratio 18.1 RATIO (10-20); Calcium,Total 8.5 mg/dL (8.5-10.1); Chloride 116 mmol/L (98-107); Creatinine, Serum 4.08 mg/dL (0.55-1.02); EST Glomerular Filtration Rate 12 mL/min (>60); Est Glom Filt Rate - Afr Amer 14 mL/min (>60); Estimated Creatinine Clearance 12.53 ml/min; Glucose 100 mg/dL (74-106); Phosphorus 3.5 mg/dL (2.5-4.9); Potassium 4.8 mmol/L (3.5-5.1); Sodium Level 140 mmol/L (136-145)
[2020-07-27] MEDS: hydrALAZINE 10 MG Tablet PO ×3 (06:41→22:03)
--- NOTE | 2020-07-27 07:43 | PN_ITS ---
Patient Problems: Active and Suspected Problems (Last Reviewed 06/25/20 @ 14:22 by Marry Sadler) Pneumonia (Acute) Hypoxia (Acute) Subjective: The patient was seen and examined at the bedside this morning. Events from the last 24 hours have been reviewed. The patient is currently afebrile, hemodynamically stable and maintaining appropriate oxygen saturations on 3 L/min via nasal cannula. The patient wore her home CPAP machine overnight. Objective: The patient's most recent lab work, culture data and imaging studies have all been personally reviewed. Strep and urine Legionella antigens were negative. Rapid coronavirus antigen testing was negative. Coronavirus PCR was also negative. Blood cultures have shown no growth to date. - Physical Exam Vitals/I&O's: Vital Signs Temp Pulse Resp BP Pulse Ox 98.1 F 72 15 145/67 H 93 07/27/20 04:33 07/27/20 07:00 07/27/20 04:33 07/27/20 06:41 07/27/20 04:33 Oxygen Flow Rate (L/min) 4 Oxygen Delivery Method CPAP Weight: 194 lb 3.636 oz Body Mass Index (BMI) 29.8 Intake and Output for Last 24 Hours 07/25/20 07/26/20 07/27/20 23:59 23:59 23:59 Intake Total 2079.75 / 2079.75 499.25 / 499.25 Output Total 1675 / 1675 0 / 0 Balance 404.75 / 404.75 499.25 / 499.25 General: Alert, Cooperative, No apparent distress HEENT: Atraumatic, Normocephalic Oral: No Gingival or Mucosal Lesions/ Ulcerations Neck: Supple, No Nodes, Trachea Midline Lungs: Diminished Cardiovascular: Regular rate, Regular Rhythm Abdomen: Bowel Sounds Present, Soft, Non Tender, Obese Extremities: No clubbing, No cyanosis, Edema Skin: - - No significant change from previous Musculoskeletal: No Tenderness to Palpation of Joints or Extremities Lymphatic: No Cervical, Supraclavicular, or Inguinal Adenopathy Neurological: Neuro grossly intact Psych/Mental Status: Normal Affect, Appropriate Labs (Last 48 Hours) 07/26/20 07/27/20 07/27/20 04:20 06:00 06:00 WBC 11.6 H RBC 2.75 L Hgb 8.4 L Hct 26.7 L MCV 97.1 MCH 30.5 MCHC 31.5 L RDW Std Deviation 50.4 H RDW Coeff of Ralph 14.2 Plt Count 319 MPV 11.4 Sodium 141 140 Potassium 4.7 4.8 Chloride 115 H 116 H Carbon Dioxide 19.0 L 18.0 L BUN 67 H 74 H Creatinine 4.19 H 4.08 H Estim Creat Clear Calc 12.20 12.53 Est GFR (MDRD) Af Amer 14 L 14 L Est GFR (MDRD) Non-Af 11 L 12 L BUN/Creatinine Ratio 16.0 18.1 Glucose 117 H 100 Calcium 8.2 L 8.5 Phosphorus 4.3 3.5 Albumin 2.2 L 2.1 L Microbiology 07/23/20 13:15 Blood Culture (Wb) - Anticubital Right Blood Culture - Preliminary No growth in 48 hours. 07/23/20 12:50 Blood Culture (Wb) - Anticubital Right Blood Culture - Preliminary No growth in 48 hours. Clinical Impression(s) from Imaging Studies Venous Doppler Study 07/23/20 11:15 Interpretation Summary No evidence for acute deep venous thrombosis bilateral lower extremities with patent and compressible bilateral great saphenous veins. Pulsatile venous flow is noted bilaterally consistent with proximal venous hypertension or obstruction. Clinical correlation would be appropriate. Ordering Physician: Darren Govea Performed By: Theo Luong, RVT Chest X-Ray 07/23/20 11:52 IMPRESSION: Infiltrate in the left hemithorax. Electronically Signed: Raghavendra Patrick MD at 12:25 EDT , Service support , Chest CTA 07/23/20 15:09 IMPRESSION: Bilateral pulmonary infiltrates as described. Small bilateral pleural effusions. Electronically Signed: Raghavendra Patrick MD at 15:46 EDT , Service support , Current Medications Albuterol Sulfate (Albuterol 2.5 Mg/3 Ml Vial.Neb.) 2.5 mg INHALATION Q2H PRN PRN PRN Reason: Dyspnea, wheezing Last Admin: 07/25/20 23:04 Dose: 2.5 mg Documented by: Amlodipine Besylate (Amlodipine 10 Mg Tablet) 10 mg PO DAILY@2000 [facility] Last Admin: 07/26/20 20:24 Dose: 10 mg Documented by: Atorvastatin Calcium (Atorvastatin Calcium 40 Mg Tablet) 40 mg PO QHS [facility] Last Admin: 07/26/20 21:28 Dose: 40 mg Documented by: Calcitriol (Calcitriol 0.25 Mcg Capsule) 0.25 mcg PO DAILY [facility] Last Admin: 07/26/20 08:16 Dose: 0.25 mcg Documented by: Calcium Carbonate (Calcium Carbonate 500 Mg Tablet) 500 mg PO QODAY@0800 [facility] Last Admin: 07/26/20 08:17 Dose: 500 mg Documented by: Clonidine HCl (Clonidine Hcl 0.3 Mg Patch) 0.3 mg TD Q7D [facility] Last Admin: 07/24/20 08:13 Dose: 0.3 mg Documented by: Enoxaparin Sodium (Enoxaparin 30 Mg/0.3 Ml Syringe) 30 mg SC DAILY [facility] Last Admin: 07/26/20 08:16 Dose: 30 mg Documented by: Estradiol (Estradiol 0.5 Mg Tablet) 0.5 mg PO DAILY [facility] Last Admin: 07/26/20 08:16 Dose: 0.5 mg Documented by: Fluoxetine HCl (Fluoxetine 20 Mg Capsule) 20 mg PO DAILY [facility] Last Admin: 07/26/20 08:16 Dose: 20 mg Documented by: Hydralazine HCl (Hydralazine 20 Mg/Ml Vial) 10 mg IV Q6H PRN PRN PRN Reason: SBP >160 or DBP >110 Last Admin: 07/24/20 09:28 Dose: 10 mg Documented by: Hydralazine HCl (Hydralazine 10 Mg Tablet) 10 mg PO TID [facility] Last Admin: 07/27/20 06:41 Dose: 10 mg Documented by: Cefepime HCl 2 gm/ Sodium (Chloride) 100 mls @ 200 mls/hr IV Q24H [facility] Last Infusion: 07/26/20 22:01 Dose: Infused Documented by: Sodium Chloride () 250 mls @ 15 mls/hr IV .[id number] PRN PRN Reason: Saline Flush Last Infusion: 07/26/20 01:30 Dose: 0 mls/hr Documented by: Sodium Chloride () 250 mls @ 15 mls/hr IV .[id number] PRN PRN Reason: Additional IVPB Infusion Lactobacillus Acidophilus (Lactobacillus Acidophilus) 1 tablet PO DAILY [facility] Last Admin: 07/26/20 08:17 Dose: 1 tablet Documented by: Linaclotide (Linacolotide 145 Mcg Capsule) 145 mcg PO DAILY [facility] Last Admin: 07/26/20 08:17 Dose: 145 mcg Documented by: Metoprolol Succinate (Metoprolol(Xl)Succ 50 Mg Tablet) 50 mg PO DAILY [facility] Last Admin: 07/26/20 08:16 Dose: 50 mg Documented by: Multivitamins/Minerals (Multivitamins,Ther W-Minerals Tablet) 1 tablet PO DAILY@0800 [facility] Last Admin: 07/26/20 08:17 Dose: 1 tablet Documented by: Pantoprazole Sodium (Pantoprazole Sodium 40 Mg Tablet) 40 mg PO DAILY [facility] Last Admin: 07/26/20 08:16 Dose: 40 mg Documented by: Polyethylene Glycol (Polyethylene Glycol 3350 17 Gm Packet) 17 gm PO DAILY [facility] Last Admin: 07/26/20 08:17 Dose: 17 gm Documented by: Sodium Chloride (0.9% Saline Lock 10 Ml Syringe) 10 - 40 ml IV UD PRN PRN Reason: SALINE FLUSH Last Admin: 07/25/20 13:52 Dose: 10 ml Documented by: Medical Necessity - Tobacco Use Smoking Status: Never smoker Assessment/Plan All Active Problems (Last Reviewed 06/25/20 @ 14:22 by Marry Sdaler) History of pheochromocytoma (Acute) Pneumonia (Acute) Hypoxia (Acute) Hx of colonoscopy (Acute) History of esophagogastroduodenoscopy (EGD) (Acute) Hx of tonsillectomy (Acute) Hx of splenectomy (Acute) Hx of total adrenalectomy (Acute) Hx of hysterectomy (Acute) Sleep apnea (Acute) Acid reflux (Acute) Constipation (Acute) RECOMMENDATIONS: 1. Wean supplemental oxygen to maintain saturations at or above 90%. 2. Continue nocturnal PAP therapy. 3. Continue broad-spectrum antimicrobials, with plans to complete a 7-day treatment course. 4. Encourage incentive spirometer use and mobilize patient as tolerated. 5. Will sign off from a critical care perspective. Please call with any additional questions. IMPRESSIONS: 1. Acute hypoxemic respiratory failure Improving. Appears to be secondary to multifocal pneumonia, based upon chest imaging. CTA was negative for PE. Therefore, the patient will be continued on broad-spectrum antimicrobials, pending finalized infectious work-up. The patient will be continued on supplemental oxygen with a goal to maintain saturations at or above 90%. Recommend continuing BiPAP therapy on a nightly basis. Encourage incentive spirometer use and mobilize patient as tolerated. 2. CKD stage V status post recent AV fistula formation Nephrology is currently following to assist with management. 3. Hypertension/depression/anxiety/GERD/hyperlipidemia Complicates care, management, recovery and prognosis. Continue home medications as indicated. This note was generated with [employer] dictation software. It may contain incorrect words, spelling, and punctuation that were not noted in checking the note before signing. Inpatient E&M: 56591 Subs Hosp L2
[2020-07-27] MEDS: Polyethylene Glycol 3350 17 GM PACKET PO (09:00)
[2020-07-27] MEDS: Enoxaparin 30 MG/0.3 ML Syringe SC (09:01)
[2020-07-27] MEDS: 0.9% Saline Lock 10 ML Syringe IV ×2 (09:01→23:00)
[2020-07-27] MEDS: Linacolotide 145 MCG CAPSULE PO (09:01)
[2020-07-27] MEDS: Estradiol 0.5 MG Tablet PO (09:01)
[2020-07-27] MEDS: Metoprolol(XL)Succ 50 MG Tablet PO (09:02)
[2020-07-27] MEDS: FLUoxetine 20 MG Capsule PO (09:02)
[2020-07-27] MEDS: Calcitriol 0.25 MCG Capsule PO (09:02)
[2020-07-27] MEDS: Pantoprazole Sodium 40 MG Tablet PO (09:02)
[2020-07-27] MEDS: Multivitamins,Ther W-Minerals Tablet 1 TABLET PO (09:02)
--- NOTE | 2020-07-27 10:23 | PCM.PN.HOSP ---
Patient Problems: Active and Suspected Problems (Last Reviewed 06/25/20 @ 14:22 by Marry Sadler) Pneumonia (Acute) Hypoxia (Acute) Reason for Visit: Acute hypoxic respiratory failure Community-acquired pneumonia Subjective: Patient seen, her overall clinical condition continues to improve. Patient did describe an episode where she became diaphoretic during the night. Was given aerosol treatment with some improvement. Her hemoglobin remains low at 8.4. WBC significantly improved from 19.327.6. Creatinine remains fairly stable at 4.08. Plan is for patient to be assessed for home oxygen prior to discharge. Also requested for PT OT eval and treatment Objective: GENERAL: cooperative HEENT: Atraumatic; EYES; Anicteric, Normal Conjunctiva NECK; supple, normal thyroid, RESPIRATORY: Diminished to auscultation CARDIOVASCULAR: Regular S1 S2, GI: soft, normoactive bowel sounds, : No Renal angle tenderness; EXTREMITIES: No edema, no clubbing, MUSCULOSKELETAL: no muscle waisting NEURO: Awake; no lateralizing signs. SKIN: No Rash PSYCH; Flat affect Vitals/I&O's: Vital Signs Temp Pulse Resp BP Pulse Ox 98.1 F 77 18 151/65 H 93 07/27/20 09:00 07/27/20 09:02 07/27/20 09:00 07/27/20 09:02 07/27/20 09:00 Oxygen Flow Rate (L/min) 3 Oxygen Delivery Method Nasal Cannula Weight: 88.1 kg Body Mass Index (BMI) 29.8 Intake and Output for Last 24 Hours 07/25/20 07/26/20 07/27/20 23:59 23:59 23:59 Intake Total 2079.75 / 2079.75 499.25 / 499.25 Output Total 1675 / 1675 0 / 0 Balance 404.75 / 404.75 499.25 / 499.25 Microbiology Past 72 Hours 07/23/20 13:15 Blood Culture (Wb) - Anticubital Right Blood Culture - Preliminary No growth in 48 hours. 07/23/20 12:50 Blood Culture (Wb) - Anticubital Right Blood Culture - Preliminary No growth in 48 hours. Laboratory Results 07/27/20 06:00: Sodium 140, Potassium 4.8, Chloride 116 H, Carbon Dioxide 18.0 L, BUN 74 H, Creatinine 4.08 H, Estim Creat Clear Calc 12.53, Est GFR (MDRD) Af Amer 14 L, Est GFR (MDRD) Non-Af 12 L, BUN/Creatinine Ratio 18.1, Glucose 100, Calcium 8.5, Phosphorus 3.5, Albumin 2.1 L 07/27/20 06:00: WBC 11.6 H, RBC 2.75 L, Hgb 8.4 L, Hct 26.7 L, MCV 97.1, MCH 30.5, MCHC 31.5 L, RDW Std Deviation 50.4 H, RDW Coeff of Ralph 14.2, Plt Count 319, MPV 11.4 Current Medications Albuterol Sulfate (Albuterol 2.5 Mg/3 Ml Vial.Neb.) 2.5 mg INHALATION Q2H PRN PRN PRN Reason: Dyspnea, wheezing Last Admin: 07/25/20 23:04 Dose: 2.5 mg Documented by: Amlodipine Besylate (Amlodipine 10 Mg Tablet) 10 mg PO DAILY@2000 [facility] Last Admin: 07/26/20 20:24 Dose: 10 mg Documented by: Atorvastatin Calcium (Atorvastatin Calcium 40 Mg Tablet) 40 mg PO QHS [facility] Last Admin: 07/26/20 21:28 Dose: 40 mg Documented by: Calcitriol (Calcitriol 0.25 Mcg Capsule) 0.25 mcg PO DAILY [facility] Last Admin: 07/27/20 09:02 Dose: 0.25 mcg Documented by: Calcium Carbonate (Calcium Carbonate 500 Mg Tablet) 500 mg PO QODAY@0800 [facility] Last Admin: 07/26/20 08:17 Dose: 500 mg Documented by: Clonidine HCl (Clonidine Hcl 0.3 Mg Patch) 0.3 mg TD Q7D [facility] Last Admin: 07/24/20 08:13 Dose: 0.3 mg Documented by: Enoxaparin Sodium (Enoxaparin 30 Mg/0.3 Ml Syringe) 30 mg SC DAILY [facility] Last Admin: 07/27/20 09:01 Dose: 30 mg Documented by: Estradiol (Estradiol 0.5 Mg Tablet) 0.5 mg PO DAILY [facility] Last Admin: 07/27/20 09:01 Dose: 0.5 mg Documented by: Fluoxetine HCl (Fluoxetine 20 Mg Capsule) 20 mg PO DAILY [facility] Last Admin: 07/27/20 09:02 Dose: 20 mg Documented by: Hydralazine HCl (Hydralazine 20 Mg/Ml Vial) 10 mg IV Q6H PRN PRN PRN Reason: SBP >160 or DBP >110 Last Admin: 07/24/20 09:28 Dose: 10 mg Documented by: Hydralazine HCl (Hydralazine 10 Mg Tablet) 10 mg PO TID [facility] Last Admin: 07/27/20 06:41 Dose: 10 mg Documented by: Cefepime HCl 2 gm/ Sodium (Chloride) 100 mls @ 200 mls/hr IV Q24H [facility] Last Infusion: 07/26/20 22:01 Dose: Infused Documented by: Sodium Chloride () 250 mls @ 15 mls/hr IV .[id number] PRN PRN Reason: Saline Flush Last Infusion: 07/26/20 01:30 Dose: 0 mls/hr Documented by: Sodium Chloride () 250 mls @ 15 mls/hr IV .[id number] PRN PRN Reason: Additional IVPB Infusion Ferric Sodium Gluconate Complex 125 mg/ Sodium Chloride 110 mls @ 110 mls/hr IV X1 ONE Stop: 07/27/20 10:29 Last Admin: 07/27/20 09:26 Dose: 110 mls/hr Documented by: Lactobacillus Acidophilus (Lactobacillus Acidophilus) 1 tablet PO DAILY [facility] Last Admin: 07/27/20 09:02 Dose: 1 tablet Documented by: Linaclotide (Linacolotide 145 Mcg Capsule) 145 mcg PO DAILY [facility] Last Admin: 07/27/20 09:01 Dose: 145 mcg Documented by: Metoprolol Succinate (Metoprolol(Xl)Succ 50 Mg Tablet) 50 mg PO DAILY [facility] Last Admin: 07/27/20 09:02 Dose: 50 mg Documented by: Multivitamins/Minerals (Multivitamins,Ther W-Minerals Tablet) 1 tablet PO DAILY@0800 [facility] Last Admin: 07/27/20 09:02 Dose: 1 tablet Documented by: Pantoprazole Sodium (Pantoprazole Sodium 40 Mg Tablet) 40 mg PO DAILY [facility] Last Admin: 07/27/20 09:02 Dose: 40 mg Documented by: Polyethylene Glycol (Polyethylene Glycol 3350 17 Gm Packet) 17 gm PO DAILY [facility] Last Admin: 07/27/20 09:00 Dose: 17 gm Documented by: Sodium Chloride (0.9% Saline Lock 10 Ml Syringe) 10 - 40 ml IV UD PRN PRN Reason: SALINE FLUSH Last Admin: 07/27/20 09:01 Dose: 10 ml Documented by: STROKE Vital Signs/Narrative: Vital Signs Temp Pulse Resp BP Pulse Ox 07/27/20 09:02 77 151/65 H 07/27/20 09:00 98.1 F 77 18 151/65 H 93 07/27/20 07:00 72 07/27/20 06:41 73 145/67 H Medical Necessity - Tobacco Use Smoking Status: Never smoker Assessment/Plan All Active Problems (Last Reviewed 06/25/20 @ 14:22 by Marry Sadler) History of pheochromocytoma (Acute) Pneumonia (Acute) Hypoxia (Acute) Hx of colonoscopy (Acute) History of esophagogastroduodenoscopy (EGD) (Acute) Hx of tonsillectomy (Acute) 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 Acute hypoxic respiratory failure ?Imaging studies on admission demonstrated left lower lobe infiltrate. Patient was admitted to the intensive care unit managed with broad-spectrum antibiotic therapy with Zosyn and vancomycin in addition to supplemental oxygen and consultation placed to pulmonary medicine and infectious disease. Patient remains quite symptomatic on high flow oxygen and tachycardic -07/25/2020; patient seen has been weaned off high flow oxygen. She admits to improvement in overall condition but her WBC count however remains high -07/26/2020; Patient seen currently on nasal cannula. Blood cultures have remained negative to date. Her overall clinical condition continues to improve. Plan is for patient to be transferred from ICU to PCU -1Patient seen, her overall clinical condition continues to improve. Patient did describe an episode where she became diaphoretic during the night. Was given aerosol treatment with some improvement. Her hemoglobin remains low at 8.4. WBC significantly improved from 19.327.6. Creatinine remains fairly stable at 4.08. Plan is for patient to be assessed for home oxygen prior to discharge. Also requested for PT OT eval and treatment 2. Chronic kidney disease stage V ?Patient underwent AV fistula formation 4 days prior to admission 3. History of splenectomy ?Stable 4. Hypertension - Blood pressure controlled, home medications continued with dose adjustment as needed 5. Dyslipidemia -Patient is on statin therapy, continued at home dose 6. Obstructive sleep apnea ?Patient is on CPAP at night 7. Obesity with BMI of 32 -Weight loss advised 8. GERD ?On PPI 9. DVT prophylaxis ?Lovenox dose adjusted for kidney function 10. Anemia - Secondary to chronic disorder as well as anemia of chronic kidney disease, monitoring H&H and transfuse if patient becomes symptomatic or hemoglobin falls below 7 ?07/27/2020; patient receiving iron infusion Inpatient E&M: [id number] Subs Hosp L2
[2020-07-27] MEDS: amLODIPine 10 MG Tablet PO (20:12)
[2020-07-27] MEDS: Atorvastatin Calcium 40 MG Tablet PO (22:03)
[2020-07-28] VITALS (21 sets, daily range): BP systolic 143–167; BP diastolic 60–72; PULSE 70–83; RESP 16–24; TEMP 36.3–36.8; O2SAT 86–96
[2020-07-28] MEDS: hydrALAZINE 10 MG Tablet PO ×3 (05:38→22:13)
[2020-07-28] MEDS: Polyethylene Glycol 3350 17 GM PACKET PO (08:37)
[2020-07-28] MEDS: Multivitamins,Ther W-Minerals Tablet 1 TABLET PO (08:37)
[2020-07-28] MEDS: Calcium Carbonate 500 MG Tablet PO (08:38)
[2020-07-28] MEDS: Calcitriol 0.25 MCG Capsule PO (08:43)
[2020-07-28] MEDS: Pantoprazole Sodium 40 MG Tablet PO (08:43)
[2020-07-28] MEDS: Linacolotide 145 MCG CAPSULE PO (08:43)
[2020-07-28] MEDS: Metoprolol(XL)Succ 50 MG Tablet PO (08:44)
[2020-07-28] MEDS: FLUoxetine 20 MG Capsule PO (08:46)
[2020-07-28] MEDS: Estradiol 0.5 MG Tablet PO (08:47)
[2020-07-28] MEDS: Enoxaparin 30 MG/0.3 ML Syringe SC (08:49)
--- NOTE | 2020-07-28 09:08 | RAD_ITS ---
STUDY: X-RAY CHEST REASON FOR EXAM: Female, 65 years old. dyspnea TECHNIQUE: Single AP portable view of the chest. COMPARISON: 07/23/2020 FINDINGS: Increase in alveolar opacity in both lungs consistent with worsening bilateral pneumonia, pulmonary edema, or ARDS. There is no demonstrated pleural abnormality. Normal size heart. Normal mediastinum and sadia. Normal visualized pulmonary arteries. Normal visualized aortic arch and descending thoracic aorta. Normal visualized thoracic spine. Normal visualized ribs, clavicles, and shoulders. There is no demonstrated abnormality of the visualized soft tissue structures of the upper abdomen. RAD/Chest 1 View IMPRESSION: Worsening bilateral pneumonia, pulmonary edema, or ARDS. Electronically Signed: Fortunato Guerra MD at 10:36 EDT Tel , Service support ,
[2020-07-28 10:05] LABS: Anion Gap 9 (5-15); BUN 80 mg/dL (7-18); BUN/Creat Ratio 19.8 RATIO (10-20); Calcium,Total 8.9 mg/dL (8.5-10.1); Chloride 115 mmol/L (98-107); Creatinine, Serum 4.05 mg/dL (0.55-1.02); EST Glomerular Filtration Rate 12 mL/min (>60); Est Glom Filt Rate - Afr Amer 14 mL/min (>60); Estimated Creatinine Clearance 12.62 ml/min; Glucose 181 mg/dL (74-106); Magnesium 2.5 mg/dL (1.6-2.6); Potassium 4.7 mmol/L (3.5-5.1); Sodium Level 139 mmol/L (136-145)
--- NOTE | 2020-07-28 10:45 | PCM.PN.HOSP ---
Patient Problems: Active and Suspected Problems (Last Reviewed 06/25/20 @ 14:22 by Marry Sadler) Pneumonia (Acute) Hypoxia (Acute) Reason for Visit: Acute hypoxic respiratory failure Community-acquired pneumonia Subjective: Patient seen nursing staff reports increasing oxygen requirement. Chest x-ray obtained this a.m. demonstrated Worsening bilateral pneumonia, pulmonary edema, or ARDS. Order was given for patient to receive 80 mg of IV Lasix x1 Objective: GENERAL: cooperative appears ill looking HEENT: Atraumatic; EYES; Anicteric, Normal Conjunctiva NECK; supple, normal thyroid, RESPIRATORY: Diminished to auscultation, with bibasilar crackles CARDIOVASCULAR: Regular S1 S2, GI: soft, normoactive bowel sounds, : No Renal angle tenderness; EXTREMITIES: Bipedal edema, no clubbing, MUSCULOSKELETAL: no muscle waisting NEURO: Awake; no lateralizing signs. SKIN: No Rash PSYCH; Flat affect Vitals/I&O's: Vital Signs Temp Pulse Resp BP Pulse Ox 98 F 81 18 149/63 H 93 07/28/20 08:40 07/28/20 08:44 07/28/20 08:40 07/28/20 08:44 07/28/20 08:40 Oxygen Flow Rate (L/min) [ 5 AMBULATING with Oxygen #3] Oxygen Flow Rate (L/min) [ 4 AMBULATING with Oxygen #2] Oxygen Flow Rate (L/min) [ 3 AMBULATING with Oxygen #1] Oxygen Flow Rate (L/min) [At 3 REST with Oxygen] Oxygen Flow Rate (L/min) 3 Oxygen Delivery Method Nasal Cannula Weight: 88 kg Body Mass Index (BMI) 29.8 Intake and Output for Last 24 Hours 07/26/20 07/27/20 07/28/20 23:59 23:59 23:59 Intake Total 499.25 / 499.25 810 / 1010 300 / 300 Output Total 0 / 0 Balance 499.25 / 499.25 810 / 1010 300 / 300 Microbiology Past 72 Hours 07/23/20 13:15 Blood Culture (Wb) - Anticubital Right Blood Culture - Preliminary No growth in 48 hours. 07/23/20 12:50 Blood Culture (Wb) - Anticubital Right Blood Culture - Preliminary No growth in 48 hours. Laboratory Results 07/28/20 09:40: Sodium 139, Potassium 4.7, Chloride 115 H, Carbon Dioxide 15.0 L, Anion Gap 9, BUN 80 H, Creatinine 4.05 H, Estim Creat Clear Calc 12.62, Est GFR (MDRD) Af Amer 14 L, Est GFR (MDRD) Non-Af 12 L, BUN/Creatinine Ratio 19.8, Glucose 181 H, Calcium 8.9, Magnesium 2.5 Current Medications Albuterol Sulfate (Albuterol 2.5 Mg/3 Ml Vial.Neb.) 2.5 mg INHALATION Q2H PRN PRN PRN Reason: Dyspnea, wheezing Last Admin: 07/25/20 23:04 Dose: 2.5 mg Documented by: Amlodipine Besylate (Amlodipine 10 Mg Tablet) 10 mg PO DAILY@2000 [facility] Last Admin: 07/27/20 20:12 Dose: 10 mg Documented by: Atorvastatin Calcium (Atorvastatin Calcium 40 Mg Tablet) 40 mg PO QHS [facility] Last Admin: 07/27/20 22:03 Dose: 40 mg Documented by: Calcitriol (Calcitriol 0.25 Mcg Capsule) 0.25 mcg PO DAILY [facility] Last Admin: 07/28/20 08:43 Dose: 0.25 mcg Documented by: Calcium Carbonate (Calcium Carbonate 500 Mg Tablet) 500 mg PO QODAY@0800 [facility] Last Admin: 07/28/20 08:38 Dose: 500 mg Documented by: Clonidine HCl (Clonidine Hcl 0.3 Mg Patch) 0.3 mg TD Q7D [facility] Last Admin: 07/24/20 08:13 Dose: 0.3 mg Documented by: Enoxaparin Sodium (Enoxaparin 30 Mg/0.3 Ml Syringe) 30 mg SC DAILY [facility] Last Admin: 07/28/20 08:49 Dose: 30 mg Documented by: Estradiol (Estradiol 0.5 Mg Tablet) 0.5 mg PO DAILY [facility] Last Admin: 07/28/20 08:47 Dose: 0.5 mg Documented by: Fluoxetine HCl (Fluoxetine 20 Mg Capsule) 20 mg PO DAILY [facility] Last Admin: 07/28/20 08:46 Dose: 20 mg Documented by: Furosemide (Furosemide 100 Mg/10 Ml Vial) 80 mg IV X1 ONE Stop: 07/28/20 10:45 Hydralazine HCl (Hydralazine 20 Mg/Ml Vial) 10 mg IV Q6H PRN PRN PRN Reason: SBP >160 or DBP >110 Last Admin: 07/24/20 09:28 Dose: 10 mg Documented by: Hydralazine HCl (Hydralazine 10 Mg Tablet) 10 mg PO TID [facility] Last Admin: 07/28/20 05:38 Dose: 10 mg Documented by: Sodium Chloride () 250 mls @ 15 mls/hr IV .[id number] PRN PRN Reason: Saline Flush Last Infusion: 07/26/20 01:30 Dose: 0 mls/hr Documented by: Sodium Chloride () 250 mls @ 15 mls/hr IV .[id number] PRN PRN Reason: Additional IVPB Infusion Lactobacillus Acidophilus (Lactobacillus Acidophilus) 1 tablet PO DAILY [facility] Last Admin: 07/28/20 08:44 Dose: 1 tablet Documented by: Linaclotide (Linacolotide 145 Mcg Capsule) 145 mcg PO DAILY [facility] Last Admin: 07/28/20 08:43 Dose: 145 mcg Documented by: Metoprolol Succinate (Metoprolol(Xl)Succ 50 Mg Tablet) 50 mg PO DAILY [facility] Last Admin: 07/28/20 08:44 Dose: 50 mg Documented by: Multivitamins/Minerals (Multivitamins,Ther W-Minerals Tablet) 1 tablet PO DAILY@0800 [facility] Last Admin: 07/28/20 08:37 Dose: 1 tablet Documented by: Pantoprazole Sodium (Pantoprazole Sodium 40 Mg Tablet) 40 mg PO DAILY [facility] Last Admin: 07/28/20 08:43 Dose: 40 mg Documented by: Polyethylene Glycol (Polyethylene Glycol 3350 17 Gm Packet) 17 gm PO DAILY [facility] Last Admin: 07/28/20 08:37 Dose: 17 gm Documented by: Sodium Chloride (0.9% Saline Lock 10 Ml Syringe) 10 - 40 ml IV UD PRN PRN Reason: SALINE FLUSH Last Admin: 07/27/20 23:00 Dose: 10 ml Documented by: STROKE Vital Signs/Narrative: Vital Signs Temp Pulse Resp BP Pulse Ox 07/28/20 08:44 81 149/63 H 07/28/20 08:40 98 F 81 18 149/63 H 93 07/28/20 07:27 77 94 Medical Necessity - Tobacco Use Smoking Status: Never smoker Assessment/Plan All Active Problems (Last Reviewed 06/25/20 @ 14:22 by Marry Sadler) History of pheochromocytoma (Acute) Pneumonia (Acute) Hypoxia (Acute) Hx of colonoscopy (Acute) History of esophagogastroduodenoscopy (EGD) (Acute) Hx of tonsillectomy (Acute) 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 Acute hypoxic respiratory failure ?Imaging studies on admission demonstrated left lower lobe infiltrate. Patient was admitted to the intensive care unit managed with broad-spectrum antibiotic therapy with Zosyn and vancomycin in addition to supplemental oxygen and consultation placed to pulmonary medicine and infectious disease. Patient remains quite symptomatic on high flow oxygen and tachycardic -07/25/2020; patient seen has been weaned off high flow oxygen. She admits to improvement in overall condition but her WBC count however remains high -07/26/2020; Patient seen currently on nasal cannula. Blood cultures have remained negative to date. Her overall clinical condition continues to improve. Plan is for patient to be transferred from ICU to PCU -07/27/2020atient seen, her overall clinical condition continues to improve. Patient did describe an episode where she became diaphoretic during the night. Was given aerosol treatment with some improvement. Her hemoglobin remains low at 8.4. WBC significantly improved from 19.327.6. Creatinine remains fairly stable at 4.08. Plan is for patient to be assessed for home oxygen prior to discharge. Also requested for PT OT eval and treatment 2. Chronic kidney disease stage V ?Patient underwent AV fistula formation 4 days prior to admission 3. Acute congestive heart failure ?Suspected congestive heart failure with preserved ejection fraction. Chest x-ray obtained on the morning of 07/28/2020 demonstrated Worsening bilateral pneumonia, pulmonary edema, or ARDS. An Order was given for patient to receive 80 mg of IV Lasix x1; also ordered a 2D echo to be performed on 07/29/2020 patient was also placed on supplemental oxygen titrated to keep saturation greater than 90 4. Hypertension - Blood pressure controlled, home medications continued with dose adjustment as needed 5. Dyslipidemia -Patient is on statin therapy, continued at home dose 6. Obstructive sleep apnea ?Patient is on CPAP at night 7. Obesity with BMI of 32 -Weight loss advised 8. GERD ?On PPI 9. DVT prophylaxis ?Lovenox dose adjusted for kidney function 10. Anemia - Secondary to chronic disorder as well as anemia of chronic kidney disease, monitoring H&H and transfuse if patient becomes symptomatic or hemoglobin falls below 7 ?07/27/2020; patient receiving iron infusion 12. History of splenectomy ?Stable Inpatient E&M: [id number] [facility] Hosp L3
[2020-07-28] MEDS: 0.9% Saline Lock 10 ML Syringe IV (11:07)
[2020-07-28] MEDS: Furosemide 100 MG/10 ML Vial 80 MG IV (11:07)
[2020-07-28] MEDS: amLODIPine 10 MG Tablet PO (20:20)
[2020-07-28] MEDS: Atorvastatin Calcium 40 MG Tablet PO (22:13)
[2020-07-28] MEDS: Albuterol 2.5 MG/3 ML VIAL.NEB. INHALATION (22:28)
[2020-07-29] VITALS (18 sets, daily range): BP systolic 143–159; BP diastolic 61–75; PULSE 72–81; RESP 16–18; TEMP 36.3–37.1; O2SAT 88–96
[2020-07-29 05:19] LABS: Hematocrit 25.8 % (37-47); Hemoglobin 8.2 g/dL (12.0-15.0); Mean Corp Hgb Conc 31.8 g/dL (32-36); Mean Corpuscular Hgb 30.9 pg (27.0-32.0); Mean Corpuscular Volume 97.4 fL (81-99); Mean Platelet Vol. 10.8 fl (6.2-12.0); Platelet Count 359 K/mm3 (150-450); RBC Distribution Width CV 13.9 % (11.6-14.6); RBC Distribution Width SD 49.2 fl (35.1-43.9); Red Blood Count 2.65 M/mm3 (4.2-5.4); White Blood Count 13.9 K/mm3 (4.4-11.0)
[2020-07-29] MEDS: hydrALAZINE 10 MG Tablet PO ×3 (05:25→21:25)
[2020-07-29 05:37] LABS: Anion Gap 9 (5-15); BUN 74 mg/dL (7-18); BUN/Creat Ratio 18.2 RATIO (10-20); Calcium,Total 8.4 mg/dL (8.5-10.1); Chloride 112 mmol/L (98-107); Creatinine, Serum 4.07 mg/dL (0.55-1.02); EST Glomerular Filtration Rate 12 mL/min (>60); Est Glom Filt Rate - Afr Amer 14 mL/min (>60); Estimated Creatinine Clearance 12.56 ml/min; Glucose 100 mg/dL (74-106); Sodium Level 138 mmol/L (136-145)
[2020-07-29] MEDS: Estradiol 0.5 MG Tablet PO (08:48)
[2020-07-29] MEDS: Polyethylene Glycol 3350 17 GM PACKET PO (08:48)
[2020-07-29] MEDS: FLUoxetine 20 MG Capsule PO (08:49)
[2020-07-29] MEDS: Multivitamins,Ther W-Minerals Tablet 1 TABLET PO (08:49)
[2020-07-29] MEDS: Linacolotide 145 MCG CAPSULE PO (08:49)
[2020-07-29] MEDS: Pantoprazole Sodium 40 MG Tablet PO (08:49)
[2020-07-29] MEDS: Enoxaparin 30 MG/0.3 ML Syringe SC (08:49)
[2020-07-29] MEDS: Calcitriol 0.25 MCG Capsule PO (08:50)
[2020-07-29] MEDS: Metoprolol(XL)Succ 50 MG Tablet PO (08:50)
--- NOTE | 2020-07-29 09:04 | NURSING ---
SPO2=88% AMB ON RA, PT REPORTS MUCH SOB AMB ON RA.
--- NOTE | 2020-07-29 09:37 | PCM.PN.REN ---
Patient Problems: Active and Suspected Problems (Last Reviewed 06/25/20 @ 14:22 by Marry Sadler) Pneumonia (Acute) Hypoxia (Acute) Subjective: short of breath increased yesterday, events reviewed, received lasix iv x1. Urine output good. May require home oxygen set up. Denies cough. No nausea, vomiting. - Physical Exam Vitals/I&O's: Vital Signs Temp Pulse Resp BP Pulse Ox 97.4 F L 80 18 153/75 H 96 07/29/20 08:46 07/29/20 08:50 07/29/20 08:46 07/29/20 08:50 07/29/20 09:00 Oxygen Flow Rate (L/min) [ 5 AMBULATING with Oxygen #3] Oxygen Flow Rate (L/min) [ 4 AMBULATING with Oxygen #2] Oxygen Flow Rate (L/min) [ 3 AMBULATING with Oxygen #1] Oxygen Flow Rate (L/min) [At 3 REST with Oxygen] Oxygen Flow Rate (L/min) 3 Oxygen Delivery Method Nasal Cannula Weight: 87.362 kg Body Mass Index (BMI) 29.8 Intake and Output for Last 24 Hours 07/27/20 07/28/20 07/29/20 23:59 23:59 23:59 Intake Total 810 / 1010 1320 / 1320 Balance 810 / 1010 1320 / 1320 General: Alert, Oriented x3, Cooperative, No apparent distress Lungs: Diminished Cardiovascular: Regular rate Abdomen: Bowel Sounds Present, Soft, Non Tender Extremities: Edema - mild Musculoskeletal: - - AVF with good thrill and bruit Psych/Mental Status: Alert and oriented to time, place, person, mood and affect Microbiology Past 72 Hours 07/23/20 13:15 Blood Culture (Wb) - Anticubital Right Blood Culture - Final No growth in 5 days. 07/23/20 12:50 Blood Culture (Wb) - Anticubital Right Blood Culture - Final No growth in 5 days. Laboratory Results 07/28/20 09:40: Sodium 139, Potassium 4.7, Chloride 115 H, Carbon Dioxide 15.0 L, Anion Gap 9, BUN 80 H, Creatinine 4.05 H, Estim Creat Clear Calc 12.62, Est GFR (MDRD) Af Amer 14 L, Est GFR (MDRD) Non-Af 12 L, BUN/Creatinine Ratio 19.8, Glucose 181 H, Calcium 8.9, Magnesium 2.5 07/29/20 05:08: WBC 13.9 H, RBC 2.65 L, Hgb 8.2 L, Hct 25.8 L, MCV 97.4, MCH 30.9, MCHC 31.8 L, RDW Std Deviation 49.2 H, RDW Coeff of Ralph 13.9, Plt Count 359, MPV 10.8 07/29/20 05:08: Sodium 138, Potassium 5.0, Chloride 112 H, Carbon Dioxide 17.0 L, Anion Gap 9, BUN 74 H, Creatinine 4.07 H, Estim Creat Clear Calc 12.56, Est GFR (MDRD) Af Amer 14 L, Est GFR (MDRD) Non-Af 12 L, BUN/Creatinine Ratio 18.2, Glucose 100, Calcium 8.4 L Current Medications Albuterol Sulfate (Albuterol 2.5 Mg/3 Ml Vial.Neb.) 2.5 mg INHALATION Q2H PRN PRN PRN Reason: Dyspnea, wheezing Last Admin: 07/28/20 22:28 Dose: 2.5 mg Documented by: Amlodipine Besylate (Amlodipine 10 Mg Tablet) 10 mg PO DAILY@1999 [facility] Last Admin: 07/28/20 20:20 Dose: 10 mg Documented by: Atorvastatin Calcium (Atorvastatin Calcium 40 Mg Tablet) 40 mg PO QHS [facility] Last Admin: 07/28/20 22:13 Dose: 40 mg Documented by: Calcitriol (Calcitriol 0.25 Mcg Capsule) 0.25 mcg PO DAILY [facility] Last Admin: 07/29/20 08:50 Dose: 0.25 mcg Documented by: Calcium Carbonate (Calcium Carbonate 500 Mg Tablet) 500 mg PO QODAY@0800 [facility] Last Admin: 07/28/20 08:38 Dose: 500 mg Documented by: Clonidine HCl (Clonidine Hcl 0.3 Mg Patch) 0.3 mg TD Q7D [facility] Last Admin: 07/24/20 08:13 Dose: 0.3 mg Documented by: Enoxaparin Sodium (Enoxaparin 30 Mg/0.3 Ml Syringe) 30 mg SC DAILY [facility] Last Admin: 07/29/20 08:49 Dose: 30 mg Documented by: Estradiol (Estradiol 0.5 Mg Tablet) 0.5 mg PO DAILY [facility] Last Admin: 07/29/20 08:48 Dose: 0.5 mg Documented by: Fluoxetine HCl (Fluoxetine 20 Mg Capsule) 20 mg PO DAILY [facility] Last Admin: 07/29/20 08:49 Dose: 20 mg Documented by: Hydralazine HCl (Hydralazine 20 Mg/Ml Vial) 10 mg IV Q6H PRN PRN PRN Reason: SBP >160 or DBP >110 Last Admin: 07/24/20 09:28 Dose: 10 mg Documented by: Hydralazine HCl (Hydralazine 10 Mg Tablet) 10 mg PO TID [facility] Last Admin: 07/29/20 05:25 Dose: 10 mg Documented by: Sodium Chloride () 250 mls @ 15 mls/hr IV .[id number] PRN PRN Reason: Saline Flush Last Infusion: 07/26/20 01:30 Dose: 0 mls/hr Documented by: Sodium Chloride () 250 mls @ 15 mls/hr IV .[id number] PRN PRN Reason: Additional IVPB Infusion Lactobacillus Acidophilus (Lactobacillus Acidophilus) 1 tablet PO DAILY [facility] Last Admin: 07/29/20 08:49 Dose: 1 tablet Documented by: Linaclotide (Linacolotide 145 Mcg Capsule) 145 mcg PO DAILY [facility] Last Admin: 07/29/20 08:49 Dose: 145 mcg Documented by: Metoprolol Succinate (Metoprolol(Xl)Succ 50 Mg Tablet) 50 mg PO DAILY [facility] Last Admin: 07/29/20 08:50 Dose: 50 mg Documented by: Multivitamins/Minerals (Multivitamins,Ther W-Minerals Tablet) 1 tablet PO DAILY@0800 [facility] Last Admin: 07/29/20 08:49 Dose: 1 tablet Documented by: Pantoprazole Sodium (Pantoprazole Sodium 40 Mg Tablet) 40 mg PO DAILY [facility] Last Admin: 07/29/20 08:49 Dose: 40 mg Documented by: Polyethylene Glycol (Polyethylene Glycol 3350 17 Gm Packet) 17 gm PO DAILY [facility] Last Admin: 07/29/20 08:48 Dose: 17 gm Documented by: Sodium Chloride (0.9% Saline Lock 10 Ml Syringe) 10 - 40 ml IV UD PRN PRN Reason: SALINE FLUSH Last Admin: 07/28/20 11:07 Dose: 20 ml Documented by: Medical Necessity - Tobacco Use Smoking Status: Never smoker Assessment/Plan All Active Problems (Last Reviewed 06/25/20 @ 14:22 by Marry Sadler) History of pheochromocytoma (Acute) Pneumonia (Acute) Hypoxia (Acute) Hx of colonoscopy (Acute) History of esophagogastroduodenoscopy (EGD) (Acute) Hx of tonsillectomy (Acute) 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 CKD stage 4 baseline creatinine 1.8 yo mid 3's. Cr unchanged at 4. s/p iv contrast exposure. Hold Losartan due to rise in creatinine. No need to initiate urgent dialysis. 2. LLL pneumonia, antibx per ID 3. Hypoxia home oxygen 4. Anemia iv iron 5. Hx pheochromocytoma s/p adrenalectomy, splenectomy 6. Secondary hyperparathyroid continue calcitriol 7. AVF LASHAUN on 07/19/20 with good thrill and bruit. 8. metabolic acidosis, bicarbonate po
--- NOTE | 2020-07-29 10:19 | ECHOD_ITS ---
Reason For Study: CHF Procedure This was a 2D Doppler, Color Flow transthoracic echocardiogram. The exam was of adequate technical quality. Exam performed portable in patient room. Left Ventricle Normal LV size. Left ventricular systolic function is normal. The estimated ejection fraction is 65 %. Diastolic function is indeterminate. No regional wall motion abnormalities noted. Right Ventricle Normal RV size. Normal systolic function. Atria The left atrium is mildly enlarged. Normal right atrium. No doppler evidence for ASD. Mitral Valve There is no mitral annular calcification. Normal mitral valve. Mild (1+) mitral valve insufficiency. Tricuspid Valve Normal tricuspid valve. Trivial tricuspid valve insufficiency. Unable to estimate RV systolic pressure due to insufficient tricuspid regurgitant envelope. Aortic Valve Trisinus/trileaflet aortic valve. Normal aortic valve. Pulmonic Valve The pulmonic valve is not well visualized. Great Vessels Normal sized aortic root. Pericardium/Pleural No pericardial effusion. MMode/2D Measurements & Calculations LVIDd: 3.8 cm IVSd: 1.1 cm Ao root diam: 2.8 cm LVIDs: 2.1 cm LVPWd: 1.1 cm LA dimension: 4.3 cm FS: 43.8 % LAV(MOD-bp): 84.4 ml LA A4 area: 23.7 cm2 RA A4 area: 17.9 cm2 LAV(MOD-bp) Indexed: 42.9 ml/m2 LAV(MOD-sp2): 83.7 ml LAV(MOD-sp4): 78.0 ml Time Measurements MV dec time: 0.25 sec Doppler Measurements & Calculations MV E max ronald: 117.4 cm/sec Lat Peak E' Ronald: 9.7 cm/sec Med Peak E' Ronald: 10.3 cm/sec MV A max ronald: 67.5 cm/sec E/E' lat: 12.1 E/E' med: 11.4 MV E/A: 1.7 MV V2 max: 153.1 cm/sec MV P1/2t max ronald: 155.0 cm/sec Ao V2 max: 173.3 cm/sec MV max P.4 mmHg MV P1/2t: 92.8 msec Ao max P.0 mmHg MV V2 mean: 81.1 cm/sec MV dec slope: 489.3 cm/sec2 MV mean P.1 mmHg MVA(P1/2t): 2.4 cm2 MV V2 VTI: 39.7 cm LV V1 max: 130.7 cm/sec MR max ronald: 490.1 cm/sec PA V2 max: 128.1 cm/sec LV V1 max P.8 mmHg MR max P.1 mmHg ECHO/Echo Complete Interpretation Summary Left ventricular systolic function is normal. The estimated ejection fraction is 65 %. The left atrium is mildly enlarged. Mild (1+) mitral valve insufficiency. Trivial tricuspid valve insufficiency. Unable to estimate RV systolic pressure due to insufficient tricuspid regurgita nt envelope. Diastolic function is indeterminate. Ordering Physician: Moreno Benton Referring Physician: Eduin Pollack Performed By: Richard Chacon RCS
[2020-07-29] MEDS: Sodium Bicarbonate 650 MG Tablet PO (14:18)
--- NOTE | 2020-07-29 15:21 | PCM.PN.HOSP ---
Patient Problems: Active and Suspected Problems (Last Reviewed 06/25/20 @ 14:22 by Marry Sadler) Pneumonia (Acute) Hypoxia (Acute) Subjective: , No issues overnight. She is on room air while at rest needs 2 L with ambulation. She and her are extremely nervous and would prefer to stay tonight and make sure that this positive trend continues into tomorrow. Vitals/I&O's: Vital Signs Temp Pulse Resp BP Pulse Ox 98.6 F 78 16 143/61 H 95 07/29/20 14:00 07/29/20 14:18 07/29/20 14:00 07/29/20 14:18 07/29/20 14:00 Oxygen Flow Rate (L/min) [ 5 AMBULATING with Oxygen #3] Oxygen Flow Rate (L/min) [ 4 AMBULATING with Oxygen #2] Oxygen Flow Rate (L/min) [ 2 AMBULATING with Oxygen #1] Oxygen Flow Rate (L/min) [At 3 REST with Oxygen] Oxygen Flow Rate (L/min) 3 Oxygen Delivery Method Nasal Cannula Weight: 192 lb 9.6 oz Body Mass Index (BMI) 29.8 Intake and Output for Last 24 Hours 07/27/20 07/28/20 07/29/20 23:59 23:59 23:59 Intake Total 810 / 1010 1320 / 1320 Balance 810 / 1010 1320 / 1320 General: Alert, Oriented x3, Cooperative, No apparent distress HEENT: Atraumatic, PERRLA, EOMI, Normocephalic Oral: Moist Mucosa Neck: Supple, No JVD Lungs: Normal air movement, No rhonchi, No wheeze, No rales, Diminished Cardiovascular: Regular rate, Regular Rhythm, Normal S1, Normal S2, No murmurs Abdomen: Soft, Non Tender, Non-Distended, No Hepato-splenomegaly Extremities: No edema, Capillary Refill Less than 3 Seconds Skin: No rashes, No breakdown Neurological: Neuro grossly intact, Sensory exam intact to light touch and pain Psych/Mental Status: Normal Affect, Appropriate Microbiology Past 72 Hours 07/23/20 13:15 Blood Culture (Wb) - Anticubital Right Blood Culture - Final No growth in 5 days. 07/23/20 12:50 Blood Culture (Wb) - Anticubital Right Blood Culture - Final No growth in 5 days. Laboratory Results 07/29/20 05:08: WBC 13.9 H, RBC 2.65 L, Hgb 8.2 L, Hct 25.8 L, MCV 97.4, MCH 30.9, MCHC 31.8 L, RDW Std Deviation 49.2 H, RDW Coeff of Ralph 13.9, Plt Count 359, MPV 10.8 07/29/20 05:08: Sodium 138, Potassium 5.0, Chloride 112 H, Carbon Dioxide 17.0 L, Anion Gap 9, BUN 74 H, Creatinine 4.07 H, Estim Creat Clear Calc 12.56, Est GFR (MDRD) Af Amer 14 L, Est GFR (MDRD) Non-Af 12 L, BUN/Creatinine Ratio 18.2, Glucose 100, Calcium 8.4 L Current Medications Albuterol Sulfate (Albuterol 2.5 Mg/3 Ml Vial.Neb.) 2.5 mg INHALATION Q2H PRN PRN PRN Reason: Dyspnea, wheezing Last Admin: 07/28/20 22:28 Dose: 2.5 mg Documented by: Amlodipine Besylate (Amlodipine 10 Mg Tablet) 10 mg PO DAILY@1999 [facility] Last Admin: 07/28/20 20:20 Dose: 10 mg Documented by: Atorvastatin Calcium (Atorvastatin Calcium 40 Mg Tablet) 40 mg PO QHS [facility] Last Admin: 07/28/20 22:13 Dose: 40 mg Documented by: Calcitriol (Calcitriol 0.25 Mcg Capsule) 0.25 mcg PO DAILY [facility] Last Admin: 07/29/20 08:50 Dose: 0.25 mcg Documented by: Calcium Carbonate (Calcium Carbonate 500 Mg Tablet) 500 mg PO QODAY@0800 [facility] Last Admin: 07/28/20 08:38 Dose: 500 mg Documented by: Clonidine HCl (Clonidine Hcl 0.3 Mg Patch) 0.3 mg TD Q7D [facility] Last Admin: 07/24/20 08:13 Dose: 0.3 mg Documented by: Enoxaparin Sodium (Enoxaparin 30 Mg/0.3 Ml Syringe) 30 mg SC DAILY [facility] Last Admin: 07/29/20 08:49 Dose: 30 mg Documented by: Estradiol (Estradiol 0.5 Mg Tablet) 0.5 mg PO DAILY [facility] Last Admin: 07/29/20 08:48 Dose: 0.5 mg Documented by: Fluoxetine HCl (Fluoxetine 20 Mg Capsule) 20 mg PO DAILY [facility] Last Admin: 07/29/20 08:49 Dose: 20 mg Documented by: Hydralazine HCl (Hydralazine 20 Mg/Ml Vial) 10 mg IV Q6H PRN PRN PRN Reason: SBP >160 or DBP >110 Last Admin: 07/24/20 09:28 Dose: 10 mg Documented by: Hydralazine HCl (Hydralazine 10 Mg Tablet) 10 mg PO TID [facility] Last Admin: 07/29/20 14:18 Dose: 10 mg Documented by: Sodium Chloride () 250 mls @ 15 mls/hr IV .[id number] PRN PRN Reason: Saline Flush Last Infusion: 07/26/20 01:30 Dose: 0 mls/hr Documented by: Sodium Chloride () 250 mls @ 15 mls/hr IV .[id number] PRN PRN Reason: Additional IVPB Infusion Lactobacillus Acidophilus (Lactobacillus Acidophilus) 1 tablet PO DAILY [facility] Last Admin: 07/29/20 08:49 Dose: 1 tablet Documented by: Linaclotide (Linacolotide 145 Mcg Capsule) 145 mcg PO DAILY [facility] Last Admin: 07/29/20 08:49 Dose: 145 mcg Documented by: Metoprolol Succinate (Metoprolol(Xl)Succ 50 Mg Tablet) 50 mg PO DAILY [facility] Last Admin: 07/29/20 08:50 Dose: 50 mg Documented by: Multivitamins/Minerals (Multivitamins,Ther W-Minerals Tablet) 1 tablet PO DAILY@0800 [facility] Last Admin: 07/29/20 08:49 Dose: 1 tablet Documented by: Pantoprazole Sodium (Pantoprazole Sodium 40 Mg Tablet) 40 mg PO DAILY [facility] Last Admin: 07/29/20 08:49 Dose: 40 mg Documented by: Polyethylene Glycol (Polyethylene Glycol 3350 17 Gm Packet) 17 gm PO DAILY [facility] Last Admin: 07/29/20 08:48 Dose: 17 gm Documented by: Sodium Chloride (0.9% Saline Lock 10 Ml Syringe) 10 - 40 ml IV UD PRN PRN Reason: SALINE FLUSH Last Admin: 07/28/20 11:07 Dose: 20 ml Documented by: STROKE Vital Signs/Narrative: Vital Signs Temp Pulse Resp BP Pulse Ox 07/29/20 14:18 78 143/61 H 07/29/20 14:00 98.6 F 72 16 143/61 H 95 07/29/20 13:55 91 Medical Necessity - Tobacco Use Smoking Status: Never smoker Assessment/Plan All Active Problems (Last Reviewed 06/25/20 @ 14:22 by Marry Sadler) History of pheochromocytoma (Acute) Pneumonia (Acute) Hypoxia (Acute) Hx of colonoscopy (Acute) History of esophagogastroduodenoscopy (EGD) (Acute) Hx of tonsillectomy (Acute) 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 Acute hypoxic respiratory failure secondary to a left lower lobe pneumonia likely gram-positive organism as well as acute diastolic CHF -Heart failure is new diagnosis however it is consistent with the pleural effusions and the orthopnea she was complaining about. -Echo demonstrated a normal EF with diastolic function as being indeterminate -Infectious disease was consulted, and she has completed her antibiotics -Currently needs 2 L nasal cannula for ambulation -She did receive Lasix previously, however given her renal failure will hold off on any further diuretics -We will continue with a fluid restriction 2. 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 HTN/HLD -We will continue to make blood pressure medication adjustment secondary to her renal dysfunction -Currently tolerating hydralazine, Norvasc, and metoprolol as well as clonidine patch -If still having difficulty controlling her blood pressure, would recommend transitioning metoprolol to Coreg 4. GERD -Stable -Continue with PPI 5. Anxiety/depression -Stable -Continue with Prozac DVT: Lovenox Inpatient E&M: 62077 Subs Hosp L2
[2020-07-29] MEDS: Atorvastatin Calcium 40 MG Tablet PO (21:25)
[2020-07-29] MEDS: amLODIPine 10 MG Tablet PO (21:25)
[2020-07-30] VITALS (9 sets, daily range): BP systolic 145–152; BP diastolic 72–73; PULSE 69–84; RESP 16–18; TEMP 36.8; O2SAT 90–94
[2020-07-30] MEDS: hydrALAZINE 10 MG Tablet PO ×2 (05:34→14:01)
[2020-07-30 08:08] LABS: Hematocrit 25.1 % (37-47); Hemoglobin 7.8 g/dL (12.0-15.0); Mean Corp Hgb Conc 31.1 g/dL (32-36); Mean Corpuscular Hgb 30.2 pg (27.0-32.0); Mean Corpuscular Volume 97.3 fL (81-99); Platelet Count 379 K/mm3 (150-450); RBC Distribution Width CV 13.9 % (11.6-14.6); RBC Distribution Width SD 49.3 fl (35.1-43.9); Red Blood Count 2.58 M/mm3 (4.2-5.4); White Blood Count 13.9 K/mm3 (4.4-11.0)
[2020-07-30 08:16] LABS: Anion Gap 8 (5-15); BUN 79 mg/dL (7-18); BUN/Creat Ratio 19.5 RATIO (10-20); Calcium,Total 8.5 mg/dL (8.5-10.1); Chloride 113 mmol/L (98-107); Creatinine, Serum 4.06 mg/dL (0.55-1.02); EST Glomerular Filtration Rate 12 mL/min (>60); Est Glom Filt Rate - Afr Amer 14 mL/min (>60); Estimated Creatinine Clearance 12.59 ml/min; Glucose 101 mg/dL (74-106); Potassium 5.2 mmol/L (3.5-5.1); Sodium Level 140 mmol/L (136-145)
[2020-07-30 08:24] LABS: Scan Indicated on CBC? Y/N NO
[2020-07-30] MEDS: Polyethylene Glycol 3350 17 GM PACKET PO (09:09)
[2020-07-30] MEDS: Calcium Carbonate 500 MG Tablet PO (09:09)
[2020-07-30] MEDS: Pantoprazole Sodium 40 MG Tablet PO (09:09)
[2020-07-30] MEDS: Calcitriol 0.25 MCG Capsule PO (09:09)
[2020-07-30] MEDS: Enoxaparin 30 MG/0.3 ML Syringe SC (09:09)
[2020-07-30] MEDS: Estradiol 0.5 MG Tablet PO (09:10)
[2020-07-30] MEDS: Multivitamins,Ther W-Minerals Tablet 1 TABLET PO (09:10)
[2020-07-30] MEDS: FLUoxetine 20 MG Capsule PO (09:10)
[2020-07-30] MEDS: Linacolotide 145 MCG CAPSULE PO (09:10)
[2020-07-30] MEDS: Metoprolol(XL)Succ 50 MG Tablet PO (09:10)
--- NOTE | 2020-07-30 12:10 | PN.RENAL_ITS ---
Subjective Subjective: breathing stable, no nausea, vomiting Objective Data Objective Data Vital Signs: Vital Signs Temp Pulse Resp BP Pulse Ox 98.2 F 76 18 145/72 H 93 07/30/20 08:58 07/30/20 10:59 07/30/20 08:58 07/30/20 09:10 07/30/20 08:58 Oxygen Flow Rate (L/min) [ 5 AMBULATING with Oxygen #3] Oxygen Flow Rate (L/min) [ 4 AMBULATING with Oxygen #2] Oxygen Flow Rate (L/min) [ 2 AMBULATING with Oxygen #1] Oxygen Flow Rate (L/min) [At 3 REST with Oxygen] Oxygen Flow Rate (L/min) 3 Oxygen Delivery Method Room Air Weight: 87.362 kg Body Mass Index (BMI) 29.8 Intake & Output: Intake and Output for Last 24 Hours 07/28/20 07/29/20 07/30/20 23:59 23:59 23:59 Intake Total 1320 / 1320 450 / 450 Balance 1320 / 1320 450 / 450 Lab / Micro Data Result Diagrams: 07/30/20 06:55 07/30/20 06:55 Labs: Laboratory Results - last 24 hr 07/30/20 07/30/20 06:55 06:55 WBC 13.9 H RBC 2.58 L Hgb 7.8 L Hct 25.1 L MCV 97.3 MCH 30.2 MCHC 31.1 L RDW Std Deviation 49.3 H RDW Coeff of Ralph 13.9 Plt Count 379 MPV 11.0 Sodium 140 Potassium 5.2 H Chloride 113 H Carbon Dioxide 19.0 L Anion Gap 8 BUN 79 H Creatinine 4.06 H Estim Creat Clear Calc 12.59 Est GFR (MDRD) Af Amer 14 L Est GFR (MDRD) Non-Af 12 L BUN/Creatinine Ratio 19.5 Glucose 101 Calcium 8.5 Micro: Microbiology 07/23/20 13:15 Blood Culture (Wb) - Anticubital Right Blood Culture - Final No growth in 5 days. 07/23/20 12:50 Blood Culture (Wb) - Anticubital Right Blood Culture - Final No growth in 5 days. 07/24/20 01:15 Urine, Clean Catch Legionella Antigen - Final 07/24/20 01:15 Urine, Clean Catch Streptococcus pneumoniae Antigen (M - Final 07/23/20 12:15 Mucosa - Nose SARS-CoV-2 Antigen (Rapid) - Final Radiography Diagnostic Testing: Radiology Impression Echocardiogram 07/29/20 10:19 Interpretation Summary Left ventricular systolic function is normal. The estimated ejection fraction is 65 %. The left atrium is mildly enlarged. Mild (1+) mitral valve insufficiency. Trivial tricuspid valve insufficiency. Unable to estimate RV systolic pressure due to insufficient tricuspid regurgitant envelope. Diastolic function is indeterminate. Ordering Physician: Moreno Benton Referring Physician: Eduin Pollack Performed By: Richard Chacon RCS Physical Exam Const alert and oriented x3 Resp clear to auscultation bilaterally Cardio regular rate GI non-tender and non-distended Palpation: soft Extremity Extremity Narrative: AVF with thrill and bruit General Extremity: edema bilateral (mild) Assessment & Plan Assessment/Plan (1) CKD (chronic kidney disease) stage 5, GFR less than 15 ml/min: Status: Chronic Code(s): N18.5 - Chronic kidney disease, stage 5 Plan: s/p AVF placement. Transplant w/u in progress. follow up in office with me in 1 week (2) Hypertension: Status: Chronic Code(s): I10 - Essential (primary) hypertension Plan: hold losartan. Continue hydralazine on discharge (3) Iron deficiency anemia: Status: Acute Code(s): D50.9 - Iron deficiency anemia, unspecified Qualifiers: Iron deficiency anemia type: unspecified iron deficiency Qualified Code(s): D50.9 - Iron deficiency anemia, unspecified Plan: s/p iv iron. KRYSTIAN 10K today x1 (4) Metabolic acidosis: Status: Acute Code(s): E87.2 - Acidosis Plan: sdium bicarb 650mg daily on discharge
--- NOTE | 2020-07-30 13:06 | PCM.DC ---
Discharge Instructions Outpatient Procedure Reason For Visit: HYPOXIA, PNEUMONIA Diet Discharge Diet: Renal Diet Activity Discharge Activity: Return to Normal Activity Dressing / Incision Call your doctor if you observe: Fever of 101 or Higher, Shortness of breath, Dizziness, Fainting spells, Swelling in the ankles, Chest pain and Increased palpitations (irregular heartbeat) Follow Up Care Please Follow Up With: PCP Test Results: Test results from this visit will be discussed in further detail at your follow-up appointment, if applicable. Discharge Plan Admission Admit Date/Time: 07/23/20 14:23 Primary Reason for Your Visit: Pneumonia and renal failure Attending Provider: Moreno Benton Primary Care Provider: Antony Pollack Consulting Providers: Dejan Cruz ; Stanley Stephens ; Annalise Gomez Instructions Patient Instructions: ED Anemia, Iron-Deficiency (Adult), ED Diet for Chronic Kidney Disease, ED Hypertension, Established, Pneumonia Additional Instructions / Restrictions: Obtain a CBC and a BMP by her PCP to monitor your kidney function as well as your iron deficiency anemia Discharge Orders/Prescriptions Prescriptions: New hydralazine 10 mg Tablet 10 mg PO TID Qty: 90 RF: 0 cephalexin 500 mg capsule 500 mg PO Q12H Qty: 14 RF: 0 sodium bicarbonate 650 mg tablet 650 mg PO DAILY Qty: 30 RF: 0 Continued estradiol 0.5 mg tablet 0.5 mg PO DAILY RF: 0 amlodipine 10 mg tablet 10 mg PO DAILY RF: 0 pantoprazole 20 mg tablet,delayed release (DR/EC) 20 mg PO QODAY RF: 0 atorvastatin 40 mg tablet 40 mg PO DAILY RF: 0 calcitriol 0.25 mcg capsule 0.25 mcg PO DAILY RF: 0 linaclotide 145 mcg capsule 145 mcg PO DAILY RF: 0 polyethylene glycol 3350 [Miralax] 17 gram/dose powder 17 gm PO DAILY RF: 0 clonidine 0.3 MG patch 0.3 mg TRANSDERM. SEYMOUR RF: 0 fluoxetine 20 MG capsule 20 mg PO DAILY RF: 0 metoprolol tartrate 50 MG tablet 50 mg PO DAILY RF: 0 calcium carbonate 600 MG tablet 600 mg PO QODAY RF: 0 cholecalciferol (vitamin D3) 1,250 MCG capsule 1,250 mcg PO QODAY RF: 0 L.acidoph, paracasei,B. lactis 1 EACH capsule 1 each PO DAILY RF: 0 pbfrknqf-cbh-xsvr-FA-lutein 1 EACH tablet 1 tablet PO DAILY RF: 0 Discontinued losartan 100 MG tablet 100 mg PO DAILY RF: 0 Referrals: Antony Pollack MD [Primary Care Provider] - (In 3-5 days) Annalise Gomez DO [STAFF PHYSICIAN] - (Next week) Disposition Patient Disposition: Home, self care
--- NOTE | 2020-07-30 13:17 | CASEMGMT ---
RN CM notified that pt does not qualify for O2 at this time.
[2020-07-30] MEDS: Epoetin Alfa epbx 10,000 UNITS/ML 10000 UNIT SC (14:00)
--- NOTE | 2020-07-30 15:02 | DS.PCM_ITS ---
Providers Date of Admission: 07/23/20 Primary Care Physician: Dr. Antony Pollack MD Consultations 07/23/20 17:53 Physician Consult Routine Consulting Provider: Dejan Cruz Reason for Consult: acute hypoxic respiratory failure, pneumonia Notified: Yes Date Notified:: 07/23/20 Time Notified: 16:13 Method of Notification:: Text Physician Consult Routine Consulting Provider: Annalise Gomez Reason for Consult: CKD stage V Notified: Yes Date Notified:: 07/23/20 Time Notified: 16:17 Method of Notification:: Verbal Physician Consult Routine Consulting Provider: Stanley Stephens Reason for Consult: pneumonia Notified: Yes Date Notified:: 07/23/20 Time Notified: 16:15 Method of Notification:: Text Reason For Visit: HYPOXIA, PNEUMONIA Diagnosis Discharge Diagnosis (1) CKD (chronic kidney disease) stage 5, GFR less than 15 ml/min: Status: Chronic Code(s): N18.5 - Chronic kidney disease, stage 5 (2) Hypertension: Status: Chronic Code(s): I10 - Essential (primary) hypertension (3) Iron deficiency anemia: Status: Acute Code(s): D50.9 - Iron deficiency anemia, unspecified Qualifiers: Iron deficiency anemia type: unspecified iron deficiency Qualified Code(s): D50.9 - Iron deficiency anemia, unspecified (4) Metabolic acidosis: Status: Acute Code(s): E87.2 - Acidosis Medications at Discharge Home Medications clonidine 0.3 mg TRANSDERM. SEYMOUR 05/09/18 fluoxetine 20 mg PO DAILY 05/09/18 amlodipine 10 mg tablet 10 mg PO DAILY tablet 06/25/20 atorvastatin 40 mg tablet 40 mg PO DAILY tablet 06/25/20 calcitriol 0.25 mcg capsule 0.25 mcg PO DAILY cap 06/25/20 estradiol 0.5 mg tablet 0.5 mg PO DAILY tablet 06/25/20 linaclotide 145 mcg capsule 145 mcg PO DAILY cap 06/25/20 pantoprazole 20 mg tablet,delayed release 20 mg PO QODAY tablet 06/25/20 polyethylene glycol 3350 17 gram/dose oral powder 17 gm PO DAILY 06/25/20 metoprolol tartrate 50 mg PO DAILY 07/18/20 L.acidoph, parachermani,B. lactis 1 each PO DAILY 07/23/20 calcium carbonate 600 mg PO QODAY 07/23/20 cholecalciferol (vitamin D3) 1,250 mcg PO QODAY 07/23/20 cfauyrkh-cib-zvar-FA-lutein 1 tablet PO DAILY 07/23/20 cephalexin 500 mg PO Q12H #14 cap 07/30/20 hydralazine 10 mg PO TID #90 tab 07/30/20 sodium bicarbonate 650 mg PO DAILY #30 tab 07/30/20 Hospital Course Operations None Procedures None Summary of Care Provided Minutes Spent on Discharge: 35 Hospital Course: Per HPI: The patient is a 65 year old F presents with a complaint of increasing shortness of breath. She has a PMH of CKD stage 5, for which she recently had an AV fistula placed 4 days prior to admission. 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 states she had had a mild fever of around 99.4 at home but she denied any chills and denied any cough. She just was not feeling well and shortness of breath was worsening so she called her surgeon who did the AV fistula and she was told to come into the ED to rule out a PE. In [facility] ED, vitals showed temp 97.2F, with BP of 138/72, DE of 76 and RR of 16. RR went up to 29, and she dropped to 79% with ambulation. She was saturating at 88% at time of review of, on 7L of oxygen. She denied any long distance travel, or any hi story of DVT or PE. CXR done showed left hilar pneumonia; Cr was 4.47, and EGFR was 10. Duplex of the lower extremities was negative. However in light of severe hypoxia, it was imperative to try rule out a PE. Due to patient's pneumonia, a VQ scan would be abnormal. This was discussed extensively with patient and her streetcar operator. Patient's said he had been told that once the GFR dropped to 10, I would be time to start dialysis. I counseled him that this drop of EGFR of 10 from his baseline of 14 could be an acute situation due to her acute infection and so minor surgery necessitate starting dialysis as eGFR may improve. I did world travel counselor patient and that if she did have a CTA with contrast, she would need to start dialysis sooner rather than later. I discussed with her streetcar operator Dr. Gomez was also in agreement with this plan said in light of the need to rule out PE, CTA of the chest could be done. Patient was to be hydrated before and after the CTA of the chest to flush out her kidneys as she was still making urine and patient and expressed understanding that she may need to start dialysis sooner rather than later. She has been admitted to be managed for acute hypoxic respiratory failure due to community-acquired pneumonia and probable PE. Of note, there was limited concern about aspiration pneumonia as patient had the general anesthesia about 4 days prior to admission and she had not been short of breath since then. CTA pending. Hospital Course: 1. Acute hypoxic respiratory failure secondary to a left lower lobe pneumonia li bernice gram-positive organism as well as acute diastolic [id number] female presented from home with increasing shortness of breath as well as orthopnea. She was found to be in CKD 5 and nephrology was consulted for assistance. She did have an echo with a normal EF and an indeterminant diastolic function given her symptomatology it was felt that she likely had a component of diastolic heart failure was given a dose of Lasix. Infectious disease was consulted as well to help in management of her pneumonia. She did complete her antibiotic course while here in the hospital. She had an ambulatory pulse ox today and did not qualify for oxygen on discharge today, I discussed with her the plan for discharge and she expressed understanding of this and benefits and wanted to go home today. 2. 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 Also continue with sodium bicarbonate per her request nephrology. She will follow up with nephrology next week because she makes urine she still not a dialysis candidate but she does have a fistula in the left upper extremity. 3. Right upper extremity infiltration with possible mild cellulitis-her IV infiltrated on her right antecubital fossa and she still has some more warmth, induration, and redness. Her white count has stabilized around 13.5 and because of this, will transition to Keflex p.o.twice daily for 7 days to treat a possible cellulitis and she will follow up with her PCP in 3 to 5 days for monitoring and evaluation 4. Hyperlipidemia, GERD, anxiety, depression all chronic medical conditions which complicate her care. Her home medications were continued where appropriate Physical Exam Narrative General: Alert, Oriented x3, Cooperative, No apparent distress HEENT: Atraumatic, PERRLA, EOMI, Normocephalic Oral: Moist Mucosa Neck: Supple, No JVD Lungs: Normal air movement, No rhonchi, No wheeze, No rales, Diminished Cardiovascular: Regular rate, Regular Rhythm, Normal S1, Normal S2, No murmurs Abdomen: Soft, Non Tender, Non-Distended, No Hepato-splenomegaly Extremities: No edema, Capillary Refill Less than 3 Seconds Skin: No rashes, No breakdown Neurological: Neuro grossly intact, Sensory exam intact to light touch and pain Psych/Mental Status: Normal Affect, Appropriate ABG / Lab / Microbiology Data Result Diagrams: 07/30/20 06:55 07/30/20 06:55 Laboratory: Laboratory Results - last 24 hr 07/30/20 07/30/20 06:55 06:55 WBC 13.9 H RBC 2.58 L Hgb 7.8 L Hct 25.1 L MCV 97.3 MCH 30.2 MCHC 31.1 L RDW Std Deviation 49.3 H RDW Coeff of Ralph 13.9 Plt Count 379 MPV 11.0 Sodium 140 Potassium 5.2 H Chloride 113 H Carbon Dioxide 19.0 L Anion Gap 8 BUN 79 H Creatinine 4.06 H Estim Creat Clear Calc 12.59 Est GFR (MDRD) Af Amer 14 L Est GFR (MDRD) Non-Af 12 L BUN/Creatinine Ratio 19.5 Glucose 101 Calcium 8.5 Microbiology: Microbiology 07/23/20 13:15 Blood Culture (Wb) - Anticubital Right Blood Culture - Final No growth in 5 days. 07/23/20 12:50 Blood Culture (Wb) - Anticubital Right Blood Culture - Final No growth in 5 days. 07/24/20 01:15 Urine, Clean Catch Legionella Antigen - Final 07/24/20 01:15 Urine, Clean Catch Streptococcus pneumoniae Antigen (M - Final 07/23/20 12:15 Mucosa - Nose SARS-CoV-2 Antigen (Rapid) - Final D/C Instructions Discharge Diet: Renal Diet Discharge Activity: Return to Normal Activity Call your doctor if you observe: Fever of 101 or Higher, Shortness of breath, Dizziness, Fainting spells, Swelling in the ankles, Chest pain and Increased palpitations (irregular heartbeat) Please Follow Up With: Antony Pollack MD Meaningful Use Info Meaningful Use Diagnoses (Choose all that apply): None applicable Discharge Plan Admission Admit Date/Time: 07/23/20 14:23 Primary Reason for Your Visit: Pneumonia and renal failure Attending Provider: Moreno Benton Primary Care Provider: Antony Pollack Consulting Providers: Dejan Cruz ; Stanley Stephens ; Annalise Gomez Instructions Patient Instructions: Pneumonia, ED Anemia, Iron-Deficiency (Adult), ED Diet for Chronic Kidney Disease, ED Hypertension, Established Additional Instructions / Restrictions: Obtain a CBC and a BMP by her PCP to monitor your kidney function as well as your iron deficiency anemia Discharge Orders/Prescriptions Prescriptions: New hydralazine 10 mg Tablet 10 mg PO TID Qty: 90 RF: 0 cephalexin 500 mg capsule 500 mg PO Q12H Qty: 14 RF: 0 sodium bicarbonate 650 mg tablet 650 mg PO DAILY Qty: 30 RF: 0 Continued estradiol 0.5 mg tablet 0.5 mg PO DAILY RF: 0 amlodipine 10 mg tablet 10 mg PO DAILY RF: 0 pantoprazole 20 mg tablet,delayed release (DR/EC) 20 mg PO QODAY RF: 0 atorvastatin 40 mg tablet 40 mg PO DAILY RF: 0 calcitriol 0.25 mcg capsule 0.25 mcg PO DAILY RF: 0 linaclotide 145 mcg capsule 145 mcg PO DAILY RF: 0 polyethylene glycol 3350 [Miralax] 17 gram/dose powder 17 gm PO DAILY RF: 0 clonidine 0.3 MG patch 0.3 mg TRANSDERM. SEYMOUR RF: 0 fluoxetine 20 MG capsule 20 mg PO DAILY RF: 0 metoprolol tartrate 50 MG tablet 50 mg PO DAILY RF: 0 calcium carbonate 600 MG tablet 600 mg PO QODAY RF: 0 cholecalciferol (vitamin D3) 1,250 MCG capsule 1,250 mcg PO QODAY RF: 0 L.acidoph, paracasei,B. lactis 1 EACH capsule 1 each PO DAILY RF: 0 tjniksio-qzb-oofk-FA-lutein 1 EACH tablet 1 tablet PO DAILY RF: 0 Discontinued losartan 100 MG tablet 100 mg PO DAILY RF: 0 Referrals: Antony Pollack MD [Primary Care Provider] - (In 3-5 days) Annalise Gomez DO [STAFF PHYSICIAN] - (Next week) Disposition Patient Disposition: Home, self care Inpatient E&M: [id number] Disch Hosp
== END 2020-07-30 15:01 | disposition home or self-care (01) | DRG 193 ==
LOC: ED 12:33 → PCU 15:14 → ICU 07-24 02:00 → PCU 07-26 11:58 → ICU 07-29 08:07 → PCU 07-29 08:07
PROVIDERS: Internal Medicine; Internal Medicine Critical Care Medicine; Internal Medicine Nephrology; Admitting Provider Student in an Organized Health Care Education/Training Program; Emergency Provider Emergency Medicine; PCP Family Medicine; Visit Provider Family Medicine
DX: J18.9 Pneumonia, unspecified organism (principal); J96.01 Acute respiratory failure with hypoxia; I50.31 Acute diastolic (congestive) heart failure; N18.5 Chronic kidney disease, stage 5; D84.9 Immunodeficiency, unspecified; N25.81 Secondary hyperparathyroidism of renal origin; E87.2 Acidosis; I13.2 Hypertensive heart and chronic kidney disease with heart failure and with stage 5 chronic kidney disease, or end stage renal disease; L03.113 Cellulitis of right upper limb; D50.9 Iron deficiency anemia, unspecified; K21.9 Gastro-esophageal reflux disease without esophagitis; G47.30 Sleep apnea, unspecified; G47.33 Obstructive sleep apnea (adult) (pediatric); F32.9 Major depressive disorder, single episode, unspecified; F41.9 Anxiety disorder, unspecified; D63.1 Anemia in chronic kidney disease; N26.9 Renal sclerosis, unspecified; Z90.81 Acquired absence of spleen; E78.5 Hyperlipidemia, unspecified; Z66 Do not resuscitate; E66.9 Obesity, unspecified; Z68.32 Body mass index [BMI] 32.0-32.9, adult; Z79.899 Other long term (current) drug therapy; Z80.51 Family history of malignant neoplasm of kidney; Z80.7 Family history of other malignant neoplasms of lymphoid, hematopoietic and related tissues; Z90.710 Acquired absence of both cervix and uterus
CPT/HCPCS: 36415; 36600; 71045; 71275; 80048; 80053; 80069; 82803; 83540; 83550; 83605; 83735; 83880; 84300; 84484; 85025; 85027; 85379; 85610; 85730; 87040; 87426; 87449; 87635; 87641; 93005; 93306; 93970; 94002; 94003; 94640; 97110; 97162; 97166; 97530; 99251; 99285; J7030; J7040; J7050; Q9957; Q9967; A4216; G0463; J1940; J2916; Q5106; U0002

== ENCOUNTER 2020-08-06 09:09 | Inpatient (IN) | payer MEDICARE, SELFPAY ==
[2020-07-23 17:53] VITALS: BMI 29.8
[2020-08-06] VITALS (16 sets, daily range): BP systolic 149–186; BP diastolic 64–83; PULSE 63–104; RESP 16–26; TEMP 36.4–37; O2SAT 89–97; BMI 31.2; BMI 30.7
--- NOTE | 2020-08-06 09:28 | EKG12_ITS ---
Test Reason : SOB Blood Pressure : / mmHG Vent. Rate : 069 BPM Atrial Rate : 069 BPM P-R Int : 158 ms QRS Dur : 082 ms QT Int : 444 ms P-R-T Axes : 068 086 040 degrees QTc Int : 475 ms Normal sinus rhythm Normal ECG Confirmed by SIVA VOGT, THA ([id number]), editorial writer RUDY VELA ([id number]) on 08/07/2020 9:22:10 AM Referred By: NICOLE Confirmed By:THA PANIAGUA MD
[2020-08-06] MEDS: Ipratropium/Albuterol Sulfate 3 ML AMPUL.NEB INHALATION (09:37)
--- NOTE | 2020-08-06 09:52 | EDS_ITS ---
HPI History of Present Illness Chief Complaint: Shortness of Breath Informant: patient and spouse/S.O. Onset/Context/Timing Onset: Weeks (1) Context: gradual Timing: Continuous Quality: Positive for Dyspnea on exertion Worsened by: Exertion Relieved by: Rest Associated Symptoms Negative for cough, rhinorrhea, ear pain or sore throat Chest Pain: Positive for Continuous and Tightness Narrative Narrative: Patient presents with shortness of breath that has been gradually getting worse over the last week. Patient was recently admitted to the hospital for pneumonia and completed her antibiotics. Patient also had an AV fistula placed recently for end-stage renal disease. states that whenever the patient walks across the room her pulse oximeter drops into the 80s. Patient denies any cough or sputum production. Patient denies any fevers or chills. Patient admits to some tightness in her upper chest. [facility] Medical History (Updated 08/06/20 @ 12:[address] Zoran Alegre, ) Acid reflux Chronic renal failure, stage 4 (severe) Constipation Hypertension Sleep apnea Home Medications clonidine 0.3 mg TRANSDERM. SEYMOUR 05/09/18 [History Last Taken 07/21/20] fluoxetine 20 mg PO DAILY 05/09/18 [History Last Taken 07/23/20 08:00] amlodipine 10 mg tablet 10 mg PO DAILY tablet 06/25/20 [History Last Taken 07/22/20 20:00] atorvastatin 40 mg tablet 40 mg PO DAILY tablet 06/25/20 [History Last Taken 07/22/20 20:00] calcitriol 0.25 mcg capsule 0.25 mcg PO DAILY cap 06/25/20 [History Last Taken 07/23/20 08:00] estradiol 0.5 mg tablet 0.5 mg PO DAILY tablet 06/25/20 [History Last Taken 07/23/20 08:00] linaclotide 145 mcg capsule 145 mcg PO DAILY cap 06/25/20 [History Last Taken 07/23/20 08:00] pantoprazole 20 mg tablet,delayed release 20 mg PO QODAY tablet 06/25/20 [History Last Taken 07/21/20 16:15] polyethylene glycol 3350 17 gram/dose oral powder 17 gm PO DAILY 06/25/20 [History Last Taken 07/23/20 08:00] metoprolol tartrate 50 mg PO DAILY 07/18/20 [History Last Taken 07/23/20 08:00] L.acidoph, paracasei,B. lactis 1 each PO DAILY 07/23/20 [History Last Taken 07/23/20 08:00] calcium carbonate 600 mg PO QODAY 07/23/20 [History Last Taken 07/22/20 08:00] cholecalciferol (vitamin D3) 1,250 mcg PO QODAY 07/23/20 [History Last Taken 07/21/20 20:00] rckebvbz-lmc-qzfz-FA-lutein 1 tablet PO DAILY 07/23/20 [History Last Taken 07/23/20 08:00] cephalexin 500 mg PO Q12H #14 cap 07/30/20 [Rx Last Taken Unknown] hydralazine 10 mg PO TID #90 tab 07/30/20 [Rx Last Taken Unknown] sodium bicarbonate 650 mg PO DAILY #30 tab 07/30/20 [Rx Last Taken Unknown] Allergy/AdvReac Type Severity Reaction Status Date / Time Sulfa (Sulfonamide AdvReac Nausea Verified 08/06/20 09:15 Antibiotics) Family History Mother Multiple myeloma Endometrial stromal sarcoma Sarcomatoid renal cell carcinoma Surgical History History of esophagogastroduodenoscopy (EGD) Hx of colonoscopy Hx of hysterectomy Hx of splenectomy Hx of tonsillectomy Hx of total adrenalectomy Social History Smoking Status: Never smoker second hand exposure: No alcohol intake: never substance use type: does not use caffeine: Yes what type of physical activity do you participate in: walking frequency: other seatbelt use: always ROS ROS ED Constitutional Constitutional ED: Denies chills or fever(s) Eyes Eyes: Denies blurry vision or change in vision ENT ENT ED: Denies rhinorrhea or sore throat Cardiovascular Cardiovascular: Reports chest pain; Denies palpitations Respiratory/Chest Respiratory/Chest: Reports dyspnea; Denies cough Gastrointestinal Gastrointestinal: Denies nausea or vomiting Genitourinary Genitourinary ED: Denies dysuria or hematuria Musculoskeletal Musculoskeletal: Denies back pain or neck pain Integumentary Denies abscess or rash Neurologic Neurologic: Denies headache(s), paresthesias or weakness Allergic/Immunologic Allergic/Immunologic ED: Denies mouth swelling or urticaria EXAM Physical Exam Const Vital Signs: 08/06/20 09:12 08/06/20 09:15 08/06/20 09:27 Temperature 97.7 F L 98 F Temperature Source Oral Temporal Pulse Rate 74 70 Respiratory Rate 26 H 20 H Respiratory Pattern Blood Pressure 178/82 H 164/64 H Blood Pressure Mean 114 97 Pulse Ox 89 95 Oxygen Delivery Method Room Air Room Air Room Air Oxygen Flow Rate (L/min) 08/06/20 09:38 08/06/20 10:11 08/06/20 10:15 Temperature 98.6 F Temperature Source Temporal Pulse Rate 71 77 79 Respiratory Rate 20 H 18 20 H Respiratory Pattern Normal Blood Pressure 186/82 H 186/82 H Blood Pressure Mean 116 116 Pulse Ox 97 95 Oxygen Delivery Method Nasal Cannula Nasal Cannula Oxygen Flow Rate (L/min) 2 2 Positive well nourished and well developed General Appearance ED: well developed HEENT Reports moist mucous membranes Neck supple and no JVD Resp normal respiratory effort and clear to auscultation bilaterally Cardio regular rate and regular rhythm GI non-tender and non-distended Auscultation: normoactive bowel sounds Palpation: soft Neuro oriented x3, CN's II-XII intact bilaterally and no sensory deficits noted Sensorium / Orientation: alert Motor Exam: strength 5/5 throughout Psych mental status grossly normal MDM MDM MDM Narrative Medical decision making narrative: CBC shows a mild leukocytosis of 11.7. PT with INR and PTT are within normal limits. D-dimer was elevated at 3.4. Comprehensive metabolic profile showed a potassium of 5.7, chloride of 113, BUN of 78, and creatinine of 4.53. Troponin was normal. Portable chest x-ray was obtained. There is 1 view. On my interpretation, there is bilateral infiltrates. Radiologist also interpreted the x-ray and states there is some improvement compared to prior study. EKG was obtained. On my interpretation, it showed a normal sinus rhythm with a rate of 69. SC interval, QRS interval, and QTc intervals were all normal. [place] was normal. There are no acute ST or T wave changes. Patient was given calcium gluconate, insulin, and glucose for her hyperkalemia. Patient was given a dose of Levaquin here. Antecubital IV was unable to be obtained. Therefore, CTA of the chest with not done at this time. Case was discussed with the hospitalist. He will admit the patient to his service. Patient and family understood and were agreeable with the plan. All questions were answered. Lab Data Attestation: I reviewed the patient's lab results. Labs: Laboratory Results - last 24 hr 08/06/20 08/06/20 08/06/20 09:50 09:50 09:50 WBC 11.7 H RBC 3.03 L Hgb 9.1 L Hct 29.4 L MCV 97.0 MCH 30.0 MCHC 31.0 L RDW Std Deviation 48.3 H RDW Coeff of Ralph 14.2 Plt Count 571 H MPV 10.0 Immature Gran % (Auto) 1.300 H Neut % (Auto) 79.0 H Lymph % (Auto) 10.3 L [place] % (Auto) 5.9 Eos % (Auto) 2.7 Baso % (Auto) 0.8 Absolute Neuts (auto) 9.2 H Absolute Lymphs (auto) 1.20 Nucleated RBC % 0 PT 13.8 INR 1.1 APTT 32.3 D-Dimer Quant (PE/DVT) 3.40 H* Sodium 141 Potassium 5.7 H Chloride 113 H Carbon Dioxide 18.0 L Anion Gap 10 BUN 78 H Creatinine 4.53 H Estim Creat Clear Calc 11.28 Est GFR (MDRD) Af Amer 12 L Est GFR (MDRD) Non-Af 10 L BUN/Creatinine Ratio 17.2 Glucose 93 Calcium 8.9 Total Bilirubin 0.30 AST 40 H ALT 63 H Alkaline Phosphatase 147 H Troponin I < 0.015 Total Protein 6.9 Albumin 2.7 L Globulin 4.2 Albumin/Globulin Ratio 0.6 L Radiography Chest X-Ray - ED: 1 View, Read by ED Physician, Read by Radiologist, Right I nfiltrate and Left Infiltrate Diagnostic Testing: Radiology Impression Chest X-Ray 08/06/20 10:10 IMPRESSION: Persistent bilateral pulmonary infiltrates worse in the right hemithorax. There has been some improvement as compared to prior study. Electronically Signed: Raghavendra Patrick MD at 10:28 EDT , Service support , EKG Initial EKG: Attestation: I personally reviewed and interpreted this EKG as follows: Interpretation: Sinus Rhythm (69) and No Acute Injury Pattern Prior EKG tracings: available for review Prior: Unchanged (07/23/2020) Treatment and Re-Evaluation Vital Sign Attestation:: Vital signs were reviewed prior to admission and are stable except for slightly elevated blood pressure of 186/82. Discharge Plan Dx/Rx/DC Orders Clinical Impression: Pneumonia, Hypoxia, CKD (chronic kidney disease) stage 5, GFR less than 15 ml/min Disposition Disposition: Acute Care Hospital [facility]
[2020-08-06 10:06] LABS: Absolute Neutrophil Count 9.2 X10^3/uL (2.0-7.7); Basophil# 0.09 X10^3/uL; Basophil% 0.8 % (0-1); Eosinophil# 0.32 X10^3/uL; Eosinophils% 2.7 % (0-5); Hematocrit 29.4 % (37-47); Hemoglobin 9.1 g/dL (12.0-15.0); Lymphocyte % 10.3 % (19-41); Monocyte# 0.69 X10^3/uL; Monocyte% 5.9 % (0-10); NRBC Flagged by Analyzer 0 % (0-5); Neutrophil # 9.22 X10^3/uL (2.7-7.7); Platelet Count 571 K/mm3 (150-450); RBC Distribution Width CV 14.2 % (11.6-14.6); RBC Distribution Width SD 48.3 fl (35.1-43.9); Red Blood Count 3.03 M/mm3 (4.2-5.4); White Blood Count 11.7 K/mm3 (4.4-11.0)
--- NOTE | 2020-08-06 10:10 | RAD_ITS ---
STUDY: X-RAY CHEST REASON FOR EXAM: Female, 65 years old. Dyspnea and shortness of breath. Chest pain. TECHNIQUE: Single AP portable view of the chest. COMPARISON: Comparison is made with prior study dated 07/28/2020. FINDINGS: EKG electrodes are seen. Diffuse bilateral pulmonary infiltrates worse in the right hemithorax. There has been a mild improvement of the infiltration in the left hemithorax. Blunting of both costophrenic angles. Normal size heart. Normal mediastinum and sadia. Normal visualized pulmonary arteries. Normal visualized aortic arch and descending thoracic aorta. Normal visualized thoracic spine. Normal visualized ribs, clavicles, and shoulders. Surgical clips are seen in the left upper quadrant. RAD/Chest 1 View (Portable) IMPRESSION: Persistent bilateral pulmonary infiltrates worse in the right hemithorax. There has been some improvement as compared to prior study. Electronically Signed: Raghavendra Patrick MD at 10:28 EDT , Service support ,
[2020-08-06 10:19] LABS: International Normalized Ratio 1.1; Prothrombin Time (Protime)PT. 13.8 SECONDS (11.7-14.9)
[2020-08-06 10:20] LABS: Partial Thromboplast Time 32.3 Seconds (24.1-36.2)
[2020-08-06 10:22] LABS: ALB/GLOB Ratio 0.6 RATIO (0.9-2.4); AST(SGOT) 40 U/L (15-37); Alanine Aminotransfer ALT/SGPT 63 U/L (13-56); Albumin, Serum 2.7 g/dL (3.2-5.0); Alkaline Phosphatase 147 U/L (45-117); Anion Gap 10 (5-15); BUN 78 mg/dL (7-18); BUN/Creat Ratio 17.2 RATIO (10-20); Calcium,Total 8.9 mg/dL (8.5-10.1); Chloride 113 mmol/L (98-107); Creatinine, Serum 4.53 mg/dL (0.55-1.02); EST Glomerular Filtration Rate 10 mL/min (>60); Est Glom Filt Rate - Afr Amer 12 mL/min (>60); Estimated Creatinine Clearance 11.28 ml/min; Globulin 4.2 g/dL (2.2-4.2); Glucose 93 mg/dL (74-106); Potassium 5.7 mmol/L (3.5-5.1); Protein, Total 6.9 g/dL (6.4-8.2); Sodium Level 141 mmol/L (136-145)
[2020-08-06] MEDS: Dextrose 50%-Water 25 GM/50 ML DISP.SYRIN IV (11:37)
[2020-08-06] MEDS: Insulin Lispro 10 UNIT in Syringe 0 ML 6 UNIT IV (11:39)
[2020-08-06] MEDS: Dextrose 10%-Water 250 ML 40 ML IV (11:46)
--- NOTE | 2020-08-06 12:15 | PCM.HP.STD ---
[facility] - General General Date of Admission: 08/06/20 Chief Complaint: Shortness of breath [facility] Narrative ANICETO MASON, is a 65 F with past medical history segment for chronic kidney disease stage V, recent prolonged hospitalization for pneumonia discharge on 07/30/2020 who presented back to the emergency department with shortness of breath. Patient in addition also did complain of chest discomfort. Imaging studies obtained on admission demonstrated Persistent bilateral pulmonary infiltrates worse in the right hemithorax. There has been some improvement as compared to prior study. Patient was also found to be hypoxic with oxygen saturation in the mid 80s. D-dimer obtained came back elevated however CTA of the chest could not be obtained. Patient was started on broad-spectrum antibiotic therapy admitted for subsequent inpatient evaluation and management [facility] Medical History (Updated 08/06/20 @ 13:[address] Mark Meyer MD) Acid reflux Anemia in chronic kidney disease (~08/06/20) Constipation Hypertension Sleep apnea Home Medications clonidine 0.3 mg TRANSDERM. SEYMOUR 05/09/18 [History Last Taken 07/21/20] fluoxetine 20 mg PO DAILY 05/09/18 [History Last Taken 07/23/20 08:00] amlodipine 10 mg tablet 10 mg PO DAILY tablet 06/25/20 [History Last Taken 07/22/20 20:00] atorvastatin 40 mg tablet 40 mg PO DAILY tablet 06/25/20 [History Last Taken 07/22/20 20:00] calcitriol 0.25 mcg capsule 0.25 mcg PO DAILY cap 06/25/20 [History Last Taken 07/23/20 08:00] estradiol 0.5 mg tablet 0.5 mg PO DAILY tablet 06/25/20 [History Last Taken 07/23/20 08:00] linaclotide 145 mcg capsule 145 mcg PO DAILY cap 06/25/20 [History Last Taken 07/23/20 08:00] pantoprazole 20 mg tablet,delayed release 20 mg PO QODAY tablet 06/25/20 [History Last Taken 07/21/20 16:15] polyethylene glycol 3350 17 gram/dose oral powder 17 gm PO DAILY 06/25/20 [History Last Taken 07/23/20 08:00] metoprolol tartrate 50 mg PO DAILY 07/18/20 [History Last Taken 07/23/20 08:00] L.acidoph, paracasei,B. lactis 1 each PO DAILY 07/23/20 [History Last Taken 07/23/20 08:00] calcium carbonate 600 mg PO QODAY 07/23/20 [History Last Taken 07/22/20 08:00] cholecalciferol (vitamin D3) 1,250 mcg PO QODAY 07/23/20 [History Last Taken 07/21/20 20:00] sntxqxon-hje-tsrh-FA-lutein 1 tablet PO DAILY 07/23/20 [History Last Taken 07/23/20 08:00] cephalexin 500 mg PO Q12H #14 cap 07/30/20 [Rx Last Taken Unknown] hydralazine 10 mg PO TID #90 tab 07/30/20 [Rx Last Taken Unknown] sodium bicarbonate 650 mg PO DAILY #30 tab 07/30/20 [Rx Last Taken Unknown] Allergy/AdvReac Type Severity Reaction Status Date / Time Sulfa (Sulfonamide AdvReac Nausea Verified 08/06/20 09:15 Antibiotics) Family History Mother Multiple myeloma Endometrial stromal sarcoma Sarcomatoid renal cell carcinoma Surgical History (Updated 08/06/20 @ 13:[address] Mark Meyer MD) History of esophagogastroduodenoscopy (EGD) Hx of colonoscopy Hx of hysterectomy Hx of splenectomy Hx of tonsillectomy Hx of total adrenalectomy Social History Smoking Status: Never smoker second hand exposure: No alcohol intake: never substance use type: does not use caffeine: Yes what type of physical activity do you participate in: walking frequency: other seatbelt use: always ROS ROS Narrative GENERAL: denies fever, chills, night sweats, HEENT: denies headache, sinus congestion, RESPIRATORY: cough, s shortness of breath, dyspnea on exertion CARDIAC: chest pain, denies palpitations, orthopnea, PND GASTROINTESTINAL: denies abdominal pain, nausea, vomiting, GENITOURINARY: denies dysuria, urgency, frequency, EXTREMITY: denies swelling MUSCULOSKELETAL: denies current joint pain or tenderness NEUROLOGIC: denies focal numbness, weakness, tingling HEMATOLOGIC: denies easy bruising and/or hemorrhage INTEGUMENT: denies rashes PSYCHIATRIC: denies suicidal or homicidal ideation Vital Signs Vital Signs Vital Signs: 08/06/20 09:12 08/06/20 09:15 08/06/20 09:27 Temperature 97.7 F L 98 F Temperature Source Oral Temporal Pulse Rate 74 70 Respiratory Rate 26 H 20 H Respiratory Pattern Blood Pressure 178/82 H 164/64 H Blood Pressure Mean 114 97 Pulse Ox 89 95 Oxygen Delivery Method Room Air Room Air Room Air Oxygen Flow Rate (L/min) 08/06/20 09:38 08/06/20 10:11 08/06/20 10:15 Temperature 98.6 F Temperature Source Temporal Pulse Rate 71 77 79 Respiratory Rate 20 H 18 20 H Respiratory Pattern Normal Blood Pressure 186/82 H 186/82 H Blood Pressure Mean 116 116 Pulse Ox 97 95 Oxygen Delivery Method Nasal Cannula Nasal Cannula Oxygen Flow Rate (L/min) 2 2 Physical Exam Narrative GENERAL: cooperative but appears ill looking HEENT: Atraumatic; EYES; Anicteric, Normal Conjunctiva NECK; supple, normal thyroid, RESPIRATORY: Diminished to auscultation CARDIOVASCULAR: Regular S1 S2, GI: soft, normoactive bowel sounds, : No Renal angle tenderness; EXTREMITIES: No edema, no clubbing, MUSCULOSKELETAL: no muscle waisting NEURO: Awake; no lateralizing signs. SKIN: No Rash PSYCH; Flat affect Lab / Micro Data Result Diagrams: 08/06/20 09:50 08/06/20 09:50 Labs: Laboratory Results - last 24 hr 08/06/20 08/06/20 08/06/20 09:50 09:50 09:50 WBC 11.7 H RBC 3.03 L Hgb 9.1 L Hct 29.4 L MCV 97.0 MCH 30.0 MCHC 31.0 L RDW Std Deviation 48.3 H RDW Coeff of Ralph 14.2 Plt Count 571 H MPV 10.0 Immature Gran % (Auto) 1.300 H Neut % (Auto) 79.0 H Lymph % (Auto) 10.3 L [place] % (Auto) 5.9 Eos % (Auto) 2.7 Baso % (Auto) 0.8 Absolute Neuts (auto) 9.2 H Absolute Lymphs (auto) 1.20 Nucleated RBC % 0 PT 13.8 INR 1.1 APTT 32.3 D-Dimer Quant (PE/DVT) 3.40 H* Sodium 141 Potassium 5.7 H Chloride 113 H Carbon Dioxide 18.0 L Anion Gap 10 BUN 78 H Creatinine 4.53 H Estim Creat Clear Calc 11.28 Est GFR (MDRD) Af Amer 12 L Est GFR (MDRD) Non-Af 10 L BUN/Creatinine Ratio 17.2 Glucose 93 Calcium 8.9 Total Bilirubin 0.30 AST 40 H ALT 63 H Alkaline Phosphatase 147 H Troponin I < 0.015 Total Protein 6.9 Albumin 2.7 L Globulin 4.2 Albumin/Globulin Ratio 0.6 L Micro: Microbiology 08/06/20 09:55 SARS-CoV-2 Antigen (Rapid) - Final Interface Orders Radiology Impression Chest X-Ray 08/06/20 10:10 IMPRESSION: Persistent bilateral pulmonary infiltrates worse in the right hemithorax. There has been some improvement as compared to prior study. Electronically Signed: Raghavendra Patrick MD at 10:28 EDT , Service support , Assessment & Plan Assessment/Plan (1) Pneumonia: Status: Acute Code(s): J18.9 - Pneumonia, unspecified organism (2) CKD (chronic kidney disease) stage 5, GFR less than 15 ml/min: Status: Chronic Code(s): N18.5 - Chronic kidney disease, stage 5 (3) Hypoxia: Status: Acute Code(s): R09.02 - Hypoxemia (4) Hypertension: Status: Chronic Code(s): I10 - Essential (primary) hypertension (5) Acid reflux: Status: Chronic Code(s): K21.9 - Gastro-esophageal reflux disease without esophagitis (6) Sleep apnea: Status: Chronic Code(s): G47.30 - Sleep apnea, unspecified (7) Iron deficiency anemia: Status: Chronic Code(s): D50.9 - Iron deficiency anemia, unspecified Qualifiers: Iron deficiency anemia type: unspecified iron deficiency Qualified Code(s): D50.9 - Iron deficiency anemia, unspecified (8) Anemia in chronic kidney disease: Status: Chronic Code(s): N18.9 - Chronic kidney disease, unspecified; D63.1 - Anemia in chronic kidney disease Plan: Patient is a 65-year-old female admitted with progressive shortness of breath her assessment on admission was consistent with acute hypoxic respiratory failure secondary to pneumonia admitted to a monitored bed for subsequent management nt 1. Acute hypoxic respiratory failure ?Imaging studies on admission demonstrated Persistent bilateral pulmonary infiltrates worse in the right hemithorax.. Repeat cultures on signs on admission. Patient placed on supplemental oxygen titrated to keep saturation greater than 90. Patient was started on cefepime and Levaquin pending culture results. Also order CT of the chest without contrast for further evaluation regarding patient's infiltrate 2. Elevated D-dimer ?CTA of the chest: Be obtained in view of patient's impaired kidney function. Subsequently ordered a VQ scan as well as bilateral venous duplex 3. Chronic kidney disease stage V ?Patient underwent AV fistula formation 4 days prior to admission 4. History of splenectomy ?This places patient at risk for infections involving encapsulated organisms. Patient antibiotic therapy as described above 5. Hypertension - Blood pressure controlled, home medications continued with dose adjustment as needed 6. Dyslipidemia -Patient is on statin therapy, continued at home dose 7. Obstructive sleep apnea ?Patient is on CPAP at night 8. Obesity with BMI of 32 -Weight loss advised 9. GERD ?On PPI 10. Anemia - Secondary to chronic disorder as well as anemia of chronic kidney disease, monitoring H&H and transfuse if patient becomes symptomatic or hemoglobin falls below 7 9. DVT prophylaxis ?SC heparin Visit Charges Inpatient E&M: 29808 Init Hosp L3
--- NOTE | 2020-08-06 12:41 | NURSING ---
PCU 120 KITTOE PNEUMONIA, HYPOXIA
[2020-08-06] MEDS: levoFLOXacin IV 750 MG/150 ML BAG 100 MG IV (12:44)
--- NOTE | 2020-08-06 15:14 | VDLE_ITS ---
Reason For Study: elevated D-Dimer RIGHT LEFT GSV is normal. GSV is normal. CFV is compressible, spontaneous, competent CFV is compressible, spontaneous, competent, and demonstrates pulsatile venous flow. and demonstrates pulsatile venous flow. FV is compressible, spontaneous, competent FV is compressible, spontaneous, competent and demonstrates pulsatile venous flow. and demonstrates pulsatile venous flow. POP V is compressible, spontaneous, competent POP V is compressible, spontaneous, competent and demonstrates pulsatile venous flow. and demonstrates pulsatile venous flow. T/P Trunk is compressible. T/P Trunk is compressible. PTV is compressible. PTV is compressible. RT PerV is compressible. LT PerV is compressible. Procedure This is a venous duplex using B-mode, color flow and spectral Doppler. Exam performed portable in patient room. The exam was diagnostic. A preliminary report was called and/or faxed to the pt's RN. VL/Venous Duplex US - George Extrem Interpretation Summary No evidence for acute deep venous thrombosis bilateral lower extremities with p atent and compressible bilateral great saphenous veins. Pulsatile venous flow is noted bi laterally consistent with proximal venous hypertension or obstruction. Clinical correlation would be appropriate. No change from 07/23/2020 Ordering Physician: Mark Meyer Performed By: Theo Luong RVT
--- NOTE | 2020-08-06 15:35 | CT_ITS ---
STUDY: CT CHEST WITHOUT CONTRAST REASON FOR EXAM: Female, 65 years old. Pneumonia RADIATION DOSAGE (If Supplied By Facility): CTDIvol = ( 16.47 ) mGy, DLP = ( 621.60 ) mGycm TECHNIQUE: Transaxial imaging was performed without the administration of intravenous contrast material. Multiplanar coronal and sagittal images were reformatted. Individualized dose optimization techniques were used for this CT. COMPARISON: Comparison is made with prior study dated 07/23/2020. FINDINGS: Bilateral pleural effusions right greater than left. There is evidence of bilateral pulmonary infiltrates worse in the right hemithorax. This has improved as compared to prior study. The differential diagnosis should include either bilateral pulmonary infiltrates versus edema. Pulmonary edema. Normal heart and pericardium. Normal mediastinum. Normal hilar regions. Normal unenhanced pulmonary arteries. Normal aorta arch and descending thoracic aorta. There are degenerative changes of the thoracic spine. There is no demonstrated abnormality of the visualized upper abdomen. CT/Chest without Contrast IMPRESSION: Bilateral pulmonary infiltrates worse in the right hemithorax although there has been improvement as compared to prior study. Bilateral pleural effusions right greater than left. Electronically Signed: Raghavendra Patrick MD at 15:56 EDT , Service support ,
[2020-08-06] MEDS: hydrALAZINE 10 MG Tablet PO ×2 (16:01→21:11)
--- NOTE | 2020-08-06 16:01 | EKG12_ITS ---
Test Reason : CHEST PAIN Blood Pressure : / mmHG Vent. Rate : 064 BPM Atrial Rate : 064 BPM P-R Int : 158 ms QRS Dur : 082 ms QT Int : 454 ms P-R-T Axes : 038 075 037 degrees QTc Int : 468 ms Normal sinus rhythm Normal ECG Confirmed by LYRIC VOGT, DALILA ([id number]), video effects editor RUDY VELA ([id number]) on 08/08/2020 9:08:05 AM Referred By: ZEV Confirmed By:DALILA GUNTER MD
[2020-08-06] MEDS: Heparin Injection (Vial) 5,000 UNIT/ML VIAL 5000 UNIT SC ×2 (16:02→21:12)
[2020-08-06] MEDS: Atorvastatin Calcium 40 MG Tablet PO (21:11)
[2020-08-06] MEDS: Sodium Polystyrene Sulfonate 15 GM/60 ML UDC 30 GM PO (21:23)
[2020-08-07] VITALS (15 sets, daily range): BP systolic 157–186; BP diastolic 65–83; PULSE 67–75; RESP 16–20; TEMP 36.4–36.9; O2SAT 95–100
[2020-08-07] MEDS: Heparin Injection (Vial) 5,000 UNIT/ML VIAL 5000 UNIT SC ×3 (05:42→21:53)
[2020-08-07] MEDS: hydrALAZINE 10 MG Tablet PO ×3 (05:42→21:53)
[2020-08-07 06:44] LABS: Absolute Lymphocyte Count 1.14 X10^3/uL (0.83-4.51); Absolute Neutrophil Count 9.1 X10^3/uL (2.0-7.7); Basophil# 0.08 X10^3/uL; Basophil% 0.7 % (0-1); Eosinophil# 0.29 X10^3/uL; Eosinophils% 2.5 % (0-5); Hematocrit 27.1 % (37-47); Hemoglobin 8.5 g/dL (12.0-15.0); Lymphocyte # 1.14 X10^3/ul (0.83-4.51); Lymphocyte % 9.8 % (19-41); Mean Corp Hgb Conc 31.4 g/dL (32-36); Mean Corpuscular Hgb 30.6 pg (27.0-32.0); Mean Corpuscular Volume 97.5 fL (81-99); Monocyte# 0.84 X10^3/uL; Monocyte% 7.2 % (0-10); NRBC Flagged by Analyzer 0 % (0-5); Neutrophil # 9.12 X10^3/uL (2.7-7.7); Neutrophil % 78.7 % (47-70); Platelet Count 514 K/mm3 (150-450); RBC Distribution Width CV 14.1 % (11.6-14.6); RBC Distribution Width SD 49.1 fl (35.1-43.9); Red Blood Count 2.78 M/mm3 (4.2-5.4); White Blood Count 11.6 K/mm3 (4.4-11.0)
[2020-08-07 07:21] LABS: Anion Gap 8 (5-15); BUN 78 mg/dL (7-18); BUN/Creat Ratio 17.8 RATIO (10-20); Calcium,Total 8.6 mg/dL (8.5-10.1); Chloride 116 mmol/L (98-107); Creatinine, Serum 4.38 mg/dL (0.55-1.02); EST Glomerular Filtration Rate 11 mL/min (>60); Est Glom Filt Rate - Afr Amer 13 mL/min (>60); Estimated Creatinine Clearance 11.67 ml/min; Glucose 92 mg/dL (74-106); Magnesium 2.2 mg/dL (1.6-2.6); Phosphorus 5.7 mg/dL (2.5-4.9); Potassium 5.5 mmol/L (3.5-5.1); Sodium Level 143 mmol/L (136-145)
[2020-08-07] MEDS: Polyethylene Glycol 3350 17 GM PACKET PO (09:27)
[2020-08-07] MEDS: Estradiol 0.5 MG Tablet PO (09:27)
[2020-08-07] MEDS: Multivitamins,Ther W-Minerals Tablet 1 TABLET PO (09:27)
[2020-08-07] MEDS: Calcitriol 0.25 MCG Capsule PO (09:28)
[2020-08-07] MEDS: amLODIPine 10 MG Tablet PO (09:28)
[2020-08-07] MEDS: Sodium Bicarbonate 650 MG Tablet PO (09:28)
[2020-08-07] MEDS: FLUoxetine 20 MG Capsule PO (09:28)
[2020-08-07] MEDS: Metoprolol(XL)Succ 50 MG Tablet PO (09:28)
--- NOTE | 2020-08-07 10:20 | RAD_ITS ---
STUDY: X-RAY CHEST REASON FOR EXAM: Female, 65 years old. PNEUMONIA NM MED LUNG SCAN COMPARE TECHNIQUE: PA and lateral views of the chest. COMPARISON: Comparison is made with prior study dated 08/06/2020. FINDINGS: EKG electrodes are seen. Stable bilateral pulmonary infiltrates. Blunting of both costophrenic angles. Normal size heart. Normal mediastinum and sadia. Normal visualized pulmonary arteries. Normal visualized aortic arch and descending thoracic aorta. Normal visualized thoracic spine. Normal visualized ribs, clavicles, and shoulders. Surgical clips are seen in the left upper quadrant. RAD/Chest PA and Lateral IMPRESSION: Stable bilateral pulmonary infiltrates. Electronically Signed: Raghavendra Patrick MD at 10:46 EDT , Service support ,
--- NOTE | 2020-08-07 10:30 | NM_ITS ---
CLINICAL: Female, 65 years old. Elevated D Dimer -- end stage renal disease -- pneumonia, infiltrates NUCLEAR VENTILATION/PERFUSION - LUNG TECHNIQUE: The patient was administered 5.8 mCi of Tc MAA followed by a perfusion lung scan. The patient was administered 53 mCi of Tc DTPA aerosol followed by a ventilation lung scan. Comparison made to prior chest radiograph dated . COMPARISON STUDIES : Comparison is made with prior chest radiograph done earlier today. FINDINGS: The pulmonary perfusion study demonstrates uniform perfusion throughout both lung hinds. There are no demonstrated segmental or subsegmental perfusion defects The ventilation study demonstrates central areas of decreased attenuation suggestive of airway disease.. NM/Lung Scan Vent/Perf IMPRESSION: Normal 99m Tc MAA pulmonary perfusion Tc DTPA aerosol ventilation imaging survey, according to revised PIOPED interpretive criteria. Electronically Signed: Raghavendra Patrick MD at 10:46 EDT , Service support ,
--- NOTE | 2020-08-07 12:46 | CON.PCM.RE_ITS ---
Assessment & Plan Assessment/Plan (1) CKD (chronic kidney disease) stage 5, GFR less than 15 ml/min: Status: Chronic Code(s): N18.5 - Chronic kidney disease, stage 5 Plan: Continue to monitor renal fxn. No urgency to initiate dialysis. Wait on AVF maturation (2) Metabolic acidosis: Status: Acute Code(s): E87.2 - Acidosis Plan: oral bicarb (3) Hyperkalemia: Status: Acute Code(s): E87.5 - Hyperkalemia Plan: kayexalate, low K diet (4) Pneumonia: Status: Acute Code(s): J18.9 - Pneumonia, unspecified organism Plan: antibx, persistent bilateral infiltrates (5) History of pheochromocytoma: Status: Acute Code(s): Z86.018 - Personal history of other benign neoplasm Plan: s/p adrenalectomy, splenectomy (6) Iron deficiency anemia: Status: Chronic Code(s): D50.9 - Iron deficiency anemia, unspecified Qualifiers: Iron deficiency anemia type: unspecified iron deficiency Qualified Code(s): D50.9 - Iron deficiency anemia, unspecified Plan: iv iron as needed. Check iron studies (7) Hypertension: Status: Chronic Code(s): I10 - Essential (primary) hypertension Plan: BP elevated, resume home meds. ARB on hold due to rising creatinine (8) Anxiety: Status: Acute Code(s): F41.9 - Anxiety disorder, unspecified HPI Consult Data Date of Consult: 08/07/20 HPI Narrative HPI Narrative: ANICETO MASON, is a 65 F who presents to [facility] [place] [facility] for SOB, CP while getting outpt labwork done for tomorrow's appt with me and Dr León. Currently without chest pain, resting comfortably with oxygen. Recently discharged from hospital last week for pneumonia after AVF placement. CXR showed persistent bilateral pulmonary infiltrates. CTA negative for PE done last admit. V/Q scan n egative for PE this admit. Venous US no DVT. Creatinine 4.53 on admit improved to 4.38 today. Potassium elevation treated with kayexalate last night. Discharged on sodium bicarbonate daily last visit. 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 [facility] Medical History (Updated 08/07/20 @ 12:[address] Annalise Gomez DO) Acid reflux Anemia Anemia in chronic kidney disease (~08/06/20) Chest pain Constipation CPAP (continuous positive airway pressure) dependence Hypertension Migraines Sleep apnea Wears hearing aid in both ears Home Medications clonidine 0.3 mg TRANSDERM. SEYMOUR 05/09/18 [History Last Taken 07/21/20] fluoxetine 20 mg PO DAILY 05/09/18 [History Last Taken 07/23/20 08:00] amlodipine 10 mg tablet 10 mg PO DAILY tablet 06/25/20 [History Last Taken 07/22/20 20:00] atorvastatin 40 mg tablet 40 mg PO DAILY tablet 06/25/20 [History Last Taken 07/22/20 20:00] calcitriol 0.25 mcg capsule 0.25 mcg PO DAILY cap 06/25/20 [History Last Taken 07/23/20 08:00] estradiol 0.5 mg tablet 0.5 mg PO DAILY tablet 06/25/20 [History Last Taken 08:00] linaclotide 145 mcg capsule 145 mcg PO DAILY cap 06/25/20 [History Last Taken 07/23/20 08:00] pantoprazole 20 mg tablet,delayed release 20 mg PO QODAY tablet 06/25/20 [History Last Taken 07/21/20 16:15] polyethylene glycol 3350 17 gram/dose oral powder 17 gm PO DAILY 06/25/20 [History Last Taken 07/23/20 08:00] metoprolol tartrate 50 mg PO DAILY 07/18/20 [History Last Taken 07/23/20 08:00] L.acidoph, paracasei,B. lactis 1 each PO DAILY 07/23/20 [History Last Taken 07/23/20 08:00] calcium carbonate 600 mg PO QODAY 07/23/20 [History Last Taken 07/22/20 08:00] cholecalciferol (vitamin D3) 1,250 mcg PO QODAY 07/23/20 [History Last Taken 07/21/20 20:00] qjavnate-lej-kaoe-FA-lutein 1 tablet PO DAILY 07/23/20 [History Last Taken 07/23/20 08:00] cephalexin 500 mg PO Q12H #14 cap 07/30/20 [Rx Last Taken Unknown] hydralazine 10 mg PO TID #90 tab 07/30/20 [Rx Last Taken Unknown] sodium bicarbonate 650 mg PO DAILY #30 tab 07/30/20 [Rx Last Taken Unknown] Allergy/AdvReac Type Severity Reaction Status Date / Time Sulfa (Sulfonamide AdvReac Nausea Verified 08/06/20 09:15 Antibiotics) Family History Mother Multiple myeloma Endometrial stromal sarcoma Sarcomatoid renal cell carcinoma Surgical History (Updated 08/06/20 @ 13:[address] Mark Meyer MD) History of esophagogastroduodenoscopy (EGD) Hx of colonoscopy Hx of hysterectomy Hx of splenectomy Hx of tonsillectomy Hx of total adrenalectomy Social History Smoking Status: Never smoker second hand exposure: No alcohol intake: never substance use type: does not use caffeine: Yes what type of physical activity do you participate in: walking frequency: other seatbelt use: always ROS Constitutional Constitutional: Denies chills, fever(s) or weakness Eyes Eyes: Denies double vision Cardiovascular Cardiovascular: Reports chest pain, dyspnea on exertion and edema; Denies diaphoresis Respiratory/Chest Respiratory/Chest: Reports dyspnea on exertion; Denies dry cough, productive cou gh or shortness of breath at rest Gastrointestinal Gastrointestinal: Denies abdominal pain, diarrhea, melena, nausea or vomiting Genitourinary Genitourinary: Denies difficulty urinating or dysuria Musculoskeletal Musculoskeletal: Reports other Details: no edema ; Denies myalgias Integumentary Integumentary: Denies rash Neurologic Neurologic: Denies abnormal gait Psychiatric Psychiatric: Reports anxiety and depression Hematologic/Lymphatic Hematologic/Lymphatic: Reports anemia Physical Exam Const alert, oriented x3 and no apparent distress HEENT normocephalic Resp clear to auscultation bilaterally Cardio regular rate and no rub GI non-tender and non-distended Auscultation: normoactive bowel sounds Palpation: soft Back/Spine normal ROM Extremity full ROM Extremity Narrative: mild BLE swelling, chronic. AVF thrill and bruit present General Extremity: AV fistula and edema Skin no rashes or lesions noted Neuro moves all extremities Sensorium / Orientation: awake and alert Psych cooperative Mood & Affect: anxious Lab / Micro Data Result Diagrams: 08/07/20 06:30 08/07/20 06:30 Labs: Laboratory Results - last 24 hr 08/07/20 08/07/20 06:30 06:30 WBC 11.6 H RBC 2.78 L Hgb 8.5 L Hct 27.1 L MCV 97.5 MCH 30.6 MCHC 31.4 L RDW Std Deviation 49.1 H RDW Coeff of Ralph 14.1 Plt Count 514 H MPV 10.0 Immature Gran % (Auto) 1.100 H Neut % (Auto) 78.7 H Lymph % (Auto) 9.8 L [place] % (Auto) 7.2 Eos % (Auto) 2.5 Baso % (Auto) 0.7 Absolute Neuts (auto) 9.1 H Absolute Lymphs (auto) 1.14 Nucleated RBC % 0 Sodium 143 Potassium 5.5 H Chloride 116 H Carbon Dioxide 19.0 L Anion Gap 8 BUN 78 H Creatinine 4.38 H Estim Creat Clear Calc 11.67 Est GFR (MDRD) Af Amer 13 L Est GFR (MDRD) Non-Af 11 L BUN/Creatinine Ratio 17.8 Glucose 92 Calcium 8.6 Phosphorus 5.7 H Magnesium 2.2 Micro: Microbiology 08/06/20 21:30 Legionella Antigen - Final Urine, Clean Catch Streptococcus pneumoniae Antigen (M - Final 08/06/20 09:55 SARS-CoV-2 Antigen (Rapid) - Final Interface Orders Radiology Impression Venous Doppler Study 08/06/20 15:14 Interpretation Summary No evidence for acute deep venous thrombosis bilateral lower extremities with patent and compressible bilateral great saphenous veins. Pulsatile venous flow is noted bilaterally consistent with proximal venous hypertension or obstruction. Clinical correlation would be appropriate. No change from 07/23/2020 Ordering Physician: Mark Meyer Performed By: Cherise, Theo, RVT Chest CT 08/06/20 15:35 IMPRESSION: Bilateral pulmonary infiltrates worse in the right hemithorax although there has been improvement as compared to prior study. Bilateral pleural effusions right greater than left. Electronically Signed: Raghavendra Patrick MD at 15:56 EDT , Service support , Chest X-Ray 08/07/20 10:20 IMPRESSION: Stable bilateral pulmonary infiltrates. Electronically Signed: Raghavendra Patrick MD at 10:46 EDT , Service support , Lung Scan-VQ NM 08/07/20 10:30 IMPRESSION: Normal 99m Tc MAA pulmonary perfusion Tc DTPA aerosol ventilation imaging survey, according to revised PIOPED interpretive criteria. Electronically Signed: Raghavendra Patrick MD at 10:46 EDT , Service support ,
--- NOTE | 2020-08-07 14:24 | CASEMGMT ---
[facility] CM Readmission Note Previous Admission: 07/23/20-07/30/20 Diagnosis: hypoxia, pna Pt admitted for pneumonia, had AV fistula placed 4 days prior. Pt found to be in CKD stage 5. Pt also had iron def anemia and had 3 iron transfusions while in the hospital as well as epogen on day of dc per nephrology. Pt did not qualify for home O2. DC Disposition: Home Current Admission Diagnosis: hypoxia, pna Pt presented to ER from home with SOB. Pt states she did take her medications as directed on her dc instructions. She states her follow up appt dates had been changed from what was scheduled on dc so she has not yet had her appts. Discussed with pt if she should need home O2 who her provider would be. Pt denied need for the list. States she would choose [facility] as before. Pt denies need for any HHC on dc at this point. CM to follow O2 needs. DC PLAN: Home with support.
--- NOTE | 2020-08-07 14:58 | PN.HOSP_ITS ---
Documented by User: Omkar ONEAL 08/07/20 15:24 Subjective Subjective: Patient is a 65-year-old female who is comfortably resting in a chair, alert and oriented x3. Patient mentates well understands that she is being treated for pneumonia as well as being assessed for a possible lung clot. Denies chest pain, shortness of breath, palpitations, hemoptysis, fever, chills, N/V/D. Objective Data Objective Data Vital Signs: Vital Signs Temp Pulse Resp BP Pulse Ox 98.1 F 75 17 184/82 H 96 08/07/20 09:13 08/07/20 09:28 08/07/20 09:13 08/07/20 09:13 08/07/20 09:13 Oxygen Flow Rate (L/min) 2.5 Oxygen Delivery Method Nasal Cannula Weight: 190 lb 11.198 oz Body Mass Index (BMI) 30.7 Intake & Output: Intake and Output for Last 24 Hours 08/05/20 08/06/20 08/07/20 23:59 23:59 23:59 Intake Total 826.66 / 826.66 640 / 640 Output Total 300 / 300 300 / 300 Balance 526.66 / 526.66 340 / 340 Lab / Micro Data Result Diagrams: 08/07/20 06:30 08/07/20 06:30 Labs: Laboratory Results - last 24 hr 08/07/20 08/07/20 06:30 06:30 WBC 11.6 H RBC 2.78 L Hgb 8.5 L Hct 27.1 L MCV 97.5 MCH 30.6 MCHC 31.4 L RDW Std Deviation 49.1 H RDW Coeff of Ralph 14.1 Plt Count 514 H MPV 10.0 Immature Gran % (Auto) 1.100 H Neut % (Auto) 78.7 H Lymph % (Auto) 9.8 L [place] % (Auto) 7.2 Eos % (Auto) 2.5 Baso % (Auto) 0.7 Absolute Neuts (auto) 9.1 H Absolute Lymphs (auto) 1.14 Nucleated RBC % 0 Sodium 143 Potassium 5.5 H Chloride 116 H Carbon Dioxide 19.0 L Anion Gap 8 BUN 78 H Creatinine 4.38 H Estim Creat Clear Calc 11.67 Est GFR (MDRD) Af Amer 13 L Est GFR (MDRD) Non-Af 11 L BUN/Creatinine Ratio 17.8 Glucose 92 Calcium 8.6 Phosphorus 5.7 H Magnesium 2.2 Micro: Microbiology 08/06/20 21:30 Urine, Clean Catch Legionella Antigen - Final 08/06/20 21:30 Urine, Clean Catch Streptococcus pneumoniae Antigen (M - Final 08/06/20 09:55 Interface Orders SARS-CoV-2 Antigen (Rapid) - Final Radiography Diagnostic Testing: Radiology Impression Venous Doppler Study 08/06/20 15:14 Interpretation Summary No evidence for acute deep venous thrombosis bilateral lower extremities with patent and compressible bilateral great saphenous veins. Pulsatile venous flow is noted bilaterally consistent with proximal venous hypertension or obstruction. Clinical correlation would be appropriate. No change from 07/23/2020 Ordering Physician: Mark Meyer Performed By: Theo Luong, T Chest CT 08/06/20 15:35 IMPRESSION: Bilateral pulmonary infiltrates worse in the right hemithorax although there has been improvement as compared to prior study. Bilateral pleural effusions right greater than left. Electronically Signed: Raghavendra Patrick MD at 15:56 EDT , Service support , Chest X-Ray 08/07/20 10:20 IMPRESSION: Stable bilateral pulmonary infiltrates. Electronically Signed: Raghavendra Patrick MD at 10:46 EDT , Service support , Lung Scan-VQ NM 08/07/20 10:30 IMPRESSION: Normal 99m Tc MAA pulmonary perfusion Tc DTPA aerosol ventilation imaging survey, according to revised PIOPED interpretive criteria. Electronically Signed: Raghavendra Patrick MD at 10:46 EDT , Service support , Physical Exam Narrative See subjective. Const alert, oriented x3 and no apparent distress HEENT head/scalp atraumatic and moist oral mucous membranes Head and Scalp: normocephalic Eyes EOMs intact bilaterally Neck no lymphadenopathy, supple and no JVD Resp normal respiratory effort, no retractions, no use of accessory muscles and clear to auscultation bilaterally Cardio regular rate, regular rhythm, no murmurs and no JVD GI normal to inspection, nondistended, normoactive bowel sounds, soft to palpation and non-tender Extremity full ROM Skin no rashes or lesions noted, no wounds and no jaundice Neuro CN's II-XII intact bilaterally Psych affect normal Assessment & Plan Assessment/Plan (1) Pneumonia: (2) Chronic renal failure, stage 4 (severe): (3) Hypoxia: (4) Hypertension: (5) Acid reflux: (6) Sleep apnea: (7) Iron deficiency anemia: QUALIFIERS: Iron deficiency anemia type: unspecified iron deficiency Qualified Code(s): D50.9 - Iron deficiency anemia, unspecified (8) Anemia in chronic kidney disease: PLAN: Patient is a 65-year-old female admitted on 08/06/2020 for acute hypoxic respiratory failure secondary to pneumonia. See subjective and exam for patient presentation. 1) Acute hypoxic respiratory failure secondary to pneumonia. WBC is currently 11.6. Patient currently satting 96% on 3 L via nasal cannula. Covid negative. Clean-catch urine negative for Legionella or strep pneumo. Yuliet ging studies on admission demonstrated persistent bilateral pulmonary infiltrates worse in the right hemithorax. Patient placed on supplemental oxygen titrated to keep saturation greater than 90. Patient was started on cefepime and Levaquin pending culture results. Plan; continue on cefepime and Levaquin, blood cultures pending, 2) Elevated D-dimer Elevated D-dimer on admission. VQ scan obtained due to impaired kidney function, VQ scan demonstrated no evidence for PE and shows uniform perfusion throughout both lung hinds. Venous Doppler demonstrated no evidence for acute DVT bilaterally with patent, and compressible bilateral great saphenous veins. Unable to access lower extremities due to Eddi compression wraps. Plan; continue to monitor. 3) Chronic kidney disease stage V Creatinine currently 4.38. Creatinine clearance 11.6. Patient underwent AV fistula formation 4 days prior to admission. Nephrology following. 4) History of splenectomy This places patient at risk for infections involving encapsulated organisms. Patient antibiotic therapy as described above. 5) Hypertension Blood pressure controlled, home medications continued with dose adjustment as needed. 6) Dyslipidemia Continue home statin regimen. 7) Obstructive sleep apnea Continue CPAP. 8) Obesity with BMI of 32 Weight loss advised. 9) GERD Continue PPI. 10) Anemia Secondary to chronic disorder as well as anemia of chronic kidney disease, monitoring H&H and transfuse if patient becomes symptomatic or hemoglobin falls below 7 DVT prophylaxis - SC heparin Patient seen by Omkar Meeks PA-C, under the supervision of Dr. Lainez Documented by User: Dr. Blair Lainez MD 08/07/20 18:30 Subjective Subjective: Patient is comfortable. Does not have chest pain or shortness of breath. Objective Data Lab / Micro Data Result Diagrams: 08/07/20 06:30 08/07/20 06:30 Physical Exam Narrative General: Alert, Oriented x3, Cooperative HEENT: Atraumatic, PERRLA, EOMI, Normocephalic Oral: No Gingival or Mucosal Lesions/ Ulcerations Neck: Supple, No JVD, Negative Carotid Bruits Lungs: Air entry diminished in bilateral lung bases. No crepitation/rhonchi Cardiovascular: Regular rate, Regular Rhythm, Normal S1, Normal S2, No murmurs Abdomen: Bowel Sounds Present, Soft, Non Tender, Non-Distended : No renal angle tenderness. No suprapubic tenderness. Extremities: Mild bilateral ankle edema, Capillary Refill Less than 3 Seconds Skin: No rashes, No breakdown Musculoskeletal: No Tenderness to Palpation of Joints or Extremities Neurological: Cranial nerves II-XII grossly intact, Deep Tendon Reflexes 2+/4 and Symmetrical, Neuro grossly intact Psych/Mental Status: Normal Affect, Appropriate. Assessment & Plan Assessment/Plan (1) Hypoxia: (2) Anemia in chronic kidney disease: PLAN: This patient was seen in conjunction with JM Vo. I have independently interviewed and examined the patient and reviewed pertinent histor y, examination findings, laboratory and plan of management. I have reviewed the note and agree with the documented findings with the few additional points. In brief, patient is admitted for for progressive shortness of breath with acute hypoxic respiratory failure. Patient has CKD stage V therefore could not have CT angiogram of chest therefore VQ scan was done. VQ scan low probability for P E. Patient lower extremity venous Doppler negative for DVT. Patient has bilateral pulmonary infiltrate worse in right lung secondary to pneumonia. On cefepime and Levaquin. Patient has left arm AV fistula created last month about 2 to 3 weeks ago, still time for maturation. Has CKD stage V. Other comorbidities as mentioned above. I have discussed my assessment with JM Vo and orders have been reviewed. Visit Charges Inpatient E&M: 12208 Subs Hosp L2
--- NOTE | 2020-08-07 15:28 | CASEMGMT ---
Pt screened with [facility] Palliative Care Screening Tool d/t Strata 3 and Readmit, pt met criteria. Received order for Palliative and faxed. TC to Palliative Care and left message of referral.
[2020-08-07] MEDS: LINACLOTIDE 145 MCG CAPSULE PO (15:51)
[2020-08-07] MEDS: Atorvastatin Calcium 40 MG Tablet PO (21:53)
[2020-08-08] VITALS (11 sets, daily range): BP systolic 151–169; BP diastolic 68–74; PULSE 66–80; RESP 18; TEMP 36.5–36.9; O2SAT 91–95
[2020-08-08] MEDS: hydrALAZINE 10 MG Tablet PO ×2 (05:35→13:03)
[2020-08-08] MEDS: Heparin Injection (Vial) 5,000 UNIT/ML VIAL 5000 UNIT SC ×2 (05:35→13:11)
[2020-08-08 07:11] LABS: Absolute Lymphocyte Count 0.93 X10^3/uL (0.83-4.51); Basophil# 0.07 X10^3/uL; Basophil% 0.8 % (0-1); Eosinophil# 0.29 X10^3/uL; Eosinophils% 3.2 % (0-5); Hematocrit 26.6 % (37-47); Hemoglobin 8.4 g/dL (12.0-15.0); Lymphocyte # 0.93 X10^3/ul (0.83-4.51); Lymphocyte % 10.3 % (19-41); Mean Corp Hgb Conc 31.6 g/dL (32-36); Mean Corpuscular Hgb 30.9 pg (27.0-32.0); Mean Corpuscular Volume 97.8 fL (81-99); Mean Platelet Vol. 10.3 fl (6.2-12.0); Monocyte# 0.66 X10^3/uL; Monocyte% 7.3 % (0-10); NRBC Flagged by Analyzer 0 % (0-5); Neutrophil # 7.01 X10^3/uL (2.7-7.7); Neutrophil % 77.6 % (47-70); Platelet Count 506 K/mm3 (150-450); RBC Distribution Width CV 14.2 % (11.6-14.6); RBC Distribution Width SD 49.7 fl (35.1-43.9); Red Blood Count 2.72 M/mm3 (4.2-5.4)
[2020-08-08 07:43] LABS: Anion Gap 12 (5-15); BUN 71 mg/dL (7-18); BUN/Creat Ratio 16.6 RATIO (10-20); Calcium,Total 8.7 mg/dL (8.5-10.1); Chloride 111 mmol/L (98-107); Creatinine, Serum 4.28 mg/dL (0.55-1.02); EST Glomerular Filtration Rate 11 mL/min (>60); Est Glom Filt Rate - Afr Amer 13 mL/min (>60); Estimated Creatinine Clearance 11.94 ml/min; Ferritin 323 ng/mL (8-252); Glucose 88 mg/dL (74-106); Iron 37 ug/dL (50-170); Sodium Level 144 mmol/L (136-145)
[2020-08-08] MEDS: Estradiol 0.5 MG Tablet PO (08:45)
[2020-08-08] MEDS: Calcium Carbonate 500 MG Tablet 600 MG PO (08:45)
[2020-08-08] MEDS: Multivitamins,Ther W-Minerals Tablet 1 TABLET PO (08:46)
[2020-08-08] MEDS: LINACLOTIDE 145 MCG CAPSULE PO (09:01)
[2020-08-08] MEDS: levoFLOXacin IV 500 MG/100 ML BAG 100 MG IV (09:01)
[2020-08-08] MEDS: Metoprolol(XL)Succ 50 MG Tablet PO (09:02)
[2020-08-08] MEDS: Calcitriol 0.25 MCG Capsule PO (09:03)
[2020-08-08] MEDS: Pantoprazole Sodium 20 MG Tablet PO (09:03)
[2020-08-08] MEDS: amLODIPine 10 MG Tablet PO (09:03)
[2020-08-08] MEDS: FLUoxetine 20 MG Capsule PO (09:03)
[2020-08-08] MEDS: Sodium Bicarbonate 650 MG Tablet PO (09:03)
[2020-08-08] MEDS: Polyethylene Glycol 3350 17 GM PACKET PO (09:03)
--- NOTE | 2020-08-08 09:10 | PCM.PN.REN ---
Subjective Subjective: breathing better, no further chest pain. Potassium better Objective Data Objective Data Vital Signs: Vital Signs Temp Pulse Resp BP Pulse Ox 98.5 F 71 18 161/71 H 94 08/08/20 04:00 08/08/20 09:02 08/08/20 04:00 08/08/20 05:35 08/08/20 07:15 Oxygen Flow Rate (L/min) 2 Oxygen Delivery Method Nasal Cannula Weight: 86.5 kg Body Mass Index (BMI) 30.7 Intake & Output: Intake and Output for Last 24 Hours 08/06/20 08/07/20 08/08/20 23:59 23:59 23:59 Intake Total 826.66 / 826.66 1120 / 1480 405 / 405 Output Total 300 / 300 700 / 700 0 / 0 Balance 526.66 / 526.66 420 / 780 405 / 405 Lab / Micro Data Result Diagrams: 08/08/20 06:30 08/08/20 06:30 Labs: Laboratory Results - last 24 hr 08/08/20 08/08/20 06:30 06:30 WBC 9.0 RBC 2.72 L Hgb 8.4 L Hct 26.6 L MCV 97.8 MCH 30.9 MCHC 31.6 L RDW Std Deviation 49.7 H RDW Coeff of Ralph 14.2 Plt Count 506 H MPV 10.3 Immature Gran % (Auto) 0.800 Neut % (Auto) 77.6 H Lymph % (Auto) 10.3 L [place] % (Auto) 7.3 Eos % (Auto) 3.2 Baso % (Auto) 0.8 Absolute Neuts (auto) 7.0 Absolute Lymphs (auto) 0.93 Nucleated RBC % 0 Sodium 144 Potassium 5.0 Chloride 111 H Carbon Dioxide 21.0 Anion Gap 12 BUN 71 H Creatinine 4.28 H Estim Creat Clear Calc 11.94 Est GFR (MDRD) Af Amer 13 L Est GFR (MDRD) Non-Af 11 L BUN/Creatinine Ratio 16.6 Glucose 88 Calcium 8.7 Iron 37 L Ferritin 323 H Micro: Microbiology 08/06/20 21:30 Urine, Clean Catch Legionella Antigen - Final 08/06/20 21:30 Urine, Clean Catch Streptococcus pneumoniae Antigen (M - Final 08/06/20 09:55 Interface Orders SARS-CoV-2 Antigen (Rapid) - Final Radiography Diagnostic Testing: Radiology Impression Venous Doppler Study 08/06/20 15:14 Interpretation Summary No evidence for acute deep venous thrombosis bilateral lower extremities with patent and compressible bilateral great saphenous veins. Pulsatile venous flow is noted bilaterally consistent with proximal venous hypertension or obstruction. Clinical correlation would be appropriate. No change from 07/23/2020 Ordering Physician: Mark Meyer Performed By: Theo Luong, T Chest X-Ray 08/07/20 10:20 IMPRESSION: Stable bilateral pulmonary infiltrates. Electronically Signed: Raghavendra Patrick MD at 10:46 EDT , Service support , Lung Scan-VQ NM 08/07/20 10:30 IMPRESSION: Normal 99m Tc MAA pulmonary perfusion Tc DTPA aerosol ventilation imaging survey, according to revised PIOPED interpretive criteria. Electronically Signed: Raghavendra Patrick MD at 10:46 EDT , Service support , Physical Exam Const alert, oriented x3 and no apparent distress Resp clear to auscultation bilaterally Cardio regular rate and no rub GI non-tender and non-distended Auscultation: normoactive bowel sounds Palpation: soft Back/Spine normal ROM Extremity full ROM Extremity Narrative: mild BLE swelling, chronic. AVF thrill and bruit present General Extremity: AV fistula and edema Assessment & Plan Assessment/Plan (1) CKD (chronic kidney disease) stage 5, GFR less than 15 ml/min: PLAN: Continue to monitor renal fxn. No urgency to initiate dialysis. Wait on AVF maturation. Ok to dc to home from renal standpoint (2) Metabolic acidosis: PLAN: oral bicarb (3) Hyperkalemia: PLAN: kayexalate, low K diet (4) Pneumonia: PLAN: antibx, persistent bilateral infiltrates (5) History of pheochromocytoma: PLAN: s/p adrenalectomy, splenectomy (6) Iron deficiency anemia: QUALIFIERS: Iron deficiency anemia type: unspecified iron deficiency Qualified Code(s): D50.9 - Iron deficiency anemia, unspecified PLAN: iv iron as needed. Check iron studies (7) Hypertension: PLAN: BP elevated, resume home meds. ARB on hold due to rising creatinine (8) Anxiety: (9) Chest pain: PLAN: resolved
--- NOTE | 2020-08-08 09:21 | PN_ITS ---
Progress Note Patient is a 65 y/o F I am following for chronic renal failure. She was scheduled for an outpatient follow-up however secondary to being hospitalized with pneumonia, I evaluated her inpatient. Dr. León performed a left upper extremity transposition cephalic vein to brachial artery arteriovenous fistula creation on 07/19/20. She was scheduled for a follow-up multiple times however has been hospitalized on 2 occasions. Patient denies pain/discomfort, numbness/tingling of the left hand/fingers/upper extremity. She is not currently on dialysis. Physical Exam Extremity Extremity Narrative: Left upper extremity fistula- strong pulse, bruit and thr ill. No erythema or infection noted. Bilateral hands, warm. Good head of human resources strength. Fistula progressing well. Assessment & Plan Assessment/Plan (1) Chronic renal failure, stage 4 (severe): PLAN: Not currently on dialysis (2) S/P arteriovenous (AV) fistula creation: PLAN: Reviewed hand exercises Follow-up in 2-3 weeks as an outpatient Call our office for an appointment Visit Charges Inpatient E&M: 55294 Init Hosp L1 (Post-op/No charge)
--- NOTE | 2020-08-08 10:59 | PCM.DC ---
Discharge Instructions Diet Discharge Diet: Renal Diet Activity Discharge Activity: Return to Normal Activity Dressing / Incision Call your doctor if you observe: Fever of 101 or Higher, Shortness of breath, Dizziness and Chest pain Follow Up Care Test Results: Test results from this visit will be discussed in further detail at your follow-up appointment, if applicable. Discharge Plan Admission Admit Date/Time: 08/06/20 12:51 Attending Provider: Blair Lainez Primary Care Provider: Antony Pollack Consulting Providers: Annalise Gomez Discharge Orders/Prescriptions Prescriptions: New levofloxacin 250 mg tablet 250 mg PO Q48H Qty: 4 RF: 0 Continued estradiol 0.5 mg tablet 0.5 mg PO DAILY RF: 0 amlodipine 10 mg tablet 10 mg PO DAILY RF: 0 pantoprazole 20 mg tablet,delayed release (DR/EC) 20 mg PO QODAY RF: 0 atorvastatin 40 mg tablet 40 mg PO DAILY RF: 0 calcitriol 0.25 mcg capsule 0.25 mcg PO DAILY RF: 0 linaclotide 145 mcg capsule 145 mcg PO DAILY RF: 0 polyethylene glycol 3350 [Miralax] 17 gram/dose powder 17 gm PO DAILY RF: 0 clonidine 0.3 MG patch 0.3 mg TRANSDERM. SEYMOUR RF: 0 fluoxetine 20 MG capsule 20 mg PO DAILY RF: 0 metoprolol tartrate 50 MG tablet 50 mg PO DAILY RF: 0 calcium carbonate 600 MG tablet 600 mg PO QODAY RF: 0 cholecalciferol (vitamin D3) 1,250 MCG capsule 1,250 mcg PO QODAY RF: 0 L.acidoph, paracasei,B. lactis 1 EACH capsule 1 each PO DAILY RF: 0 esvamdsw-wxg-cemt-FA-lutein 1 EACH tablet 1 tablet PO DAILY RF: 0 hydralazine 10 mg Tablet 10 mg PO TID Qty: 90 RF: 0 sodium bicarbonate 650 mg tablet 650 mg PO DAILY Qty: 30 RF: 0 Discontinued cephalexin 500 mg capsule 500 mg PO Q12H Qty: 14 RF: 0 Referrals / Follow Up: Antony Pollack MD [Primary Care Provider] - In 1 Week Annalise Gomez DO [STAFF PHYSICIAN] - In 1 Week Stanley León MD [STAFF PHYSICIAN] - See Referral Note (As scheduled) Disposition Disposition (needs filled in before D/C Order can be placed): Home, self care
--- NOTE | 2020-08-08 12:26 | CASEMGMT ---
RN CM noted that pt does not qualify for home O2.
--- NOTE | 2020-08-08 12:34 | DS.PCM_ITS ---
Documented by User: Wilma Hudson NP, CONVEYOR SYSTEM OPERATOR-C 08/08/20 12:45 Providers Date of Admission: 08/06/20 Primary Care Physician: Dr. Antony Pollack MD Consultations 08/06/20 15:14 Consult: Nephrology Routine Consulting Provider: Annalise Gomez Reason for Consult: ckd V EMERGENT Consult: No MD Notified: Yes Date Notified:: 08/06/20 Time Notified: 13:17 Method of Notification: Text Reason For Visit: PNEUMONIA, HYPOXIA Diagnosis Discharge Diagnosis (1) Chronic renal failure, stage 4 (severe): Status: Chronic Code(s): N18.4 - Chronic kidney disease, stage 4 (severe) (2) S/P arteriovenous (AV) fistula creation: Status: Inactive Code(s): Z98.890 - Other specified postprocedural states Medications at Discharge Home Medications clonidine 0.3 mg TRANSDERM. SEYMOUR 05/09/18 fluoxetine 20 mg PO DAILY 05/09/18 amlodipine 10 mg tablet 10 mg PO DAILY tablet 06/25/20 atorvastatin 40 mg tablet 40 mg PO DAILY tablet 06/25/20 calcitriol 0.25 mcg capsule 0.25 mcg PO DAILY cap 06/25/20 estradiol 0.5 mg tablet 0.5 mg PO DAILY tablet 06/25/20 linaclotide 145 mcg capsule 145 mcg PO DAILY cap 06/25/20 pantoprazole 20 mg tablet,delayed release 20 mg PO QODAY tablet 06/25/20 polyethylene glycol 3350 17 gram/dose oral powder 17 gm PO DAILY 06/25/20 metoprolol tartrate 50 mg PO DAILY 07/18/20 L.acidoph, paracasei,B. lactis 1 each PO DAILY 07/23/20 calcium carbonate 600 mg PO QODAY 07/23/20 cholecalciferol (vitamin D3) 1,250 mcg PO QODAY 07/23/20 zmewfsbh-xpw-vqzl-FA-lutein 1 tablet PO DAILY 07/23/20 hydralazine 10 mg PO TID #90 tab 07/30/20 sodium bicarbonate 650 mg PO DAILY #30 tab 07/30/20 levofloxacin 250 mg PO Q48H #4 tab 08/08/20 Hospital Course Operations None Procedures 2-D Echocardiogram Summary of Care Provided Minutes Spent on Discharge: 35 Hospital Course: Patient is a 65-year-old female admitted 08/06/2020 due to shortness of breath. Patient was recently hospitalized for pneumonia and discharged 07/30/2020. Patient states her shortness of breath initially improved however following discharge became worsened. 1. Acute hypoxic respiratory failure secondary to persistent bilateral pneumonia-IV Levaquin and IV cefepime during admission. Continue renally dosed Levaquin at discharge to complete 10-day course. Ambulatory pulse ox completed prior to discharge and patient did not require further supplemental oxygen. Follow-up with PCP within 1 week. D-dimer elevated. VQ scan with low probability for PE, lower extremity Doppler negative for DVT. 2. Chronic kidney disease stage V-recent AV fistula placement. Follow-up with vascular surgery and Dr. Gomez, nephrology. Per nephrology, no need for urgent dialysis. Will wait for AV fistula maturation. 3. History of splenectomy 4. Hypertension-stable, continue current regimen. 5. Hyperlipidemia-continue statin. 6. MARLA-continue home Pap regimen. 7. Obesity-encouraged diet and lifestyle modifications. 8. GERD-continue PPI. 9. Anemia of chronic disease-stable. Patient seen and examined prior to discharge. Physical assessment as noted below. Patient is stable for discharge with follow up recommendations as noted above. This patient was seen by NATALIE Rubio under the supervision of Dr. Lainez. Physical Exam Const alert, oriented x3 and no apparent distress Orientation / Consciousness: awake, oriented to person, oriented to place and oriented to time HEENT normocephalic and moist oral mucous membranes Eyes PERRL, EOMs intact bilaterally and conjunctivae normal Neck no lymphadenopathy Resp normal respiratory effort and clear to auscultation bilaterally Cardio regular rate, regular rhythm and no murmurs Peripheral Pulses: pulses 2+ throughout GI normal to inspection, nondistended, normoactive bowel sounds, non-tender and non-distended Extremity normal to inspection Skin no rashes or lesions noted Lesions: no lesions Rashes: no rashes Trauma: no lacerations or abrasions Neuro oriented x3 Sensorium / Orientation: awake and alert Psych affect normal ABG / Lab / Microbiology Data Result Diagrams: 08/08/20 06:30 08/08/20 06:30 Laboratory: Laboratory Results - last 24 hr 08/08/20 08/08/20 06:30 06:30 WBC 9.0 RBC 2.72 L Hgb 8.4 L Hct 26.6 L MCV 97.8 MCH 30.9 MCHC 31.6 L RDW Std Deviation 49.7 H RDW Coeff of Ralph 14.2 Plt Count 506 H MPV 10.3 Immature Gran % (Auto) 0.800 Neut % (Auto) 77.6 H Lymph % (Auto) 10.3 L [place] % (Auto) 7.3 Eos % (Auto) 3.2 Baso % (Auto) 0.8 Absolute Neuts (auto) 7.0 Absolute Lymphs (auto) 0.93 Nucleated RBC % 0 Sodium 144 Potassium 5.0 Chloride 111 H Carbon Dioxide 21.0 Anion Gap 12 BUN 71 H Creatinine 4.28 H Estim Creat Clear Calc 11.94 Est GFR (MDRD) Af Amer 13 L Est GFR (MDRD) Non-Af 11 L BUN/Creatinine Ratio 16.6 Glucose 88 Calcium 8.7 Iron 37 L Ferritin 323 H Microbiology: Microbiology 08/06/20 21:30 Urine, Clean Catch Legionella Antigen - Final 08/06/20 21:30 Urine, Clean Catch Streptococcus pneumoniae Antigen (M - Final 08/06/20 09:55 Interface Orders SARS-CoV-2 Antigen (Rapid) - Final D/C Instructions Discharge Diet: Renal Diet Discharge Activity: Return to Normal Activity Call your doctor if you observe: Fever of 101 or Higher, Shortness of breath, Dizziness and Chest pain Meaningful Use Info Meaningful Use Diagnoses (Choose all that apply): None applicable Discharge Plan Admission Admit Date/Time: 08/06/20 12:51 Attending Provider: Blair Lainez Primary Care Provider: Antony Pollack Consulting Providers: Annalise Gomez Discharge Orders/Prescriptions Prescriptions: New levofloxacin 250 mg tablet 250 mg PO Q48H Qty: 4 RF: 0 Continued estradiol 0.5 mg tablet 0.5 mg PO DAILY RF: 0 amlodipine 10 mg tablet 10 mg PO DAILY RF: 0 pantoprazole 20 mg tablet,delayed release (DR/EC) 20 mg PO QODAY RF: 0 atorvastatin 40 mg tablet 40 mg PO DAILY RF: 0 calcitriol 0.25 mcg capsule 0.25 mcg PO DAILY RF: 0 linaclotide 145 mcg capsule 145 mcg PO DAILY RF: 0 polyethylene glycol 3350 [Miralax] 17 gram/dose powder 17 gm PO DAILY RF: 0 clonidine 0.3 MG patch 0.3 mg TRANSDERM. SEYMOUR RF: 0 fluoxetine 20 MG capsule 20 mg PO DAILY RF: 0 metoprolol tartrate 50 MG tablet 50 mg PO DAILY RF: 0 calcium carbonate 600 MG tablet 600 mg PO QODAY RF: 0 cholecalciferol (vitamin D3) 1,250 MCG capsule 1,250 mcg PO QODAY RF: 0 L.acidoph, ladonnai,B. lactis 1 EACH capsule 1 each PO DAILY RF: 0 vskclsvy-grx-zidr-FA-lutein 1 EACH tablet 1 tablet PO DAILY RF: 0 hydralazine 10 mg Tablet 10 mg PO TID Qty: 90 RF: 0 sodium bicarbonate 650 mg tablet 650 mg PO DAILY Qty: 30 RF: 0 Discontinued cephalexin 500 mg capsule 500 mg PO Q12H Qty: 14 RF: 0 Referrals / Follow Up: Antony Pollack MD [Primary Care Provider] - 08/13/20 4:00 am Annalise Gomez DO [STAFF PHYSICIAN] - 08/14/20 9:30 am Stanley León MD [STAFF PHYSICIAN] - See Referral Note (As scheduled) Disposition Disposition (needs filled in before D/C Order can be placed): Home, self care Documented by User: Dr. Blair Lainez MD 08/08/20 14:50 Providers Date of Admission: 08/06/20 Reason For Visit: PNEUMONIA, HYPOXIA Medications at Discharge Home Medications clonidine 0.3 mg TRANSDERM. SEYMOUR 05/09/18 fluoxetine 20 mg PO DAILY 05/09/18 amlodipine 10 mg tablet 10 mg PO DAILY tablet 06/25/20 atorvastatin 40 mg tablet 40 mg PO DAILY tablet 06/25/20 calcitriol 0.25 mcg capsule 0.25 mcg PO DAILY cap 06/25/20 estradiol 0.5 mg tablet 0.5 mg PO DAILY tablet 06/25/20 linaclotide 145 mcg capsule 145 mcg PO DAILY cap 06/25/20 pantoprazole 20 mg tablet,delayed release 20 mg PO QODAY tablet 06/25/20 polyethylene glycol 3350 17 gram/dose oral powder 17 gm PO DAILY 06/25/20 metoprolol tartrate 50 mg PO DAILY 07/18/20 sharif Darnell B. lactis 1 each PO DAILY 07/23/20 calcium carbonate 600 mg PO QODAY 07/23/20 cholecalciferol (vitamin D3) 1,250 mcg PO QODAY 07/23/20 oxijmnfp-lpp-qnpc-FA-lutein 1 tablet PO DAILY 07/23/20 hydralazine 10 mg PO TID #90 tab 07/30/20 sodium bicarbonate 650 mg PO DAILY #30 tab 07/30/20 levofloxacin 250 mg PO Q48H #4 tab 08/08/20 Hospital Course Summary of Care Provided Hospital Course: This patient was seen in conjunction with CONVEYOR SYSTEM OPERATORWilma. I have independently interviewed and examined the patient and reviewed pertinent history, examination findings, laboratory and plan of management. I have reviewed the note and agree with the documented findings with the few additional points. In brief, patient is admitted for for progressive shortness of breath with acute hypoxic respiratory failure. Patient has CKD stage V therefore could not have CT angiogram of chest therefore VQ scan was done. VQ scan low probability for PE. Patient lower extremity venous Doppler negative for DVT. Patient has b ilateral pulmonary infiltrate worse in right lung secondary to pneumonia. On cefepime and Levaquin. Patient is discharged on Levaquin, renally dosed for total of 10 days. No fever or chills. Patient has left arm AV fistula created last month about 2 to 3 weeks ago, still time for maturation. Has CKD stage V. Patient was seen by technical mgr and surgeon. Other comorbidities as mentioned above. Discharge medication reconciliation done. Discharge follow-up instructions completed. Discharge process discussed with the patient and all questions were answered to patient's satisfaction. Discharge process discussed with the patient and her near the bedside. Total time spent, exact 35 minutes on discharge meds reconciliation, examination, coordination of care with nurses and ancillary staff, review of imaging and blood test and discussion with the patient on follow-up instructi ons I have discussed my assessment with Wilma JAQUEZ and orders have been reviewed. Physical Exam Narrative Seen and examined. Test result discussed with the patient including VQ scan, chest x-ray and venous Doppler all been negative. No fever or chills. General: Alert, Oriented x3, Cooperative HEENT: Atraumatic, PERRLA, EOMI, Normocephalic Oral: No Gingival or Mucosal Lesions/ Ulcerations Neck: Supple, No JVD, Negative Carotid Bruits Lungs: Air entry diminished in bilateral lung bases. No crepitation/rhonchi Cardiovascular: Regular rate, Regular Rhythm, Normal S1, Normal S2, No murmurs Abdomen: Bowel Sounds Present, Soft, Non Tender, Non-Distended : No renal angle tenderness. No suprapubic tenderness. Extremities: Mild bilateral ankle edema, Capillary Refill Less than 3 Seconds Skin: No rashes, No breakdown Musculoskeletal: No Tenderness to Palpation of Joints or Extremities Neurological: Cranial nerves II-XII grossly intact, Deep Tendon Reflexes 2+/4 and Symmetrical, Neuro grossly intact Psych/Mental Status: Normal Affect, Appropriate. HEENT normocephalic and moist oral mucous membranes Eyes PERRL, EOMs intact bilaterally and conjunctivae normal Neck no lymphadenopathy Resp normal respiratory effort and clear to auscultation bilaterally Cardio regular rate, regular rhythm and no murmurs Peripheral Pulses: pulses 2+ throughout GI normal to inspection, nondistended, normoactive bowel sounds, non-tender and n on-distended Extremity normal to inspection Skin no rashes or lesions noted Lesions: no lesions Rashes: no rashes Trauma: no lacerations or abrasions Neuro oriented x3 Sensorium / Orientation: awake and alert Psych affect normal ABG / Lab / Microbiology Data Result Diagrams: 08/08/20 06:30 08/08/20 06:30 Discharge Plan Admission Admit Date/Time: 08/06/20 12:51 Attending Provider: Blair Lainez Primary Care Provider: Antony Pollack Consulting Providers: Annalise Gomez Discharge Orders/Prescriptions Prescriptions: New levofloxacin 250 mg tablet 250 mg PO Q48H Qty: 4 RF: 0 Continued estradiol 0.5 mg tablet 0.5 mg PO DAILY RF: 0 amlodipine 10 mg tablet 10 mg PO DAILY RF: 0 pantoprazole 20 mg tablet,delayed release (DR/EC) 20 mg PO QODAY RF: 0 atorvastatin 40 mg tablet 40 mg PO DAILY RF: 0 calcitriol 0.25 mcg capsule 0.25 mcg PO DAILY RF: 0 linaclotide 145 mcg capsule 145 mcg PO DAILY RF: 0 polyethylene glycol 3350 [Miralax] 17 gram/dose powder 17 gm PO DAILY RF: 0 clonidine 0.3 MG patch 0.3 mg TRANSDERM. SEYMOUR RF: 0 fluoxetine 20 MG capsule 20 mg PO DAILY RF: 0 metoprolol tartrate 50 MG tablet 50 mg PO DAILY RF: 0 calcium carbonate 600 MG tablet 600 mg PO QODAY RF: 0 cholecalciferol (vitamin D3) 1,250 MCG capsule 1,250 mcg PO QODAY RF: 0 L.acidoph, paracasei,B. lactis 1 EACH capsule 1 each PO DAILY RF: 0 zzgymxop-lzg-ivle-FA-lutein 1 EACH tablet 1 tablet PO DAILY RF: 0 hydralazine 10 mg Tablet 10 mg PO TID Qty: 90 RF: 0 sodium bicarbonate 650 mg tablet 650 mg PO DAILY Qty: 30 RF: 0 Discontinued cephalexin 500 mg capsule 500 mg PO Q12H Qty: 14 RF: 0 Referrals / Follow Up: Antony Pollack MD [Primary Care Provider] - 08/13/20 4:00 am Annalise Gomez DO [STAFF PHYSICIAN] - 08/14/20 9:30 am Stanley León MD [STAFF PHYSICIAN] - See Referral Note (As scheduled) Disposition Disposition (needs filled in before D/C Order can be placed): Home, self care Visit Charges Inpatient E&M: 93612 Disch Hosp
--- NOTE | 2020-08-08 13:24 | PCM.CONS.GEN ---
Assessment & Plan Assessment/Plan (1) Anxiety: (2) CKD (chronic kidney disease) stage 5, GFR less than 15 ml/min: (3) Dyspnea: QUALIFIERS: Dyspnea type: dyspnea on exertion Qualified Code(s): R06.00 - Dyspnea, unspecified (4) Pneumonia: QUALIFIERS: Laterality: bilateral Lung location: unspecified part of lung Pneumonia type: due to unspecified organism Qualified Code(s): J18.9 - Pneumonia, unspecified organism PLAN: Palliative services willing to follow patient at discharge to provide symptom support during dialysis treatment. Aniceto Talbot educated on symptoms that Palliative can treat related to ESRD. Declines Palliative services at this time. Encouraged to follow renal diet and use incentive spirometer at home to keep lungs moving and complete antibotic therapy as ordered. Keep follow up appointments with PCP and Nephrology. Agreed to a Palliative phone call in 2-3 weeks to check in on Palliative care interest. Business card and contact information left at bedside per patient request. Thank you for the opportunity to serve your patients! Contact [facility] office at [phone] for any questions or concerns. Time IN: 1:10PM Time OUT: 2:00PM HPI Consult Data Date of Consult: 08/08/20 HPI Narrative HPI Narrative: ANICETO MASON, is a 65 F referred to [facility] for symptom control related to recurrent Pneumonia and ESRD with recent fistula placement. Past Medical History listed below. She presented to the ER on 08/06/20 for worsening shortness of breath for the last week. She had a recent hospitalization for pneumonia and completed her antibiotics. Imaging studies, (Chest X-ray, Chest CT and Lung scan) obtained on admission demonstrated Persistent bilateral pulmonary infiltrates worse in the right hemithorax. There has been some improvement as compared to prior study, but noted to be hypoxic with oxygen saturation in the mid 80s. respiratory status has improved with antibiotics. Had a recent fistula was placed in left upper arm and fistula was evaluated inpatient today due to missing outpatient appointment for fistula evaluation. Elevated D dimer and subsequent venous doppler ruled out DVT. Plan is to discharge home today with oral antibiotics and follow up with PCP and nephrology. Seen today in her room. Alert and oriented X 3. Noted to be anxious, but no dyspnea noted at this time. States that she is feeling much better and looking forward to going home. Palliative services explained and symptom management process. Seemed interested in services especially when dialysis starts, but states that due to Covid-19, her and her have not allowed any visitors in even though they have had both vaccines. Telehealth capabilities explained for visits. Denies any constipation, chest pain, shortness of breath or mental status changes. [facility] Medical History (Updated 08/08/20 @ 13:53 by NATALIE Perrin) Acid reflux Anemia Anemia in chronic kidney disease (~08/06/20) Chest pain Constipation CPAP (continuous positive airway pressure) dependence Hypertension Migraines Sleep apnea Wears hearing aid in both ears Home Medications clonidine 0.3 mg TRANSDERM. SEYMOUR 05/09/18 [History Last Taken 07/21/20] fluoxetine 20 mg PO DAILY 05/09/18 [History Last Taken 07/23/20 08:00] amlodipine 10 mg tablet 10 mg PO DAILY tablet 06/25/20 [History Last Taken 07/22/20 20:00] atorvastatin 40 mg tablet 40 mg PO DAILY tablet 06/25/20 [History Last Taken 07/22/20 20:00] calcitriol 0.25 mcg capsule 0.25 mcg PO DAILY cap 06/25/20 [History Last Taken 07/23/20 08:00] estradiol 0.5 mg tablet 0.5 mg PO DAILY tablet 06/25/20 [History Last Taken 07/23/20 08:00] linaclotide 145 mcg capsule 145 mcg PO DAILY cap 06/25/20 [History Last Taken 07/23/20 08:00] pantoprazole 20 mg tablet,delayed release 20 mg PO QODAY tablet 06/25/20 [History Last Taken 07/21/20 16:15] polyethylene glycol 3350 17 gram/dose oral powder 17 gm PO DAILY 06/25/20 [History Last Taken 07/23/20 08:00] metoprolol tartrate 50 mg PO DAILY 07/18/20 [History Last Taken 07/23/20 08:00] L.acidoph, paracasei,B. lactis 1 each PO DAILY 07/23/20 [History Last Taken 07/23/20 08:00] calcium carbonate 600 mg PO QODAY 07/23/20 [History Last Taken 07/22/20 08:00] cholecalciferol (vitamin D3) 1,250 mcg PO QODAY 07/23/20 [History Last Taken 07/21/20 20:00] imlwuzhe-rov-vmdi-FA-lutein 1 tablet PO DAILY 07/23/20 [History Last Taken 07/23/20 08:00] hydralazine 10 mg PO TID #90 tab 07/30/20 [Rx Last Taken Unknown] sodium bicarbonate 650 mg PO DAILY #30 tab 07/30/20 [Rx Last Taken Unknown] levofloxacin 250 mg PO Q48H #4 tab 08/08/20 [Rx Last Taken Unknown] Allergy/AdvReac Type Severity Reaction Status Date / Time Sulfa (Sulfonamide AdvReac Nausea Verified 08/06/20 09:15 Antibiotics) Family History Mother Multiple myeloma Endometrial stromal sarcoma Sarcomatoid renal cell carcinoma Surgical History (Updated 08/08/20 @ 09:30 by Tricia ONEAL PARamiro) History of esophagogastroduodenoscopy (EGD) Hx of colonoscopy Hx of hysterectomy Hx of splenectomy Hx of tonsillectomy Hx of total adrenalectomy S/P arteriovenous (AV) fistula creation Social History Smoking Status: Never smoker second hand exposure: No alcohol intake: never substance use type: does not use caffeine: Yes what type of physical activity do you participate in: walking frequency: other seatbelt use: always ROS Constitutional Constitutional: Denies fatigue, fever(s) or weakness ENT HEENT: Denies abnormal hearing Cardiovascular Cardiovascular: Denies chest pain or palpitations Respiratory/Chest Respiratory/Chest: Denies shortness of breath at rest or shortness of breath with exertion Gastrointestinal Gastrointestinal: Denies abdominal pain, constipation or dyspepsia Genitourinary Genitourinary: Denies dysuria or hematuria Musculoskeletal Musculoskeletal: Denies back pain or extremity pain Neurologic Neurologic: Denies abnormal speech, confusion or dizziness Psychiatric Psychiatric: Reports anxiety Physical Exam Const alert, oriented x3, no apparent distress and well nourished General Appearance: cooperative and well developed HEENT normocephalic Neck supple and no JVD Resp normal respiratory effort and clear to auscultation bilaterally Cardio regular rate, regular rhythm, S1 normal heart sound, S2 normal heart sound and no murmurs Cardio Narrative: left upper arm fistula positive for thrill and bruit GI normal to inspection, nondistended, normoactive bowel sounds, soft to palpation, non-tender and non-distended Extremity Extremity Narrative: trace edema BLE General Extremity: edema; Negative for cyanosis Skin skin turgor normal Neuro CN's II-XII intact bilaterally Neuro Narrative: left arm 3-4/5 due to left upper arm fistula Speech: speech normal Psych affect normal Psych Narrative: appears anxious during visit but relaxes as visit progresses Appearance: appropriate Mood & Affect: anxious Lab / Micro Data Result Diagrams: 08/08/20 06:30 08/08/20 06:30 Labs: Laboratory Results - last 24 hr 08/08/20 08/08/20 06:30 06:30 WBC 9.0 RBC 2.72 L Hgb 8.4 L Hct 26.6 L MCV 97.8 MCH 30.9 MCHC 31.6 L RDW Std Deviation 49.7 H RDW Coeff of Ralph 14.2 Plt Count 506 H MPV 10.3 Immature Gran % (Auto) 0.800 Neut % (Auto) 77.6 H Lymph % (Auto) 10.3 L [place] % (Auto) 7.3 Eos % (Auto) 3.2 Baso % (Auto) 0.8 Absolute Neuts (auto) 7.0 Absolute Lymphs (auto) 0.93 Nucleated RBC % 0 Sodium 144 Potassium 5.0 Chloride 111 H Carbon Dioxide 21.0 Anion Gap 12 BUN 71 H Creatinine 4.28 H Estim Creat Clear Calc 11.94 Est GFR (MDRD) Af Amer 13 L Est GFR (MDRD) Non-Af 11 L BUN/Creatinine Ratio 16.6 Glucose 88 Calcium 8.7 Iron 37 L Ferritin 323 H Micro: Microbiology 08/06/20 13:55 Blood Culture - Preliminary Blood Culture (Wb) - Right Wrist No growth in 48 hours. 08/06/20 13:50 Blood Culture - Preliminary Blood Culture (Wb) - Right Forearm No growth in 48 hours.
--- NOTE | 2020-08-09 14:19 | CASEMGMT ---
RN CM Discharge F/U Phone Call LACE: 11 Strata: 3 Discharge date: 08/08/20 Call date: 08/09/20 Call time: 1420 Attempted to reach pt without success, message left with pt to call this RN CM back if/when able. SStaten RN CM Admission dx: Pneumonia, hypoxia
== END 2020-08-08 14:49 | disposition home or self-care (01) | DRG 193 ==
LOC: ED 12:22 → PCU 12:42
PROVIDERS: Internal Medicine Nephrology; Physician Assistant; Admitting Provider Internal Medicine; Emergency Provider Emergency Medicine; PCP Family Medicine; Visit Provider Internal Medicine
DX: J18.9 Pneumonia, unspecified organism (principal); J96.01 Acute respiratory failure with hypoxia; N18.6 End stage renal disease; I12.0 Hypertensive chronic kidney disease with stage 5 chronic kidney disease or end stage renal disease; E87.2 Acidosis; D63.1 Anemia in chronic kidney disease; Z99.2 Dependence on renal dialysis; E87.5 Hyperkalemia; Z20.822 Contact with and (suspected) exposure to COVID-19; D50.9 Iron deficiency anemia, unspecified; E78.5 Hyperlipidemia, unspecified; K21.9 Gastro-esophageal reflux disease without esophagitis; G47.33 Obstructive sleep apnea (adult) (pediatric); F41.9 Anxiety disorder, unspecified; E66.9 Obesity, unspecified; Z68.30 Body mass index [BMI] 30.0-30.9, adult; Z79.899 Other long term (current) drug therapy; Z97.4 Presence of external hearing-aid; Z87.01 Personal history of pneumonia (recurrent); Z90.81 Acquired absence of spleen
CPT/HCPCS: 36415; 71045; 71046; 71250; 78582; 80048; 80053; 82728; 83540; 83735; 84100; 84484; 85025; 85379; 85610; 85730; 87040; 87426; 87449; 93005; 93970; 94640; 97162; 99284; A9540; A9567; J7030; J0610

== ENCOUNTER → 2020-08-12 08:52 | Outpatient (CLI) | payer MEDICARE, SELFPAY ==
[2020-06-25 14:15] VITALS: BMI 29.8
[2020-08-06 14:41] VITALS: BMI 30.7
[2020-08-12 10:06] LABS: Hemoglobin A1c 5.4 % (3.8-5.6)
[2020-08-12 10:26] LABS: PTHIN 231.2 pg/mL (18.4-80.1)
[2020-08-12 10:30] LABS: Vitamin D,25 Hydroxy 40.6 ng/mL
[2020-08-12 11:20] LABS: Albumin, Serum 2.7 g/dL (3.2-5.0); BUN 68 mg/dL (7-18); BUN/Creat Ratio 14.7 RATIO (10-20); Chloride 112 mmol/L (98-107); Creatinine, Serum 4.64 mg/dL (0.55-1.02); EST Glomerular Filtration Rate 10 mL/min (>60); Est Glom Filt Rate - Afr Amer 12 mL/min (>60); Glucose 91 mg/dL (74-106); Phosphorus 5.2 mg/dL (2.5-4.9); Potassium 4.9 mmol/L (3.5-5.1); Sodium Level 139 mmol/L (136-145)
== END ==
PROVIDERS: PCP Family Medicine; Referring Provider Internal Medicine Nephrology; Visit Provider Internal Medicine Nephrology
DX: R73.03 Prediabetes (principal); N18.4 Chronic kidney disease, stage 4 (severe); N25.81 Secondary hyperparathyroidism of renal origin; E55.9 Vitamin D deficiency, unspecified
CPT/HCPCS: 36415; 80069; 82306; 83036; 83970

== ENCOUNTER → 2020-08-26 10:51 | Outpatient (CLI) | payer MEDICARE, SELFPAY ==
[2020-08-06 14:41] VITALS: BMI 30.7
[2020-08-26 11:22] LABS: Hematocrit 30.3 % (37-47); Hemoglobin 9.5 g/dL (12.0-15.0); Mean Corp Hgb Conc 31.4 g/dL (32-36); Mean Corpuscular Hgb 30.2 pg (27.0-32.0); Mean Corpuscular Volume 96.2 fL (81-99); Mean Platelet Vol. 10.8 fl (6.2-12.0); Platelet Count 373 K/mm3 (150-450); RBC Distribution Width CV 14.6 % (11.6-14.6); RBC Distribution Width SD 50.4 fl (35.1-43.9); Red Blood Count 3.15 M/mm3 (4.2-5.4); White Blood Count 7.3 K/mm3 (4.4-11.0)
[2020-08-26 11:51] LABS: PTHIN 329.2 pg/mL (18.4-80.1)
[2020-08-26 11:53] LABS: Albumin, Serum 2.9 g/dL (3.2-5.0); BUN 71 mg/dL (7-18); BUN/Creat Ratio 17.7 RATIO (10-20); Calcium,Total 8.6 mg/dL (8.5-10.1); Chloride 111 mmol/L (98-107); Creatinine, Serum 4.02 mg/dL (0.55-1.02); EST Glomerular Filtration Rate 12 mL/min (>60); Est Glom Filt Rate - Afr Amer 14 mL/min (>60); Glucose 113 mg/dL (74-106); Potassium 4.8 mmol/L (3.5-5.1); Sodium Level 139 mmol/L (136-145)
== END ==
PROVIDERS: PCP Family Medicine; Referring Provider Internal Medicine Nephrology; Visit Provider Internal Medicine Nephrology
DX: N18.4 Chronic kidney disease, stage 4 (severe) (principal); D63.8 Anemia in other chronic diseases classified elsewhere; N25.81 Secondary hyperparathyroidism of renal origin
CPT/HCPCS: 36415; 80069; 83970; 85027

== ENCOUNTER 2020-08-30 04:49 | Inpatient (IN) | payer MEDICARE, SELFPAY ==
[2020-08-06 14:41] VITALS: BMI 30.7
[2020-08-30] VITALS (31 sets, daily range): BP systolic 125–206; BP diastolic 60–106; PULSE 76–106; RESP 12–34; TEMP 35.8–37.1; O2SAT 89–98; BMI 31.6; BMI 31.4
--- NOTE | 2020-08-30 05:02 | RAD_ITS ---
STUDY: X-RAY CHEST REASON FOR EXAM: Female, 65 years old. sob TECHNIQUE: Single AP portable view of the chest. COMPARISON: 08/07/2020 FINDINGS: There are superimposed monitor leads. Improved aeration with decrease of density and size of bilateral infiltrates. Minor atelectasis in the right suprahilar parenchyma. Continued obscuration of the left cardiac contour and diaphragm. Component of small effusions not excluded. Normal size heart. Normal mediastinum and sadia. Normal visualized pulmonary arteries. Normal visualized aortic arch and descending thoracic aorta. Normal visualized thoracic spine. Normal visualized ribs, clavicles, and shoulders. There is no demonstrated abnormality of the visualized soft tissue structures of the upper abdomen. RAD/Chest 1 View (Portable) IMPRESSION: Improved aeration with decrease of bilateral pulmonary infiltrates. Probable bilateral small effusions. Electronically Signed: Enedelia Sabillon MD at 5:29 EDT , Service support ,
--- NOTE | 2020-08-30 05:03 | EKG12_ITS ---
Test Reason : SOB Blood Pressure : / mmHG Vent. Rate : 098 BPM Atrial Rate : 098 BPM P-R Int : 170 ms QRS Dur : 074 ms QT Int : 374 ms P-R-T Axes : 004 089 044 degrees QTc Int : 477 ms Normal sinus rhythm Normal ECG Confirmed by SIVA VOGT, THA ([id number]), sports editor RUDY VELA ([id number]) on 09/03/2020 1:56:14 PM Referred By: YANDEL Confirmed By:THA PANIAGUA MD
--- NOTE | 2020-08-30 05:04 | EDS_ITS ---
HPI History of Present Illness Chief Complaint: Shortness of Breath Informant: patient and spouse/S.O. Narrative Narrative: Patient is a 65-year-old female with complex medical history including CKD 5, recent pneumonia and history of pheochromocytomas is presenting with worsening shortness of breath. Patient has not started dialysis yet but does have a mature AV fistula. She is presenting with worsening shortness of breath and dyspnea on exertion. Patient states she document improvement earlier this week but over the past 2 days has been feeling worse. She was recently started on Lasix. She had increased swelling of her legs and it is now up to her thighs per her . Patient does wear compression stockings regularly. No associated cough. Patient does have orthopnea. Patient is complained of chest pressure in the center of her chest. She denies any fever or chills. No other complaints at this time. Chart review shows that patient was hospitalized for pneumonia and discharged on 07/30/2020. She was then admitted to the hospital on 08/06/2020 for hypoxia thought to be secondary to persistent pneumonia. Patient notes she had chest x- ray outpatient this week which did show fluid on her lungs which is why she was started on the Lasix. [facility] Medical History (Updated 08/30/20 @ 06:[address] Suki Pfeiffer, DO) Acid reflux Anemia Anemia in chronic kidney disease (~08/06/20) Chest pain Chronic kidney disease (CKD) Constipation CPAP (continuous positive airway pressure) dependence Fistula Hypertension Migraines Sleep apnea Wears hearing aid in both ears Home Medications clonidine 0.3 mg TRANSDERM. SEYMOUR 05/09/18 [History Last Taken 07/21/20] fluoxetine 20 mg PO DAILY 05/09/18 [History Last Taken 07/23/20 08:00] atorvastatin 40 mg tablet 40 mg PO DAILY tablet 06/25/20 [History Last Taken 07/22/20 20:00] calcitriol 0.25 mcg capsule 0.25 mcg PO DAILY cap 06/25/20 [History Last Taken 07/23/20 08:00] estradiol 0.5 mg tablet 0.5 mg PO DAILY tablet 06/25/20 [History Last Taken 07/23/20 08:00] linaclotide 145 mcg capsule 145 mcg PO DAILY cap 06/25/20 [History Last Taken 07/23/20 08:00] pantoprazole 20 mg tablet,delayed release 20 mg PO QODAY tablet 06/25/20 [History Last Taken 07/21/20 16:15] polyethylene glycol 3350 17 gram/dose oral powder 17 gm PO DAILY 06/25/20 [History Last Taken 07/23/20 08:00] metoprolol tartrate 50 mg PO DAILY 07/18/20 [History Last Taken 07/23/20 08:00] L.acidoph, paracasei,B. lactis 1 each PO DAILY 07/23/20 [History Last Taken 07/23/20 08:00] calcium carbonate 600 mg PO QODAY 07/23/20 [History Last Taken 07/22/20 08:00] cholecalciferol (vitamin D3) 1,250 mcg PO QODAY 07/23/20 [History Last Taken 07/21/20 20:00] uprkfruu-pnh-kgkk-FA-lutein 1 tablet PO DAILY 07/23/20 [History Last Taken 07/23/20 08:00] hydralazine 10 mg PO TID #90 tab 07/30/20 [Rx Last Taken Unknown] sodium bicarbonate 650 mg PO DAILY #30 tab 07/30/20 [Rx Last Taken Unknown] furosemide [Lasix] 20 mg PO DAILY 08/30/20 [History Last Taken Unknown] Allergy/AdvReac Type Severity Reaction Status Date / Time Sulfa (Sulfonamide AdvReac Nausea Verified 08/30/20 04:50 Antibiotics) Family History Mother Multiple myeloma Endometrial stromal sarcoma Sarcomatoid renal cell carcinoma Surgical History (Updated 08/30/20 @ 06:[address] Benigno Bowen MD) S/P arteriovenous (AV) fistula creation Social History Smoking Status: Never smoker second hand exposure: No alcohol intake: never substance use type: does not use caffeine: Yes what type of physical activity do you participate in: walking frequency: other seatbelt use: always ROS ROS ED Constitutional Constitutional ED: Denies chills, fatigue, fever(s) or weakness Eyes Eyes: Denies blurry vision or other visual disturbances Cardiovascular Cardiovascular: Reports chest pain and orthopnea; Denies palpitations Respiratory/Chest Respiratory/Chest: Reports dyspnea, dyspnea on exertion and orthopnea Gastrointestinal Gastrointestinal: Denies abdominal pain, nausea or vomiting Genitourinary Genitourinary ED: Denies decreased urination or dysuria Musculoskeletal Musculoskeletal: Reports other Details: no leg swelling ; Denies extremity pain Integumentary Denies new lesions or rash Neurologic Neurologic: Denies paresthesias or weakness Psychiatric Psychiatric: Denies anxiety or depression Hematologic/Lymphatic Hematologic/Lymphatic: Denies easy bleeding or easy bruising EXAM Physical Exam Const Vital Signs: 08/30/20 04:50 08/30/20 04:53 08/30/20 04:54 Temperature 97.8 F 98.7 F Temperature Source Oral Oral Pulse Rate 102 H 106 H Respiratory Rate 34 H 34 H Respiratory Effort Short of Breath Respiratory Depth Shallow Respiratory Pattern Tachypnea Blood Pressure 196/102 H 196/102 H Blood Pressure Mean 133 133 Pulse Ox 89 94 Oxygen Delivery Method Room Air Nasal Cannula Nasal Cannula Oxygen Flow Rate (L/min) 2 2 Fraction of Inspired Oxygen (FIO2) 08/30/20 05:35 08/30/20 05:37 08/30/20 05:47 Temperature 97.9 F Temperature Source Temporal Pulse Rate 98 78 Respiratory Rate 30 H 27 H Respiratory Effort Respiratory Depth Respiratory Pattern Tachypnea Blood Pressure 206/99 H Blood Pressure Mean 134 Pulse Ox 96 96 Oxygen Delivery Method Bi-pap Oxygen Flow Rate (L/min) 30 Fraction of Inspired Oxygen (FIO2) 35 30 Positive well nourished, well developed, alert and oriented x3 General Appearance ED: well developed and other Uncomfortable secondary to work of breathing HEENT Reports normocephalic and moist mucous membranes normocephalic and atraumatic Mouth ED: Yes moist mucous membranes normal Eyes PERRL and EOMs intact bilaterally General Eye ED: Yes normal appearance of both eyes Pupil: PERRL Neck supple and no JVD Lymph Lymphatic: no lymphadenopathy noted Chest Wall inspection of chest normal and palpation of chest normal Resp normal air movement Resp Narrative: Conversational dyspnea, tachypnea, decreased breath sounds at the bases bilaterally Cardio regular rate, regular rhythm and no murmurs Cardio Narrative: AV fistula with palpable thrill in the left upper extremity Peripheral Pulses: pulses 2+ throughout GI non-tender and non-distended Back/Spine no CVA tenderness and normal to inspection Extremity normal to inspection and full ROM Extremity Narrative: Bilateral edema present. Patient is wearing compression stockings. General Extremety ED: Yes edema General Extremity: edema Neuro oriented x3, moves all extremities and no focal motor deficits Psych mental status grossly normal and thought process normal Skin no rashes or lesions noted and no petechiae Lesions: no lesions Rashes: no rashes MDM MDM MDM Narrative Medical decision making narrative: Patient evaluated for worsening shortness of breath dyspnea on exertion. Patient is having moderate respiratory distress. She is 89% on room air and placed on nasal cannula. Due to her work of breathing she is transition to BiPAP. She does have improvement of her symptoms but is still quite symptomatic. She is hypertensive in the emergency room as well. Patient patient is given aspirin for chest pain as well as IV labetalol. She is given IV Lasix as I believe she is having a CHF exacerbation causing her symptoms. Patient does not appear to be in flash pulmonary edema. Chest x-ray does show resolution of pneumonia but she does have bilateral small pleural effusions. Will call for admission. Lab Data Labs: Laboratory Results - last 24 hr 08/30/20 08/30/20 08/30/20 05:12 05:12 05:12 WBC 9.6 RBC 3.48 L Hgb 10.5 L Hct 33.6 L MCV 96.6 MCH 30.2 MCHC 31.3 L RDW Std Deviation 50.0 H RDW Coeff of Ralph 14.1 Plt Count 410 MPV 10.6 Immature Gran % (Auto) 0.500 Neut % (Auto) 71.1 H Lymph % (Auto) 16.1 L [place] % (Auto) 8.4 Eos % (Auto) 3.2 Baso % (Auto) 0.7 Absolute Neuts (auto) 6.8 Absolute Lymphs (auto) 1.54 Nucleated RBC % 0 Sodium 141 Potassium 5.2 H Chloride 113 H Carbon Dioxide 22.0 Anion Gap 6 BUN 69 H Creatinine 3.86 H Estim Creat Clear Calc 13.24 Est GFR (MDRD) Af Amer 15 L Est GFR (MDRD) Non-Af 12 L BUN/Creatinine Ratio 17.9 Glucose 104 Calcium 8.9 Troponin I < 0.015 B-Natriuretic Peptide 1652.8 H Radiography Chest X-Ray - ED: 1 View, Read by ED Physician, Read by Radiologist, CHF, Right Effusion and Left Effusion Diagnostic Testing: Radiology Impression Chest X-Ray 08/30/20 05:02 IMPRESSION: Improved aeration with decrease of bilateral pulmonary infiltrates. Probable bilateral small effusions. Electronically Signed: Enedelia Sabillon MD at 5:29 EDT , Service support , Rhythm Strip Rhythm Strip: Sinus Rhythm Rate: 98 Ectopy: None EKG Initial EKG: Attestation: I personally reviewed and interpreted this EKG as follows: Interpretation: Sinus Rhythm Comments: Normal sinus rhythm at a rate of 98 Normal axis Normal intervals Poor baseline in V2, V4 and V5 Normal-appearing ST segments Discharge Plan Dx/Rx/DC Orders Clinical Impression: Acute diastolic CHF (congestive heart failure), Acute respiratory failure with hypoxia, Hypertension Disposition Disposition: Acute Care Hospital [facility] Discharge Date/Time: 08/30/20 06:28
[2020-08-30 05:21] LABS: Absolute Lymphocyte Count 1.54 X10^3/uL (0.83-4.51); Absolute Neutrophil Count 6.8 X10^3/uL (2.0-7.7); Basophil# 0.07 X10^3/uL; Basophil% 0.7 % (0-1); Eosinophil# 0.31 X10^3/uL; Eosinophils% 3.2 % (0-5); Hematocrit 33.6 % (37-47); Hemoglobin 10.5 g/dL (12.0-15.0); Lymphocyte # 1.54 X10^3/ul (0.83-4.51); Lymphocyte % 16.1 % (19-41); Mean Corp Hgb Conc 31.3 g/dL (32-36); Mean Corpuscular Hgb 30.2 pg (27.0-32.0); Mean Corpuscular Volume 96.6 fL (81-99); Mean Platelet Vol. 10.6 fl (6.2-12.0); Monocyte% 8.4 % (0-10); NRBC Flagged by Analyzer 0 % (0-5); Neutrophil # 6.79 X10^3/uL (2.7-7.7); Neutrophil % 71.1 % (47-70); Platelet Count 410 K/mm3 (150-450); RBC Distribution Width CV 14.1 % (11.6-14.6); Red Blood Count 3.48 M/mm3 (4.2-5.4); White Blood Count 9.6 K/mm3 (4.4-11.0)
[2020-08-30 05:41] LABS: Anion Gap 6 (5-15); BUN 69 mg/dL (7-18); BUN/Creat Ratio 17.9 RATIO (10-20); Calcium,Total 8.9 mg/dL (8.5-10.1); Chloride 113 mmol/L (98-107); Creatinine, Serum 3.86 mg/dL (0.55-1.02); EST Glomerular Filtration Rate 12 mL/min (>60); Est Glom Filt Rate - Afr Amer 15 mL/min (>60); Estimated Creatinine Clearance 13.24 ml/min; Glucose 104 mg/dL (74-106); Potassium 5.2 mmol/L (3.5-5.1); Sodium Level 141 mmol/L (136-145)
[2020-08-30 05:43] LABS: BNP,B-Type NATRIURETIC PEPTIDE 1652.8 pg/mL (0-100)
[2020-08-30] MEDS: Labetalol (Prefilled) 20 MG/4 ML 10 MG IV (06:05)
[2020-08-30] MEDS: Aspirin 325 MG Tablet PO (06:06)
[2020-08-30] MEDS: Furosemide 40 MG/4 ML Vial IV ×3 (06:06→20:07)
--- NOTE | 2020-08-30 06:22 | HP.PCM.HOS_ITS ---
[facility] - General General Date of Admission: 08/30/20 Date of Service: 08/30/20 Chief Complaint: Shortness of breath. HPI Narrative ANICETO MASON, is a 65 F with past medical history as mentioned below presented to the emergency room because of shortness of breath. Symptoms started 2 to 3 days ago with shortness of breath, mainly exertional, has been progressive to begin even at rest, associated increasing leg edema and without relieving factors. According to her , patient had chest x-ray 2 days ago and she was started on Lasix by her PCP. She had history of end-stage renal disease, had AV fistula placed and she is supposed to start on dialysis and she has been following up with Dr. 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 In the emergency department, she was afebrile, blood pressure initially was high elevated, it was up to 206 systolic, patient was dyspneic and tachypneic and pulse ox was 89% on room air. She was started on BiPAP and she was given IV labetalol. Blood pressure improved. Routine blood work was remarkable for hemoglobin of 10.5 which is chronic, potassium is 5.2, BUN is 69, creatinine is 3.86. EKG revealed normal sinus rhythm, no acute ischemic changes. Troponin was negative. BNP was 1625. Chest x-ray revealed i mproving bilateral infiltrate which was seen on multiple chest x-rays that was done over the last month. She is being admitted for acute diastolic CHF and mild hyperkalemia. [facility] Medical History (Updated 08/30/20 @ 06:[address] Benigno Bowen MD) Acid reflux Anemia Anemia in chronic kidney disease (~08/06/20) Chest pain Chronic kidney disease (CKD) Constipation CPAP (continuous positive airway pressure) dependence Fistula Hypertension Migraines Sleep apnea Wears hearing aid in both ears Home Medications clonidine 0.3 mg TRANSDERM. SEYMOUR 05/09/18 [History Last Taken 07/21/20] fluoxetine 20 mg PO DAILY 05/09/18 [History Last Taken 07/23/20 08:00] atorvastatin 40 mg tablet 40 mg PO DAILY tablet 06/25/20 [History Last Taken 07/22/20 20:00] calcitriol 0.25 mcg capsule 0.25 mcg PO DAILY cap 06/25/20 [History Last Taken 07/23/20 08:00] estradiol 0.5 mg tablet 0.5 mg PO DAILY tablet 06/25/20 [History Last Taken 07/23/20 08:00] linaclotide 145 mcg capsule 145 mcg PO DAILY cap 06/25/20 [History Last Taken 07/23/20 08:00] pantoprazole 20 mg tablet,delayed release 20 mg PO QODAY tablet 06/25/20 [History Last Taken 07/21/20 16:15] polyethylene glycol 3350 17 gram/dose oral powder 17 gm PO DAILY 06/25/20 [History Last Taken 07/23/20 08:00] metoprolol tartrate 50 mg PO DAILY 07/18/20 [History Last Taken 07/23/20 08:00] L.acidoph, paracasei,B. lactis 1 each PO DAILY 07/23/20 [History Last Taken 07/23/20 08:00] calcium carbonate 600 mg PO QODAY 07/23/20 [History Last Taken 07/22/20 08:00] cholecalciferol (vitamin D3) 1,250 mcg PO QODAY 07/23/20 [History Last Taken 07/21/20 20:00] vcgeubam-akm-zdcd-FA-lutein 1 tablet PO DAILY 07/23/20 [History Last Taken 07/23/20 08:00] hydralazine 10 mg PO TID #90 tab 07/30/20 [Rx Last Taken Unknown] sodium bicarbonate 650 mg PO DAILY #30 tab 07/30/20 [Rx Last Taken Unknown] furosemide [Lasix] 20 mg PO DAILY 08/30/20 [History Last Taken Unknown] Allergy/AdvReac Type Severity Reaction Status Date / Time Sulfa (Sulfonamide AdvReac Nausea Verified 08/30/20 04:50 Antibiotics) Family History Mother Multiple myeloma Endometrial stromal sarcoma Sarcomatoid renal cell carcinoma Surgical History (Updated 08/30/20 @ 06:[address] Benigno Bowen MD) S/P arteriovenous (AV) fistula creation Social History Smoking Status: Never smoker second hand exposure: No alcohol intake: never substance use type: does not use caffeine: Yes what type of physical activity do you participate in: walking frequency: other seatbelt use: always ROS Constitutional Constitutional: Denies anorexia, chills, fatigue, fever(s) or malaise Eyes Eyes: Denies blurry vision, change in eye color, change in vision, double vision or eye pain ENT HEENT: Denies ear pain, epistaxis, headache(s), nasal congestion, post nasal drip or sore throat Cardiovascular Cardiovascular: Reports edema; Denies chest pain, dyspnea on exertion, lightheadedness, orthopnea, palpitations, paroxysmal nocturnal dyspnea or syncope Respiratory/Chest Respiratory/Chest: Reports cough, shortness of breath at rest and shortness of breath with exertion; Denies dyspnea, hemoptysis, productive cough or wheezing Gastrointestinal Gastrointestinal: Denies abdominal pain, constipation, diarrhea, hematemesis, hematochezia, melena, nausea or vomiting Genitourinary Genitourinary: Denies burning urination, dysuria, hematuria, urinary hesitancy or urinary urgency Musculoskeletal Musculoskeletal: Denies arthralgias, back pain, joint pain, joint swelling, m yalgias or neck pain Neurologic Neurologic: Denies dizziness, focal weakness, headache(s), numbness, paresthesias, seizures, tingling or tremor(s) Psychiatric Psychiatric: Reports anxiety; Denies depression, hallucinations, homicidal ideation or suicidal ideation Endocrine Endocrinology: Denies change in body appearance, cold intolerance, heat intolerance, polydipsia or polyuria Hematologic/Lymphatic Hematologic/Lymphatic: Denies easy bleeding, easy bruising or lymphadenopathy Allergic/Immunologic Allergic/Immunologic: Denies itchy eyes, rhinitis, throat swelling, tongue swelling, hives, urticaria or wheezing Vital Signs Vital Signs Vital Signs: 08/30/20 04:50 08/30/20 04:53 08/30/20 04:54 Temperature 97.8 F 98.7 F Temperature Source Oral Oral Pulse Rate 102 H 106 H Respiratory Rate 34 H 34 H Respiratory Effort Short of Breath Respiratory Depth Shallow Respiratory Pattern Tachypnea Blood Pressure 196/102 H 196/102 H Blood Pressure Mean 133 133 Pulse Ox 89 94 Oxygen Delivery Method Room Air Nasal Cannula Nasal Cannula Oxygen Flow Rate (L/min) 2 2 Fraction of Inspired Oxygen (FIO2) 08/30/20 05:35 08/30/20 05:37 08/30/20 05:47 Temperature 97.9 F Temperature Source Temporal Pulse Rate 98 78 Respiratory Rate 30 H 27 H Respiratory Effort Respiratory Depth Respiratory Pattern Tachypnea Blood Pressure 206/99 H Blood Pressure Mean 134 Pulse Ox 96 96 Oxygen Delivery Method Bi-pap Oxygen Flow Rate (L/min) 30 Fraction of Inspired Oxygen (FIO2) 35 30 08/30/20 06:14 Temperature Temperature Source Pulse Rate 100 Respiratory Rate 22 H Respiratory Effort Respiratory Depth Respiratory Pattern Blood Pressure 139/106 H Blood Pressure Mean 117 Pulse Ox 96 Oxygen Delivery Method Bi-pap Oxygen Flow Rate (L/min) 30 Fraction of Inspired Oxygen (FIO2) Weight Weight: 196 lb 6.91 oz Body Mass Index (BMI) 31.6 Physical Exam Const alert, oriented x3 and no limitations Constitutional Narrative: She is in moderate respiratory distress. On BiPAP. General Appearance: cooperative, comfortable and well kempt HEENT normocephalic, head/scalp atraumatic and moist oral mucous membranes Head and Scalp: normocephalic and atraumatic Eyes PERRL, EOMs intact bilaterally, conjunctivae normal and no scleral icterus General Eye: normal appearance of both eyes Periorbital: periorbital findings normal Neck no lymphadenopathy, supple, no meningeal signs, no JVD and no carotid bruits General: trachea midline Thyroid: thyroid normal Resp normal air movement Resp Narrative: Decreased breath sounds bilateral, bilateral coarse crackles, rhonchi. She is dyspneic and tachypneic. Auscultation: rales and rhonchi; Negative for wheezes Cardio regular rate, regular rhythm, S1 normal heart sound, S2 normal heart sound and no JVD Peripheral Pulses: pulses 2+ throughout GI normal to inspection, nondistended, normoactive bowel sounds, soft to palpation, non-tender and non-distended; Negative for hepatosplenomegaly Auscultation: normoactive bowel sounds Extremity normal to inspection and full ROM Extremity Narrative: + Edema. No clubbing or cyanosis. Skin no rashes or lesions noted, no wounds and no petechiae Neuro oriented x3, CN's II-XII intact bilaterally and moves all extremities Sensorium / Orientation: alert Speech: speech normal Motor Exam: strength 5/5 throughout Psych mental status grossly normal, affect normal and denies hallucinations Mood & Affect: anxious Lab / Micro Data Result Diagrams: 08/30/20 05:12 08/30/20 05:12 Labs: Laboratory Results - last 24 hr 08/30/20 08/30/20 08/30/20 05:12 05:12 05:12 WBC 9.6 RBC 3.48 L Hgb 10.5 L Hct 33.6 L MCV 96.6 MCH 30.2 MCHC 31.3 L RDW Std Deviation 50.0 H RDW Coeff of Ralph 14.1 Plt Count 410 MPV 10.6 Immature Gran % (Auto) 0.500 Neut % (Auto) 71.1 H Lymph % (Auto) 16.1 L [place] % (Auto) 8.4 Eos % (Auto) 3.2 Baso % (Auto) 0.7 Absolute Neuts (auto) 6.8 Absolute Lymphs (auto) 1.54 Nucleated RBC % 0 Sodium 141 Potassium 5.2 H Chloride 113 H Carbon Dioxide 22.0 Anion Gap 6 BUN 69 H Creatinine 3.86 H Estim Creat Clear Calc 13.24 Est GFR (MDRD) Af Amer 15 L Est GFR (MDRD) Non-Af 12 L BUN/Creatinine Ratio 17.9 Glucose 104 Calcium 8.9 Troponin I < 0.015 B-Natriuretic Peptide 1652.8 H Micro: Microbiology 08/30/20 05:06 SARS-CoV-2 Antigen (Rapid) - Final Mucosa - Nasopharyngeal Rhythm Strip Rhythm Strip: Sinus Rhythm Rate: 98 Ectopy: None Radiology Impression Chest X-Ray 08/30/20 05:02 IMPRESSION: Improved aeration with decrease of bilateral pulmonary infiltrates. Probable bilateral small effusions. Electronically Signed: Enedelia Sabillon MD at 5:29 EDT , Service support , Assessment & Plan Assessment/Plan (1) Acute respiratory failure with hypoxia: (2) Acute diastolic CHF (congestive heart failure): (3) Hyperkalemia: (4) CKD (chronic kidney disease) stage 5, GFR less than 15 ml/min: (5) Hypertension: (6) Anemia in chronic kidney disease: PLAN: This is a 65 years old female patient presented to the emergency room because of shortness of breath, found to have findings consistent with acute diastolic CHF and mild hyperkalemia and she is being admitted for hemodialysis and treatment. #1 acute diastolic CHF: EKG reviewed, no acute changes. Troponin is negative. Chest x-ray actually showing improving bilateral infiltrate. She had 2D echocardiogram on July, that showed normal LV size and function, ejection fraction was 65%. Plan: Admit to PCU, cardiac monitoring, start IV Lasix, input output chart, nephrology consult as patient will need hemodialysis, Tylenol as needed, Zofran as needed, repeat CBC and BMP tomorrow morning, PT OT evaluation and treatment. #2 acute hypoxic respiratory failure: Secondary to #1. Patient had recent pneumonia, completed treatment and on chest x-ray, pulmonary fibrosis significantly improving. Currently, patient is on BiPAP. Plan to continue BiPAP, IV diuresis as above, hemodialysis. #3 mild hyperkalemia: Potassium is 5.2. EKG reviewed, unremarkable. Expect potassium to normalize with IV Lasix and hemodialysis. #4 stage V chronic kidney disease: She has been following up with nephrology, the initial plan was to start her on hemodialysis in the near future. She does have AV fistula and she was informed that it is ready for dialysis. Plan: Nephrology consult, patient will likely need hemodialysis. #5 hypertension: Initial blood pressure was elevated but improved after IV labetalol. Plan to continue metoprolol, hydralazine and clonidine patch. #6 GERD: Continue PPI. #7 DVT prophylaxis: Subcu heparin. This note was generated with [employer] dictation software. It may contain incorrect words, spelling, and punctuation that were not noted in checking the note before signing. Visit Charges Inpatient E&M: 34053 Init Hosp L3
[2020-08-30] MEDS: hydrALAZINE 20 MG/ML Vial 10 MG IV ×2 (07:37→14:05)
[2020-08-30] MEDS: 0.9% Saline Lock 10 ML Syringe IV ×3 (07:39→20:09)
[2020-08-30] MEDS: FLUoxetine 20 MG Capsule PO (11:04)
[2020-08-30] MEDS: Sodium Bicarbonate 650 MG Tablet PO (11:04)
[2020-08-30] MEDS: Calcitriol 0.25 MCG Capsule PO (11:04)
[2020-08-30] MEDS: Metoprolol(XL)Succ 50 MG Tablet PO (11:04)
[2020-08-30] MEDS: Polyethylene Glycol 3350 17 GM PACKET PO (11:05)
[2020-08-30] MEDS: Heparin Injection (Vial) 5,000 UNIT/ML VIAL 5000 UNIT SC ×2 (11:05→20:07)
[2020-08-30] MEDS: Pantoprazole Sodium 20 MG Tablet PO (11:14)
[2020-08-30] MEDS: Acetaminophen 325 MG Tablet 650 MG PO (11:22)
--- NOTE | 2020-08-30 11:56 | CON.PCM.RE_ITS ---
Assessment & Plan Assessment/Plan (1) CKD (chronic kidney disease) stage 5, GFR less than 15 ml/min: PLAN: will initiate dialysis ,new chronic start today with 2K, 2hrs, 17g needles and second treatment tomorrow. Arrange dialysis at [facility] as outpt prior to discharge. (2) Acute diastolic CHF (congestive heart failure): PLAN: fluid removal on dialysis, iv lasix ordered. (3) Iron deficiency anemia: QUALIFIERS: Iron deficiency anemia type: unspecified iron deficiency Qualified Code(s): D50.9 - Iron deficiency anemia, unspecified PLAN: iron, violet on dialysis. hgb stable (4) Hypertension: PLAN: resume home meds (5) S/P arteriovenous (AV) fistula creation: PLAN: ok to use, matured with good thrill and bruit (6) Metabolic acidosis: PLAN: stop bicarb tablet (7) Hyperkalemia: PLAN: correct with dialysis (8) Anxiety: PLAN: rec anxiolytic, primary service mgmt. Suspect frequent hospitlization partially related to her panic attacks causing her shortness of breath (9) History of pheochromocytoma: PLAN: s/p left adrenalectomy and splenectomy 1989 (10) Secondary hyperparathyroidism: PLAN: continue calcitriol HPI Consult Data Date of Consult: 08/31/20 HPI Narrative HPI Narrative: ANICETO MASON, is a 65 F with CKD stage 5 due to arterionephrosclerosis, has working AVF placed on 07/19/20 ok to use from vacular standpoint. She presents to ER with worsening shortness of breath past 2-3 days. Pt spouse at bedside. She appears to be in an anxiety attack more than CHF. She was started on lasix as outpt yesterday. Her renal fxn has been improving with improved infiltrates on CXR. Oxygenation level has been stable at home per pt spouse. Denies change in appetite. She has been anxious about starting dialysis. She is in agreement to start dialysis today. Patient does wear compression stockings regularly. Edema in her legs is unchanged from baseline. She had her amlodipine disconrinued recently due to low BP. BP now elevated likely due to anxiety, panic attack. Chart review shows that patient was hospitalized for pneumonia and discharged on 07/30/2020. She was then re-admitted to the hospital on 08/06/2020 for hypoxia thought to be secondary to persistent pneumonia. [facility] Medical History (Updated 08/30/20 @ 12:[address] Annalise Gomez, ) Acid reflux Anemia Anemia in chronic kidney disease (~08/06/20) Chest pain Chronic kidney disease (CKD) Constipation CPAP (continuous positive airway pressure) dependence Fistula Hypertension Migraines Sleep apnea Wears hearing aid in both ears Home Medications clonidine 0.3 mg TRANSDERM. SEYMOUR 05/09/18 [History Last Taken 07/21/20] fluoxetine 20 mg PO DAILY 05/09/18 [History Last Taken 07/23/20 08:00] atorvastatin 40 mg tablet 40 mg PO DAILY tablet 06/25/20 [History Last Taken 07/22/20 20:00] calcitriol 0.25 mcg capsule 0.25 mcg PO DAILY cap 06/25/20 [History Last Taken 07/23/20 08:00] estradiol 0.5 mg tablet 0.5 mg PO DAILY tablet 06/25/20 [History Last Taken 07/23/20 08:00] linaclotide 145 mcg capsule 145 mcg PO DAILY cap 06/25/20 [History Last Taken 07/23/20 08:00] pantoprazole 20 mg tablet,delayed release 20 mg PO QODAY tablet 06/25/20 [History Last Taken 07/21/20 16:15] polyethylene glycol 3350 17 gram/dose oral powder 17 gm PO DAILY 06/25/20 [History Last Taken 07/23/20 08:00] metoprolol tartrate 50 mg PO DAILY 07/18/20 [History Last Taken 07/23/20 08:00] L.acidoph, paracasei,B. lactis 1 each PO DAILY 07/23/20 [History Last Taken 07/23/20 08:00] calcium carbonate 600 mg PO QODAY 07/23/20 [History Last Taken 07/22/20 08:00] cholecalciferol (vitamin D3) 1,250 mcg PO QODAY 07/23/20 [History Last Taken 07/21/20 20:00] ycxnukcc-abp-ppxj-FA-lutein 1 tablet PO DAILY 07/23/20 [History Last Taken 07/23/20 08:00] hydralazine 10 mg PO TID #90 tab 07/30/20 [Rx Last Taken Unknown] sodium bicarbonate 650 mg PO DAILY #30 tab 07/30/20 [Rx Last Taken Unknown] furosemide [Lasix] 20 mg PO DAILY 08/30/20 [History Last Taken Unknown] Allergy/AdvReac Type Severity Reaction Status Date / Time Sulfa (Sulfonamide AdvReac Nausea Verified 08/30/20 04:50 Antibiotics) Family History Mother Multiple myeloma Endometrial stromal sarcoma Sarcomatoid renal cell carcinoma Surgical History (Updated 08/30/20 @ 12:[address] Annalise Gomez DO) H/O partial adrenalectomy H/O splenectomy S/P arteriovenous (AV) fistula creation Social History Smoking Status: Never smoker second hand exposure: No alcohol intake: never substance use type: does not use caffeine: Yes what type of physical activity do you participate in: walking frequency: other seatbelt use: always ROS Constitutional Constitutional: Denies chills, fever(s) or malaise Eyes Eyes: Denies change in vision Cardiovascular Cardiovascular: Denies chest pain Respiratory/Chest Respiratory/Chest: Reports dyspnea on exertion and shortness of breath at rest; Denies dry cough Gastrointestinal Gastrointestinal: Denies abdominal pain, diarrhea, nausea or vomiting Genitourinary Genitourinary: Denies difficulty urinating Musculoskeletal Musculoskeletal: Denies abnormal gait or arthralgias Integumentary Integumentary: Denies rash Neurologic Neurologic: Reports tremor(s) and other; Denies abnormal gait, headache(s) or numbness Psychiatric Psychiatric: Reports anxiety and depression Endocrine Endocrinology: Denies cold intolerance or heat intolerance Hematologic/Lymphatic Hematologic/Lymphatic: Reports anemia; Denies easy bleeding Physical Exam Const alert and oriented x3 General Appearance: anxious HEENT normocephalic Eyes PERRL Resp clear to auscultation bilaterally Auscultation: diminished lung sounds Cardio regular rate and no murmurs GI non-tender and non-distended Auscultation: normoactive bowel sounds Palpation: soft no CVA tenderness Extremity Extremity Narrative: mild General Extremity: AV fistula and edema Skin no wounds Neuro CN's II-XII intact bilaterally and moves all extremities Neuro Narrative: anxiety Sensorium / Orientation: awake and alert Motor Exam: tremor Psych cooperative Mood & Affect: anxious Lab / Micro Data Result Diagrams: 08/31/20 05:48 08/31/20 05:48 Labs: Laboratory Results - last 24 hr 08/30/20 08/30/20 08/30/20 05:12 05:12 05:12 WBC 9.6 RBC 3.48 L Hgb 10.5 L Hct 33.6 L MCV 96.6 MCH 30.2 MCHC 31.3 L RDW Std Deviation 50.0 H RDW Coeff of Ralph 14.1 Plt Count 410 MPV 10.6 Immature Gran % (Auto) 0.500 Neut % (Auto) 71.1 H Lymph % (Auto) 16.1 L [place] % (Auto) 8.4 Eos % (Auto) 3.2 Baso % (Auto) 0.7 Absolute Neuts (auto) 6.8 Absolute Lymphs (auto) 1.54 Nucleated RBC % 0 Sodium 141 Potassium 5.2 H Chloride 113 H Carbon Dioxide 22.0 Anion Gap 6 BUN 69 H Creatinine 3.86 H Estim Creat Clear Calc 13.24 Est GFR (MDRD) Af Amer 15 L Est GFR (MDRD) Non-Af 12 L BUN/Creatinine Ratio 17.9 Glucose 104 Calcium 8.9 Troponin I < 0.015 B-Natriuretic Peptide 1652.8 H Micro: Microbiology 08/30/20 05:06 SARS-CoV-2 Antigen (Rapid) - Final Mucosa - Nasopharyngeal Rhythm Strip Rhythm Strip: Sinus Rhythm Rate: 98 Ectopy: None Radiology Impression Chest X-Ray 08/30/20 05:02 IMPRESSION: Improved aeration with decrease of bilateral pulmonary infiltrates. Probable bilateral small effusions. Electronically Signed: Enedelia Sabillon MD at 5:29 EDT , Service support ,
--- NOTE | 2020-08-30 12:15 | CASEMGMT ---
Addendum entered by Nancy Lockwood 08/30/20 15:56: TC back to [facility] to see if decision was made of accepting pt. States triage is still working on this. Addendum entered by Nancy Lockwood 08/30/20 13:20: JOCE FERRER made referral to [facility] via portal and faxed all info except Hep B antigen, recent dialysis order and tx to corporate and to [place] office. TC to [facility] at [place] office to make aware of referral. Rest of info to be faxed when available. TC to [facility] to follow up on [facility] referral. Spoke with Kathleen who states they are recredentialing with [facility] and cannot take pt. TC to [facility], faxed referral at this time. Awaiting acceptance. Original Note: JOCE FERRER Readmission Note Previous Admission: 08/06/20-08/08/20 Diagnosis: PNA, hypoxia DC Disposition: Home with assistance and palliative care to follow up. Current Admission Diagnosis: CHF exacerbation Pt had cxr as outpt a couple of days prior to admission which per ER reports showed fluid on the lungs and pt PCP started her on lasix. Pt had increasing SOB and leg edema and came to ER. JOCE FERRER in to pt room, pt sitting up in chair with beside her. Pt states pt had lived a normal life until the last 3 days. Pt had not started dialysis yet, she had seen Tricia Monreal for Dr.R. León who stated pt could start on 08/31/20. Pt did follow up with her PCP and Dr. Gomez. Pt states she always takes her medications and sets an alarm on her phone for this. Pt states was just in and patient is going to start on dialysis today and continue post hospital stay. Pt states she has selected [facility] for her outpt dialysis. Discussed palliative care and patient states she had not thought she needed them when they called last time. Pt is agreeable to this now. Discussed HHC with patient. states he would like [facility], pt agreed. Discussed criteria for HHC. Pt has difficult and taxing effort to leave the home at this time d/t respiratory status and increased edema. Pt would benefit from SN. Therapy has not eval'd pt yet, will follow. Patient was provided a list of HHC providers including quality and resource use data and consistent with the patient?s preferred geographic region, medical needs, and insurance network. The patient?s preferred provider is [facility]. TC to [facility] as they did not come up on the website and was told they are not a participating provider by marin Amaro. Pt/ second and third choice are [facility] and [facility]. Also discussed if pt should need O2 at dc her provider of choice is [facility]. Pt states she does not need a list of DME companies as this is who she has chosen on prior hospital stays but did not need. JOCE FERRER called [facility] and left a vm on Celmente's phone. Faxed referral to their agency. Called [facility] Care and spoke with Alondra who states they have pt info from last admission and will try to see pt prior to dc. If not, they will follow with pt at home. DC PLAN: Home with HHC SN, Palliative Care. Follow for therapy, O2 needs.
[2020-08-30] MEDS: hydrALAZINE 10 MG Tablet PO ×2 (14:00→20:07)
--- NOTE | 2020-08-30 17:42 | DIALYSIS ---
Report from primary RN, Umu Wall Access: Left upper arm AVF. Site benign, thrill and bruit present. Cannulated with 17 gauge needles. [place] taped securely to patient's arm.
--- NOTE | 2020-08-30 19:36 | DIALYSIS ---
Addendum entered by Shelton Muro 08/30/20 19:41: Report given to primary RNUmu. Original Note: Hemodialysis complete. 2 hour run, 2k bath. Net fluid removed = 1200 ml. Patient tolerated tx fairly well. Patient cramping of feet during last 30 min of HD tx. Cramping resolved by end of HD tx. Left upper arm AVF: Site benign, thrill and bruit present. Needle site pressure held 10 min each. Hemostasis achieved. Report given to primary RNDuke
[2020-08-30] MEDS: dexAMETHasone 4 MG Tablet PO (20:05)
[2020-08-30] MEDS: Atorvastatin Calcium 40 MG Tablet PO (20:08)
[2020-08-31] VITALS (13 sets, daily range): BP systolic 125–153; BP diastolic 61–83; PULSE 74–112; RESP 14–20; TEMP 36.4–37.1; O2SAT 92–96
[2020-08-31] MEDS: Acetaminophen 325 MG Tablet 650 MG PO (00:12)
[2020-08-31] MEDS: 0.9% Saline Lock 10 ML Syringe IV (05:17)
[2020-08-31] MEDS: Furosemide 40 MG/4 ML Vial IV ×3 (05:17→21:59)
[2020-08-31] MEDS: hydrALAZINE 10 MG Tablet PO ×3 (05:17→21:59)
[2020-08-31 06:24] LABS: Absolute Lymphocyte Count 0.75 X10^3/uL (0.83-4.51); Absolute Neutrophil Count 5.8 X10^3/uL (2.0-7.7); Basophil# 0.02 X10^3/uL; Basophil% 0.3 % (0-1); Hematocrit 29.5 % (37-47); Hemoglobin 9.3 g/dL (12.0-15.0); Lymphocyte # 0.75 X10^3/ul (0.83-4.51); Mean Corp Hgb Conc 31.5 g/dL (32-36); Mean Corpuscular Hgb 30.3 pg (27.0-32.0); Mean Corpuscular Volume 96.1 fL (81-99); Mean Platelet Vol. 10.9 fl (6.2-12.0); Monocyte# 0.19 X10^3/uL; Monocyte% 2.8 % (0-10); NRBC Flagged by Analyzer 0 % (0-5); Neutrophil # 5.81 X10^3/uL (2.7-7.7); Neutrophil % 85.3 % (47-70); Platelet Count 375 K/mm3 (150-450); RBC Distribution Width CV 14.4 % (11.6-14.6); RBC Distribution Width SD 50.3 fl (35.1-43.9); Red Blood Count 3.07 M/mm3 (4.2-5.4); White Blood Count 6.8 K/mm3 (4.4-11.0)
[2020-08-31 06:51] LABS: Anion Gap 9 (5-15); BUN 49 mg/dL (7-18); BUN/Creat Ratio 15.2 RATIO (10-20); Calcium,Total 8.1 mg/dL (8.5-10.1); Chloride 109 mmol/L (98-107); Creatinine, Serum 3.22 mg/dL (0.55-1.02); EST Glomerular Filtration Rate 15 mL/min (>60); Est Glom Filt Rate - Afr Amer 18 mL/min (>60); Estimated Creatinine Clearance 15.87 ml/min; Glucose 117 mg/dL (74-106); Potassium 4.5 mmol/L (3.5-5.1); Sodium Level 142 mmol/L (136-145)
--- NOTE | 2020-08-31 09:36 | NURSING ---
Alondra from dialysis here and starting dialysis at this time.
--- NOTE | 2020-08-31 12:29 | DIALYSIS ---
Hemodialysis x2.5 hours completed at 1205 on a 2K bath, 2nd tx, tolerated well, UF 1000mL, accessed via LASHAUN AVF using 17G needles, worked well, needles pulled post tx and stasis achieved without issue, next tx planned for September 03
[2020-08-31] MEDS: Polyethylene Glycol 3350 17 GM PACKET PO (12:48)
[2020-08-31] MEDS: Metoprolol(XL)Succ 50 MG Tablet PO (12:49)
[2020-08-31] MEDS: FLUoxetine 20 MG Capsule PO (12:49)
[2020-08-31] MEDS: Folic Acid/Vitamin B Comp W-C 1 Capsule 1 CAP PO (12:50)
[2020-08-31] MEDS: Calcitriol 0.25 MCG Capsule PO (12:50)
[2020-08-31] MEDS: Heparin Injection (Vial) 5,000 UNIT/ML VIAL 5000 UNIT SC ×2 (12:51→21:58)
--- NOTE | 2020-08-31 15:11 | PN.HOSP_ITS ---
Subjective Subjective Patient seen and examined. She feels much better today. Shortness of breath has improved. She had dialysis yesterday and is due for another session of dialysis tomorrow. Review of systems otherwise negative. Objective Data Objective Data Vital Signs: Vital Signs Temp Pulse Resp BP Pulse Ox 98.6 F 75 20 H 126/61 H 95 08/31/20 12:23 08/31/20 12:50 08/31/20 12:23 08/31/20 12:23 08/31/20 12:23 Oxygen Flow Rate (L/min) 96 Oxygen Delivery Method Room Air Weight: 191 lb 9.307 oz Body Mass Index (BMI) 31.4 Intake & Output: Intake and Output for Last 24 Hours 08/29/20 08/30/20 08/31/20 23:59 23:59 23:59 Intake Total 565 / 685 660 / 660 Output Total 2300 / 2550 1550 / 1550 Balance -1735 / -1865 -890 / -890 Lab / Micro Data Result Diagrams: 08/31/20 05:48 08/31/20 05:48 Labs: Laboratory Results - last 24 hr 08/31/20 08/31/20 05:48 05:48 WBC 6.8 RBC 3.07 L Hgb 9.3 L Hct 29.5 L MCV 96.1 MCH 30.3 MCHC 31.5 L RDW Std Deviation 50.3 H RDW Coeff of Ralph 14.4 Plt Count 375 MPV 10.9 Immature Gran % (Auto) 0.600 Neut % (Auto) 85.3 H Lymph % (Auto) 11.0 L [place] % (Auto) 2.8 Eos % (Auto) 0.0 Baso % (Auto) 0.3 Absolute Neuts (auto) 5.8 Absolute Lymphs (auto) 0.75 L Nucleated RBC % 0 Sodium 142 Potassium 4.5 Chloride 109 H Carbon Dioxide 24.0 Anion Gap 9 BUN 49 H Creatinine 3.22 H Estim Creat Clear Calc 15.87 Est GFR (MDRD) Af Amer 18 L Est GFR (MDRD) Non-Af 15 L BUN/Creatinine Ratio 15.2 Glucose 117 H Calcium 8.1 L Micro: Microbiology 08/30/20 05:06 Mucosa - Nasopharyngeal SARS-CoV-2 Antigen (Rapid) - Final Rhythm Strip Rhythm Strip: Sinus Rhythm Rate: 98 Ectopy: None Physical Exam Const alert, oriented x3 and no apparent distress Exam Limitations: no limitations HEENT head/scalp atraumatic and moist oral mucous membranes Head and Scalp: normocephalic Eyes PERRL, EOMs intact bilaterally and conjunctivae normal Neck no lymphadenopathy Resp normal respiratory effort, no retractions, no use of accessory muscles and clear to auscultation bilaterally Cardio regular rate, regular rhythm, S1 normal heart sound, S2 normal heart sound and no murmurs GI normal to inspection, nondistended, normoactive bowel sounds, soft to palpation, non-tender and non-distended Extremity normal to inspection, full ROM and no clubbing, cyanosis or edema Extremity Narrative: dialysis fistula in LUE with good thrill Peripheral Pulses: Yes pulses 2+ throughout Skin no rashes or lesions noted Neuro oriented x3 Sensorium / Orientation: awake and alert Psych affect normal Assessment & Plan Assessment/Plan (1) Acute respiratory failure with hypoxia: (2) Acute diastolic CHF (congestive heart failure): (3) Hyperkalemia: PLAN: #Acute on chronic HFpEF * shortness of breath has resolved and she feels much better after she had dialysis * for another session of dialysis today * 2D echo on July 2020: normal LV function and size with EF of 65% * on IV lasix * #Acute hypoxic respiratory failure due to acute on chronic heart failure * resolved with dialysis. Now on room air. * #Hyperkalemia: resolved #ESRD * started on dialysis yesterday. to have another session of dialysis today * nephrology on board * #Hypertension * on metoprolol, hydralazine and clonidine * #GERD; on PPI DVT prophylaxis: heparin Visit Charges Inpatient E&M: 56690 Subs Hosp L2
[2020-08-31] MEDS: LINACLOTIDE 145 MCG CAPSULE PO (17:36)
[2020-08-31] MEDS: Atorvastatin Calcium 40 MG Tablet PO (21:59)
[2020-09-01] VITALS (10 sets, daily range): BP systolic 127–141; BP diastolic 56–68; PULSE 64–88; RESP 16–18; TEMP 36.6–36.9; O2SAT 93–99
[2020-09-01] MEDS: hydrALAZINE 10 MG Tablet PO ×2 (05:57→14:04)
[2020-09-01] MEDS: Furosemide 40 MG/4 ML Vial IV (05:58)
[2020-09-01] MEDS: 0.9% Saline Lock 10 ML Syringe IV (05:58)
[2020-09-01 06:03] LABS: Absolute Lymphocyte Count 2.36 X10^3/uL (0.83-4.51); Absolute Neutrophil Count 5.3 X10^3/uL (2.0-7.7); Basophil# 0.05 X10^3/uL; Basophil% 0.6 % (0-1); Eosinophil# 0.28 X10^3/uL; Eosinophils% 3.1 % (0-5); Hematocrit 28.8 % (37-47); Hemoglobin 9.3 g/dL (12.0-15.0); Lymphocyte # 2.36 X10^3/ul (0.83-4.51); Lymphocyte % 26.3 % (19-41); Mean Corp Hgb Conc 32.3 g/dL (32-36); Mean Corpuscular Hgb 30.8 pg (27.0-32.0); Mean Corpuscular Volume 95.4 fL (81-99); Mean Platelet Vol. 10.7 fl (6.2-12.0); Monocyte# 0.93 X10^3/uL; Monocyte% 10.4 % (0-10); NRBC Flagged by Analyzer 0 % (0-5); Neutrophil # 5.29 X10^3/uL (2.7-7.7); Neutrophil % 58.9 % (47-70); Platelet Count 354 K/mm3 (150-450); RBC Distribution Width CV 14.4 % (11.6-14.6); Red Blood Count 3.02 M/mm3 (4.2-5.4)
[2020-09-01 06:33] LABS: Anion Gap 5 (5-15); BUN 35 mg/dL (7-18); BUN/Creat Ratio 10.8 RATIO (10-20); Chloride 104 mmol/L (98-107); Creatinine, Serum 3.25 mg/dL (0.55-1.02); EST Glomerular Filtration Rate 15 mL/min (>60); Est Glom Filt Rate - Afr Amer 18 mL/min (>60); Estimated Creatinine Clearance 15.72 ml/min; Glucose 105 mg/dL (74-106); Sodium Level 137 mmol/L (136-145)
[2020-09-01] MEDS: Calcitriol 0.25 MCG Capsule PO (09:04)
[2020-09-01] MEDS: Pantoprazole Sodium 20 MG Tablet PO (09:04)
[2020-09-01] MEDS: FLUoxetine 20 MG Capsule PO (09:04)
[2020-09-01] MEDS: Folic Acid/Vitamin B Comp W-C 1 Capsule 1 CAP PO (09:05)
[2020-09-01] MEDS: Heparin Injection (Vial) 5,000 UNIT/ML VIAL 5000 UNIT SC (09:06)
[2020-09-01] MEDS: LINACLOTIDE 145 MCG CAPSULE PO (09:06)
[2020-09-01] MEDS: Polyethylene Glycol 3350 17 GM PACKET PO (09:06)
[2020-09-01] MEDS: Metoprolol(XL)Succ 50 MG Tablet PO (09:07)
--- NOTE | 2020-09-01 11:34 | DCINST_ITS ---
Discharge Instructions Follow Up Care Test Results: Test results from this visit will be discussed in further detail at your follow-up appointment, if applicable. Discharge Plan Admission Admit Date/Time: 08/30/20 06:10 Primary Reason for Your Visit: acute on chronic heart failure, Attending Provider: Elidia Owen Primary Care Provider: Antony Pollack Consulting Providers: Annalise Gomez Instructions Patient Instructions: Controlling High Blood Pressure, Caring for Your Hemodialysis Access, ED Chronic Kidney Disease (CKD), ED Hemodialysis, ED Renal Insufficiency Additional Instructions / Restrictions: Follow up at [facility] on Wednesday for dialysis. It will be helpful to call the dialysis center before going, at ~ 10am, to confirm that insurance approval has been obtained. This is per discussion with Dr Gomez, as patient has been scheduled for dialysis in the second shift, which is around 11am. Discharge Orders/Prescriptions Prescriptions: Continued estradiol 0.5 mg tablet 0.5 mg PO DAILY RF: 0 pantoprazole 20 mg tablet,delayed release (DR/EC) 20 mg PO QODAY RF: 0 atorvastatin 40 mg tablet 40 mg PO DAILY RF: 0 calcitriol 0.25 mcg capsule 0.25 mcg PO DAILY RF: 0 linaclotide 145 mcg capsule 145 mcg PO DAILY RF: 0 polyethylene glycol 3350 [Miralax] 17 gram/dose powder 17 gm PO DAILY RF: 0 clonidine 0.3 MG patch 0.3 mg TRANSDERM. SEYMOUR RF: 0 fluoxetine 20 MG capsule 20 mg PO DAILY RF: 0 metoprolol tartrate 50 MG tablet 50 mg PO DAILY RF: 0 calcium carbonate 600 MG tablet 600 mg PO QODAY RF: 0 cholecalciferol (vitamin D3) 1,250 MCG capsule 1,250 mcg PO QODAY RF: 0 L.acidoph, paracasei,B. lactis 1 EACH capsule 1 each PO DAILY RF: 0 uhodydhi-arc-zqch-FA-lutein 1 EACH tablet 1 tablet PO DAILY RF: 0 hydralazine 10 mg Tablet 10 mg PO TID Qty: 90 RF: 0 sodium bicarbonate 650 mg tablet 650 mg PO DAILY Qty: 30 RF: 0 furosemide [Lasix] 20 mg Tablet 20 mg PO DAILY RF: 0 Referrals / Follow Up: Antony Pollack MD [Primary Care Provider] - In 1 Week Annalise Gomez DO [STAFF PHYSICIAN] - In 1 Week Disposition Disposition (needs filled in before D/C Order can be placed): Home, self care
--- NOTE | 2020-09-01 12:30 | CASEMGMT ---
JOCE FERRER notified that pt is to be dc'd today and asked if dialysis had been confirmed. This CM notified charge nurse Bogdan that the pt dialysis had not [facility]. JOCE FERRER notified at 1505 that pt is going to be dc'd and will plan for dialysis Wednesday. JOCE FERRER paged [facility] twice to verify if pt was accepted. Spoke to intake who states they are unable to staff the patient. JOCE FERRER to follow up on Wednesday for another agency due to weekend and holiday.
--- NOTE | 2020-09-01 14:11 | PCM.DC.SUM ---
Providers Date of Admission: 08/30/20 Primary Care Physician: Dr. Antony Pollack MD Consultations 08/30/20 06:30 Consult: Nephrology Routine Consulting Provider: Annalise Gomez Reason for Consult: Acute CHF, ESRD, need dialysis EMERGENT Consult: No MD Notified: Yes Date Notified:: 08/30/20 Time Notified: 07:30 Method of Notification: Text Reason For Visit: CHF EXACERBATION Diagnosis Discharge Diagnosis (1) Acute respiratory failure with hypoxia: Status: Acute Code(s): J96.01 - Acute respiratory failure with hypoxia (2) Acute diastolic CHF (congestive heart failure): Status: Acute Code(s): I50.31 - Acute diastolic (congestive) heart failure (3) Hyperkalemia: Status: Acute Code(s): E87.5 - Hyperkalemia Medications at Discharge Home Medications clonidine 0.3 mg TRANSDERM. SEYMOUR 05/09/18 fluoxetine 20 mg PO DAILY 05/09/18 atorvastatin 40 mg tablet 40 mg PO DAILY tablet 06/25/20 calcitriol 0.25 mcg capsule 0.25 mcg PO DAILY cap 06/25/20 estradiol 0.5 mg tablet 0.5 mg PO DAILY tablet 06/25/20 linaclotide 145 mcg capsule 145 mcg PO DAILY cap 06/25/20 pantoprazole 20 mg tablet,delayed release 20 mg PO QODAY tablet 06/25/20 polyethylene glycol 3350 17 gram/dose oral powder 17 gm PO DAILY 06/25/20 metoprolol tartrate 50 mg PO DAILY 07/18/20 L.acidoph, paracasei,B. lactis 1 each PO DAILY 07/23/20 calcium carbonate 600 mg PO QODAY 07/23/20 cholecalciferol (vitamin D3) 1,250 mcg PO QODAY 07/23/20 isjtbrxa-qat-ngfz-FA-lutein 1 tablet PO DAILY 07/23/20 hydralazine 10 mg PO TID #90 tab 07/30/20 sodium bicarbonate 650 mg PO DAILY #30 tab 07/30/20 furosemide [Lasix] 20 mg PO DAILY 08/30/20 Hospital Course Operations None Procedures Dialysis Summary of Care Provided Minutes Spent on Discharge: 45 Hospital Course: Patient is a 65 y/o with a PMH as outlined who was admitted with a complaint of of shortness of breth for 2-3 days prior to admission, mainly exertional with associated LE edema. Shortness of breath was mainly exertional and progressively worsening. She had been started on Lasix 2 days prior to admission by her PCP. She has a history of ESRD and had an AV fistula placement when she was due to start dialysis. On admission, systolic blood pressure was markedly elevated at 206 systolic and she was tachypneic and dyspneic and she was saturating at 89% on room air. She was started on BiPAP and started on IV labetalol. Potassium was 5.3 and creatinine was 3.86. BNP was 1625. Chest x-ray showed improving bilateral infiltrates relative to chest x-rays done over the past month. She was admitted to be managed for acute diastolic heart failure mild hyperkalemia. Nephrology was consulted and patient was dialyzed for 2 days in a row. Her shortness of breath subsequently resolved and she felt much better. Hepatitis B surface antigen was ordered in preparation for dialysis and it was pending at time of discharge. Patient was discharged on 09/01/2020. He had been set up for dialysis on 09/03/2020. Per discussion with her manager community development, her insurance approval for dialysis was still pending. Plan was therefore for patient to call for [facility] on Wednesday by 10 AM if she had not received a call from them to clarify if the insurance paperwork has been sorted out for her dialysis. If not, dialysis unit would advise here about whether to come into the hospital for dialysis or otherwise. Patient seen and examined prior to discharge. She had no complaints and felt much better. Review of systems otherwise negative. Labs and vitals reviewed. Home medication reviewed and reconciled. O/E: Const alert, oriented x3 and no apparent distress Exam Limitations: no limitations HEENT head/scalp atraumatic and moist oral mucous membranes Head and Scalp: normocephalic Eyes PERRL, EOMs intact bilaterally and conjunctivae normal Neck no lymphadenopathy Resp normal respiratory effort, no retractions, no use of accessory muscles and clear to auscultation bilaterally Cardio regular rate, regular rhythm, S1 normal heart sound, S2 normal heart sound and no murmurs GI normal to inspection, nondistended, normoactive bowel sounds, soft to palpation, non-tender and non-distended Extremity normal to inspection, full ROM and no clubbing, cyanosis or edema Extremity Narrative: dialysis fistula in LUE with good thrill Peripheral Pulses: Yes pulses 2+ throughout Skin no rashes or lesions noted Neuro oriented x3 Sensorium / Orientation: awake and alert Psych affect: anxious ABG / Lab / Microbiology Data Result Diagrams: 09/01/20 05:14 09/01/20 05:14 Laboratory: Laboratory Results - last 24 hr 09/01/20 09/01/20 05:14 05:14 WBC 9.0 RBC 3.02 L Hgb 9.3 L Hct 28.8 L MCV 95.4 MCH 30.8 MCHC 32.3 RDW Std Deviation 50.0 H RDW Coeff of Ralph 14.4 Plt Count 354 MPV 10.7 Immature Gran % (Auto) 0.700 Neut % (Auto) 58.9 Lymph % (Auto) 26.3 [place] % (Auto) 10.4 H Eos % (Auto) 3.1 Baso % (Auto) 0.6 Absolute Neuts (auto) 5.3 Absolute Lymphs (auto) 2.36 Nucleated RBC % 0 Sodium 137 Potassium 4.0 Chloride 104 Carbon Dioxide 28.0 Anion Gap 5 BUN 35 H Creatinine 3.25 H Estim Creat Clear Calc 15.72 Est GFR (MDRD) Af Amer 18 L Est GFR (MDRD) Non-Af 15 L BUN/Creatinine Ratio 10.8 Glucose 105 Calcium 8.0 L Microbiology: Microbiology 08/30/20 05:06 Mucosa - Nasopharyngeal SARS-CoV-2 Antigen (Rapid) - Final D/C Instructions Discharge Diet: 2000 mg Sodium Diet Meaningful Use Info Meaningful Use Diagnoses (Choose all that apply): None applicable Discharge Plan Admission Admit Date/Time: 08/30/20 06:10 Primary Reason for Your Visit: acute on chronic heart failure, Attending Provider: Elidia Owen Primary Care Provider: Antony Pollack Consulting Providers: Annalise Gomez Instructions Patient Instructions: Controlling High Blood Pressure, Caring for Your Hemodialysis Access, ED Chronic Kidney Disease (CKD), ED Hemodialysis, ED Renal Insufficiency Additional Instructions / Restrictions: Patient Problems: Altered Health Status related to Hospitalization Patient Goals: *Optimal Level of Health *Keep Appointments *Medication Compliance *[facility]. It will be helpful to call the dialysis center before going, at ~ 10am, to confirm that insurance approval has been obtained. This is per discussion with Dr Gomez, as patient has been scheduled for dialysis in the second shift, which is around 11am. Discharge Orders/Prescriptions Prescriptions: Continued estradiol 0.5 mg tablet 0.5 mg PO DAILY RF: 0 pantoprazole 20 mg tablet,delayed release (DR/EC) 20 mg PO QODAY RF: 0 atorvastatin 40 mg tablet 40 mg PO DAILY RF: 0 calcitriol 0.25 mcg capsule 0.25 mcg PO DAILY RF: 0 linaclotide 145 mcg capsule 145 mcg PO DAILY RF: 0 polyethylene glycol 3350 [Miralax] 17 gram/dose powder 17 gm PO DAILY RF: 0 clonidine 0.3 MG patch 0.3 mg TRANSDERM. SEYMOUR RF: 0 fluoxetine 20 MG capsule 20 mg PO DAILY RF: 0 metoprolol tartrate 50 MG tablet 50 mg PO DAILY RF: 0 calcium carbonate 600 MG tablet 600 mg PO QODAY RF: 0 cholecalciferol (vitamin D3) 1,250 MCG capsule 1,250 mcg PO QODAY RF: 0 L.acidoph, paracasei,B. lactis 1 EACH capsule 1 each PO DAILY RF: 0 rhwgtyyr-ewu-xcjv-FA-lutein 1 EACH tablet 1 tablet PO DAILY RF: 0 hydralazine 10 mg Tablet 10 mg PO TID Qty: 90 RF: 0 sodium bicarbonate 650 mg tablet 650 mg PO DAILY Qty: 30 RF: 0 furosemide [Lasix] 20 mg Tablet 20 mg PO DAILY RF: 0 Referrals / Follow Up: Antony Pollack MD [Primary Care Provider] - In 1 Week Annalise Gomez DO [STAFF PHYSICIAN] - In 1 Week Disposition Disposition (needs filled in before D/C Order can be placed): Home, self care Visit Charges Inpatient E&M: 77754 Disch Hosp
[2020-09-03 09:17] LABS: Hepatitis B Surface Antigen Non-Reactive (Nonreactive)
--- NOTE | 2020-09-03 09:54 | CASEMGMT ---
Call from Medhat at [facility] asking about Hep B results as they were not faxed yet. Per chart, Hep B is still pending. Floridalma, PCU charge, updated and placed call to [facility] lab. Per lab, they do not run Hep B on the weekend but they will run at this time. According to previous CM note, pt had not been cleared thru insurance for dialysis either and still needs HHC set up. Pamela Lockwood RN, CM working on HHC. Hep B result called and faxed to Medhat at [facility] as soon as obtained. Arnoldo HOBSON CM
--- NOTE | 2020-09-03 10:08 | CASEMGMT ---
Addendum entered by Nancy Lockwodo 09/03/20 10:29: Received tc from Chayo at [facility] who asked for hep B antigen to be faxed. Faxed at this time. Original Note: JOCE FERRER returned call to Liat at [facility]. Faxed hep B antigen at this time. She states pt is ready for 11:40a chair time. Received voicemail from [employer] who requests pt info to be faxed so the insurance can be verified. Awaiting acceptance. States there are some [facility] plans that they can take at this time.
--- NOTE | 2020-09-03 13:00 | CASEMGMT ---
Received tc back from [facility] who states they are unable to accept pt. TC to Salvatore at [facility] and referral faxed. They are able to accept pt. Attempted to reach pt to make aware of agency and to verify it is ok. Unable to reach pt. [facility] will call pt for start of care tomorrow if pt is agreeable.
--- NOTE | 2020-09-03 14:32 | CASEMGMT ---
JOCE FERRER Discharge Follow Up Phone Call: AMIE: [employer] [employer]: 3 Call Date: 09.03.20 Discharge Date: 09.01.20 Time of Call:1430 Duration: <1 min Admitting Dx: CHF JOEC FERRER attempted to complete follow up phone call after recent hospitalization, received vm. Left message requesting call back with number given. Pt had dialysis today at 1140. Will await returned call for follow up call and to make aware of need of another choice for C. Will await returned call.
== END 2020-09-01 14:10 | disposition home or self-care (01) | DRG 291 ==
LOC: ED 05:49 → PCU 07:26
PROVIDERS: Internal Medicine Nephrology; Admitting Provider Hospitalist; Emergency Provider Emergency Medicine; PCP Family Medicine; Visit Provider Student in an Organized Health Care Education/Training Program
DX: I13.2 Hypertensive heart and chronic kidney disease with heart failure and with stage 5 chronic kidney disease, or end stage renal disease (principal); J96.01 Acute respiratory failure with hypoxia; N18.6 End stage renal disease; I50.33 Acute on chronic diastolic (congestive) heart failure; E87.5 Hyperkalemia; D63.1 Anemia in chronic kidney disease; D50.9 Iron deficiency anemia, unspecified; K21.9 Gastro-esophageal reflux disease without esophagitis; Z87.01 Personal history of pneumonia (recurrent); Z99.2 Dependence on renal dialysis; Z97.4 Presence of external hearing-aid
CPT/HCPCS: 36415; 71045; 80048; 83880; 84484; 85025; 87340; 87426; 90937; 93005; 94002; 97110; 97162; 97166; 97530; 97535; 99251; 99285; A4216; G0257; G0463; J1940

== ENCOUNTER → 2021-02-05 10:41 | Outpatient (CLI) | payer MEDICARE, SELFPAY ==
--- NOTE | 2021-02-05 10:50 | ECHOL_ITS ---
Reason For Study: HTN, ESRD/Pre Kidney Transplant Procedure This was a limited 2D transthoracic echocardiogram. Limited views were obtained. Exam performed in department. Left Ventricle Normal LV size. Left ventricular systolic function is normal. The estimated ejection fraction is 65 %. Unable to assess diastolic dysfunction. No regional wall motion abnormalities noted. Right Ventricle Normal RV size. Normal systolic function. Atria The left atrium is mildly enlarged. Normal right atrium. No doppler evidence for ASD. Mitral Valve There is no mitral annular calcification. Normal mitral valve. Mild (1+) mitral valve insufficiency. Tricuspid Valve Normal tricuspid valve. Trivial tricuspid valve insufficiency. Unable to estimate RV systolic pressure due to insufficient tricuspid regurgitant envelope. Aortic Valve Trisinus/trileaflet aortic valve. Normal aortic valve. Trivial aortic valve insufficiency. Pulmonic Valve The pulmonic valve is not well visualized. Trivial pulmonic valve insufficiency. Great Vessels The aortic root is not well visualized. Pericardium/Pleural No pericardial effusion. MMode/2D Measurements & Calculations LVIDd: 4.5 cm IVSd: 1.0 cm LA dimension: 4.0 cm LVIDs: 2.7 cm LVPWd: 0.89 cm FS: 41.2 % LAV(MOD-bp): 83.4 ml LA A4 area: 25.6 cm2 RA A4 area: 17.3 cm2 LAV(MOD-bp) Indexed: 44.7 ml/m2 LAV(MOD-sp2): 66.3 ml LAV(MOD-sp4): 96.0 ml Doppler Measurements & Calculations Lat Peak E' Ronald: 11.6 cm/sec Med Peak E' Ronald: 7.4 cm/sec ECHO/Echo, Limited Study Interpretation Summary Limited views were obtained. Left ventricular systolic function is normal. The estimated ejection fraction is 65 %. The left atrium is mildly enlarged. Mild (1+) mitral valve insufficiency. Trivial tricuspid valve insufficiency. Trivial aortic valve insufficiency. Trivial pulmonic valve insufficiency. Unable to estimate RV systolic pressure due to insufficient tricuspid regurgita nt envelope. Unable to assess diastolic dysfunction. Ordering Physician: AKOSUA KEEN Referring Physician: Eduin Pollack Performed By: Richard Chacon RCS
== END ==
PROVIDERS: PCP Family Medicine
DX: I12.0 Hypertensive chronic kidney disease with stage 5 chronic kidney disease or end stage renal disease (principal); N18.6 End stage renal disease
CPT/HCPCS: 93308

== ENCOUNTER 2022-03-05 12:50 | Outpatient (CLI) | payer MEDICARE, SELFPAY ==
[2022-03-05] MEDS: Pentamidine Isethionate 300 MG, Water For Injection,Sterile 6 ML INHALATION (13:11)
== END 2022-03-05 23:59 | disposition home or self-care (01) ==
LOC: PSN 12:51
PROVIDERS: PCP Family Medicine; Referring Provider Nurse Practitioner Adult Health; Visit Provider Nurse Practitioner Adult Health
DX: Z94.0 Kidney transplant status (principal)
CPT/HCPCS: 94642

== ENCOUNTER → 2022-04-07 | Outpatient (CLI) | payer MEDICARE, SELFPAY ==
[2022-04-07] MEDS: Pentamidine Isethionate 300 MG, Water For Injection,Sterile 6 ML INHALATION (11:11)
== END | disposition home or self-care (01) ==
LOC: PSN 10:43
PROVIDERS: PCP Family Medicine; Referring Provider Nurse Practitioner Adult Health; Visit Provider Nurse Practitioner Adult Health
DX: J98.01 Acute bronchospasm (principal)
CPT/HCPCS: 94642

== ENCOUNTER 2022-12-21 11:51 | Emergency (ER) | payer MEDICARE, SELFPAY ==
[2022-12-21 11:51] VITALS: BP 135/64; PULSE 53; RESP 16; TEMP 36.6; O2SAT 96
[2022-12-21 12:00] VITALS: BMI 29.9
--- NOTE | 2022-12-21 12:07 | EKG12_ITS ---
Test Reason : A-FIB Blood Pressure : / mmHG Vent. Rate : 060 BPM Atrial Rate : 060 BPM P-R Int : 192 ms QRS Dur : 078 ms QT Int : 468 ms P-R-T Axes : 045 041 021 degrees QTc Int : 468 ms Normal sinus rhythm Normal ECG When compared with ECG of 30-AUG-2020 05:30, Vent. rate has decreased BY 38 BPM Confirmed by MARIA GUADALUPE VOGT, MILIND ([id number]), newspaper managing editor MINAL BERGERON ([id number]) on 12/23/2022 9:52:52 AM Referred By: ONDINA Confirmed By:SADE LERMA MD
--- NOTE | 2022-12-21 12:08 | US_ITS ---
STUDY: ABDOMINAL ULTRASOUND - RIGHT UPPER QUADRANT REASON FOR VISIT: Female, 67 years old . The right upper quadrant pain. TECHNIQUE: Ultrasound evaluation of the right upper quadrant was performed with real-time and static delong-scale imaging. TECHNICAL QUALITY: Adequate. COMPARISON: None. FINDINGS: Liver: The liver measures 13.6 cm. There is a heterogeneous echogenicity of the liver. The bile ducts are within normal limits. There is hepatic color flow. The direction of portal flow is hepatopetal. There is no demonstrated mass lesion. Gallbladder: Normal distended gallbladder. The gallbladder wall measures 2.0 mm. There is a negative sonographic Brown''s sign. There is no pericholecystic fluid. There are no gallstones. There is a 4 mm x 4 mm polyp adherent to the gallbladder wall. Common Bile Duct (C.B.D.): The common bile duct measures 7 mm. Pancreas: Normal size of the head, body and tail of the pancreas. There is normal echogenicity of the pancreas. There is no demonstrated pancreatic mass or cyst. Right Kidney: There is [place] right kidney is atrophy of the right kidney. The right kidney measures 8.8 cm cm. There is thinning of the renal cortex. The right cortex measures 0.8 cm. There is no demonstrated renal mass or cyst. There is no right hydronephrosis. A transplanted kidney is seen in the right lower quadrant. The kidney measures 11 cm x 5.7 cm by 5.1 cm. Cortical thickness measures 1.6 cm. US/Gallbladder IMPRESSION: Heterogeneous echotexture of the liver. 4 mm x 4 mm gallbladder polyp. Electronically Signed: Raghavendra Patrick MD at 14:27 EDT ,
--- NOTE | 2022-12-21 12:11 | EX.ED.DYSGE1 ---
HPI <JM Marshall - Last Filed: 12/21/22 19:52> History of Present Illness Chief Complaint: Abd Pain Narrative Narrative: Patient presenting today due to intermittent right upper quadrant abdominal pain that she has had for the past few weeks, the last time she had pain was on Wednesday after eating [employer]. She noticed that she developed this pain after eating fatty foods. She had a HIDA scan performed 2 years ago that was unremarkable but has not had any further testing. Patient also reports a history of atrial fibrillation, she reports that she has been going in and out of it and is supposed to be having an ablation performed December 30 with the [facility] [place]. She has noticed intermittent shortness of breath with exertion as well as intermittent midsternal chest tightness. Last time she experienced chest tightness was this morning at 8:30 am but it didn't last long. She is on a blood thinner. She reports that she called her PCPs office to let them know everything that was going on and the nurse encouraged her to come into the ED to be evaluated due to concerns that she could be having a heart attack. She denies any fever, chills, nausea, vomiting, current abdominal or chest pain, she does not currently feel short of breath. [facility] <JM Marshall - Last Filed: 12/21/22 19:52> [facility] Medical History Acid reflux Anemia Anemia in chronic kidney disease (~08/06/20) Chest pain Chronic kidney disease (CKD) Constipation CPAP (continuous positive airway pressure) dependence Fistula Hypertension Migraines Sleep apnea Wears hearing aid in both ears Home Medications fluoxetine 20 mg capsule 20 mg PO DAILY mental health 05/09/18 [History Last Taken 07/23/20 08:00] atorvastatin 40 mg tablet 40 mg PO DAILY cholesterol 06/25/20 [History Last Taken 07/22/20 20:00] linaclotide 145 mcg capsule 145 mcg PO DAILY constipation 06/25/20 [History Last Taken 07/23/20 08:00] pantoprazole 20 mg tablet,delayed release 20 mg PO QODAY reflux 06/25/20 [History Last Taken 07/21/20 16:15] polyethylene glycol 3350 17 gram/dose oral powder (Miralax) 17 gm PO DAILY constipation 06/25/20 [History Last Taken 07/23/20 08:00] metoprolol tartrate 50 mg tablet 50 mg PO DAILY blood pressure 07/18/20 [History Last Taken 07/23/20 08:00] L.acidoph, paracasei,B. lactis 10 billion cell capsule 1 each PO DAILY supplement 07/23/20 [History Last Taken 07/23/20 08:00] calcium carbonate 600 mg calcium (1,500 mg) tablet 600 mg PO QODAY supplement 07/23/20 [History Last Taken 07/22/20 08:00] ozsgfluz-oabs-hvvd 8 mg-folic 400 mcg-K 50 mcg-lutein 300 mcg tablet 1 tablet PO DAILY supplement 07/23/20 [History Last Taken 07/23/20 08:00] amlodipine 10 mg tablet 10 mg PO DAILY 04/30/22 [History Last Taken Unknown] apixaban 5 mg tablet (Eliquis) 5 mg PO BID 04/30/22 [History Last Taken Unknown] flecainide 50 mg tablet 50 mg PO Q12H 04/30/22 [History Last Taken Unknown] mycophenolate mofetil 250 mg capsule 500 mg PO BID 04/30/22 [History Last Taken Unknown] prednisone 5 mg tablet 5 mg PO QAM 04/30/22 [History Last Taken Unknown] tacrolimus 1 mg capsule, immediate-release (Prograf) 1 mg PO Q12H 04/30/22 [History Last Taken Unknown] Allergy/AdvReac Type Severity Reaction Status Date / Time Sulfa (Sulfonamide AdvReac Nausea Verified 12/21/22 11:51 Antibiotics) Family History Mother Multiple myeloma Endometrial stromal sarcoma Sarcomatoid renal cell carcinoma Surgical History H/O partial adrenalectomy H/O splenectomy S/P arteriovenous (AV) fistula creation Social History Smoking Status: Never smoker second hand exposure: No alcohol intake: never substance use type: does not use caffeine: Yes what type of physical activity do you participate in: walking frequency: other seatbelt use: always ROS <JM Marshall - Last Filed: 12/21/22 19:52> ROS ED Constitutional Constitutional ED: Denies chills or fever(s) Eyes Eyes: Denies blurry vision Cardiovascular Cardiovascular: Denies chest pain Respiratory/Chest Respiratory/Chest: Denies cough or dyspnea Gastrointestinal Gastrointestinal: Denies abdominal pain, nausea or vomiting Genitourinary Genitourinary ED: Denies dysuria, hematuria or urinary urgency Musculoskeletal Musculoskeletal: Denies arthralgias or myalgias Integumentary Denies rash Neurologic Neurologic: Denies weakness EXAM <JM Marshall - Last Filed: 12/21/22 19:52> Physical Exam Const Vital Signs: 12/21/22 11:51 12/21/22 14:31 Temperature 97.8 F Temperature Source Temporal Pulse Rate 53 L 57 L Respiratory Rate 16 16 Blood Pressure 135/64 H 136/61 H Blood Pressure Mean 87 86 Pulse Ox 96 98 Oxygen Delivery Method Room Air Room Air Positive well nourished, well developed and no apparent distress General Appearance ED: well developed HEENT Reports normocephalic and head/scalp atraumatic Mouth ED: Yes moist mucous membranes normal Eyes PERRL and EOMs intact bilaterally Neck full ROM and supple Chest Wall inspection of chest normal Resp normal respiratory effort and clear to auscultation bilaterally Cardio regular rate and regular rhythm GI soft to palpation, non-tender, non-distended and no masses GI Narrative: Negative Brown sign. Back/Spine normal ROM and normal to inspection Extremity normal to inspection and full ROM Neuro oriented x3, CN's II-XII intact bilaterally, moves all extremities, no focal motor deficits and no sensory deficits noted Sensorium / Orientation: awake and alert Psych mental status grossly normal and thought process normal Skin no rashes or lesions noted and no wounds <Dr. Darren Govea DO - Last Filed: 12/21/22 15:35> Physical Exam Const Vital Signs: 12/21/22 11:51 12/21/22 14:31 Temperature 97.8 F Temperature Source Temporal Pulse Rate 53 L 57 L Respiratory Rate 16 16 Blood Pressure 135/64 H 136/61 H Blood Pressure Mean 87 86 Pulse Ox 96 98 Oxygen Delivery Method Room Air Room Air MDM <JM Marshall - Last Filed: 12/21/22 19:52> MDM MDM Narrative Medical decision making narrative: Patient presenting with concerns for intermittent upper quadrant abdominal pain that she has had for the past few weeks after eating fatty foods. She does still have her gallbladder. She also reports that she has been going in and out of A-fib and is set to have a ablation performed at the end of this month. She does appear to be anxious about all of this. The nurse at her PCPs office told her to come in today to be evaluated due to the symptoms she is experiencing. She is not currently symptomatic. However, labs will be obtained to rule out leukocytosis, anemia, electrolyte abnormality, hepatobiliary etiology, and ACS. EKG will be obtained to rule out arrhythmia. Vitals are unremarkable. She is nontoxic-appearing. Gallbladder ultrasound will be obtained. Ultrasound does show a 4 mm gallbladder polyp. She will be given a referral for Dr. Sousa. Chest x-ray negative for any cardiopulmonary abnormality. Her labs overall are unremarkable, kidney function is improved compared to previous visit, however she did have a kidney transplant done and has not had any complications from this. She will be discharged in stable condition and is comfortable with plan Interventions / MDM: Differential diagnosis: Biliary colic, atypical chest pain, cardiac dysrhythmia Diagnosis considered but do not suspect: Cholecystitis with negative imaging and clinical exam My EKG interpretation: Sinus rate of [address] or T wave changes. Imaging independently reviewed and interpreted by myself: Right upper quadrant ultrasound: Gallbladder polyp 4 mm. No cholecystitis. Chest x-ray 1 views: No acute process. External documents reviewed: N/A Test considered but not ordered:N/A ED course: Attending note: Patient seen and evaluated with heating worker. I perform my own [id number]-kb-[id number] evaluation. I agree with the plan of work-up. Sent in here by PCP office after calling them for multiple symptoms. Reported right upper quadrant pain 30 minutes after eating starting 11 days ago. She eats greasy foods will have the symptoms however last time was 3 days ago. There is no nausea or vomiting with this. Per spouse had some symptoms 2020 reportedly had a HIDA scan that was 89%. Unclear they had an ultrasound or gallstones at that time. Patient having intermittent left chest pain none currently. This reported the office. History of paroxysmal A-fib on Eliquis. She is followed by [facility] [place] Dr. Morris, states has a planned ablation pending. She has had direct-current cardioversion x3 that was not working. However EKG today sinus rhythm but no acute findings. Currently no chest pains no abdominal pains. Cardiac work-up initiated along with abdominal labs and gallbladder ultrasound. Ultrasound noted gallbladder polyp cardiac work-up negative. Polyp is 4 mm in size, she referred and treatment as needed. to surgery for outpatient monitoring Re-evaluation: stable Disposition discussed with patient/family/significant other: Patient and significant other Case discussed with consulting clinician: N/A This note was generated with [employer] dictation software. It may contain incorrect words, spelling, and punctuation that were not noted in checking the note before signing. Lab Data Labs: Laboratory Results - last 24 hr 12/21/22 12:15 WBC 8.9 RBC 4.23 Hgb 13.0 Hct 41.0 MCV 96.9 MCH 30.7 MCHC 31.7 L RDW Std Deviation 45.6 H RDW Coeff of Ralph 12.9 Plt Count 324 MPV 10.4 Immature Gran % (Auto) 0.900 Neut % (Auto) 83.3 H Lymph % (Auto) 8.8 L Mckean % (Auto) 5.8 Eos % (Auto) 0.6 Baso % (Auto) 0.6 Absolute Neuts (auto) 7.4 Absolute Lymphs (auto) 0.78 L Nucleated RBC % 0 Sodium 140 Potassium 3.9 Chloride 109 H Carbon Dioxide 24.0 Anion Gap 7 BUN 30 H Creatinine 1.33 H Estim Creat Clear Calc 37.37 Est GFR (MDRD) Af Amer 51 L Est GFR (MDRD) Non-Af 42 L BUN/Creatinine Ratio 22.6 H Glucose 171 H Calcium 9.1 Total Bilirubin 0.50 AST 15 ALT 19 Alkaline Phosphatase 84 Troponin I High Sens 6 Total Protein 6.9 Albumin 3.9 Globulin 3.0 Albumin/Globulin Ratio 1.3 Lipase 45 Radiography X-Ray: Read by ED Physician and Read by Radiologist Diagnostic Testing: Clinical Impression(s) from Imaging Studies Gallbladder Ultrasound 12/21/22 12:08 IMPRESSION: Heterogeneous echotexture of the liver. 4 mm x 4 mm gallbladder polyp. Electronically Signed: Raghavendra Patrick MD at 14:27 EDT , Chest X-Ray 12/21/22 12:45 IMPRESSION: Cardiomegaly. The lungs are clear. Electronically Signed: Raghavendra Patrick MD at 13:05 EDT , EKG Initial EKG: Comments: 60 bpm, normal sinus rhythm, no ST elevation, reviewed and interpreted by attending ED physician <Dr. Darren Govea, DO - Last Filed: 12/21/22 15:35> MDM MDM Narrative Medical decision making narrative: Patient presenting with concerns for intermittent upper quadrant abdominal pain that she has had for the past few weeks after eating fatty foods. She does still have her gallbladder. She also reports that she has been going in and out of A-fib and is set to have a ablation performed at the end of this month. She does appear to be anxious about all of this. The nurse at her PCPs office told her to come in today to be evaluated due to the symptoms she is experiencing. She is not currently symptomatic. However, labs will be obtained to rule out leukocytosis, anemia, electrolyte abnormality, hepatobiliary etiology, and ACS. EKG will be obtained to rule out arrhythmia. Vitals are unremarkable. She is nontoxic-appearing. Gallbladder ultrasound will be obtained. Interventions / MDM: Differential diagnosis: Biliary colic, atypical chest pain, cardiac dysrhythmia Diagnosis considered but do not suspect: Cholecystitis with negative imaging and clinical exam My EKG interpretation: Sinus rate of [address] or T wave changes. Imaging independently reviewed and interpreted by myself: Right upper quadrant ultrasound: Gallbladder polyp 4 mm. No cholecystitis. Chest x-ray 1 views: No acute process. External documents reviewed: N/A Test considered but not ordered:N/A ED course: Attending note: Patient seen and evaluated with heating worker. I perform my own cjro-xg-zhgy evaluation. I agree with the plan of work-up. Sent in here by PCP office after calling them for multiple symptoms. Reported right upper quadrant pain 30 minutes after eating starting 11 days ago. She eats greasy foods will have the symptoms however last time was 3 days ago. There is no nausea or vomiting with this. Per spouse had some symptoms 2020 reportedly had a HIDA scan that was 89%. Unclear they had an ultrasound or gallstones at that time. Patient having intermittent left chest pain none currently. This reported the office. History of paroxysmal A-fib on Eliquis. She is followed by [facility] [place] Dr. Morris, states has a planned ablation pending. She has had direct-current cardioversion x3 that was not working. However EKG today sinus rhythm but no acute findings. Currently no chest pains no abdominal pains. Cardiac work-up initiated along with abdominal labs and gallbladder ultrasound. Ultrasound noted gallbladder polyp cardiac work-up negative. Polyp is 4 mm in size, she referred and treatment as needed. to surgery for outpatient monitoring Re-evaluation: stable Disposition discussed with patient/family/significant other: Patient and significant other Case discussed with consulting clinician: N/A This note was generated with [employer] dictation software. It may contain incorrect words, spelling, and punctuation that were not noted in checking the note before signing. Lab Data Attestation: I reviewed the patient's lab results. Labs: Laboratory Results - last 24 hr 12/21/22 12:15 WBC 8.9 RBC 4.23 Hgb 13.0 Hct 41.0 MCV 96.9 MCH 30.7 MCHC 31.7 L RDW Std Deviation 45.6 H RDW Coeff of Ralph 12.9 Plt Count 324 MPV 10.4 Immature Gran % (Auto) 0.900 Neut % (Auto) 83.3 H Lymph % (Auto) 8.8 L Mckean % (Auto) 5.8 Eos % (Auto) 0.6 Baso % (Auto) 0.6 Absolute Neuts (auto) 7.4 Absolute Lymphs (auto) 0.78 L Nucleated RBC % 0 Sodium 140 Potassium 3.9 Chloride 109 H Carbon Dioxide 24.0 Anion Gap 7 BUN 30 H Creatinine 1.33 H Estim Creat Clear Calc 37.37 Est GFR (MDRD) Af Amer 51 L Est GFR (MDRD) Non-Af 42 L BUN/Creatinine Ratio 22.6 H Glucose 171 H Calcium 9.1 Total Bilirubin 0.50 AST 15 ALT 19 Alkaline Phosphatase 84 Troponin I High Sens 6 Total Protein 6.9 Albumin 3.9 Globulin 3.0 Albumin/Globulin Ratio 1.3 Lipase 45 Radiography Diagnostic Testing: Clinical Impression(s) from Imaging Studies Gallbladder Ultrasound 12/21/22 12:08 IMPRESSION: Heterogeneous echotexture of the liver. 4 mm x 4 mm gallbladder polyp. Electronically Signed: Raghavendra Patrick MD at 14:27 EDT , Chest X-Ray 12/21/22 12:45 IMPRESSION: Cardiomegaly. The lungs are clear. Electronically Signed: Raghavendra Patrick MD at 13:05 EDT , Discharge Plan Triage Chief Complaint: Abd Pain ED Midlevel Provider: Francine Hoover ED Provider: Darren Govea Dx/Rx/DC Orders Clinical Impression: Gallbladder polyp, Chest pain, Biliary colic symptom Instructions: Abdominal Pain, ED Chest Pain, Uncertain Cause Prescriptions: No Action pantoprazole 20 mg tablet,delayed release (DR/EC) 20 mg PO QODAY atorvastatin 40 mg tablet 40 mg PO DAILY linaclotide 145 mcg capsule 145 mcg PO DAILY Patient Comments: TAKE 1 CAPSULE BY MOUTH EVERY DAY polyethylene glycol 3350 [Miralax] 17 gram/dose powder 17 gm PO DAILY Eliquis 5 mg tablet 5 mg PO BID flecainide 50 mg tablet 50 mg PO Q12H amlodipine 10 mg tablet 10 mg PO DAILY tacrolimus [Prograf] 1 mg capsule 1 mg PO Q12H mycophenolate mofetil 250 mg capsule 500 mg PO BID prednisone 5 mg tablet 5 mg PO QAM fluoxetine 20 MG capsule 20 mg PO DAILY metoprolol tartrate 50 MG tablet 50 mg PO DAILY calcium carbonate 600 MG tablet 600 mg PO QODAY L.acidoph, paracasei,B. lactis 1 EACH capsule 1 each PO DAILY disimogz-isn-twow-FA-vit K-lut 1 EACH tablet 1 tablet PO DAILY Primary Care Provider: Antony Pollack Referrals: Antony Pollack MD [Primary Care Provider] - Riki Sousa MD [Med Staff - Active Staff] - 5-7 Days Activity Restrictions/Additional Instructions: Please follow-up with the general surgeon I have referred you to. Return for any worsening of your symptoms. Disposition Disposition: Home, Self Care Discharge Date/Time: 12/21/22 14:43
[2022-12-21 12:26] LABS: Absolute Lymphocyte Count 0.78 X10^3/uL (0.83-4.51); Absolute Neutrophil Count 7.4 X10^3/uL (2.0-7.7); Basophil# 0.05 X10^3/uL; Basophil% 0.6 % (0-1); Eosinophil# 0.05 X10^3/uL; Eosinophils% 0.6 % (0-5); Lymphocyte # 0.78 X10^3/ul (0.83-4.51); Lymphocyte % 8.8 % (19-41); Mean Corp Hgb Conc 31.7 g/dL (32-36); Mean Corpuscular Hgb 30.7 pg (27.0-32.0); Mean Corpuscular Volume 96.9 fL (81-99); Mean Platelet Vol. 10.4 fl (6.2-12.0); Monocyte# 0.52 X10^3/uL; Monocyte% 5.8 % (0-10); NRBC Flagged by Analyzer 0 % (0-5); Neutrophil # 7.43 X10^3/uL (2.7-7.7); Neutrophil % 83.3 % (47-70); Platelet Count 324 K/mm3 (150-450); RBC Distribution Width CV 12.9 % (11.6-14.6); RBC Distribution Width SD 45.6 fl (35.1-43.9); Red Blood Count 4.23 M/mm3 (4.2-5.4); White Blood Count 8.9 K/mm3 (4.4-11.0)
--- NOTE | 2022-12-21 12:34 | CM.ED ---
Social Work SW performed chart review, no AD documents on chart. SW met with patient and patient's and introduced self and role as [facility] SW. Patient agreeable to speak to SW with present. SW inquired about completion of advanced directives. Patient verified LW and HCPOA documents are complete. Patient's HCPOA is patient's , Vaibhav, with alternate being patient's sister, Diamond. SW encouraged patient to bring a copy of documents when she is able to add to patient's chart. Patient voiced understanding. Mary Ann Rivera ANIMAL SHELTER MANAGER, STEPHANIE
--- NOTE | 2022-12-21 12:45 | RAD_ITS ---
STUDY: X-RAY CHEST REASON FOR EXAM: Female, 67 years old. Shortness of breath TECHNIQUE: Single AP portable view of the chest. COMPARISON: Comparison is made with prior study dated August 22, 2020. FINDINGS: The lungs are clear and expanded. There is no demonstrated pleural abnormality. There is mild cardiac enlargement. Normal mediastinum and sadia. Normal visualized pulmonary arteries. There is atherosclerotic tortuosity of the aortic arch and descending thoracic aorta. There are diffuse degenerative changes of the visualized thoracic spine. Normal visualized ribs, clavicles, and shoulders. Surgical clips are seen in the left upper quadrant and epigastric region. RAD/Chest 1 View (Portable) IMPRESSION: Cardiomegaly. The lungs are clear. Electronically Signed: Raghavendra Patrick MD at 13:05 EDT ,
[2022-12-21 12:47] LABS: ALB/GLOB Ratio 1.3 RATIO (0.9-2.4); AST(SGOT) 15 U/L (15-37); Alanine Aminotransfer ALT/SGPT 19 U/L (13-56); Albumin, Serum 3.9 g/dL (3.2-5.0); Alkaline Phosphatase 84 U/L (45-117); Anion Gap 7 (5-15); BUN 30 mg/dL (7-18); BUN/Creat Ratio 22.6 RATIO (10-20); Calcium,Total 9.1 mg/dL (8.5-10.1); Chloride 109 mmol/L (98-107); Creatinine, Serum 1.33 mg/dL (0.55-1.02); EST Glomerular Filtration Rate 42 mL/min (>60); Est Glom Filt Rate - Afr Amer 51 mL/min (>60); Estimated Creatinine Clearance 37.37 ml/min; Glucose 171 mg/dL (74-106); Lipase 45 U/L (13-75); Potassium 3.9 mmol/L (3.5-5.1); Protein, Total 6.9 g/dL (6.4-8.2); Sodium Level 140 mmol/L (136-145); Troponin-I HS 6 pg/mL (3.0-54.0)
[2022-12-21 14:31] VITALS: BP 136/61; PULSE 57; RESP 16; O2SAT 98
== END 2022-12-21 14:43 | disposition home or self-care (01) ==
PROVIDERS: Physician Assistant; Emergency Provider Emergency Medicine; PCP Family Medicine; Visit Provider Emergency Medicine
DX: K80.50 Calculus of bile duct without cholangitis or cholecystitis without obstruction (principal); I48.91 Unspecified atrial fibrillation; E89.6 Postprocedural adrenocortical (-medullary) hypofunction; R07.9 Chest pain, unspecified; I12.9 Hypertensive chronic kidney disease with stage 1 through stage 4 chronic kidney disease, or unspecified chronic kidney disease; N18.9 Chronic kidney disease, unspecified; Z79.01 Long term (current) use of anticoagulants; Z99.89 Dependence on other enabling machines and devices; Z90.81 Acquired absence of spleen
CPT/HCPCS: 71045; 76705; 80053; 83690; 84484; 85025; 93005; 99283; A4216

== ENCOUNTER 2023-05-19 17:23 | Emergency (ER) | payer MEDICARE, SELFPAY ==
[2023-05-19 17:24] VITALS: BP 122/68; PULSE 65; RESP 16; TEMP 35.6; BMI 28.7
[2023-05-19 17:26] VITALS: BP 122/68; PULSE 65; RESP 16; TEMP 35.6
--- NOTE | 2023-05-19 19:27 | ED.VIS.GI ---
HPI HPI - GI History of Present Illness Chief Complaint: Constipation Narrative Narrative: 67-year-old female presenting with constipation. She had abdominal pain yesterday which seems to have resolved. Patient has history of chronic constipation and she is on Linzess and MiraLAX. She takes them daily. Patient in April had her Lasix increased due to renal problems because she is a renal transplant patient. This was all managed through [facility]. She went for 20 mg to 40 mg. It was noted about last week that the patient was having more bowel movements than usual. They stopped the MiraLAX for a few days and now the patient is constipated. Patient has not been able to have a bowel movement at home in 4 days. She had lab work done 2 days ago reportedly as an outpatient that was normal. Patient was counseled by her motorcycle tester that she is not to take a magnesium citrate treatment. Patient currently pain-free no fevers or chills. She is eating and drinking. She is making urine. [facility] Medical History Acid reflux Anemia Anemia in chronic kidney disease (~08/06/20) Chest pain Chronic kidney disease (CKD) Constipation CPAP (continuous positive airway pressure) dependence Fistula Hypertension Migraines Sleep apnea Wears hearing aid in both ears Home Medications fluoxetine 20 mg capsule 20 mg PO DAILY mental health 05/09/18 [History Last Taken 07/23/20 08:00] atorvastatin 40 mg tablet 40 mg PO DAILY cholesterol 06/25/20 [History Last Taken 07/22/20 20:00] linaclotide 145 mcg capsule 145 mcg PO DAILY constipation 06/25/20 [History Last Taken 07/23/20 08:00] pantoprazole 20 mg tablet,delayed release 20 mg PO QODAY reflux 06/25/20 [History Last Taken 07/21/20 16:15] polyethylene glycol 3350 17 gram/dose oral powder (Miralax) 17 gm PO DAILY constipation 06/25/20 [History Last Taken 07/23/20 08:00] metoprolol tartrate 50 mg tablet 50 mg PO DAILY blood pressure 07/18/20 [History Last Taken 07/23/20 08:00] L.acidoph, paracasei,B. lactis 10 billion cell capsule 1 each PO DAILY supplement 07/23/20 [History Last Taken 07/23/20 08:00] amlodipine 10 mg tablet 10 mg PO DAILY 04/30/22 [History Last Taken Unknown] apixaban 5 mg tablet (Eliquis) 5 mg PO BID 04/30/22 [History Last Taken Unknown] flecainide 50 mg tablet 50 mg PO Q12H 04/30/22 [History Last Taken Unknown] mycophenolate mofetil 250 mg capsule 500 mg PO BID 04/30/22 [History Last Taken Unknown] prednisone 5 mg tablet 5 mg PO QAM 04/30/22 [History Last Taken Unknown] tacrolimus 1 mg capsule, immediate-release (Prograf) 1 mg PO Q12H 04/30/22 [History Last Taken Unknown] furosemide 40 mg tablet mg PO 04/26/23 [History Last Taken Unknown] valsartan 40 mg tablet mg PO 04/26/23 [History Last Taken Unknown] Allergy/AdvReac Type Severity Reaction Status Date / Time Sulfa (Sulfonamide AdvReac Nausea Verified 05/19/23 17:23 Antibiotics) Family History Mother Multiple myeloma Endometrial stromal sarcoma Sarcomatoid renal cell carcinoma Surgical History H/O cardiac radiofrequency ablation H/O partial adrenalectomy H/O splenectomy S/P arteriovenous (AV) fistula creation Social History Smoking Status: Never smoker second hand exposure: No alcohol intake: never substance use type: does not use caffeine: Yes what type of physical activity do you participate in: walking frequency: other seatbelt use: always ROS ROS ED Constitutional Constitutional ED: Denies chills, fever(s) or sweats Eyes Eyes: Denies blurry vision or change in vision ENT ENT ED: Denies ear pain or sore throat Cardiovascular Cardiovascular: Denies chest pain, palpitations or racing heartbeat Respiratory/Chest Respiratory/Chest: Denies cough, dyspnea or sputum Gastrointestinal Gastrointestinal: Reports abdominal pain and constipation; Denies diarrhea, nausea or vomiting Genitourinary Genitourinary ED: Denies dysuria, hematuria or urinary frequency Musculoskeletal Musculoskeletal: Denies arthralgias, myalgias or neck pain Integumentary Denies abscess, Abrasions or rash Neurologic Neurologic: Denies headache(s), paresthesias or weakness Psychiatric Psychiatric: Denies anxiety, depression, suicidal ideation or suicidal thoughts Endocrine Endocrinology: Denies polydipsia or polyuria EXAM Physical Exam Const Vital Signs: 05/19/23 17:24 05/19/23 17:26 Temperature 96.0 F L 96.0 F L Temperature Source Temporal Temporal Pulse Rate 65 65 Respiratory Rate 16 16 Blood Pressure 122/68 H 122/68 H Blood Pressure Mean 86 86 Positive well nourished General Appearance ED: NAD HEENT Reports moist mucous membranes normocephalic Eyes PERRL Resp normal respiratory effort Auscultation: Negative for rales, rhonchi or wheezes Cardio regular rate and regular rhythm GI non-tender, non-distended and no masses Neuro CN's II-XII intact bilaterally Sensorium / Orientation: alert Psych mental status grossly normal MDM MDM MDM Narrative Medical decision making narrative: Patient presenting with resolved abdominal pain however she has not a bowel movement in 4 days. She has had abdominal surgeries including partial adrenalectomy, splenectomy, tubal ligation, . No history of obstruction. Abdomen benign. Differential includes dehydration, anemia, electrolyte abnormalities, constipation, bowel obstruction. CBC will be obtained to assess white blood cell count, hemoglobin, platelets. CMP to assess liver function, renal function, electrolytes. Creatinine and GFR appear to be at baseline. Electrolytes are normal. LFTs are normal. CT of the abdomen pelvis was obtained to rule out obstructive process. We did not use contrast due to history of renal transplant and family concern for using contrast. This did not show anything acute. Patient will be given soapsuds enema. Patient did have relief and had moderate volume of liquid stool and feels better. Patient counseled she can continue her MiraLAX at home. She will follow-up with nephrology. Return precautions discussed. Impression: 1. Constipation 2. History of renal transplant Lab Data Attestation: I reviewed the patient's lab results. Labs: Laboratory Results - last 24 hr 05/19/23 05/19/23 19:02 22:00 WBC 9.8 RBC 4.55 Hgb 13.8 Hct 42.2 MCV 92.7 MCH 30.3 MCHC 32.7 RDW Std Deviation 43.8 RDW Coeff of Ralph 13.1 Plt Count 328 MPV 9.7 Immature Gran % (Auto) 0.500 Neut % (Auto) 70.5 H Lymph % (Auto) 19.9 Harding % (Auto) 8.2 Eos % (Auto) 0.4 Baso % (Auto) 0.5 Absolute Neuts (auto) 6.9 Absolute Lymphs (auto) 1.95 Nucleated RBC % 0 Sodium 139 Potassium 3.9 Chloride 105 Carbon Dioxide 25.0 Anion Gap 9 BUN 23 H Creatinine 1.29 H Estim Creat Clear Calc 44.09 Est GFR (MDRD) Af Amer 53 L Est GFR (MDRD) Non-Af 43 L BUN/Creatinine Ratio 17.8 Glucose 105 Calcium 10.1 Total Bilirubin 0.80 AST 17 ALT 23 Alkaline Phosphatase 80 Total Protein 7.1 Albumin 4.4 Globulin 2.7 Albumin/Globulin Ratio 1.6 Radiography Diagnostic Testing: Clinical Impression(s) from Imaging Studies Abdomen/Pelvis CT 05/19/23 19:40 IMPRESSION: No acute abnormality. Small hiatal hernia. 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 Electronically Signed: Fortunato Guerra MD at 21:26 EST , Discharge Plan Triage Chief Complaint: Constipation ED Provider: Shimon Zelaya Dx/Rx/DC Orders Instructions: ED Constipation (Adult) Prescriptions: No Action pantoprazole 20 mg tablet,delayed release (DR/EC) 20 mg PO QODAY atorvastatin 40 mg tablet 40 mg PO DAILY linaclotide 145 mcg capsule 145 mcg PO DAILY Patient Comments: TAKE 1 CAPSULE BY MOUTH EVERY DAY polyethylene glycol 3350 [Miralax] 17 gram/dose powder 17 gm PO DAILY Eliquis 5 mg tablet 5 mg PO BID flecainide 50 mg tablet 50 mg PO Q12H amlodipine 10 mg tablet 10 mg PO DAILY tacrolimus [Prograf] 1 mg capsule 1 mg PO Q12H mycophenolate mofetil 250 mg capsule 500 mg PO BID prednisone 5 mg tablet 5 mg PO QAM furosemide 40 mg tablet PO Patient Comments: TAKE 1 TABLET BY MOUTH EVERY DAY valsartan 40 mg tablet PO Patient Comments: TAKE 1 TABLET BY MOUTH EVERY DAY fluoxetine 20 MG capsule 20 mg PO DAILY metoprolol tartrate 50 MG tablet 50 mg PO DAILY L.acidoph, paracasei,B. lactis 1 EACH capsule 1 each PO DAILY Primary Care Provider: Antony Pollack Referrals: Antony Pollack MD [Primary Care Provider] - Disposition Disposition: Home, Self Care Discharge Date/Time: 05/19/23 23:06
[2023-05-19 19:29] LABS: ALB/GLOB Ratio 1.6 RATIO (0.9-2.4); AST(SGOT) 17 U/L (15-37); Alanine Aminotransfer ALT/SGPT 23 U/L (13-56); Albumin, Serum 4.4 g/dL (3.2-5.0); Alkaline Phosphatase 80 U/L (45-117); Anion Gap 9 (5-15); BUN 23 mg/dL (7-18); BUN/Creat Ratio 17.8 RATIO (10-20); Calcium,Total 10.1 mg/dL (8.5-10.1); Chloride 105 mmol/L (98-107); Creatinine, Serum 1.29 mg/dL (0.55-1.02); EST Glomerular Filtration Rate 43 mL/min (>60); Est Glom Filt Rate - Afr Amer 53 mL/min (>60); Estimated Creatinine Clearance 44.09 ml/min; Globulin 2.7 g/dL (2.2-4.2); Glucose 105 mg/dL (74-106); Potassium 3.9 mmol/L (3.5-5.1); Protein, Total 7.1 g/dL (6.4-8.2); Sodium Level 139 mmol/L (136-145)
--- NOTE | 2023-05-19 19:40 | CT_ITS ---
STUDY: CT ABDOMEN AND PELVIS WITHOUT CONTRAST REASON FOR EXAM: Female, 67 years old. abdominal pain/ constipation RADIATION DOSAGE (If Supplied By Facility): CTDIvol = ( 10.59 ) mGy, DLP = ( 563.55 ) mGycm TECHNIQUE: Transaxial images were obtained from the dome of the diaphragm to the symphysis pubis without oral contrast, and without intravenous contrast. Sagittal and coronal images were reconstructed. Individualized dose optimization techniques were used for this CT. COMPARISON: None. FINDINGS: The visualized lung bases are unremarkable. The visualized portions of the heart are within normal limits. Normal liver. Normal gallbladder and extrahepatic biliary system. Unusual appearance to the spleen with multiple lobulations possibly from prior trauma and/or surgery. Normal pancreas. Normal bilateral adrenal glands. There is severe cortical atrophy of the right kidney, consistent with chronic medical renal disease. There is severe cortical atrophy of the left kidney, consistent with chronic medical renal disease. Right pelvic renal transplant without hydronephrosis. There is a small hiatal hernia. Normal small intestine. Normal colon. There is non-visualization of the appendix. Normal abdominal aorta. Normal inferior vena cava. Normal retroperitoneum. Normal urinary bladder. Normal abdominal wall. Mild levoscoliosis lumbar spine. CT/Abdomen/Pelvis without Cont IMPRESSION: No acute abnormality. Small hiatal hernia. 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 Electronically Signed: Fortunato Guerra MD at 21:26 [facility] ,
[2023-05-19 22:04] LABS: Absolute Lymphocyte Count 1.95 X10^3/uL (0.83-4.51); Absolute Neutrophil Count 6.9 X10^3/uL (2.0-7.7); Basophil# 0.05 X10^3/uL; Basophil% 0.5 % (0-1); Eosinophil# 0.04 X10^3/uL; Eosinophils% 0.4 % (0-5); Hematocrit 42.2 % (37-47); Hemoglobin 13.8 g/dL (12.0-15.0); Lymphocyte # 1.95 X10^3/ul (0.83-4.51); Lymphocyte % 19.9 % (19-41); Mean Corp Hgb Conc 32.7 g/dL (32-36); Mean Corpuscular Hgb 30.3 pg (27.0-32.0); Mean Corpuscular Volume 92.7 fL (81-99); Mean Platelet Vol. 9.7 fl (6.2-12.0); Monocyte% 8.2 % (0-10); NRBC Flagged by Analyzer 0 % (0-5); Neutrophil # 6.91 X10^3/uL (2.7-7.7); Neutrophil % 70.5 % (47-70); Platelet Count 328 K/mm3 (150-450); RBC Distribution Width CV 13.1 % (11.6-14.6); RBC Distribution Width SD 43.8 fl (35.1-43.9); Red Blood Count 4.55 M/mm3 (4.2-5.4); White Blood Count 9.8 K/mm3 (4.4-11.0)
== END 2023-05-19 23:06 | disposition home or self-care (01) ==
PROVIDERS: Emergency Provider Student in an Organized Health Care Education/Training Program; PCP Family Medicine; Visit Provider Student in an Organized Health Care Education/Training Program
DX: K59.00 Constipation, unspecified (principal); N18.6 End stage renal disease; K21.9 Gastro-esophageal reflux disease without esophagitis; Z94.0 Kidney transplant status
CPT/HCPCS: 36415; 74176; 80053; 85025; 99284; A4216